=== PATIENT | female | born 1935 | race Caucasian/White ===

== ENCOUNTER 2017-08-13 08:49 | Emergency (ER) | payer OTHER, BC, SELFPAY ==
[2017-08-13 08:49] VITALS: BP 155/75; PULSE 74; RESP 18; TEMP 36.4; O2SAT 98; BMI 44.9
--- NOTE | 2017-08-13 08:58 | RAD_ITS ---
STUDY: X-RAY - RIGHT WRIST REASON FOR EXAM: Female, 82 years old. Fell on ice this morning. Pain. TECHNIQUE: 3 view(s) of the wrist were obtained. COMPARISON: None. FINDINGS: Normal visualized distal radius and ulna. There is degenerative arthrosis of the radiocarpal articulation. Normal distal radioulnar articulation. Normal carpal bones. There is degenerative arthrosis of the carpal articulations. There is degenerative arthrosis of the carpometacarpal articulation of the thumb. Normal second through fifth carpometacarpal articulations. Normal visualized metacarpal bones. The soft tissue structures are unremarkable. 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 Electronically Signed: Zaid Duran DO at 9:20 EST Tel [phone], Service support ,
--- NOTE | 2017-08-13 08:58 | CT_ITS ---
STUDY: CT CERVICAL SPINE WITHOUT CONTRAST REASON FOR EXAM: Female, 82 years old. Fell on ice this morning. Neck pain. RADIATION DOSAGE (If Supplied By Facility): CTDIvol = ( 26.48 ) mGy, DLP = ( 500.86 ) mGycm TECHNIQUE: High resolution transaxial imaging was performed without contrast material. Sagittal and coronal images were reconstructed. Individualized dose optimization techniques were used for this CT. COMPARISON: None FINDINGS: Normal craniovertebral junction. Normal anterior atlantoaxial articulation. Normal odontoid process. Normal cervical lordosis. Normal vertebral bodies and posterior osseous elements. There is no evidence of acute fracture or loss of vertebral axial height.. C2-3: Normal endplates. Normal disc height and morphology. Normal central canal and intervertebral neuroforamina. C3-4: Normal endplates. Normal disc height and morphology. There is mild facet and uncovertebral joint degenerative change. Normal central canal and intervertebral neuroforamina. C4-5: Normal endplates. Normal disc height and morphology. Minimal facet and uncovertebral joint degenerative change. Normal central canal and intervertebral neuroforamina. C5-6: There is loss of disc height with endplate spondylosis. There is facet and uncovertebral joint degenerative change. Normal central canal and intervertebral neuroforamina. C6-7: Normal endplates. There is mild loss of disc height. There is facet and uncovertebral joint degenerative change. Normal central canal and intervertebral neuroforamina. C7-T1: Normal endplates. Normal disc height and morphology. Normal central canal and intervertebral neuroforamina. Normal visualized soft tissue structures. CT/Spine Cervical without Contras IMPRESSION: Minimal degenerative changes of the cervical spine. There is no evidence of acute fracture or subluxation. Electronically Signed: Zaid Duran DO at 9:49 EST Tel [phone], Service support ,
--- NOTE | 2017-08-13 08:58 | CT_ITS ---
STUDY: CT BRAIN WITHOUT CONTRAST REASON FOR EXAM: Female, 82 years old. Fell on ice. No loss of consciousness. Neck pain. History of thyroid cancer with thyroidectomy and radiation. RADIATION DOSAGE (If Supplied By Facility): CTDIvol = ( 44.99 ) mGy, DLP = ( 779.24 ) mGycm TECHNIQUE: Transaxial CT imaging of the brain was performed without administration of intravenous contrast material. Individualized dose optimization techniques were used for this CT. COMPARISON: None. FINDINGS: Normal soft tissue structures. Normal calvarium. There is mild cerebral atrophy with widening of the extra-axial spaces and ventricular dilatation. There are areas of decreased attenuation within the white matter tracts of the supratentorial brain, consistent with microvascular disease changes. Normal basal ganglia and thalami. Normal brainstem. Normal cerebellum. There is no intracranial hemorrhage. There are no findings of an acute ischemic infarction. Normal visualized paranasal sinuses. CT/Brain/Head without Contrast IMPRESSION: Chronic involutional changes without evidence of acute intracranial or calvarial abnormality. Electronically Signed: Zaid Duran DO at 9:45 EST Tel [phone], Service support ,
--- NOTE | 2017-08-13 09:01 | ED.DCSUM_ITS ---
- ER Visit Summary Date of Service: 08/13/17 Chief Complaint: Mechanical fall History of Present Illness: The patient is a 82 F [place] to the emergency department after mechanical fall. The patient states that she is supposed to use a cane or walker, but out of pride she does not use it regularly. She was walking into her garage. She slipped on ice and fell. She struck her right neck on a door frame. She denies hitting her head. She denies loss of consciousness. She did catch herself with her right wrist. She states that because of her size and gait instability she was unable to get herself up. She sat outside for about an hour. She was able to call her granddaughter who was able to stand her. The patient was able to ambulate. She was brought in for further evaluation. She denies any anticoagulants. She denies any weakness or numbness. She denies being prodromal prior to the fall. Physical Examination: Vital signs reviewed General: Well-nourished, well-developed Head: Normocephalic, atraumatic Eyes: Pupils equal and reactive, extraocular muscles intact Neck, supple, no lymphadenopathy mild tenderness over right sternal clear mastoid musculature, no midline tenderness Heart: Regular rate and rhythm Respiratory: No distress, clear bilaterally Abdomen: Soft, nontender, nondistended, no peritoneal signs Back: Nontender Extremities: No tenderness of the wrist, normal pulses, skin intact, no edema, no cords Skin: Normal color no rash Neuro: Alert and oriented, no focal or lateralizing deficits Test Results: [] Emergency Department Course and Treatment: Patient did have a mechanical fall with no loss of consciousness. She does have some pain in the lateral neck. With her age, I did obtain head CT and CT C-spine. I also obtained x-rays of the wrist. She has no symptoms that concern me for arterial dissection. Her plain films and CTs were reviewed. The patient declined analgesics. Since images were unremarkable. This was a work-related injury patient be allowed to return to work at her next scheduled shift with minimal restrictions. She will be given follow-up with [employer]. The patient is discharged home. Treatment Plan: [] Disposition: Discharge Impression: 1. Cervical strain status post fall 2. Right wrist contusion status post fall This note was generated with [employer] software. It may contain incorrect words, spelling, and punctuation that were not noted in review of the chart prior to signing ED Disposition - Plan for ED Patient: Chief Complaint: Fall Instructions: ED Mechanical Fall Referrals: MUNIR AMARAL [GROUP OF PHYSICIANS] -
[2017-08-13 10:41] VITALS: BP 143/79; PULSE 82; RESP 16; O2SAT 97
== END 2017-08-13 10:42 | disposition home or self-care (01) ==
LOC: ED 09:46
PROVIDERS: Emergency Provider Emergency Medicine; Family Provider Internal Medicine; PCP Internal Medicine
DX: S10.93XA Contusion of unspecified part of neck, initial encounter (principal); S60.211A Contusion of right wrist, initial encounter; R26.89 Other abnormalities of gait and mobility; W00.0XXA Fall on same level due to ice and snow, initial encounter; Y93.01 Activity, walking, marching and hiking; Y92.9 Unspecified place or not applicable; E11.9 Type 2 diabetes mellitus without complications; I10 Essential (primary) hypertension; Z86.39 Personal history of other endocrine, nutritional and metabolic disease; Z79.01 Long term (current) use of anticoagulants; Z79.899 Other long term (current) drug therapy
CPT/HCPCS: 70450; 72125; 73110; 99282

== ENCOUNTER 2017-12-02 09:17 | Emergency (ER) | payer OTHER, BC, SELFPAY ==
[2017-12-02 09:18] VITALS: BP 160/135; PULSE 86; RESP 20; TEMP 36.4; O2SAT 96; BMI 45.4
--- NOTE | 2017-12-02 09:38 | ED.DCSUM_ITS ---
- ER Visit Summary Date of Service: 12/02/17 Chief Complaint: Fall History of Present Illness: The patient is a [address] Best. She reports that she was at work and caught her foot on TV stand and tripped. She hit the left side of her chin and supraclavicular area on a nightstand. She reports that she has pain is 4 out of 10 severity. She denies any blow to the head or loss of consciousness. She is not on blood thinners. Patient reports that initially the area was very swollen and that has actually improved greatly. Patient denies any C-spine pain, back, shoulder, wrist, or hip pain. She denies loose teeth or malocclusion. Physical Examination: Vitals: Stable. Afebrile. Neck: No vertebral tenderness. Full ROM without difficulty. Cleared by NEXUS criteria. Supraclavicular hematoma that is approximately 4 cm in diameter. This is not tense. Face: Soft tissue swelling and mild tenderness palpation to the angle of the left side of her mandible. She has no pain with opening and closing her mouth. No malocclusion. No pain over the TM joint. Back: No vertebral tenderness. General: A&O x 3. NAD. Cardiovascular exam: Regular rate and rhythm, no murmur, rub or gallop. Respiratory exam: Chest nontender. No crepitus. Clear to auscultation bilaterally. No wheezes or stridor. Abdominal exam: Soft, nontender, nondistended, normal bowel sounds. No pain in RUQ or LUQ specifically. No peritoneal signs. Extremity: Atraumatic. No pain with range of motion. No tenderness to palpation over her left clavicle. Emergency Department Course and Treatment: Patient refused pain medications and is asking to return to work at this time. Treatment Plan: Patient will be discharged with instructions to follow-up with corporate care in 1 week for another exam. Return to the emergency department for any worsening symptoms. Disposition: To home in improved and stable condition. Impression: 1. Fall. 2. Left supraclavicular hematoma. 3. Contusion left mandible. This note was generated with [employer] software. It may contain incorrect words, spelling, and punctuation that were not noted in review of the chart prior to signing ED Disposition - Plan for ED Patient: Chief Complaint: Fall Instructions: ED Hematoma Referrals: [facility] [GROUP OF PHYSICIANS] - 1 Week
[2017-12-02 11:35] VITALS: BP 140/70
[2017-12-02 11:38] VITALS: BP 140/70; PULSE 82; RESP 18
== END 2017-12-02 11:40 | disposition home or self-care (01) ==
PROVIDERS: Emergency Provider Emergency Medicine; Family Provider Internal Medicine; PCP Internal Medicine
DX: S10.83XA Contusion of other specified part of neck, initial encounter (principal); S00.83XA Contusion of other part of head, initial encounter; R40.2410 Glasgow coma scale score 13-15, unspecified time; W01.198A Fall on same level from slipping, tripping and stumbling with subsequent striking against other object, initial encounter; Y93.9 Activity, unspecified; Y92.9 Unspecified place or not applicable; I10 Essential (primary) hypertension; E03.9 Hypothyroidism, unspecified; Z79.01 Long term (current) use of anticoagulants; Z79.899 Other long term (current) drug therapy
CPT/HCPCS: 99283

== ENCOUNTER 2018-11-13 16:28 | Emergency (ER) | payer BC, SELFPAY ==
[2018-11-13 16:30] VITALS: BP 143/114; PULSE 99; RESP 16; TEMP 36.4; O2SAT 98; BMI 43.2
--- NOTE | 2018-11-13 16:51 | EKG12_ITS ---
Test Reason : PALPS Blood Pressure : / mmHG Vent. Rate : 092 BPM Atrial Rate : 096 BPM P-R Int : 000 ms QRS Dur : 064 ms QT Int : 354 ms P-R-T Axes : 000 -04 048 degrees QTc Int : 437 ms Atrial fibrillation Abnormal ECG Confirmed by RU CAMPBELL ([id number]), graphic editor WOODY JADE ([id number]) on 11/19/2018 3:31:41 PM Referred By: JENIFER Confirmed By:RU CAMPBELL
--- NOTE | 2018-11-13 16:51 | RAD_ITS ---
STUDY: X-RAY CHEST REASON FOR EXAM: Female, 83 years old. Dyspnea TECHNIQUE: Frontal view of the chest COMPARISON: X-Ray Chest June 20, 2015 FINDINGS: The lungs are clear. There are no pleural effusions. There is no pneumothorax. The heart is enlarged. The visualized osseous structures are within normal limits. 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 Cardiomegaly. Electronically Signed: Chip Dixon, at 17:29 EDT Tel , Service support ,
--- NOTE | 2018-11-13 16:54 | ED.DCSUM_ITS ---
- ER Visit Summary Date of Service: 11/13/18 Chief Complaint: A. fib History of Present Illness: The patient is a [address] Pereyra's office today to establish care. She was noted to be in atrial fibrillation with no known history. Patient thinks her last EKG was done approximately a year ago. She reports not taking her thyroid medication for the past 4 to 6 weeks. Patient has no complaints and states overall she is been feeling well. Physical Examination: Blood pressure is 143/114, temperature 97.6, heart rate 99, respiratory rate 16, pulse ox 98% on room air. Patient sitting upright in bed no acute distress. Head and neck examination unremarkable. Heart is irregular. Lung sounds clear. Abdomen is soft nontender. Test Results: EKG is atrial fibrillation at 92 bpm with no acute ST change. Portable chest x-ray shows cardiomegaly with no acute pathology. CBC and chemistry studies normal. Magnesium normal. TSH is normal at 0.36. Emergency Department Course and Treatment: Patient's heart rate has varied between 80 and 105 while in the emergency room. I spoke with Dr. Avila, on- call for cardiology. Patient will be given a 24-hour Holter monitor and will be started on Xarelto. She will follow-up in the office for an echocardiogram. I also spoke with Dr. Zapata, on-call for the patient's primary care physician Dr. Pereyra. With the patient's TSH currently being normal we will not restart her Synthroid. We will add a T3 and free T4 and patient will follow-up in the office to discuss need for her Synthroid. Treatment Plan: [] Disposition: Discharge Impression: 1. New onset A. fib This note was generated with [employer] dictation software. It may contain incorrect words, spelling, and punctuation that were not noted in review of the chart prior to signing ED Disposition - Plan for ED Patient: Disposition: Home or Assisted Living Instructions: ED Afib Prescriptions: Rivaroxaban [Xarelto] 15 mg PO BID #42 tablet Referrals: Chip Pereyra MD [Primary Care Provider] - 1 Week Linus Avila MD [STAFF PHYSICIAN] - As soon as possible Additional Instructions: Follow-up with Dr Pereyra about your thyroid tests and need for Synthroid. Follow-up with Dr Avila for the atrial fibrillation and for further testing.
[2018-11-13 17:01] LABS: Absolute Lymphocyte Count 1.75 X10^3/ul (0.83-4.51); Absolute Neutrophil Count 4.2 X10^3/uL (2.0-7.7); Basophil# 0.02 X10^3/uL; Basophil% 0.3 % (0-1); Eosinophil# 0.31 X10^3/uL; Eosinophils% 4.4 % (0-5); Hematocrit 40.7 % (37-47); Lymphocyte # 1.75 X10^3/ul (4.0); Mean Corp Hgb Conc 31.9 g/gl (32-36); Mean Corpuscular Hgb 29.5 pg (27.0-32.0); Mean Corpuscular Volume 92.5 fL (81-99); Mean Platelet Vol. 9.5 fl (6.2-12.0); Monocyte# 0.74 X10^3/uL; Monocyte% 10.6 % (0-10); Neutrophil # 4.15 X10^3/uL (2.7-7.7); Neutrophil % 59.4 % (47-70); Platelet Count 261 K/mm3 (150-450); RBC Distribution Width CV 13.3 % (11.6-14.6)
[2018-11-13 17:04] LABS: POSITIVE COUNT NO; POSITIVE DIFFERENTIAL NO; POSITIVE MORPHOLOGY NO
[2018-11-13 17:35] LABS: Anion Gap 5 (5-15); BUN 12 mg/dL (7-18); BUN/Creat Ratio 21.3 RATIO (10-20); Calcium,Total 8.6 mg/dL (8.5-10.1); Chloride 108 mmol/L (98-107); Creatinine, Serum 0.56 mg/dL (0.55-1.02); EST Glomerular Filtration Rate 109 mL/min (>60); Est Glom Filt Rate - Afr Amer 132 mL/min (>60); Estimated Creatinine Clearance 39.03 ml/min; Glucose 96 mg/dL (74-106); Magnesium 1.8 mg/dL (1.6-2.6); Sodium Level 141 mmol/L (136-145); Thyroid Stim Hormone (TSH) 0.36 uIU/mL (0.358-3.74)
[2018-11-13] MEDS: Rivaroxaban 15 MG Tablet PO (18:23)
[2018-11-13 18:29] VITALS: BP 129/92; PULSE 79; RESP 19; O2SAT 98
[2018-11-13 19:13] VITALS: BP 149/75; PULSE 79; RESP 17; O2SAT 95
[2018-11-13 19:36] LABS: T4 Free Direct 1.64 ng/dL (0.76-1.46)
[2018-11-13 19:46] LABS: T3 Total - Triiodothyronine 0.96 ng/mL (0.6-1.81)
== END 2018-11-13 19:14 | disposition home or self-care (01) ==
PROVIDERS: Emergency Provider Emergency Medicine; Family Provider Family Medicine; PCP Family Medicine
DX: I48.91 Unspecified atrial fibrillation (principal); I11.9 Hypertensive heart disease without heart failure; Z91.14 Patient's other noncompliance with medication regimen; J44.9 Chronic obstructive pulmonary disease, unspecified; E03.9 Hypothyroidism, unspecified; Z85.850 Personal history of malignant neoplasm of thyroid; Z86.718 Personal history of other venous thrombosis and embolism; Z86.711 Personal history of pulmonary embolism; Z87.891 Personal history of nicotine dependence; Z79.899 Other long term (current) drug therapy
CPT/HCPCS: 71045; 80048; 83735; 84439; 84443; 84480; 85025; 93005; 99285; J7030; A4216

== ENCOUNTER → 2018-11-13 | Outpatient (CLI) | payer BC, SELFPAY ==
[2018-11-13 16:30] VITALS: BMI 43.2
== END | disposition home or self-care (01) ==
LOC: CVS 18:14
PROVIDERS: Family Provider Family Medicine; PCP Family Medicine; Referring Provider Emergency Medicine; Visit Provider Emergency Medicine
DX: I48.91 Unspecified atrial fibrillation (principal)
CPT/HCPCS: 93225; 93226

== ENCOUNTER 2020-09-28 15:31 | Inpatient (IN) | payer MEDICARE, SELFPAY ==
[2020-09-28] VITALS (12 sets, daily range): BP systolic 91–142; BP diastolic 43–94; PULSE 74–157; RESP 20–29; TEMP 36.6–36.8; O2SAT 91–100; BMI 34.1
--- NOTE | 2020-09-28 15:58 | EKG12_ITS ---
Test Reason : AFIB Blood Pressure : / mmHG Vent. Rate : 151 BPM Atrial Rate : 131 BPM P-R Int : 000 ms QRS Dur : 072 ms QT Int : 272 ms P-R-T Axes : 000 006 058 degrees QTc Int : 431 ms Atrial fibrillation with rapid ventricular response Low voltage QRS Nonspecific ST and T wave abnormality Abnormal ECG Confirmed by NAA WYLIE, SHERLYN ([id number]), food expeditor MIGUEL FARMER ([id number]) on 10/01/2020 9:38:44 AM Referred By: SOPHIA Confirmed By:SHERLYN JACOME MD
[2020-09-28 16:08] LABS: Absolute Lymphocyte Count 0.48 X10^3/uL (0.83-4.51); Absolute Neutrophil Count 16.9 X10^3/uL (2.0-7.7); Basophil# 0.04 X10^3/uL; Basophil% 0.2 % (0-1); Eosinophil# 0.04 X10^3/uL; Eosinophils% 0.2 % (0-5); Hematocrit 39.2 % (37-47); Hemoglobin 12.9 g/dL (12.0-15.0); Lymphocyte # 0.48 X10^3/ul (4.0); Lymphocyte % 2.4 % (19-41); Mean Corp Hgb Conc 32.9 g/dL (32-36); Mean Corpuscular Hgb 31.7 pg (27.0-32.0); Mean Corpuscular Volume 96.3 fL (81-99); Mean Platelet Vol. 9.1 fl (6.2-12.0); Monocyte# 2.03 X10^3/uL; Monocyte% 10.3 % (0-10); NRBC Flagged by Analyzer 0 % (0-5); Neutrophil # 16.89 X10^3/uL (2.7-7.7); Neutrophil % 85.8 % (47-70); POSITIVE DIFFERENTIAL YES; Platelet Count 396 K/mm3 (150-450); RBC Distribution Width CV 13.7 % (11.6-14.6); RBC Distribution Width SD 48.3 fl (35.1-43.9); Red Blood Count 4.07 M/mm3 (4.2-5.4); White Blood Count 19.7 K/mm3 (4.4-11.0)
[2020-09-28 16:10] LABS: Differential Indicated SCAN CRITERIA MET
[2020-09-28] MEDS: Aspirin 81 MG TAB.CHEW 324 MG PO (16:15)
[2020-09-28] MEDS: dilTIAZem 25 MG/5 ML Vial 20 MG IV BOLUS (16:15)
--- NOTE | 2020-09-28 16:23 | RAD_ITS ---
STUDY: X-RAY CHEST REASON FOR EXAM: Female, 85 years old. chest pain GENERALIZED WEAKNESS FOR SEVERAL DAY. PT REPORTS PAIN UNDER RIGHT BREAST AREA. DENIES INJURY the remaining visualized lung diaz are clear. Stable bilateral shoulder prostheses. TECHNIQUE: Single AP portable view of the chest. COMPARISON: NOVEMBER 13, 2018 FINDINGS: Small wedge-shaped region of consolidation is present in the right lower lobe most likely due to pneumonia. The lungs are clear and expanded. There is no demonstrated pleural abnormality. Normal size heart. Normal mediastinum and tin. Normal visualized pulmonary arteries. Normal visualized aortic arch and descending thoracic aorta. There are diffuse degenerative changes of the visualized thoracic spine. Normal visualized ribs, clavicles, and shoulders. There is no demonstrated abnormality of the visualized soft tissue structures of the upper abdomen. RAD/Chest 1 View (Portable) IMPRESSION: Right lower lobe pneumonia Electronically Signed: Nick Love MD at 17:35 EDT , Service support ,
[2020-09-28 16:36] LABS: Differential Comment SCANNED
[2020-09-28 16:45] LABS: BNP,B-Type NATRIURETIC PEPTIDE 182.9 pg/mL (0-100)
[2020-09-28 17:26] LABS: Lactic Acid 1.3 mmol/L (0.4-1.9)
[2020-09-28 17:42] LABS: Lipase 50 U/L (73-393)
[2020-09-28 17:46] LABS: AST(SGOT) 18 U/L (15-37); Alanine Aminotransfer ALT/SGPT 12 U/L (13-56); Albumin, Serum 2.7 g/dL (3.2-5.0); Alkaline Phosphatase 111 U/L (45-117); Bilirubin, Direct 0.52 mg/dL (0.00-0.30); Globulin 4.7 g/dL (2.2-4.2); Protein, Total 7.4 g/dL (6.4-8.2)
--- NOTE | 2020-09-28 17:53 | ED.RN ---
called lab to draw pt bloodwork
[2020-09-28 17:59] LABS: Anion Gap 7 (5-15); BUN 6 mg/dL (7-18); Calcium,Total 9.1 mg/dL (8.5-10.1); Chloride 100 mmol/L (98-107); Creatinine, Serum 0.54 mg/dL (0.55-1.02); EST Glomerular Filtration Rate 114 mL/min (>60); Est Glom Filt Rate - Afr Amer 137 mL/min (>60); Estimated Creatinine Clearance 37.68 ml/min; Glucose 111 mg/dL (74-106); Magnesium 1.6 mg/dL (1.6-2.6); Potassium 3.9 mmol/L (3.5-5.1); Sodium Level 135 mmol/L (136-145)
[2020-09-28 18:09] LABS: International Normalized Ratio 1.3; Prothrombin Time (Protime)PT. 15.2 SECONDS (11.7-14.9)
[2020-09-28] MEDS: 0.9% Normal Saline 1,000 ML 999 ML IV (18:09)
[2020-09-28 18:10] LABS: Partial Thromboplast Time 29.9 Seconds (24.1-36.2)
--- NOTE | 2020-09-28 18:28 | CT_ITS ---
We are attempting to reach an attending provider to discuss findings. An addendum with communication details will be sent when the communication is complete. STUDY: CTA CHEST REASON FOR EXAM: Female, 85 years old. PE RADIATION DOSAGE (If Supplied By Facility): CTDIvol = ( 32.9 ) mGy, DLP = ( 548.22 ) mGycm TECHNIQUE: The examination was performed with the intravenous administration of IV 100mL Isovue-370. Post-processing of the angiographic images was performed, with multiplanar reformation and 3D reconstruction. Individualized dose optimization techniques were used for this CT. COMPARISON: Chest x-ray dated September 28, 2020. CT of the chest dated February 05, 2015 FINDINGS: Partially occlusive clots are present in the distal branching point of the right main pulmonary artery extending into the secondary and tertiary arterial branches throughout the right lung. Moderate size wedge-shaped area of consolidation in the right lower lobe is compatible with infarction related to the pulmonary artery emboli. Small emboli are present in several of the secondary and tertiary arterial branches of the left pulmonary artery. The left main pulmonary artery is normal as well as a trauma. A small right pleural effusion is also present. Mild basilar atelectasis is present in the right lung base. There may be some mild groundglass edema bilaterally, but this could be related to respiratory motion artifact. No nodules are present. There is atherosclerotic calcification of the aortic arch with tortuosity. There is no demonstrated aortic dissection. Normal heart size and pericardium. Normal mediastinum. Normal hilar regions. Normal visualized trachea and bronchi. The lungs are well expanded. Normal chest wall structures. There are degenerative changes of thoracic spine. Normal visualized upper abdomen. CT/CTA Chest W/WO Contrast IMPRESSION: 1. Bilateral pulmonary artery emboli, right greater than left = Partially occlusive clots are present in the distal branching point of the right main pulmonary artery extending into the secondary and tertiary arterial branches throughout the right lung. 2. Moderate size wedge-shaped area of consolidation in the right lower lobe is compatible with infarction related to the pulmonary artery emboli. 3. Small emboli are present in several of the secondary and tertiary arterial branches of the left pulmonary artery. The left main pulmonary artery is normal as well as a trauma. A small right pleural effusion is also present. Electronically Signed: Nick Love MD at 20:06 EDT , Service support ,
[2020-09-28 18:34] LABS: Mucous, Urine 0 SEEN /hpf (<or=2+)
[2020-09-28 18:40] LABS: Color, Urine Yellow (Yellow); Glucose, Dipstick Normal (Normal); Ketone-Dipstick Negative (Negative); Leukocyte Esterase-Dipstick 25 /ul (Negative); Nitrite-Dipstick Negative (Negative); Occult Blood-Urine 10 /ul (Negative); Protein-Dipstick Negative (Negative); Urine Clarity Cloudy (Clear); Urine Urobilinogen 12 mg/dl (Normal)
[2020-09-28 18:58] LABS: Urine Bilirubin Dipstick 1 mg/dL (Negative)
[2020-09-28 19:02] LABS: Bacteria 4+ /hpf (None Seen); Red Blood Cells-Urine 0-5 SEEN /hpf (0-5); Squamous Epithelial Cells - UA 0-5 SEEN /hpf (5-10); White Blood Cells 0-5 SEEN /hpf (0-5)
[2020-09-28 19:03] LABS: Free T3 1.5 pg/mL (2.18-3.98); T4 Free Direct 1.91 ng/dL (0.76-1.46)
[2020-09-28] MEDS: fentaNYL 100 MCG/2 ML Ampul 50 MCG IV (20:04)
--- NOTE | 2020-09-28 20:23 | ED.DCSUM_ITS ---
- ER Visit Summary Date of Service: 09/28/20 Chief Complaint: Chest pain History of Present Illness: The patient is a [address] Pereyra. She reports she has right-sided chest pain that began 2 to 3 hours ago. Is an aching pain is 7-10 worsened 510 currently. Is worsened by movement relieved by remaining still. She said chills and shortness of breath. She reports that she has been nausea and vomited once today. No blood in her emesis. She denies any other complaints. Physical Examination: Vitals: 98.2, 132/91, 164, 24, 93% room air which is not hypoxic. General: Well-nourished and well-developed. Head: Normocephalic atraumatic. Neck: Supple, no lymphadenopathy. No JVD. Nontender. Cardiovascular: Tachycardic regular rhythm with a 3 out of 6 stock murmur. Respiratory: No respiratory distress. Clear to auscultation bilaterally. Abdominal: Soft, nontender, nondistended, normal bowel sounds. No guarding, rebound, or peritoneal signs. Back: Nontender. Extremities: Nontender, 3+ pitting edema lower extremities bilaterally. Skin: Normal color, no rash. Neurologic: Alert and oriented ?3. Cranial nerves II through XII are intact. Normal strength and sensation. Psych: Normal affect. Test Results: EKG is A. fib at [address] changes. Is unchanged from October 2018 other than the rate. Troponin is negative. BNP is 182.9. Lactic acid is 1.3. D-dimer is 14.2. UA shows leukocytes. LFTs show total bili 1.2, direct bili 0.52, ALT of 12, albumin of 2.7. Lipase is 50. INR is 1.3. PTT is 29.9. Chem-7 shows a sodium 135, glucose 111, BUN 6, creatinine 0.54. CBC shows a white count 19.736 7 neutrophils, 10 monocytes, 2 lymphocytes, 1.1% immature granulocytes. TSH is 0.1. Clinical Impression(s) from Imaging Studies Chest X-Ray 09/28/20 16:23 IMPRESSION: Right lower lobe pneumonia Electronically Signed: Nick Love MD at 17:35 EDT , Service support , ADDENDUM: 09/28/202013 Chest CTA 09/28/20 18:28 IMPRESSION: 1. Bilateral pulmonary artery emboli, right greater than left = Partially occlusive clots are present in the distal branching point of the right main pulmonary artery extending into the secondary and tertiary arterial branches throughout the right lung. 2. Moderate size wedge-shaped area of consolidation in the right lower lobe is compatible with infarction related to the pulmonary artery emboli. 3. Small emboli are present in several of the secondary and tertiary arterial branches of the left pulmonary artery. The left main pulmonary artery is normal as well as a trauma. A small right pleural effusion is also present. Electronically Signed: Nick Love MD at 20:06 EDT , Service support , Emergency Department Course and Treatment: Initially the patient did not have a fever to make me think that she was septic she was given dose of Cardizem IV. When her white count returned I did not give her any further rate limiting agents. She was given 2 L normal saline. Chest x-ray was read as an infiltrate. She was given Unasyn and Zithromax IV. Unasyn was chosen because patient has a history of a Zenker's diverticulum and does aspirate. When the CT returned patient was given Lovenox subcu. Treatment Plan: The patient was discussed with Dr. Villareal. With her atrial fibrillation with RVR and hypotension she was given 300 mg of amiodarone IV. Heart rate decreased into the high 90s low 100s. However, she remained in atrial fibrillation. She had procedural sedation undertaken with 8 mg of etomidate. She had synchronized cardioversion performed with 200 J a single time and did go into sinus rhythm. Patient was discussed with Dr. Whitaker. She will be admitted to the hospital for further relation and treatment. Disposition: Admitted in serious condition. Impression: 1. Bilateral pulmonary emboli. 2. Right pulmonary infarct. 3. Atrial fibrillation with RVR. 4. Low TSH. 5. Critical care time 40 minutes. 6. Procedural sedation. 7. Cardioversion. This note was generated with [employer] software. It may contain incorrect words, spelling, and punctuation that were not noted in review of the chart prior to signing ED Disposition - Plan for ED Patient: Referrals: Chip Pereyra MD [Primary Care Provider] -
--- NOTE | 2020-09-28 21:22 | HP.PCM_ITS ---
Problem List (1) Acute respiratory failure with hypoxemia Status: Inactive (2) Atrial fibrillation Status: Acute (3) Pulmonary embolism Status: Acute (4) COPD (chronic obstructive pulmonary disease) Status: Chronic (5) Esophageal diverticulum Status: Chronic (6) GERD (gastroesophageal reflux disease) Status: Chronic (7) HTN (hypertension) Status: Chronic (8) History of thyroid cancer Status: Chronic (9) Hypothyroidism Status: Chronic (10) Morbid obesity with BMI of 45.0-49.9, adult Status: Chronic (11) Pure hypercholesterolemia Status: Chronic (12) DVT (deep venous thrombosis) Status: Suspected Comment: RLE, popliteal (13) Sleep apnea in adult Status: Suspected History of Present Illness Date of Admission: 09/28/20 Chief Complaint: Pain under right breast The patient is a 85 year old F with a significant history of Zenker diverticulum; thyroid cancer status post thyroidectomy; COPD; hypertension; and morbid obesity who presents to the emergency department with excruciating pain under her right breast. She described the pain as sharp. The pain improves with sitting up. The pain worsens with taking a deep breath. The pain is nonradiating. At baseline patient has difficulty walking. In the last week she has had more difficulty walking and has been immobile. Reportedly about 10 months ago her PCP told her she had atrial fibrillation. Reportedly she was sent to the emergency department and further work-up at that time did not show that she had A. fib. Past Medical History Past Medical History (Chronic Problems): Chronic Problems Esophageal diverticulum (Chronic) History of thyroid cancer (Chronic) GERD (gastroesophageal reflux disease) (Chronic) Morbid obesity with BMI of 45.0-49.9, adult (Chronic) Pure hypercholesterolemia (Chronic) Hypothyroidism (Chronic) COPD (chronic obstructive pulmonary disease) (Chronic) HTN (hypertension) (Chronic) Allergies codeine Adverse Reaction (Verified 09/28/20 19:05) I just didn't like how it made me feel Home Medications: Ambulatory Orders Medication Instructions Recorded Cholecalciferol (Vitamin D3) 2,000 unit PO DAILY 09/28/20 [Vitamin D3] Furosemide [Lasix] 20 mg PO DAILY PRN 09/28/20 Gabapentin [Neurontin] 100 mg PO TID 09/28/20 Levothyroxine [Synthroid] 150 mcg PO DAILY 09/28/20 Metoprolol Tartrate [Lopressor 25 mg PO BID 09/28/20 (beta juancarlos)] Zinc 50 mg PO DAILY 09/28/20 Surgical History: - - Thyroid resection, LUE tumor removal. 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 Denies: Chest Pain, Palpitations Respiratory: Reports: Cough - Chronic, Sputum production. Denies: Shortness of breath at rest Gastrointestinal: Denies: Abdominal Pain, Nausea, Vomiting Genitourinary: Denies: Dysuria Musculoskeletal: Denies: Joint Pain, Joint Tenderness Skin: Denies: Rash, Wounds Neurological: Denies: Numbness, Tingling, Focal weakness Psychiatric: Denies: Anxiety, Depression, Homicidal Ideations, Suicidal Ideations Hematologic/ Lymphatic: Denies: Easy Bruising, Easy Bleeding VTE Information - Inpt Only VTE Present on Admission: Yes - Given therapeutic dose of Lovenox at the ED. VTE Mechan Device Prophylaxis: None VTE Pharm Prophylaxis ordered?: No Patient Problems: Active and Suspected Problems Atrial fibrillation (Acute) Pulmonary embolism (Acute) DVT (deep venous thrombosis) (Suspected) RLE, popliteal Sleep apnea in adult (Suspected) - Physical Exam Vitals/I&O's: Vital Signs Temp Pulse Resp BP Pulse Ox 98.2 F 126 H 24 H 112/74 92 09/28/20 15:32 09/28/20 20:08 09/28/20 20:08 09/28/20 20:08 09/28/20 20:08 Oxygen Flow Rate (L/min) 2 Oxygen Delivery Method Room Air Weight: 92.986 kg Body Mass Index (BMI) 34.1 Intake and Output for Last 24 Hours 09/26/20 09/27/20 09/28/20 23:59 23:59 23:59 Intake Total 1112 / 1112 Balance 1112 / 1112 General: Alert, Oriented x3, Cooperative HEENT: Atraumatic, PERRLA, EOMI, Normocephalic Neck: Supple, No JVD, Negative Carotid Bruits Lungs: Clear to auscultation, Normal air movement Cardiovascular: Normal S1, Normal S2, No murmurs, Irregular Rate, Tachycardic Abdomen: Bowel Sounds Present, Soft, Non Tender Extremities: Capillary Refill Less than 3 Seconds, Edema - Bilateral leg edema Skin: No rashes, No breakdown Musculoskeletal: No Tenderness to Palpation of Joints or Extremities Neurological: Cranial nerves II-XII grossly intact Psych/Mental Status: Normal Affect, Appropriate Microbiology Past 72 Hours 09/28/20 16:05 Mucosa - Nose SARS-CoV-2 Antigen (Rapid) - Final Laboratory Results 09/28/20 16:00: WBC 19.7 H, RBC 4.07 L, Hgb 12.9, Hct 39.2, MCV 96.3, MCH 31.7, MCHC 32.9, RDW Std Deviation 48.3 H, RDW Coeff of Radha 13.7, Plt Count 396, MPV 9.1, Immature Gran % (Auto) 1.100 H, Neut % (Auto) 85.8 H, Lymph % (Auto) 2.4 L, [place] % (Auto) 10.3 H, Eos % (Auto) 0.2, Baso % (Auto) 0.2, Absolute Neuts (auto) 16.9 H, Absolute Lymphs (auto) 0.48 L, Nucleated RBC % 0, Differential Comment SCANNED, Diff Path Review October foll 09/28/20 16:00: Sodium Cancelled, Potassium Cancelled, Chloride Cancelled, Carbon Dioxide Cancelled, Anion Gap Cancelled, BUN Cancelled, Creatinine Cancelled, Estim Creat Clear Calc Cancelled, Est GFR (MDRD) Af Amer Cancelled, Est GFR (MDRD) Non-Af Cancelled, BUN/Creatinine Ratio Cancelled, Glucose Cancelled, Calcium Cancelled, Magnesium Cancelled, Troponin I Cancelled, TSH Cancelled 09/28/20 16:00: B-Natriuretic Peptide 182.9 H 09/28/20 16:40: PT Cancelled, INR Cancelled, APTT Cancelled, D-Dimer Quant (PE/DVT) Cancelled 09/28/20 16:40: Lactic Acid 1.3 09/28/20 17:06: Sodium 135 L, Potassium 3.9, Chloride 100, Carbon Dioxide 28.0, Anion Gap 7, BUN 6 L, Creatinine 0.54 L, Estim Creat Clear Calc 37.68, Est GFR (MDRD) Af Amer 137, Est GFR (MDRD) Non-Af 114, BUN/Creatinine Ratio 11.0, Glucose 111 H, Calcium 9.1, Magnesium 1.6, Troponin I < 0.015, TSH 0.10 L 09/28/20 17:06: Total Bilirubin 1.20 H, Direct Bilirubin 0.52 H, AST 18, ALT 12 L, Alkaline Phosphatase 111, Total Protein 7.4, Albumin 2.7 L, Globulin 4.7 H 09/28/20 17:06: Lipase 50 L 09/28/20 17:06: Free T4 1.91 H, Free T3 pg/dL 1.5 L 09/28/20 17:56: PT 15.2 H, INR 1.3, APTT 29.9, D-Dimer Quant (PE/DVT) 14.20 H* 09/28/20 18:30: Urine Color Yellow, Urine Clarity Cloudy, Urine pH 7.0, Ur Specific [place] 1.010, Urine Protein Negative, Urine Glucose (UA) Normal, Urine Ketones Negative, Urine Occult Blood 10 H, Urine Nitrite Negative, Urine Bilirubin 1 H, Urine Urobilinogen 12 H, Ur Leukocyte Esterase 25 H, Urine RBC 0- 5 SEEN, Urine WBC 0-5 SEEN, Ur Squamous Epith Cells 0-5 SEEN, Urine Bacteria 4+, Urine Mucus 0 SEEN Current Medications Amiodarone HCl 360 mg/ (Dextrose) 200 mls @ 33.333 mls/hr CONT INF .Q6H SEJAL Stop: 09/29/20 02:54 Assessment/Plan All Active Problems Atrial fibrillation (Acute) Pulmonary embolism (Acute) The patient is a 85 year old F with a significant history of Zenker diverticulum; thyroid cancer status post thyroidectomy; COPD; hypertension; and morbid obesity who presents emergency department with excruciating pain under her right breast; immobility and found to have A. fib with RVR and bilateral PE. A. fib with RVR Place on PCU on stepdown unit. Review of old records: ECG on 11/13/2018 showed atrial fibrillation with a controlled ventricular response. Of note patient was on a heart monitor that was reviewed on 11/13/2018. Holter monitor interpreted at that time as rare premature ventricular complexes, no runs noted. Patient kept 24-hour diary at that time. Serial cardiac enzymes Obtain echo Per cardiology recommendation therapeutic Lovenox was given at emergency department. Lovenox 1 mg per kilogram subcutaneous every 12 hours ordered Received amiodarone bolus after which patient was cardioverted into sinus rhythm with PACs. Whiles on the floor patient was started on amiodarone drip. With amiodarone drip patient became hypotensive and amiodarone drip was discontinued. Received Cardizem bolus at the emergency department. Potassium at emergency department was 3.9. Potassium 10 mEq x 1 ordered. Magnesium was 1.6. Magnesium 4 g ordered. Consult [facility] TSH was low. Synthroid adjusted as below. Hold home metoprolol for hypotension. Bilateral PE Chest CTA showed bilateral pulmonary anterior emboli with wedge-shaped area of consolidation in the right lower lobe compatible with infection. Mild pleural effusion was noted. Actual CTA image was independently interpreted. I agree with radiologist interpretation. Impression of chest x-ray by radiology: Right lower lobe pneumonia. Following this interpretation patient was given IV antibiotics. However with a chest CTA confirming a PE no need of antibiotics at this time. See therapy dose of Lovenox at the emergency department. Therapeutic Lovenox subcutaneous continue. We will get an echocardiogram. We will trend troponins. Hypothyroidism Patient with thyroid cancer status post thyroidectomy and on levothyroxine. TSH low. Free T4 elevated and free T3 low. De-escalate dose of Synthroid. DVT Prophylaxis Not indicated since patient has been started on therapeutic dose of Lovenox for A. fib and PE. Inpatient E&M: 75200 Init Hosp L3
[2020-09-28] MEDS: Enoxaparin 100 MG/ML Syringe 90 MG SC (21:29)
[2020-09-28] MEDS: Etomidate 20 MG/10 ML Vial 8 MG IV (22:27)
--- NOTE | 2020-09-28 23:57 | ECHOCS_ITS ---
Reason For Study: Afib/Flutter Procedure This was a 2D Doppler, Color Flow transthoracic echocardiogram. The study was technically difficult. Contrast injection was performed. Exam performed portable in patient room. Left Ventricle Normal LV size. Left ventricular systolic function is normal. The estimated ejection fraction is 60 %. Stage 3 diastolic dysfunction. No regional wall motion abnormalities noted. Right Ventricle Normal RV size. Normal systolic function. Atria The left atrium is mildly enlarged. The right atrium is mildly enlarged. Mitral Valve Normal mitral valve. Tricuspid Valve Normal tricuspid valve. Moderate (2+) tricuspid valve insufficiency. Pulmonary artery systolic pressure is 62 mmHg. Aortic Valve Trisinus/trileaflet aortic valve. Mild focal aortic valve calcification. Pulmonic Valve The pulmonic valve is not well visualized. Great Vessels Normal aortic root. The pulmonary artery is normal size. Normal inferior vena cava. Pericardium/Pleural No pericardial effusion. Medication Diluted definity 5ml given slow IV push to enhance endocardial definition. MMode/2D Measurements & Calculations LVIDd: 3.9 cm IVSd: 1.0 cm Ao root diam: 3.5 cm LVIDs: 2.5 cm LVPWd: 1.2 cm LA dimension: 4.1 cm FS: 34.8 % LAV(MOD-bp): 80.7 ml LA A4 area: 25.1 cm2 RA A4 area: 24.1 cm2 LAV(MOD-bp) Indexed: 37.1 ml/m2 LAV(MOD-sp2): 80.7 ml LAV(MOD-sp4): 76.5 ml Time Measurements MV dec time: 0.22 sec Doppler Measurements & Calculations MV E max [place]: 126.8 cm/sec Lat Peak E' [place]: 10.7 cm/sec Med Peak E' [place]: 7.4 cm/sec MV A max [place]: 51.9 cm/sec E/E' lat: 11.8 E/E' med: 17.2 MV E/A: 2.4 MV V2 max: 134.1 cm/sec MV P1/2t max [place]: 135.6 cm/sec Ao V2 max: 124.7 cm/sec MV max P.2 mmHg MV P1/2t: 72.0 msec Ao max P.2 mmHg MV V2 mean: 59.9 cm/sec MV dec slope: 551.6 cm/sec2 MV mean P.9 mmHg MV V2 VTI: 27.9 cm MVA(P1/2t): 3.1 cm2 LV V1 max: 93.3 cm/sec PA V2 max: 81.5 cm/sec TR max [place]: 382.7 cm/sec LV V1 max P.5 mmHg TR max P.6 mmHg ECHO/Echo Complete W/ Contrast Interpretation Summary Normal LV size. Left ventricular systolic function is normal. The estimated ejection fraction is 60 %. Moderate (2+) tricuspid valve insufficiency. Pulmonary artery systolic pressure is 62 mmHg. Stage 3 diastolic dysfunction. The right atrium is mildly enlarged. Compared to the previous the pulmonary pressures are noted to be more elevated. Contrast injection was performed. Ordering Physician: Stanford Whitaker Referring Physician: Chip Pereyra Performed By: Mk Jean RCS
[2020-09-29] VITALS (22 sets, daily range): BP systolic 80–121; BP diastolic 41–70; PULSE 62–88; RESP 13–25; TEMP 36.3–36.8; O2SAT 91–96; BMI 41.8
--- NOTE | 2020-09-29 00:25 | EKG12_ITS ---
Test Reason : RHYTHM CHANGE Blood Pressure : / mmHG Vent. Rate : 083 BPM Atrial Rate : 083 BPM P-R Int : 176 ms QRS Dur : 070 ms QT Int : 374 ms P-R-T Axes : 088 -06 041 degrees QTc Int : 439 ms Sinus rhythm with marked sinus arrhythmia Nonspecific T wave abnormality Abnormal ECG Confirmed by NAA WYLIE, SHERLYN ([id number]), sound editor MIGUEL FARMER ([id number]) on 09/30/2020 8:30:15 AM Referred By: MO Confirmed By:SHERLYN JACOME MD
[2020-09-29] MEDS: Amiodarone 360 MG in Dextrose 5% Viaflo Bag 192.8 ML 33.3 MG CONT INF (00:54)
[2020-09-29] MEDS: 0.9% Saline Lock 10 ML Syringe IV (01:01)
[2020-09-29] MEDS: Magnesium Sulfate 4gm/100mL 4 GM/100 ML IV.SOLN. IV (01:01)
[2020-09-29] MEDS: Potassium Chloride Oral Tablet 10 MEQ PO (01:02)
[2020-09-29] MEDS: Nystatin Powder 15gm Bottle 1 APPLIC TOPICAL ×3 (05:21→21:46)
[2020-09-29] MEDS: Gabapentin 100 MG Capsule PO ×3 (05:21→21:45)
[2020-09-29] MEDS: Levothyroxine 125 MCG Tablet PO (05:21)
[2020-09-29 06:22] LABS: Absolute Lymphocyte Count 1.58 X10^3/uL (0.83-4.51); Basophil# 0.04 X10^3/uL; Basophil% 0.2 % (0-1); Eosinophils% 0.9 % (0-5); Hematocrit 34.3 % (37-47); Hemoglobin 11.2 g/dL (12.0-15.0); Lymphocyte # 1.58 X10^3/ul (4.0); Lymphocyte % 7.5 % (19-41); Mean Corp Hgb Conc 32.7 g/dL (32-36); Mean Corpuscular Hgb 31.8 pg (27.0-32.0); Mean Corpuscular Volume 97.4 fL (81-99); Mean Platelet Vol. 8.8 fl (6.2-12.0); Monocyte# 2.01 X10^3/uL; Monocyte% 9.5 % (0-10); NRBC Flagged by Analyzer 0 % (0-5); Neutrophil # 17.04 X10^3/uL (2.7-7.7); Neutrophil % 80.6 % (47-70); POSITIVE DIFFERENTIAL YES; Platelet Count 333 K/mm3 (150-450); RBC Distribution Width CV 13.8 % (11.6-14.6); RBC Distribution Width SD 48.8 fl (35.1-43.9); Red Blood Count 3.52 M/mm3 (4.2-5.4); White Blood Count 21.1 K/mm3 (4.4-11.0)
[2020-09-29 06:23] LABS: Differential Indicated SCAN CRITERIA MET
[2020-09-29 06:52] LABS: Anion Gap 5 (5-15); BUN 7 mg/dL (7-18); BUN/Creat Ratio 17.2 RATIO (10-20); Calcium,Total 8.5 mg/dL (8.5-10.1); Chloride 103 mmol/L (98-107); Creatinine, Serum 0.41 mg/dL (0.55-1.02); EST Glomerular Filtration Rate 159 mL/min (>60); Est Glom Filt Rate - Afr Amer 192 mL/min (>60); Estimated Creatinine Clearance 37.68 ml/min; Glucose 105 mg/dL (74-106); Potassium 3.8 mmol/L (3.5-5.1); Sodium Level 134 mmol/L (136-145)
--- NOTE | 2020-09-29 07:37 | CON.PCM_ITS ---
Reason for Consult Date of Consultation: 09/29/20 Reason for Consultation: Shortness of breath. History of Present Illness: The patient is a 85 year old F with no previous cardiac history who presented to the emergency room last night with complaints of shortness of breath which she s aid has been going on for a few days. She had a cough with no evidence of hemoptysis. She is also noted some palpitations. She presented to the emergency room and was noted to be in atrial fibrillation with a rapid ventricular response rate and hypotensive. She was also noted to have a high white count as well as a markedly elevated D-dimer. A CT scan was done which demonstrated evidence of bilateral pulmonary emboli. I was called from the emergency room for further evaluation and management it was decided that due to her apparent symptomatology that she undergo treatment with Lovenox, IV amiodarone and immediate DC cardioversion. She will continue with anticoagulation afterwards. This was successful and this morning she is in sinus rhythm and feeling better. She denies any dizziness or previous evidence of pulmonary emboli. [] Past Medical History Allergies/Adverse Reactions: Allergies codeine Adverse Reaction (Verified 09/28/20 19:05) I just didn't like how it made me feel Home Medications: Ambulatory Orders Medication Instructions Recorded Cholecalciferol (Vitamin D3) 2,000 unit PO DAILY 09/28/20 [Vitamin D3] Furosemide [Lasix] 20 mg PO DAILY PRN 09/28/20 Gabapentin [Neurontin] 100 mg PO TID 09/28/20 Levothyroxine [Synthroid] 150 mcg PO DAILY 09/28/20 Metoprolol Tartrate [Lopressor 25 mg PO BID 09/28/20 (beta juancarlos)] Zinc 50 mg PO DAILY 09/28/20 Past Medical History (Chronic Problems): Chronic Problems Esophageal diverticulum (Chronic) History of thyroid cancer (Chronic) GERD (gastroesophageal reflux disease) (Chronic) Morbid obesity with BMI of 45.0-49.9, adult (Chronic) Pure hypercholesterolemia (Chronic) Hypothyroidism (Chronic) COPD (chronic obstructive pulmonary disease) (Chronic) HTN (hypertension) (Chronic) Surgical History: - - Thyroid resection, LUE tumor removal. 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 Denies: Fever, Night Sweats HEENT: Denies: Vision Change Cardiovascular: Reports: Chest Discomfort, Shortness of Breath. Denies: Orthopnea, PND, Peripheral Edema, Palpitations, Lightheadedness, Dizziness, Near Syncope, Syncope Respiratory: Denies: Cough, Sputum Production, Hemoptysis Gastrointestinal: Denies: Hematemesis, Hematochezia, Melena Genitourinary: Denies: Dysuria, Hematuria Skin: Denies: Rash Neurological: Denies: Dizziness Psychiatric: Denies: Anxiety Hematologic/ Lymphatic: Denies: Anemia Subjectve: Pleasant lady in no distress Objective: Vital Signs Temp Pulse Resp BP Pulse Ox 97.9 F 83 25 H 112/65 93 09/29/20 07:00 09/29/20 07:00 09/29/20 07:00 09/29/20 07:00 09/29/20 07:22 Oxygen Flow Rate (L/min) [1] 2 Oxygen Flow Rate (L/min) 2 Oxygen Delivery Method [1] Nasal Cannula Oxygen Delivery Method Nasal Cannula Weight: 251 lb 5.231 oz Body Mass Index (BMI) 41.8 Intake and Output for Last 24 Hours 09/27/20 09/28/20 09/29/20 23:59 23:59 23:59 Intake Total 1473 / 1473 124.42 / 124.42 Output Total 150 / 150 Balance 1473 / 1473 -25.58 / -25.58 General: Awake, Alert, Oriented x 3 HEENT: PERRL, EOMI, Sclera Non Icteric Neck: Supple, Good ROM, No Lymph Node Enlargement Lungs: Clear to auscultation Cardiovascular: Regular Rhythm, Normal S1, Normal S2, No Murmurs, No Rubs, No Gallops Vascular: No Carotid Bruits, Normal Femoral Pulses, Normal Radial Pulses, Normal Dorsalis Pedal Pulse, Normal Posterior Tibial Pulses Abdomen: Bowel Sounds Present, Soft, Non Tender, No HSM, No Organomegaly Extremities: No Cyanosis, No Clubbing, Bilateral Edema +2 Musculoskeletal: No Erythema Skin: No Rashes Lymphatic: No Lymph Node Enlargement Neurological: No Focal Motor or Sensory Deficit 09/28/20 16:00: WBC 19.7 H, RBC 4.07 L, Hgb 12.9, Hct 39.2, MCV 96.3, MCH 31.7, MCHC 32.9, Plt Count 396, MPV 9.1, Immature Gran % (Auto) 1.100 H, Neut % (Auto) 85.8 H, Lymph % (Auto) 2.4 L, [place] % (Auto) 10.3 H, Eos % (Auto) 0.2, Baso % (Auto) 0.2, Absolute Neuts (auto) 16.9 H, Nucleated RBC % 0 09/28/20 16:00: Sodium Cancelled, Potassium Cancelled, Chloride Cancelled, Carbon Dioxide Cancelled, Anion Gap Cancelled, BUN Cancelled, Creatinine Cancelled, Est GFR (MDRD) Af Amer Cancelled, Est GFR (MDRD) Non-Af Cancelled, BUN/Creatinine Ratio Cancelled, Glucose Cancelled, Calcium Cancelled, Magnesium Cancelled, Troponin I Cancelled 09/28/20 16:00: B-Natriuretic Peptide 182.9 H 09/28/20 16:40: PT Cancelled, INR Cancelled, APTT Cancelled, D-Dimer Quant (PE/DVT) Cancelled 09/28/20 16:40: Lactic Acid 1.3 09/28/20 17:06: Sodium 135 L, Potassium 3.9, Chloride 100, Carbon Dioxide 28.0, Anion Gap 7, BUN 6 L, Creatinine 0.54 L, Est GFR (MDRD) Af Amer 137, Est GFR (MDRD) Non-Af 114, BUN/Creatinine Ratio 11.0, Glucose 111 H, Calcium 9.1, Magnesium 1.6, Troponin I < 0.015 09/28/20 17:06: Total Bilirubin 1.20 H, Direct Bilirubin 0.52 H 09/28/20 17:56: PT 15.2 H, INR 1.3, APTT 29.9, D-Dimer Quant (PE/DVT) 14.20 H* 09/28/20 18:30: Urine Color Yellow, Urine Clarity Cloudy, Urine pH 7.0, Ur Specific [place] 1.010, Urine Protein Negative, Urine Glucose (UA) Normal, Urine Ketones Negative, Urine Occult Blood 10 H, Urine Nitrite Negative, Urine Bilirubin 1 H, Urine Urobilinogen 12 H, Ur Leukocyte Esterase 25 H, Urine RBC 0- 5 SEEN, Urine WBC 0-5 SEEN 09/29/20 00:25: Troponin I < 0.015 09/29/20 03:26: Troponin I < 0.015 09/29/20 06:08: WBC 21.1 H, RBC 3.52 L, Hgb 11.2 L, Hct 34.3 L, MCV 97.4, MCH 31.8, MCHC 32.7, Plt Count 333, MPV 8.8, Immature Gran % (Auto) 1.300 H, Neut % (Auto) 80.6 H, Lymph % (Auto) 7.5 L, [place] % (Auto) 9.5, Eos % (Auto) 0.9, Baso % (Auto) 0.2, Absolute Neuts (auto) 17.0 H, Nucleated RBC % 0 09/29/20 06:08: Sodium 134 L, Potassium 3.8, Chloride 103, Carbon Dioxide 26.0, Anion Gap 5, BUN 7, Creatinine 0.41 L, Est GFR (MDRD) Af Amer 192, Est GFR (MDRD ) Non-Af 159, BUN/Creatinine Ratio 17.2, Glucose 105, Calcium 8.5 09/29/20 06:08: Troponin I < 0.015 Rhythm: EKG: Initial EKG demonstrated atrial fibrillation with rapid ventricular response rate. Follow-up EKG post cardioversion demonstrates normal sinus rhythm with no acute changes. ECHO: Pending Stress Test: Cardiac Cath: PCI: CT Surgery: Holter monitor: EPS: PPM: CXR: Chest CT Scan: Assessment/Plan 1. Recent submassive bilateral pulmonary emboli * Patient presents with significant bilateral emboli with evidence of pulmonary infarction. At this time the patient will be treated with therapeutic anticoagulation with Lovenox and then switching over to either Xarelto or Eliquis. * An echocardiogram should be performed to assess ventricular function, measure right ventricular pressures and look for evidence of right ventricular strain. Thus far her troponins are negative with a minimally elevated natruretic peptide only. * Etiologies would be sought for the cause of her pulmonary emboli. * With a history of thyroid carcinoma etiology would need to be sought for malignant causes. 2. Hypertension * Blood pressure appears to be under good control at this time. She actually was noted to be hypotensive on presentation which was likely from the pulmonary emboli and the atrial fibrillation. * 3. New onset atrial fibrillation with hypotension * She was noted to have new onset atrial fibrillation with hypotension. * At this time we will continue the anticoagulation. * The intravenous amiodarone can be discontinued after the current bag is infused. * Will switch to p.o. amiodarone. * * Thank you for allowing me to participate in the care of your patient. Please don't hesitate to call if any issues arise.
--- NOTE | 2020-09-29 10:03 | PN_ITS ---
<Romero Figueroassica TAB CUTTING MACHINE OPERATOR - Last Filed: 09/29/20 10:15> Patient Problems: Active and Suspected Problems Atrial fibrillation (Acute) Pulmonary embolism (Acute) DVT (deep venous thrombosis) (Suspected) RLE, popliteal Sleep apnea in adult (Suspected) Subjective: Patient seen and examined. States right rib/chest area pain has improved. Denies shortness of breath. Requesting SN[facility] at [facility]. - Physical Exam Vitals/I&O's: Vital Signs Temp Pulse Resp BP Pulse Ox 97.4 F L 83 19 H 108/63 96 09/29/20 08:52 09/29/20 08:52 09/29/20 08:52 09/29/20 08:52 09/29/20 08:52 Oxygen Flow Rate (L/min) [1] 2 Oxygen Flow Rate (L/min) 2 Oxygen Delivery Method [1] Nasal Cannula Oxygen Delivery Method Nasal Cannula Weight: 251 lb 5.231 oz Body Mass Index (BMI) 41.8 Intake and Output for Last 24 Hours 09/27/20 09/28/20 09/29/20 23:59 23:59 23:59 Intake Total 1473 / 1473 124.42 / 124.42 Output Total 150 / 150 Balance 1473 / 1473 -25.58 / -25.58 General: Alert, Oriented x3, Cooperative HEENT: Atraumatic, PERRLA, EOMI, Normocephalic Neck: Supple, No JVD, Negative Carotid Bruits Lungs: Clear to auscultation, Normal air movement Cardiovascular: Regular rate, No murmurs Abdomen: Bowel Sounds Present, Soft, Non Tender, Non-Distended, Obese Extremities: No clubbing, No cyanosis, Edema - Bilateral lower extremity Skin: No rashes, No breakdown Musculoskeletal: No Tenderness to Palpation of Joints or Extremities Neurological: Cranial nerves II-XII grossly intact, Neuro grossly intact Psych/Mental Status: Normal Affect, Appropriate Microbiology Past 72 Hours 09/28/20 16:05 Mucosa - Nose SARS-CoV-2 Antigen (Rapid) - Final Laboratory Results 09/28/20 16:00: WBC 19.7 H, RBC 4.07 L, Hgb 12.9, Hct 39.2, MCV 96.3, MCH 31.7, MCHC 32.9, RDW Std Deviation 48.3 H, RDW Coeff of Radha 13.7, Plt Count 396, MPV 9.1, Immature Gran % (Auto) 1.100 H, Neut % (Auto) 85.8 H, Lymph % (Auto) 2.4 L, [place] % (Auto) 10.3 H, Eos % (Auto) 0.2, Baso % (Auto) 0.2, Absolute Neuts (auto) 16.9 H, Absolute Lymphs (auto) 0.48 L, Nucleated RBC % 0, Differential Comment SCANNED, Diff Path Review October foll 09/28/20 16:00: Sodium Cancelled, Potassium Cancelled, Chloride Cancelled, Carbon Dioxide Cancelled, Anion Gap Cancelled, BUN Cancelled, Creatinine Cancelled, Estim Creat Clear Calc Cancelled, Est GFR (MDRD) Af Amer Cancelled, Est GFR (MDRD) Non-Af Cancelled, BUN/Creatinine Ratio Cancelled, Glucose Cancelled, Calcium Cancelled, Magnesium Cancelled, Troponin I Cancelled, TSH Cancelled 09/28/20 16:00: B-Natriuretic Peptide 182.9 H 09/28/20 16:40: PT Cancelled, INR Cancelled, APTT Cancelled, D-Dimer Quant (PE/DVT) Cancelled 09/28/20 16:40: Lactic Acid 1.3 09/28/20 17:06: Sodium 135 L, Potassium 3.9, Chloride 100, Carbon Dioxide 28.0, Anion Gap 7, BUN 6 L, Creatinine 0.54 L, Estim Creat Clear Calc 37.68, Est GFR (MDRD) Af Amer 137, Est GFR (MDRD) Non-Af 114, BUN/Creatinine Ratio 11.0, Glucose 111 H, Calcium 9.1, Magnesium 1.6, Troponin I < 0.015, TSH 0.10 L 09/28/20 17:06: Total Bilirubin 1.20 H, Direct Bilirubin 0.52 H, AST 18, ALT 12 L, Alkaline Phosphatase 111, Total Protein 7.4, Albumin 2.7 L, Globulin 4.7 H 09/28/20 17:06: Lipase 50 L 09/28/20 17:06: Free T4 1.91 H, Free T3 pg/dL 1.5 L 09/28/20 17:56: PT 15.2 H, INR 1.3, APTT 29.9, D-Dimer Quant (PE/DVT) 14.20 H* 09/28/20 18:30: Urine Color Yellow, Urine Clarity Cloudy, Urine pH 7.0, Ur Specific [place] 1.010, Urine Protein Negative, Urine Glucose (UA) Normal, Urine Ketones Negative, Urine Occult Blood 10 H, Urine Nitrite Negative, Urine Bilirubin 1 H, Urine Urobilinogen 12 H, Ur Leukocyte Esterase 25 H, Urine RBC 0- 5 SEEN, Urine WBC 0-5 SEEN, Ur Squamous Epith Cells 0-5 SEEN, Urine Bacteria 4+, Urine Mucus 0 SEEN 09/29/20 00:25: Troponin I < 0.015 09/29/20 03:26: Troponin I < 0.015 09/29/20 06:08: WBC 21.1 H, RBC 3.52 L, Hgb 11.2 L, Hct 34.3 L, MCV 97.4, MCH 31.8, MCHC 32.7, RDW Std Deviation 48.8 H, RDW Coeff of Radha 13.8, Plt Count 333, MPV 8.8, Immature Gran % (Auto) 1.300 H, Neut % (Auto) 80.6 H, Lymph % (Auto) 7.5 L, [place] % (Auto) 9.5, Eos % (Auto) 0.9, Baso % (Auto) 0.2, Absolute Neuts (auto) 17.0 H, Absolute Lymphs (auto) 1.58, Nucleated RBC % 0, Diff Path Review October09/29/20 06:08: Sodium 134 L, Potassium 3.8, Chloride 103, Carbon Dioxide 26.0, Anion Gap 5, BUN 7, Creatinine 0.41 L, Estim Creat Clear Calc 37.68, Est GFR (MDRD) Af Amer 192, Est GFR (MDRD) Non-Af 159, BUN/Creatinine Ratio 17.2, Glucose 105, Calcium 8.5 09/29/20 06:08: Troponin I < 0.015 Current Medications Acetaminophen (Acetaminophen 325 Mg Tablet) 650 mg PO Q6H PRN PRN PRN Reason: Pain Score 1-10/Temp > 100.7 F Apixaban (Apixaban 5 Mg Tablet) 10 mg PO BID [facility] Cholecalciferol (Cholecalciferol (Vit D3) 25 Mcg Tablet (1,000 Units)) 50 mcg PO DAILY [facility] Gabapentin (Gabapentin 100 Mg Capsule) 100 mg PO TID [facility] Last Admin: 09/29/20 05:21 Dose: 100 mg Documented by: Sodium Chloride () 250 mls @ 15 mls/hr IV .[id number] PRN PRN Reason: Saline Flush Sodium Chloride () 250 mls @ 15 mls/hr IV .[id number] PRN PRN Reason: Additional IVPB Infusion Levothyroxine Sodium (Levothyroxine 125 Mcg Tablet) 125 mcg PO DAILY@0600 [facility] Last Admin: 09/29/20 05:21 Dose: 125 mcg Documented by: Melatonin (Melatonin 3 Mg Tablet) 3 mg PO QHS PRN PRN PRN Reason: INSOMNIA Metoprolol Tartrate (Metoprolol Tartrate 25 Mg Tablet) 25 mg PO BID [facility] Nystatin (Nystatin Powder 15gm Bottle) 1 applic TOPICAL TID [facility]; Protocol Last Admin: 09/29/20 05:21 Dose: 1 applic Documented by: Ondansetron HCl (Ondansetron 4 Mg/2 Ml Vial) 4 mg IV Q8H PRN PRN PRN Reason: NAUSEA/VOMITING Senna/Docusate Sodium (Senna/Docusate Sodium 1 Tablet) 2 tablet PO BID PRN PRN PRN Reason: Constipation Sodium Chloride (0.9% Saline Lock 10 Ml Syringe) 10 - 40 ml IV UD PRN PRN Reason: SALINE FLUSH Last Admin: 09/29/20 01:01 Dose: 10 ml Documented by: Zinc Sulfate (Zinc Sulfate (50mg Elemental) 220 Mg Capsule) 220 mg PO DAILY [facility] Medical Necessity - Tobacco Use Smoking Status: Never smoker Assessment/Plan All Active Problems Atrial fibrillation (Acute) Pulmonary embolism (Acute) 1. Acute bilateral PE-CTA with bilateral pulmonary emboli, right greater than left. Initially on therapeutic Lovenox with transition to Eliquis. On 2 L supplemental oxygen however not noted to be hypoxic. Wean oxygen as tolerated, walking pulse ox prior to discharge. 2. Atrial fibrillation with RVR-synchronized cardioversion performed in ER. Transitioned from IV amiodarone to oral. Echocardiogram pending. 3. Hypothyroidism, history of thyroid cancer status post resection-TSH 0.10, free T4 1.91, free T3 1.5. Home Synthroid regimen reduced to 125 mcg. Will need repeat thyroid studies in 4 to 6 weeks. 4. Chronic COPD- no exacerbation. 5. Hypertension- stable, on metoprolol. 6. Hyperlipidemia- not on statin. 7. Morbid obesity- encouraged diet and lifestyle modifications. 8. Suspected EBONI- refused sleep study in the past. DVT prophylaxis- Eliquis Discharge planning: [facility] when medically stable, pending pre-cert. This patient was seen by VALENTINA White under the supervision of Dr. Jackson. <Kuldeep Jackson - Last Filed: 09/29/20 12:58> - Physical Exam Vitals/I&O's: Vital Signs Temp Pulse Resp BP Pulse Ox 36.3 C L 83 19 H 103/66 96 09/29/20 08:52 09/29/20 10:19 09/29/20 08:52 09/29/20 10:19 09/29/20 08:52 Oxygen Flow Rate (L/min) [1] 2 Oxygen Flow Rate (L/min) 2 Oxygen Delivery Method [1] Nasal Cannula Oxygen Delivery Method Nasal Cannula Weight: 114 kg Body Mass Index (BMI) 41.8 Intake and Output for Last 24 Hours 09/27/20 09/28/20 09/29/20 23:59 23:59 23:59 Intake Total 1473 / 1473 124.42 / 124.42 Output Total 150 / 150 Balance 1473 / 1473 -25.58 / -25.58 General: Alert, Cooperative HEENT: Atraumatic, Normocephalic Lungs: Clear to auscultation, Normal air movement Cardiovascular: Regular rate, No murmurs Abdomen: Bowel Sounds Present, Soft, Non Tender, Non-Distended, Obese Extremities: No clubbing, No cyanosis, Edema Skin: No rashes, No breakdown Psych/Mental Status: Normal Affect, Appropriate Microbiology Past 72 Hours 09/28/20 16:05 Mucosa - Nose SARS-CoV-2 Antigen (Rapid) - Final Laboratory Results 09/28/20 16:00: WBC 19.7 H, RBC 4.07 L, Hgb 12.9, Hct 39.2, MCV 96.3, MCH 31.7, MCHC 32.9, RDW Std Deviation 48.3 H, RDW Coeff of Radha 13.7, Plt Count 396, MPV 9.1, Immature Gran % (Auto) 1.100 H, Neut % (Auto) 85.8 H, Lymph % (Auto) 2.4 L, [place] % (Auto) 10.3 H, Eos % (Auto) 0.2, Baso % (Auto) 0.2, Absolute Neuts (auto) 16.9 H, Absolute Lymphs (auto) 0.48 L, Nucleated RBC % 0, Differential Comment SCANNED, Diff Path Review Reviewed 09/28/20 16:00: Sodium Cancelled, Potassium Cancelled, Chloride Cancelled, Carbon Dioxide Cancelled, Anion Gap Cancelled, BUN Cancelled, Creatinine Cancelled, Estim Creat Clear Calc Cancelled, Est GFR (MDRD) Af Amer Cancelled, Est GFR (MDRD) Non-Af Cancelled, BUN/Creatinine Ratio Cancelled, Glucose Cancelled, Calcium Cancelled, Magnesium Cancelled, Troponin I Cancelled, TSH Cancelled 09/28/20 16:00: B-Natriuretic Peptide 182.9 H 09/28/20 16:40: PT Cancelled, INR Cancelled, APTT Cancelled, D-Dimer Quant (PE/DVT) Cancelled 09/28/20 16:40: Lactic Acid 1.3 09/28/20 17:06: Sodium 135 L, Potassium 3.9, Chloride 100, Carbon Dioxide 28.0, Anion Gap 7, BUN 6 L, Creatinine 0.54 L, Estim Creat Clear Calc 37.68, Est GFR (MDRD) Af Amer 137, Est GFR (MDRD) Non-Af 114, BUN/Creatinine Ratio 11.0, Glucose 111 H, Calcium 9.1, Magnesium 1.6, Troponin I < 0.015, TSH 0.10 L 09/28/20 17:06: Total Bilirubin 1.20 H, Direct Bilirubin 0.52 H, AST 18, ALT 12 L, Alkaline Phosphatase 111, Total Protein 7.4, Albumin 2.7 L, Globulin 4.7 H 09/28/20 17:06: Lipase 50 L 09/28/20 17:06: Free T4 1.91 H, Free T3 pg/dL 1.5 L 09/28/20 17:56: PT 15.2 H, INR 1.3, APTT 29.9, D-Dimer Quant (PE/DVT) 14.20 H* 09/28/20 18:30: Urine Color Yellow, Urine Clarity Cloudy, Urine pH 7.0, Ur Specific [place] 1.010, Urine Protein Negative, Urine Glucose (UA) Normal, Urine Ketones Negative, Urine Occult Blood 10 H, Urine Nitrite Negative, Urine Bilirubin 1 H, Urine Urobilinogen 12 H, Ur Leukocyte Esterase 25 H, Urine RBC 0- 5 SEEN, Urine WBC 0-5 SEEN, Ur Squamous Epith Cells 0-5 SEEN, Urine Bacteria 4+, Urine Mucus 0 SEEN 09/29/20 00:25: Troponin I < 0.015 09/29/20 03:26: Troponin I < 0.015 09/29/20 06:08: WBC 21.1 H, RBC 3.52 L, Hgb 11.2 L, Hct 34.3 L, MCV 97.4, MCH 31.8, MCHC 32.7, RDW Std Deviation 48.8 H, RDW Coeff of Radha 13.8, Plt Count 333, MPV 8.8, Immature Gran % (Auto) 1.300 H, Neut % (Auto) 80.6 H, Lymph % (Auto) 7.5 L, [place] % (Auto) 9.5, Eos % (Auto) 0.9, Baso % (Auto) 0.2, Absolute Neuts (auto) 17.0 H, Absolute Lymphs (auto) 1.58, Nucleated RBC % 0, Diff Path Review Reviewed 09/29/20 06:08: Sodium 134 L, Potassium 3.8, Chloride 103, Carbon Dioxide 26.0, Anion Gap 5, BUN 7, Creatinine 0.41 L, Estim Creat Clear Calc 37.68, Est GFR (MDRD) Af Amer 192, Est GFR (MDRD) Non-Af 159, BUN/Creatinine Ratio 17.2, Glucose 105, Calcium 8.5 09/29/20 06:08: Troponin I < 0.015 Current Medications Acetaminophen (Acetaminophen 325 Mg Tablet) 650 mg PO Q6H PRN PRN PRN Reason: Pain Score 1-10/Temp > 100.7 F Amiodarone HCl (Amiodarone 200 Mg Tablet) 200 mg PO DAILY [facility] Last Admin: 09/29/20 11:02 Dose: 200 mg Documented by: Apixaban (Apixaban 5 Mg Tablet) 10 mg PO BID [facility] Last Admin: 09/29/20 11:02 Dose: 10 mg Documented by: Cholecalciferol (Cholecalciferol (Vit D3) 25 Mcg Tablet (1,000 Units)) 50 mcg PO DAILY [facility] Last Admin: 09/29/20 10:17 Dose: 50 mcg Documented by: Gabapentin (Gabapentin 100 Mg Capsule) 100 mg PO TID [facility] Last Admin: 09/29/20 05:21 Dose: 100 mg Documented by: Sodium Chloride () 250 mls @ 15 mls/hr IV .[id number] PRN PRN Reason: Saline Flush Sodium Chloride () 250 mls @ 15 mls/hr IV .[id number] PRN PRN Reason: Additional IVPB Infusion Levothyroxine Sodium (Levothyroxine 125 Mcg Tablet) 125 mcg PO DAILY@0600 [facility] Last Admin: 09/29/20 05:21 Dose: 125 mcg Documented by: Melatonin (Melatonin 3 Mg Tablet) 3 mg PO QHS PRN PRN PRN Reason: INSOMNIA Metoprolol Tartrate (Metoprolol Tartrate 25 Mg Tablet) 25 mg PO BID [facility] Last Admin: 09/29/20 10:19 Dose: 25 mg Documented by: Nystatin (Nystatin Powder 15gm Bottle) 1 applic TOPICAL TID [facility]; Protocol Last Admin: 09/29/20 05:21 Dose: 1 applic Documented by: Ondansetron HCl (Ondansetron 4 Mg/2 Ml Vial) 4 mg IV Q8H PRN PRN PRN Reason: NAUSEA/VOMITING Senna/Docusate Sodium (Senna/Docusate Sodium 1 Tablet) 2 tablet PO BID PRN PRN PRN Reason: Constipation Sodium Chloride (0.9% Saline Lock 10 Ml Syringe) 10 - 40 ml IV UD PRN PRN Reason: SALINE FLUSH Last Admin: 09/29/20 01:01 Dose: 10 ml Documented by: Zinc Sulfate (Zinc Sulfate (50mg Elemental) 220 Mg Capsule) 220 mg PO DAILY [facility] Last Admin: 09/29/20 10:18 Dose: 220 mg Documented by: Assessment/Plan Patient seen and examined independently. Data reviewed. I agree with the above note by the nurse practitioner. 1. Acute bilateral pulmonary emboli Currently hemodynamically stable. Continue with apixaban. Wean oxygen as tolerated. 2. A. fib with RVR Status post synchronized cardioversion in the emergency room. On amiodarone Echocardiogram results pending Cardiology following Inpatient E&M: [id number] [facility] L2
[2020-09-29] MEDS: Cholecalciferol (VIT D3) 25 MCG TABLET (1,000 UNITS) 50 MCG PO (10:17)
[2020-09-29] MEDS: Metoprolol Tartrate 25 MG Tablet PO (10:19)
[2020-09-29] MEDS: Amiodarone 200 MG Tablet PO (11:02)
[2020-09-29] MEDS: APIXABAN 5 MG TABLET 10 MG PO ×2 (11:02→21:45)
--- NOTE | 2020-09-29 11:21 | CASEMGMT ---
Nurse Practitioner Lauren let SW know that patient said she plans on going to [facility] at discharge and her daughter works there. Patient's daughter arrived at [facility]. SW went to the room, introduced self and role at [facility]. SW confirmed that the plan is [facility] at [facility]. SENDY let them know that SENDY spoke with Joya at [facility] and sent her initial information. SENDY also explained that once therapy sees her SENDY will send those notes and Joya will work on getting insurance approval. SENDY told them this will not happen today. They thanked SENDY for checking in with them. Plan: [facility] pending insurance approval. Nu Motley TRUCK BODY REPAIRER SAI
[2020-09-29 11:33] LABS: Pathologist Review Reviewed
[2020-09-29 11:34] LABS: Pathologist Review Reviewed
--- NOTE | 2020-09-29 14:07 | CASEMGMT ---
SENDY faxed PT/OT evaluations to [facility]. SENDY also called Joya at [facility] and let her know SW faxed therapy evaluations and asked her to please start the pre-cert. Plan: d/c to [facility] pending pre-cert. Nu GIBBS
[2020-09-30] VITALS (17 sets, daily range): BP systolic 100–119; BP diastolic 48–68; PULSE 67–81; RESP 16–20; TEMP 36.5–36.8; O2SAT 94–97
[2020-09-30] MEDS: Gabapentin 100 MG Capsule PO (05:23)
[2020-09-30] MEDS: Nystatin Powder 15gm Bottle 1 APPLIC TOPICAL ×3 (05:23→21:28)
[2020-09-30] MEDS: Levothyroxine 125 MCG Tablet PO (05:23)
[2020-09-30 06:25] LABS: Hematocrit 33.1 % (37-47); Hemoglobin 10.7 g/dL (12.0-15.0); Mean Corp Hgb Conc 32.3 g/dL (32-36); Mean Corpuscular Hgb 31.6 pg (27.0-32.0); Mean Corpuscular Volume 97.6 fL (81-99); Mean Platelet Vol. 8.9 fl (6.2-12.0); Platelet Count 314 K/mm3 (150-450); RBC Distribution Width CV 13.6 % (11.6-14.6); RBC Distribution Width SD 48.4 fl (35.1-43.9); Red Blood Count 3.39 M/mm3 (4.2-5.4); White Blood Count 10.8 K/mm3 (4.4-11.0)
[2020-09-30 06:47] LABS: Anion Gap 3 (5-15); BUN 7 mg/dL (7-18); BUN/Creat Ratio 19.4 RATIO (10-20); Calcium,Total 8.7 mg/dL (8.5-10.1); Chloride 104 mmol/L (98-107); Creatinine, Serum 0.36 mg/dL (0.55-1.02); EST Glomerular Filtration Rate 182 mL/min (>60); Est Glom Filt Rate - Afr Amer 221 mL/min (>60); Estimated Creatinine Clearance 37.68 ml/min; Glucose 89 mg/dL (74-106); Potassium 3.8 mmol/L (3.5-5.1); Sodium Level 135 mmol/L (136-145)
--- NOTE | 2020-09-30 10:57 | TREXTCA.CO_ITS ---
- Diet 09/28/20 23:58 Diet: Cardiac - Heart Healthy Food consistency:: Regular Liquid Consistency:: Regular/Thin Type of Dietary Supplement:: Magic Cup Dessert Is pt able to select menu?: Yes Diet Comments: w/ dinner - Routine Orders/Code Status Enema Type: Fleetz Enema Frequency: Daily PRN Suppository Type: Dulcolax 10mg Suppository Frequency: Daily PRN O2 Liters per Minute: 1-2 O2 Frequency: Continuous Keep PO Greater than or Equal to (%): 90 Routine Lab Work: - - Weekly CBC, BMP [facility]: [facility] No [facility] - Suggestions for Active Care Change Position every (hours): 2 Times a day to sit in chair: 3 - Therapies Physical Therapy: Eval and Treat Occupational Therapy: Eval and Treat - Problem/Diagnosis (1) Atrial fibrillation Status: Acute (2) Acute respiratory failure with hypoxemia Status: Acute (3) History of thyroid cancer Status: Chronic (4) GERD (gastroesophageal reflux disease) Status: Chronic (5) Pure hypercholesterolemia Status: Chronic (6) Hypothyroidism Status: Chronic (7) Pulmonary embolism Status: Acute (8) COPD (chronic obstructive pulmonary disease) Status: Chronic (9) Sleep apnea in adult Status: Chronic (10) HTN (hypertension) Status: Chronic - Allergies/Procedures Done in Hospital Allergies/Adverse Reactions: Allergies codeine Adverse Reaction (Verified 09/28/20 19:05) I just didn't like how it made me feel Procedures: 2-D Echocardiogram - Type of Care/Length of Stay Estimated LOS: Convalescent Care Less Than 30 days Type of Care Needed: Skilled Rehab Potential: Fair Prognosis: Fair - Additional Orders/Day of Discharge Additional Orders: Recommend repeat thyroid panel in 4 to 6 weeks. H&P will serve as current which was dated: 09/28/20 Day of Discharge: 09/30/20 - Dietary and Speech Recommendations Dietitian Recommendations/Changes: continue cardiac diet; if PO intake at meals remains poor, will consider liberalizing diet to regular, no added salt. rec ENDLESS STEAMER TENDER consult if issues chewing/swallowing become evident. José Kincaid MS, RDN, LD - Follow Up Care Primary Care Physician: Chip Pereyra MD [Primary Care Provider] - Please follow up with your Primary Care Physician in: 1 Week Please Follow Up With: Saturnino Villareal MD - May see ETHYLBENZENE CRACKING SUPERVISOR/PA When: 4 weeks
--- NOTE | 2020-09-30 11:00 | PN_ITS ---
<Lauren Figueroa [employer] - Last Filed: 09/30/20 11:05> Patient Problems: Active and Suspected Problems Atrial fibrillation (Acute) Acute respiratory failure with hypoxemia (Acute) Pulmonary embolism (Acute) DVT (deep venous thrombosis) (Suspected) RLE, popliteal Subjective: Patient seen and examined. Complains of right hand and arm pain which has been ongoing since prior shingles infection. She denies shortness of breath. Denies other current complaints. - Physical Exam Vitals/I&O's: Vital Signs Temp Pulse Resp BP Pulse Ox 97.9 F 74 20 H 109/60 94 09/30/20 08:12 09/30/20 08:12 09/30/20 08:12 09/30/20 08:12 09/30/20 08:12 Oxygen Flow Rate (L/min) [1] 2 Oxygen Flow Rate (L/min) 1 Oxygen Delivery Method [1] Nasal Cannula Oxygen Delivery Method Nasal Cannula Weight: 251 lb 5.231 oz Body Mass Index (BMI) 41.8 Intake and Output for Last 24 Hours 09/28/20 09/29/20 09/30/20 23:59 23:59 23:59 Intake Total 1473 / 1473 724.42 / 784.42 120 / 120 Output Total 1500 / 2075 1175 / 1175 Balance 1473 / 1473 -775.58 / -1290.58 -1055 / -1055 General: Alert, Oriented x3, Cooperative HEENT: Atraumatic, PERRLA, EOMI, Normocephalic Neck: Supple, No JVD, Negative Carotid Bruits Lungs: Clear to auscultation, Normal air movement Cardiovascular: Regular rate, No murmurs Abdomen: Bowel Sounds Present, Soft, Non Tender, Obese Extremities: No clubbing, No cyanosis, Capillary Refill Less than 3 Seconds, Edema - Chronic bilateral lower extremity edema Skin: No rashes, No breakdown Musculoskeletal: No Tenderness to Palpation of Joints or Extremities Neurological: Cranial nerves II-XII grossly intact, Neuro grossly intact Psych/Mental Status: Normal Affect, Appropriate Microbiology Past 72 Hours 09/28/20 16:05 Mucosa - Nose SARS-CoV-2 Antigen (Rapid) - Final Laboratory Results 09/28/20 16:00: Diff Path Review Reviewed 09/29/20 06:08: Diff Path Review Reviewed 09/30/20 06:00: WBC 10.8, RBC 3.39 L, Hgb 10.7 L, Hct 33.1 L, MCV 97.6, MCH 31.6, MCHC 32.3, RDW Std Deviation 48.4 H, RDW Coeff of Radha 13.6, Plt Count 314, MPV 8.9 09/30/20 06:00: Sodium 135 L, Potassium 3.8, Chloride 104, Carbon Dioxide 28.0, Anion Gap 3 L, BUN 7, Creatinine 0.36 L, Estim Creat Clear Calc 37.68, Est GFR (MDRD) Af Amer 221, Est GFR (MDRD) Non-Af 182, BUN/Creatinine Ratio 19.4, Glucose 89, Calcium 8.7 Current Medications Acetaminophen (Acetaminophen 325 Mg Tablet) 650 mg PO Q6H PRN PRN PRN Reason: Pain Score 1-10/Temp > 100.7 F Amiodarone HCl (Amiodarone 200 Mg Tablet) 200 mg PO DAILY [facility] Last Admin: 09/29/20 11:02 Dose: 200 mg Documented by: Apixaban (Apixaban 5 Mg Tablet) 10 mg PO BID [facility] Last Admin: 09/29/20 21:45 Dose: 10 mg Documented by: Cholecalciferol (Cholecalciferol (Vit D3) 25 Mcg Tablet (1,000 Units)) 50 mcg PO DAILY [facility] Last Admin: 09/29/20 10:17 Dose: 50 mcg Documented by: Gabapentin (Gabapentin 300 Mg Capsule) 300 mg PO TID [facility] Sodium Chloride () 250 mls @ 15 mls/hr IV .[id number] PRN PRN Reason: Saline Flush Sodium Chloride () 250 mls @ 15 mls/hr IV .[id number] PRN PRN Reason: Additional IVPB Infusion Levothyroxine Sodium (Levothyroxine 125 Mcg Tablet) 125 mcg PO DAILY@0600 [facility] Last Admin: 09/30/20 05:23 Dose: 125 mcg Documented by: Melatonin (Melatonin 3 Mg Tablet) 3 mg PO QHS PRN PRN PRN Reason: INSOMNIA Metoprolol Tartrate (Metoprolol Tartrate 25 Mg Tablet) 25 mg PO BID [facility] Last Admin: 09/29/20 21:46 Dose: Not Given Documented by: Nystatin (Nystatin Powder 15gm Bottle) 1 applic TOPICAL TID [facility]; Protocol Last Admin: 09/30/20 05:23 Dose: 1 applic Documented by: Ondansetron HCl (Ondansetron 4 Mg/2 Ml Vial) 4 mg IV Q8H PRN PRN PRN Reason: NAUSEA/VOMITING Senna/Docusate Sodium (Senna/Docusate Sodium 1 Tablet) 2 tablet PO BID PRN PRN PRN Reason: Constipation Sodium Chloride (0.9% Saline Lock 10 Ml Syringe) 10 - 40 ml IV UD PRN PRN Reason: SALINE FLUSH Last Admin: 09/29/20 01:01 Dose: 10 ml Documented by: Zinc Sulfate (Zinc Sulfate (50mg Elemental) 220 Mg Capsule) 220 mg PO DAILY [facility] Last Admin: 09/29/20 10:18 Dose: 220 mg Documented by: Medical Necessity - Tobacco Use Smoking Status: Never smoker Assessment/Plan All Active Problems Atrial fibrillation (Acute) Acute respiratory failure with hypoxemia (Acute) Pulmonary embolism (Acute) 1. Acute bilateral PE-CTA with bilateral pulmonary emboli, right greater than left. Initially on therapeutic Lovenox with transition to Eliquis. Continue Eliquis 10 mg twice daily for 7 days followed by 5 mg twice daily. On 1 L supplemental oxygen however not noted to be hypoxic. Continue supplement oxygen to maintain O2 at above 90%. Follow-up with PCP in 1 week. 2. Atrial fibrillation with RVR-synchronized cardioversion performed in ER. Transitioned from IV amiodarone to oral. Continue home metoprolol regimen. Echocardiogram demonstrates an EF of 60%, moderate tricuspid valve insufficiency, pulmonary artery systolic pressure 62 mmHg, stage III diastolic dysfunction. Initiated on Lasix 40 mg daily at discharge. Follow-up with cardiology in 4 weeks. 3. Hypothyroidism, history of thyroid cancer status post resection-TSH 0.10, free T4 1.91, free T3 1.5. Home Synthroid regimen reduced to 125 mcg. Will need repeat thyroid studies in 4 to 6 weeks. 4. Chronic COPD- no exacerbation. 5. Hypertension- stable, on metoprolol. 6. Hyperlipidemia- not on statin. 7. Morbid obesity- encouraged diet and lifestyle modifications. 8. Suspected EBONI- refused sleep study in the past. 9. Recent history of shingles, postherpetic neuralgia-gabapentin increased due to ongoing right hand pain. DVT prophylaxis- Eliquis Discharge planning: SNF pending pre-cert. This patient was seen by VALENTINA White under the supervision of Dr. Jackson. <Kuldeep Jackson - Last Filed: 09/30/20 12:01> - Physical Exam Vitals/I&O's: Vital Signs Temp Pulse Resp BP Pulse Ox 36.6 C 70 20 H 119/68 95 09/30/20 08:12 09/30/20 11:31 09/30/20 08:12 09/30/20 11:31 09/30/20 11:02 Oxygen Flow Rate (L/min) [1] 2 Oxygen Flow Rate (L/min) 1 Oxygen Delivery Method [1] Nasal Cannula Oxygen Delivery Method Nasal Cannula Weight: 114 kg Body Mass Index (BMI) 41.8 Intake and Output for Last 24 Hours 09/28/20 09/29/20 09/30/20 23:59 23:59 23:59 Intake Total 1473 / 1473 724.42 / 784.42 120 / 120 Output Total 1500 / 2075 1175 / 1175 Balance 1473 / 1473 -775.58 / -1290.58 -1055 / -1055 General: Alert, Cooperative HEENT: Atraumatic, Normocephalic Lungs: Clear to auscultation, Normal air movement Cardiovascular: Regular rate, No murmurs Abdomen: Bowel Sounds Present, Soft, Non Tender, Obese Extremities: Edema Psych/Mental Status: Normal Affect, Appropriate Microbiology Past 72 Hours 09/28/20 16:05 Mucosa - Nose SARS-CoV-2 Antigen (Rapid) - Final Laboratory Results 09/30/20 06:00: WBC 10.8, RBC 3.39 L, Hgb 10.7 L, Hct 33.1 L, MCV 97.6, MCH 31.6, MCHC 32.3, RDW Std Deviation 48.4 H, RDW Coeff of Radha 13.6, Plt Count 314, MPV 8.9 09/30/20 06:00: Sodium 135 L, Potassium 3.8, Chloride 104, Carbon Dioxide 28.0, Anion Gap 3 L, BUN 7, Creatinine 0.36 L, Estim Creat Clear Calc 37.68, Est GFR (MDRD) Af Amer 221, Est GFR (MDRD) Non-Af 182, BUN/Creatinine Ratio 19.4, Glucose 89, Calcium 8.7 Current Medications Acetaminophen (Acetaminophen 325 Mg Tablet) 650 mg PO Q6H PRN PRN PRN Reason: Pain Score 1-10/Temp > 100.7 F Amiodarone HCl (Amiodarone 200 Mg Tablet) 200 mg PO DAILY [facility] Last Admin: 09/30/20 11:31 Dose: 200 mg Documented by: Apixaban (Apixaban 5 Mg Tablet) 10 mg PO BID [facility] Last Admin: 09/30/20 11:29 Dose: 10 mg Documented by: Cholecalciferol (Cholecalciferol (Vit D3) 25 Mcg Tablet (1,000 Units)) 50 mcg PO DAILY [facility] Last Admin: 09/30/20 11:30 Dose: 50 mcg Documented by: Gabapentin (Gabapentin 300 Mg Capsule) 300 mg PO TID [facility] Sodium Chloride () 250 mls @ 15 mls/hr IV .[id number] PRN PRN Reason: Saline Flush Sodium Chloride () 250 mls @ 15 mls/hr IV .[id number] PRN PRN Reason: Additional IVPB Infusion Levothyroxine Sodium (Levothyroxine 125 Mcg Tablet) 125 mcg PO DAILY@0600 [facility] Last Admin: 09/30/20 05:23 Dose: 125 mcg Documented by: Melatonin (Melatonin 3 Mg Tablet) 3 mg PO QHS PRN PRN PRN Reason: INSOMNIA Metoprolol Tartrate (Metoprolol Tartrate 25 Mg Tablet) 25 mg PO BID [facility] Last Admin: 09/30/20 11:31 Dose: 25 mg Documented by: Nystatin (Nystatin Powder 15gm Bottle) 1 applic TOPICAL TID [facility]; Protocol Last Admin: 09/30/20 05:23 Dose: 1 applic Documented by: Ondansetron HCl (Ondansetron 4 Mg/2 Ml Vial) 4 mg IV Q8H PRN PRN PRN Reason: NAUSEA/VOMITING Senna/Docusate Sodium (Senna/Docusate Sodium 1 Tablet) 2 tablet PO BID PRN PRN PRN Reason: Constipation Sodium Chloride (0.9% Saline Lock 10 Ml Syringe) 10 - 40 ml IV UD PRN PRN Reason: SALINE FLUSH Last Admin: 09/29/20 01:01 Dose: 10 ml Documented by: Zinc Sulfate (Zinc Sulfate (50mg Elemental) 220 Mg Capsule) 220 mg PO DAILY [facility] Last Admin: 09/30/20 11:31 Dose: 220 mg Documented by: Inpatient E&M: [id number] Subs Hosp L2
--- NOTE | 2020-09-30 11:06 | DS.PCM_ITS ---
<Lauren Figueroa THREAT ANALYST - Last Filed: 09/30/20 11:09> Discharge Date and Diagnosis - Problem List Patient Problems: Active and Suspected Problems Atrial fibrillation (Acute) Acute respiratory failure with hypoxemia (Acute) Pulmonary embolism (Acute) DVT (deep venous thrombosis) (Suspected) RLE, popliteal Date of Admission: 09/28/20 Date of Discharge: 09/30/20 - Primary Discharge Diagnosis Acute Problems: Active Problems 1. Acute bilateral PE 2. Atrial fibrillation with RVR 3. Hypothyroidism, history of thyroid cancer status post resection 4. Chronic COPD 5. Hypertension 6. Hyperlipidemia 7. Morbid obesity 8. Suspected EBONI 9. Recent history of shingles, postherpetic neuralgia Suspected Problems: Suspected Problems DVT (deep venous thrombosis) (Suspected) RLE, popliteal - Secondary Discharge Diagnosis Chronic Problems: Chronic Problems Esophageal diverticulum (Chronic) History of thyroid cancer (Chronic) GERD (gastroesophageal reflux disease) (Chronic) Morbid obesity with BMI of 45.0-49.9, adult (Chronic) Pure hypercholesterolemia (Chronic) Hypothyroidism (Chronic) COPD (chronic obstructive pulmonary disease) (Chronic) Sleep apnea in adult (Chronic) HTN (hypertension) (Chronic) Hospital Course and Treatment Imaging Results: Diagnostic Data Chest X-Ray 09/28/20 16:23 IMPRESSION: Right lower lobe pneumonia Electronically Signed: Nick Love MD at 17:35 EDT , Service support , ADDENDUM: 09/28/202013 Chest CTA 09/28/20 18:28 IMPRESSION: 1. Bilateral pulmonary artery emboli, right greater than left = Partially occlusive clots are present in the distal branching point of the right main pulmonary artery extending into the secondary and tertiary arterial branches throughout the right lung. 2. Moderate size wedge-shaped area of consolidation in the right lower lobe is compatible with infarction related to the pulmonary artery emboli. 3. Small emboli are present in several of the secondary and tertiary arterial branches of the left pulmonary artery. The left main pulmonary artery is normal as well as a trauma. A small right pleural effusion is also present. Electronically Signed: Nick Love MD at 20:06 EDT , Service support , ADDENDUM: 09/29/20 0101 IMPRESSION: 1. Bilateral pulmonary artery emboli, right greater than left = Partially occlusive clots are present in the distal branching point of the right main pulmonary artery extending into the secondary and tertiary arterial branches throughout the right lung. 2. Moderate size wedge-shaped area of consolidation in the right lower lobe is compatible with infarction related to the pulmonary artery emboli. 3. Small emboli are present in several of the secondary and tertiary arterial branches of the left pulmonary artery. The left main pulmonary artery is normal as well as a trauma. A small right pleural effusion is also present. N.B. : The above information has been verbally conveyed by Nick Love MD to Dian Baum MD, on 09/29/2020 00:54:40 (ET). Electronically Signed: Nick Love MD at 20:06 EDT , Service support , Echocardiogram 09/28/20 23:57 Interpretation Summary Normal LV size. Left ventricular systolic function is normal. The estimated ejection fraction is 60 %. Moderate (2+) tricuspid valve insufficiency. Pulmonary artery systolic pressure is 62 mmHg. Stage 3 diastolic dysfunction. The right atrium is mildly enlarged. Compared to the previous the pulmonary pressures are noted to be more elevated. Contrast injection was performed. Ordering Physician: Stanford Whitaker Referring Physician: Chip Pereyra Performed By: Mk Jean RCS Dr. Villareal- Cardiology Operations: None Procedures: 2-D Echocardiogram, Cardioversion Summary of Care Provided: The patient is a 85 year old F admitted 09/28/2020 due to pain under her right breast. 1. Acute bilateral PE-CTA with bilateral pulmonary emboli, right greater than left. Initially on therapeutic Lovenox with transition to Eliquis. Continue Eliquis 10 mg twice daily for 7 days followed by 5 mg twice daily. On 1 L supplemental oxygen however not noted to be hypoxic. Continue supplement oxygen to maintain O2 at above 90%. Follow-up with PCP in 1 week. 2. Atrial fibrillation with RVR-synchronized cardioversion performed in ER. Transitioned from IV amiodarone to oral. Continue home metoprolol regimen. Echocardiogram demonstrates an EF of 60%, moderate tricuspid valve insufficiency, pulmonary artery systolic pressure 62 mmHg, stage III diastolic dysfunction. Initiated on Lasix 40 mg daily at discharge. Follow-up with cardiology in 4 weeks. 3. Hypothyroidism, history of thyroid cancer status post resection-TSH 0.10, free T4 1.91, free T3 1.5. Home Synthroid regimen reduced to 125 mcg. Will need repeat thyroid studies in 4 to 6 weeks. 4. Chronic COPD- no exacerbation. 5. Hypertension- stable, on metoprolol. 6. Hyperlipidemia- not on statin. 7. Morbid obesity- encouraged diet and lifestyle modifications. 8. Suspected EBONI- refused sleep study in the past. 9. Recent history of shingles, postherpetic neuralgia-gabapentin increased due to ongoing right hand pain. General: Alert, Oriented x3, Cooperative HEENT: Atraumatic, PERRLA, EOMI, Normocephalic Neck: Supple, No JVD, Negative Carotid Bruits Lungs: Clear to auscultation, Normal air movement Cardiovascular: Regular rate, No murmurs Abdomen: Bowel Sounds Present, Soft, Non Tender, Non-Distended, Obese Extremities: No clubbing, No cyanosis, Edema - Bilateral lower extremity Skin: No rashes, No breakdown Musculoskeletal: No Tenderness to Palpation of Joints or Extremities Neurological: Cranial nerves II-XII grossly intact, Neuro grossly intact Psych/Mental Status: Normal Affect, Appropriate Patient seen and examined prior to discharge. Physical assessment as noted above. Patient is stable for discharge with follow up recommendations as noted above. This patient was seen by VALENTINA White under the supervision of Dr. Jackson. Patient Problems: Active and Suspected Problems Atrial fibrillation (Acute) Acute respiratory failure with hypoxemia (Acute) Pulmonary embolism (Acute) DVT (deep venous thrombosis) (Suspected) RLE, popliteal - Physical Exam Vitals/I&O's: Vital Signs Temp Pulse Resp BP Pulse Ox 97.9 F 74 20 H 109/60 94 09/30/20 08:12 09/30/20 08:12 09/30/20 08:12 09/30/20 08:12 09/30/20 08:12 Oxygen Flow Rate (L/min) [1] 2 Oxygen Flow Rate (L/min) 1 Oxygen Delivery Method [1] Nasal Cannula Oxygen Delivery Method Nasal Cannula Weight: 251 lb 5.231 oz Body Mass Index (BMI) 41.8 Intake and Output for Last 24 Hours 09/28/20 09/29/20 09/30/20 23:59 23:59 23:59 Intake Total 1473 / 1473 724.42 / 784.42 120 / 120 Output Total 1500 / 2075 1175 / 1175 Balance 1473 / 1473 -775.58 / -1290.58 -1055 / -1055 Microbiology Past 72 Hours 09/28/20 16:05 Mucosa - Nose SARS-CoV-2 Antigen (Rapid) - Final Laboratory Results 09/28/20 16:00: Diff Path Review Reviewed 09/29/20 06:08: Diff Path Review Reviewed 09/30/20 06:00: WBC 10.8, RBC 3.39 L, Hgb 10.7 L, Hct 33.1 L, MCV 97.6, MCH 31.6, MCHC 32.3, RDW Std Deviation 48.4 H, RDW Coeff of Radha 13.6, Plt Count 314, MPV 8.9 09/30/20 06:00: Sodium 135 L, Potassium 3.8, Chloride 104, Carbon Dioxide 28.0, Anion Gap 3 L, BUN 7, Creatinine 0.36 L, Estim Creat Clear Calc 37.68, Est GFR (MDRD) Af Amer 221, Est GFR (MDRD) Non-Af 182, BUN/Creatinine Ratio 19.4, Glucose 89, Calcium 8.7 Current Medications Acetaminophen (Acetaminophen 325 Mg Tablet) 650 mg PO Q6H PRN PRN PRN Reason: Pain Score 1-10/Temp > 100.7 F Amiodarone HCl (Amiodarone 200 Mg Tablet) 200 mg PO DAILY [facility] Last Admin: 09/29/20 11:02 Dose: 200 mg Documented by: Apixaban (Apixaban 5 Mg Tablet) 10 mg PO BID [facility] Last Admin: 09/29/20 21:45 Dose: 10 mg Documented by: Cholecalciferol (Cholecalciferol (Vit D3) 25 Mcg Tablet (1,000 Units)) 50 mcg PO DAILY [facility] Last Admin: 09/29/20 10:17 Dose: 50 mcg Documented by: Gabapentin (Gabapentin 300 Mg Capsule) 300 mg PO TID [facility] Sodium Chloride () 250 mls @ 15 mls/hr IV .[id number] PRN PRN Reason: Saline Flush Sodium Chloride () 250 mls @ 15 mls/hr IV .[id number] PRN PRN Reason: Additional IVPB Infusion Levothyroxine Sodium (Levothyroxine 125 Mcg Tablet) 125 mcg PO DAILY@0600 [facility] Last Admin: 09/30/20 05:23 Dose: 125 mcg Documented by: Melatonin (Melatonin 3 Mg Tablet) 3 mg PO QHS PRN PRN PRN Reason: INSOMNIA Metoprolol Tartrate (Metoprolol Tartrate 25 Mg Tablet) 25 mg PO BID [facility] Last Admin: 09/29/20 21:46 Dose: Not Given Documented by: Nystatin (Nystatin Powder 15gm Bottle) 1 applic TOPICAL TID [facility]; Protocol Last Admin: 09/30/20 05:23 Dose: 1 applic Documented by: Ondansetron HCl (Ondansetron 4 Mg/2 Ml Vial) 4 mg IV Q8H PRN PRN PRN Reason: NAUSEA/VOMITING Senna/Docusate Sodium (Senna/Docusate Sodium 1 Tablet) 2 tablet PO BID PRN PRN PRN Reason: Constipation Sodium Chloride (0.9% Saline Lock 10 Ml Syringe) 10 - 40 ml IV UD PRN PRN Reason: SALINE FLUSH Last Admin: 09/29/20 01:01 Dose: 10 ml Documented by: Zinc Sulfate (Zinc Sulfate (50mg Elemental) 220 Mg Capsule) 220 mg PO DAILY [facility] Last Admin: 09/29/20 10:18 Dose: 220 mg Documented by: Home Medications: Medications to take at Discharge Cholecalciferol (Vitamin D3) [Vitamin D3] 2,000 unit PO DAILY 09/28/20 Metoprolol Tartrate [Lopressor (beta juancarlos)] 25 mg PO BID 09/28/20 Zinc 50 mg PO DAILY 09/28/20 Acetaminophen [Tylenol Tablet] 650 mg PO Q6H PRN PRN tablet 09/30/20 Amiodarone HCl [Cordarone] 200 mg PO DAILY tablet 09/30/20 Apixaban [Eliquis] 10 mg PO BID tablet 09/30/20 Furosemide [Lasix] 40 mg PO DAILY PRN #0 09/30/20 Gabapentin [Neurontin] 300 mg PO TID capsule 09/30/20 Levothyroxine [Synthroid] 125 mcg PO DAILY@0600 tablet 09/30/20 Primary Care Physician: Chip Pereyra MD [Primary Care Provider] - Please follow up with your Primary Care Physician in: 1 Week Please Follow Up With: Saturnino Villareal MD - May see THREAT ANALYST/PA When: 4 weeks [facility] Minutes spent on discharge:: 35 Patient Condition:: Stable Medical Necessity - Tobacco Use Smoking Status: Never smoker Meaningful Use Info Meaningful Use Diagnoses (Choose all that apply): VTE - VTE Anticoag overlap given w/in hospital stay or rx'd at [place]?: Yes Pt receive overlap for 5 days?: Yes <Kuldeep Jackson - Last Filed: 09/30/20 12:00> Discharge Date and Diagnosis - Primary Discharge Diagnosis Acute Problems: Active Problems Atrial fibrillation (Acute) Acute respiratory failure with hypoxemia (Acute) Pulmonary embolism (Acute) Suspected Problems: Suspected Problems DVT (deep venous thrombosis) (Suspected) RLE, popliteal - Secondary Discharge Diagnosis Chronic Problems: Chronic Problems Esophageal diverticulum (Chronic) History of thyroid cancer (Chronic) GERD (gastroesophageal reflux disease) (Chronic) Morbid obesity with BMI of 45.0-49.9, adult (Chronic) Pure hypercholesterolemia (Chronic) Hypothyroidism (Chronic) COPD (chronic obstructive pulmonary disease) (Chronic) Sleep apnea in adult (Chronic) HTN (hypertension) (Chronic) Hospital Course and Treatment Operations: None Procedures: 2-D Echocardiogram, Cardioversion Summary of Care Provided: Patient seen and examined independently. Data reviewed. I agree with the above note by the nurse practitioner. The patient is a 85 year old F presents with chest pain. Found to have a acute bilateral pulmonary emboli. Patient also had A. fib with RVR. For the PE, patient was started on enoxaparin eventually changed over to apixaban. Echocardiogram was unremarkable did show elevated pulmonary pressures of 62 mmHg. Patient had previously high elevations of her pulmonary pressures but this was higher. The could partially least be due to the acute PE. This will need further evaluation as outpatient with repeat echocardiogram and consideration for for polysomnogram. For the ACyrus fib, patient was initially difficult control but then was put on amnio drip and then became bradycardic. Patient eventually was started back up on amiodarone oral as well as low-dose metoprolol. Patient is otherwise done well. Patient does continue to have lower extremity edema and will be discharged with furosemide. [facility] be [facility] in stable condition. [] - Physical Exam Vitals/I&O's: Vital Signs Temp Pulse Resp BP Pulse Ox 36.6 C 70 20 H 119/68 95 09/30/20 08:12 09/30/20 11:31 09/30/20 08:12 09/30/20 11:31 09/30/20 11:02 Oxygen Flow Rate (L/min) [1] 2 Oxygen Flow Rate (L/min) 1 Oxygen Delivery Method [1] Nasal Cannula Oxygen Delivery Method Nasal Cannula Weight: 114 kg Body Mass Index (BMI) 41.8 Intake and Output for Last 24 Hours 09/28/20 09/29/20 09/30/20 23:59 23:59 23:59 Intake Total 1473 / 1473 724.42 / 784.42 120 / 120 Output Total 1500 / 2075 1175 / 1175 Balance 1473 / 1473 -775.58 / -1290.58 -1055 / -1055 General: Alert, No apparent distress HEENT: Atraumatic, Normocephalic Oral: Moist Mucosa, No Gingival or Mucosal Lesions/ Ulcerations Neck: No Nodes, Thyroid Normal Size and Texture Lungs: Clear to auscultation, Normal air movement, No rhonchi, No wheeze Cardiovascular: Regular rate, Regular Rhythm, Normal S1, Normal S2 Abdomen: Bowel Sounds Present, Soft, Non Tender, Non-Distended Extremities: No Calf Tenderness, Edema Skin: No rashes, No breakdown Microbiology Past 72 Hours 09/28/20 16:05 Mucosa - Nose SARS-CoV-2 Antigen (Rapid) - Final Laboratory Results 09/30/20 06:00: WBC 10.8, RBC 3.39 L, Hgb 10.7 L, Hct 33.1 L, MCV 97.6, MCH 31.6, MCHC 32.3, RDW Std Deviation 48.4 H, RDW Coeff of Radha 13.6, Plt Count 314, MPV 8.9 09/30/20 06:00: Sodium 135 L, Potassium 3.8, Chloride 104, Carbon Dioxide 28.0, Anion Gap 3 L, BUN 7, Creatinine 0.36 L, Estim Creat Clear Calc 37.68, Est GFR (MDRD) Af Amer 221, Est GFR (MDRD) Non-Af 182, BUN/Creatinine Ratio 19.4, Glucose 89, Calcium 8.7 Current Medications Acetaminophen (Acetaminophen 325 Mg Tablet) 650 mg PO Q6H PRN PRN PRN Reason: Pain Score 1-10/Temp > 100.7 F Amiodarone HCl (Amiodarone 200 Mg Tablet) 200 mg PO DAILY [facility] Last Admin: 09/30/20 11:31 Dose: 200 mg Documented by: Apixaban (Apixaban 5 Mg Tablet) 10 mg PO BID [facility] Last Admin: 09/30/20 11:29 Dose: 10 mg Documented by: Cholecalciferol (Cholecalciferol (Vit D3) 25 Mcg Tablet (1,000 Units)) 50 mcg PO DAILY [facility] Last Admin: 09/30/20 11:30 Dose: 50 mcg Documented by: Gabapentin (Gabapentin 300 Mg Capsule) 300 mg PO TID [facility] Sodium Chloride () 250 mls @ 15 mls/hr IV .[id number] PRN PRN Reason: Saline Flush Sodium Chloride () 250 mls @ 15 mls/hr IV .[id number] PRN PRN Reason: Additional IVPB Infusion Levothyroxine Sodium (Levothyroxine 125 Mcg Tablet) 125 mcg PO DAILY@0600 [facility] Last Admin: 09/30/20 05:23 Dose: 125 mcg Documented by: Melatonin (Melatonin 3 Mg Tablet) 3 mg PO QHS PRN PRN PRN Reason: INSOMNIA Metoprolol Tartrate (Metoprolol Tartrate 25 Mg Tablet) 25 mg PO BID [facility] Last Admin: 09/30/20 11:31 Dose: 25 mg Documented by: Nystatin (Nystatin Powder 15gm Bottle) 1 applic TOPICAL TID [facility]; Protocol Last Admin: 09/30/20 05:23 Dose: 1 applic Documented by: Ondansetron HCl (Ondansetron 4 Mg/2 Ml Vial) 4 mg IV Q8H PRN PRN PRN Reason: NAUSEA/VOMITING Senna/Docusate Sodium (Senna/Docusate Sodium 1 Tablet) 2 tablet PO BID PRN PRN PRN Reason: Constipation Sodium Chloride (0.9% Saline Lock 10 Ml Syringe) 10 - 40 ml IV UD PRN PRN Reason: SALINE FLUSH Last Admin: 09/29/20 01:01 Dose: 10 ml Documented by: Zinc Sulfate (Zinc Sulfate (50mg Elemental) 220 Mg Capsule) 220 mg PO DAILY [facility] Last Admin: 09/30/20 11:31 Dose: 220 mg Documented by: Discharge Diet: Low fat/ Low Cholesterol Disposition: [facility] facility Minutes spent on discharge:: 35 Patient Condition:: Stable Medical Necessity - Tobacco Use Smoking Status: Never smoker Meaningful Use Info Meaningful Use Diagnoses (Choose all that apply): VTE - VTE Anticoag overlap given w/in hospital stay or rx'd at dc?: Yes Pt receive overlap for 5 days?: No Reason overlap not ordered, prescribed, or given for 5 days: Treatment Not Indicated Inpatient E&M: 79402 Disch Hosp
[2020-09-30] MEDS: APIXABAN 5 MG TABLET 10 MG PO ×2 (11:29→21:28)
[2020-09-30] MEDS: Cholecalciferol (VIT D3) 25 MCG TABLET (1,000 UNITS) 50 MCG PO (11:30)
[2020-09-30] MEDS: Gabapentin 100 MG Capsule 200 MG PO (11:30)
[2020-09-30] MEDS: Amiodarone 200 MG Tablet PO (11:31)
[2020-09-30] MEDS: Metoprolol Tartrate 25 MG Tablet PO ×2 (11:31→21:28)
[2020-09-30] MEDS: Gabapentin 300 MG Capsule PO ×2 (15:20→21:28)
--- NOTE | 2020-09-30 15:27 | CASEMGMT ---
Palliative screening tool completed at this time. Patient does not meet criteria.
[2020-10-01] VITALS (13 sets, daily range): BP systolic 101–120; BP diastolic 56–76; PULSE 64–78; RESP 14–18; TEMP 36.3–36.8; O2SAT 93–100
[2020-10-01] MEDS: Levothyroxine 125 MCG Tablet PO (06:23)
[2020-10-01] MEDS: Gabapentin 300 MG Capsule PO ×2 (06:23→13:01)
[2020-10-01] MEDS: Nystatin Powder 15gm Bottle 1 APPLIC TOPICAL (06:23)
--- NOTE | 2020-10-01 09:34 | CASEMGMT ---
SENDY spoke with Karrie at [employer] and let her know SW is faxing updates on patient. She will let SW know when they hear from insurance. Plan: [facility] pending pre-cert. Nu GIBBS
[2020-10-01] MEDS: Metoprolol Tartrate 25 MG Tablet PO (10:26)
[2020-10-01] MEDS: Amiodarone 200 MG Tablet PO (10:26)
[2020-10-01] MEDS: APIXABAN 5 MG TABLET 10 MG PO (10:26)
[2020-10-01] MEDS: Cholecalciferol (VIT D3) 25 MCG TABLET (1,000 UNITS) 50 MCG PO (10:27)
--- NOTE | 2020-10-01 11:57 | PN_ITS ---
Patient Problems: Active and Suspected Problems Atrial fibrillation (Acute) Acute respiratory failure with hypoxemia (Acute) Pulmonary embolism (Acute) DVT (deep venous thrombosis) (Suspected) RLE, popliteal Subjective: No new events. Vitals/I&O's: Vital Signs Temp Pulse Resp BP Pulse Ox 36.5 C L 67 14 116/56 L 97 10/01/20 10:04 10/01/20 11:00 10/01/20 10:04 10/01/20 10:26 10/01/20 10:04 Oxygen Flow Rate (L/min) [1] 2 Oxygen Flow Rate (L/min) 2 Oxygen Delivery Method [1] Nasal Cannula Oxygen Delivery Method Nasal Cannula Weight: 114 kg Body Mass Index (BMI) 41.8 Intake and Output for Last 24 Hours 09/29/20 09/30/20 10/01/20 23:59 23:59 23:59 Intake Total 724.42 / 784.42 600 / 720 180 / 180 Output Total 1500 / 2075 1475 / 1475 0 / 0 Balance -775.58 / -1290.58 -875 / -755 180 / 180 General: Alert, No apparent distress HEENT: Atraumatic, Normocephalic Oral: Moist Mucosa, No Gingival or Mucosal Lesions/ Ulcerations Neck: No Nodes, Thyroid Normal Size and Texture Lungs: Clear to auscultation, Normal air movement, No rhonchi, No wheeze Cardiovascular: Regular rate, Regular Rhythm, Normal S1, Normal S2, No murmurs Abdomen: Bowel Sounds Present, Soft, Non Tender, Non-Distended Extremities: No edema, No Calf Tenderness Skin: No rashes, No breakdown Psych/Mental Status: Normal Affect, Appropriate Microbiology Past 72 Hours 09/28/20 16:40 Blood Culture (Wb) - Anticubital Left Blood Culture - Preliminary No growth in 48 hours. 09/28/20 16:46 Blood Culture (Wb) - Left Hand Blood Culture - Preliminary No growth in 48 hours. 09/28/20 16:05 Mucosa - Nose SARS-CoV-2 Antigen (Rapid) - Final Current Medications Acetaminophen (Acetaminophen 325 Mg Tablet) 650 mg PO Q6H PRN PRN PRN Reason: Pain Score 1-10/Temp > 100.7 F Amiodarone HCl (Amiodarone 200 Mg Tablet) 200 mg PO DAILY [facility] Last Admin: 10/01/20 10:26 Dose: 200 mg Documented by: Apixaban (Apixaban 5 Mg Tablet) 10 mg PO BID [facility] Last Admin: 10/01/20 10:26 Dose: 10 mg Documented by: Cholecalciferol (Cholecalciferol (Vit D3) 25 Mcg Tablet (1,000 Units)) 50 mcg PO DAILY [facility] Last Admin: 10/01/20 10:27 Dose: 50 mcg Documented by: Gabapentin (Gabapentin 300 Mg Capsule) 300 mg PO TID [facility] Last Admin: 10/01/20 06:23 Dose: 300 mg Documented by: Sodium Chloride () 250 mls @ 15 mls/hr IV .[id number] PRN PRN Reason: Saline Flush Sodium Chloride () 250 mls @ 15 mls/hr IV .[id number] PRN PRN Reason: Additional IVPB Infusion Levothyroxine Sodium (Levothyroxine 125 Mcg Tablet) 125 mcg PO DAILY@0600 [facility] Last Admin: 10/01/20 06:23 Dose: 125 mcg Documented by: Melatonin (Melatonin 3 Mg Tablet) 3 mg PO QHS PRN PRN PRN Reason: INSOMNIA Metoprolol Tartrate (Metoprolol Tartrate 25 Mg Tablet) 25 mg PO BID [facility] Last Admin: 10/01/20 10:26 Dose: 25 mg Documented by: Nystatin (Nystatin Powder 15gm Bottle) 1 applic TOPICAL TID [facility]; Protocol Last Admin: 10/01/20 06:23 Dose: 1 applic Documented by: Ondansetron HCl (Ondansetron 4 Mg/2 Ml Vial) 4 mg IV Q8H PRN PRN PRN Reason: NAUSEA/VOMITING Senna/Docusate Sodium (Senna/Docusate Sodium 1 Tablet) 2 tablet PO BID PRN PRN PRN Reason: Constipation Sodium Chloride (0.9% Saline Lock 10 Ml Syringe) 10 - 40 ml IV UD PRN PRN Reason: SALINE FLUSH Last Admin: 09/29/20 01:01 Dose: 10 ml Documented by: Zinc Sulfate (Zinc Sulfate (50mg Elemental) 220 Mg Capsule) 220 mg PO DAILY [facility] Last Admin: 10/01/20 10:27 Dose: 220 mg Documented by: STROKE Vital Signs/Narrative: Vital Signs Temp Pulse Resp BP Pulse Ox 10/01/20 11:00 67 10/01/20 10:26 74 116/56 L 10/01/20 10:04 36.5 C L 74 14 116/56 L 97 10/01/20 09:10 14 Medical Necessity - Tobacco Use Smoking Status: Never smoker Assessment/Plan All Active Problems Atrial fibrillation (Acute) Acute respiratory failure with hypoxemia (Acute) Pulmonary embolism (Acute) 1. Acute bilateral pulmonary emboli with pulmonary infarct Currently hemodynamically stable. Continue with apixaban. Wean oxygen as tolerated. 2. A. fib with RVR Status post synchronized cardioversion in the emergency room. On amiodarone and metoprolol tartrate Echocardiogram shows EF of 60% Cardiology following anticoagulated with apixaban 3. 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 Pulmonary hypertension likely multifactorial: group 2, 3 and 4 treat underlying CHF, VTE outpt PSG PA pressures higher than in 2015, which were 39mmHG at that time. 5. Hypothyroidism Low TSH and elevated FT4 levothyroxine change from 150 to 125 mcg/day monitor as outpt. Recheck in 4-6 weeks 6. Leukocytosis resolved likely reactive 7. Disposition: plan for SNF at the [facility] pending insurance authorization. Inpatient E&M: 87859 Subs Hosp L2
[2020-10-01] MEDS: Furosemide 40 MG/4 ML Vial IV (13:00)
--- NOTE | 2020-10-01 15:45 | CASEMGMT ---
RN told SW that patient had some questions. SW met with patient and attempted to answer her questions. She thanked SW for checking in with her. SW let her know we are still waiting on her insurance to approve her. SW let her know it is still possible that it could happen today. She thanked SENDY for the update. Nu Motley SENIOR ENVIRONMENTAL PRACTICE LEADER SAI
== END 2020-10-01 18:55 | disposition skilled nursing facility (03) | DRG 175 ==
LOC: ED 16:26 → PCU 23:26
PROVIDERS: Nurse Practitioner Family; Admitting Provider Hospitalist; Emergency Provider Emergency Medicine; PCP Family Medicine
DX: I26.09 Other pulmonary embolism with acute cor pulmonale (principal); J96.01 Acute respiratory failure with hypoxia; I50.31 Acute diastolic (congestive) heart failure; J18.9 Pneumonia, unspecified organism; I82.431 Acute embolism and thrombosis of right popliteal vein; Z68.42 Body mass index [BMI] 45.0-49.9, adult; B02.29 Other postherpetic nervous system involvement; J44.0 Chronic obstructive pulmonary disease with (acute) lower respiratory infection; Q39.6 Congenital diverticulum of esophagus; I48.91 Unspecified atrial fibrillation; I95.9 Hypotension, unspecified; I11.0 Hypertensive heart disease with heart failure; I49.3 Ventricular premature depolarization; E78.00 Pure hypercholesterolemia, unspecified; E66.01 Morbid (severe) obesity due to excess calories; E89.0 Postprocedural hypothyroidism; E78.5 Hyperlipidemia, unspecified; I07.1 Rheumatic tricuspid insufficiency; I27.20 Pulmonary hypertension, unspecified; K21.9 Gastro-esophageal reflux disease without esophagitis; G47.33 Obstructive sleep apnea (adult) (pediatric); Z66 Do not resuscitate; Z85.850 Personal history of malignant neoplasm of thyroid; Z79.01 Long term (current) use of anticoagulants; Z79.899 Other long term (current) drug therapy
CPT/HCPCS: 36415; 51702; 71045; 71275; 80048; 80076; 81001; 83605; 83690; 83735; 83880; 84439; 84443; 84481; 84484; 85025; 85027; 85379; 85610; 85730; 87040; 87426; 92960; 93005; 93306; 97110; 97162; 97166; 97530; 97535; 97802; 99285; J7030; J7050; Q9957; Q9967; A4216; C8929; J0295; J0696; J1940

== ENCOUNTER 2020-10-11 18:09 | Observation (INO) | payer MEDICARE, SELFPAY ==
[2020-09-29 00:04] VITALS: BMI 41.8
[2020-10-11 18:12] VITALS: BP 96/40; PULSE 70; RESP 19; TEMP 36.9; O2SAT 97; BMI 43.5
--- NOTE | 2020-10-11 18:39 | EKG12_ITS ---
Test Reason : DYSRYTHMIA Blood Pressure : / mmHG Vent. Rate : 067 BPM Atrial Rate : 067 BPM P-R Int : 182 ms QRS Dur : 072 ms QT Int : 414 ms P-R-T Axes : 045 005 046 degrees QTc Int : 437 ms Normal sinus rhythm Low voltage QRS Borderline ECG Confirmed by NAA WYLIE, SHERLYN ([id number]), editor magazine MIGUEL FARMER ([id number]) on 10/16/2020 1:03:51 PM Referred By: ARY Confirmed By:SHERLYN JACOME MD
--- NOTE | 2020-10-11 18:39 | CT_ITS ---
STUDY: CT CHEST WITH CONTRAST REASON FOR EXAM: Female, 85 years old. 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 Since this is not reported on the current history, please ensure close correlation history and previous studies. RADIATION DOSAGE (If Supplied By Facility): CTDIvol = ( 13.19 ) mGy, DLP = ( 566.72 ) mGycm TECHNIQUE: Transaxial imaging was performed following intravenous administration of IV 100mL [id number]-300. Individualized dose optimization techniques were used for this CT. COMPARISON: Previous CTA of the chest, 09/28/2020 which showed bilateral PE and probable right lower lobe infarct. Note: 9 of this history is provided on this requisition. Therefore please ensure close clinical correlation and review of prior exams. FINDINGS: Normal lung volumes. Previously described focal area of consolidation in the periphery of the right middle lobe is significantly smaller system with at least partial resolution of previous infarct. Significantly improved aeration of the posterior costophrenic angles especially the right where only a small area of atelectasis or scarring remains. No effusions. Abnormal soft tissue mass density appears localized in the area of the upper esophagus in the upper mediastinum. This was not present previously and suggests impacted food bolus, correlate clinically and suggest endoscopy. There is mild cardiac enlargement. Normal mediastinum. Normal hilar regions. Normal enhanced pulmonary arteries. There is atherosclerotic calcification of the aortic arch with tortuosity and elongation of the aortic arch and descending thoracic aorta. There are multi-level degenerative changes of the thoracic spine. There is no demonstrated abnormality of the visualized upper abdomen. CT/Chest WITH Contrast IMPRESSION: Improving aeration of the previous right middle lobe consolidation/infarct. Improving aeration both lung bases. Soft tissue mass density in the upper esophagus not present previously and most suggestive of impacted food bolus. Correlate clinically and consider endoscopy. Electronically Signed: Lito Reinoso MD at 19:40 EDT , Service support ,
--- NOTE | 2020-10-11 18:40 | ED.VIS.GEN ---
History of Present Illness Chief Complaint: Cough Narrative: This is an 85-year-old female who presents with hemoptysis. Patient was recently hospitalized for bilateral pulmonary embolism and atrial fibrillation with RVR. She was started on Eliquis. She states she was not anticoagulated prior to her hospitalization. Roughly 30 minutes before presentation she developed severe hemoptysis. She denies any fever congestion rhinorrhea chest pain difficulty breathing. No history of prior similar symptoms. Past Medical History - Allergies and Home Meds Allergies/Adverse Reactions: Allergies codeine Adverse Reaction (Verified 10/11/20 18:12) I just didn't like how it made me feel Primary Care Physician: Chip Pereyra MD [Primary Care Provider] - Past Medical History: - - Hypertension, atrial fibrillation, bilateral pulmonary embolism Surgical History: - - Thyroid resection, LUE tumor removal. Reverse shoulder replacement in December of 2014 at the [facility] Smoking Status: Never smoker - Family History Paternal Family History: Reports: - - she is adopted and does not know hx of parents Maternal Family History: Reports: - - she is adopted and does not know hx of parents Review of Systems All systems negative except as indicated General: Denies: Fever Eyes: Denies: Visual changes - bilaterally ENT: Denies: Bilateral ear pain Cardiovascular: Denies: Chest pain Respiratory: Reports: Cough, - - Hemoptysis. Denies: Dyspnea Gastrointestinal: Denies: Abdominal pain, Nausea, Vomiting, Diarrhea Musculoskeletal: Denies: Myalgias, Arthralgias Skin: Denies: Rash Neurological: Denies: Headache Hematologic: Reports: Easy bruising, Easy bleeding Allergy: Denies: Uticaria Physical Exam Vital Signs/Narrative: Vital Signs Temp Pulse Resp BP Pulse Ox 10/11/20 18:12 98.4 F 70 19 H 96/40 L 97 Inital Vital Signs reviewed: Yes General: Well nourished, - - Patient noted to have blood across the front of her gown and a towel with multiple clots Head: Normocephalic Eyes: EOMI ENT: Moist mucous membranes Neck: Supple Cardiovascular: Regular rate, Regular rhythm Respiratory: No distress, CTA bilaterally Abdomen: Soft, Nontender Skin: Normal color Neurological: Alert Psychological: Normal affect Diagnostic/Tx/Re-eval Impressions Chest CT 10/11/20 18:39 IMPRESSION: Improving aeration of the previous right middle lobe consolidation/infarct. Improving aeration both lung bases. Soft tissue mass density in the upper esophagus not present previously and most suggestive of impacted food bolus. Correlate clinically and consider endoscopy. Electronically Signed: Lito Reinoso MD at 19:40 EDT , Service support , 10/11/20 18:39 CT Chest [Chest WITH Contrast] [CT] Stat Laboratory Results 10/11/20 10/11/20 10/11/20 18:30 18:30 18:30 WBC 10.6 RBC 3.80 L Hgb 12.1 Hct 37.8 MCV 99.5 H MCH 31.8 MCHC 32.0 RDW Std Deviation 51.2 H RDW Coeff of Radha 14.3 Plt Count 339 MPV 9.0 Immature Gran % (Auto) 0.400 Neut % (Auto) 71.5 H Lymph % (Auto) 15.8 L [place] % (Auto) 8.4 Eos % (Auto) 3.4 Baso % (Auto) 0.5 Absolute Neuts (auto) 7.6 Absolute Lymphs (auto) 1.67 Nucleated RBC % 0 PT 16.9 H INR 1.4 APTT 34.1 Sodium 138 Potassium 4.3 Chloride 103 Carbon Dioxide 31.0 Anion Gap 4 L BUN 10 Creatinine 0.52 L Estim Creat Clear Calc 37.68 Est GFR (MDRD) Af Amer 145 Est GFR (MDRD) Non-Af 120 BUN/Creatinine Ratio 19.3 Glucose 104 Calcium 8.7 - Medical Decision Making EKG shows normal sinus rhythm at a rate of 67 with no acute ischemic changes. Patient continues to have hemoptysis with clots but has remained hemodynamically stable. Laboratory studies are unremarkable. INR 1.4. A CT of the chest was obtained which is improving aeration from previous. There was question of esophageal impaction. This is not consistent with the patient's history. She does not have difficulty swallowing. No regurgitation or vomiting. I spoke to the offset printer railroad conductor early in the patient's course. As long as patient is hemodynamically stable recommend hospitalization venous duplexes possible IVC filter. I spoke to the hospitalist agrees to admit. ED Disposition - Plan for ED Patient: Disposition: Acute Care Hospital [facility] Diagnosis: Hemoptysis Referrals: Chip Pereyra MD [Primary Care Provider] -
[2020-10-11 18:48] LABS: Absolute Lymphocyte Count 1.67 X10^3/uL (0.83-4.51); Absolute Neutrophil Count 7.6 X10^3/uL (2.0-7.7); Basophil# 0.05 X10^3/uL; Basophil% 0.5 % (0-1); Eosinophil# 0.36 X10^3/uL; Eosinophils% 3.4 % (0-5); Hematocrit 37.8 % (37-47); Hemoglobin 12.1 g/dL (12.0-15.0); Lymphocyte # 1.67 X10^3/ul (4.0); Lymphocyte % 15.8 % (19-41); Mean Corpuscular Hgb 31.8 pg (27.0-32.0); Mean Corpuscular Volume 99.5 fL (81-99); Monocyte# 0.89 X10^3/uL; Monocyte% 8.4 % (0-10); NRBC Flagged by Analyzer 0 % (0-5); Neutrophil # 7.57 X10^3/uL (2.7-7.7); Neutrophil % 71.5 % (47-70); Platelet Count 339 K/mm3 (150-450); RBC Distribution Width CV 14.3 % (11.6-14.6); RBC Distribution Width SD 51.2 fl (35.1-43.9); White Blood Count 10.6 K/mm3 (4.4-11.0)
[2020-10-11 19:02] LABS: International Normalized Ratio 1.4; Prothrombin Time (Protime)PT. 16.9 SECONDS (11.7-14.9)
[2020-10-11 19:03] LABS: Partial Thromboplast Time 34.1 Seconds (24.1-36.2)
[2020-10-11 19:06] VITALS: BP 107/60; PULSE 74; RESP 18; O2SAT 95
[2020-10-11 19:48] LABS: Anion Gap 4 (5-15); BUN 10 mg/dL (7-18); BUN/Creat Ratio 19.3 RATIO (10-20); Calcium,Total 8.7 mg/dL (8.5-10.1); Chloride 103 mmol/L (98-107); Creatinine, Serum 0.52 mg/dL (0.55-1.02); EST Glomerular Filtration Rate 120 mL/min (>60); Est Glom Filt Rate - Afr Amer 145 mL/min (>60); Estimated Creatinine Clearance 37.68 ml/min; Glucose 104 mg/dL (74-106); Potassium 4.3 mmol/L (3.5-5.1); Sodium Level 138 mmol/L (136-145)
[2020-10-11 20:47] VITALS: BP 133/59; PULSE 82; RESP 17; TEMP 36.6; O2SAT 97
--- NOTE | 2020-10-11 20:50 | NURSING ---
[facility] notified of pt being admitted . Spoke to Minerva who also was her daughter
--- NOTE | 2020-10-11 20:53 | PCM.HP.STD ---
<Vianey Busby - Last Filed: 10/11/20 20:53> Problem List (1) Hemoptysis Status: Acute (2) Atrial fibrillation Status: Chronic (3) GERD (gastroesophageal reflux disease) Status: Chronic (4) Morbid obesity with BMI of 45.0-49.9, adult Status: Chronic (5) Hypothyroidism Status: Chronic (6) COPD (chronic obstructive pulmonary disease) Status: Chronic (7) Sleep apnea in adult Status: Chronic (8) HTN (hypertension) Status: Chronic (9) History of pulmonary embolism Status: Chronic History of Present Illness Date of Admission: 10/11/20 Chief Complaint: Hemoptysis The patient is a 85 year old F who presents today following multiple episodes of hemoptysis. Patient reports that she has been coughing up multiple clots of blood. Patient denies any other symptoms. Patient was recently diagnosed with pulmonary embolism and subsequently started on Eliquis. Patient reports last dose of Eliquis was taken this morning. Patient currently sitting in ER bed continuing to cough up joesph red blood. Hemoglobin stable 12.1, PT 16.9/INR 1.4. Labs unremarkable otherwise. Patient denies being short of breath, 97% on room air. Vital signs stable. Past Medical History Past Medical History (Chronic Problems): Chronic Problems History of pulmonary embolism (Chronic) Atrial fibrillation (Chronic) Esophageal diverticulum (Chronic) History of thyroid cancer (Chronic) GERD (gastroesophageal reflux disease) (Chronic) Morbid obesity with BMI of 45.0-49.9, adult (Chronic) Pure hypercholesterolemia (Chronic) Hypothyroidism (Chronic) COPD (chronic obstructive pulmonary disease) (Chronic) Sleep apnea in adult (Chronic) HTN (hypertension) (Chronic) Allergies codeine Adverse Reaction (Verified 10/11/20 18:12) I just didn't like how it made me feel Home Medications: Ambulatory Orders Medication Instructions Recorded Cholecalciferol (Vitamin D3) 2,000 unit PO DAILY 09/28/20 [Vitamin D3] Metoprolol Tartrate [Lopressor 25 mg PO BID 09/28/20 (beta juancarlos)] Zinc 50 mg PO DAILY 09/28/20 Acetaminophen [Tylenol Tablet] 650 mg PO Q6H PRN PRN tablet 09/30/20 Furosemide [Lasix] 40 mg PO DAILY PRN #0 09/30/20 Albuterol Aerosols [Ventolin 2.5 mg INHALATION Q4HWA.RT 10/11/20 Aerosols] Amiodarone HCl [Cordarone] 200 mg PO DAILY 10/11/20 Apixaban [Eliquis] 5 mg PO BID 10/11/20 Gabapentin [Neurontin] 100 mg PO TID 10/11/20 Levothyroxine [Synthroid] 125 mcg PO DAILY@0600 10/11/20 Nystatin Powder [Mycostatin Powder] 1 applic TOPICAL BID 10/11/20 Surgical History: - - Thyroid resection, LUE tumor removal. Reverse shoulder replacement in December of 2014 at the [facility] Psychiatric History: No pertinent psych hx SCIENCE INTERN History: No pertinent SCIENCE INTERN history Lives: [facility] Smoking Status: Never smoker Tobacco Use: Non-smoker Alcohol: None Drugs: None - *Family History Maternal History Items: No pertinent history Paternal History Items: - - she is adopted and does not know hx of parents Review of Systems Constitutional: Denies: Chills, Fever, Weight Change HEENT: Denies: Head Aches, Sinus Congestion, Sinus Drainage Cardiovascular: Denies: Chest Pain, Palpitations Respiratory: Reports: Cough, Hemoptysis. Denies: Shortness of breath at rest, Sputum production Gastrointestinal: Denies: Abdominal Pain, Nausea, Vomiting Genitourinary: Denies: Dysuria Musculoskeletal: Denies: Joint Pain, Joint Tenderness Skin: Denies: Rash, Wounds Neurological: Denies: Numbness, Tingling, Focal weakness Psychiatric: Denies: Anxiety, Depression, Homicidal Ideations, Suicidal Ideations Hematologic/ Lymphatic: Denies: Easy Bruising, Easy Bleeding VTE Information - Inpt Only VTE Present on Admission: No VTE Mechan Device Prophylaxis: SCD's, None VTE Pharm Prophylaxis ordered?: No Reason prophylaxis not ordered:: Medical Contraindication - Hemoptysis Patient Problems: Active and Suspected Problems Hemoptysis (Acute) - Physical Exam Vitals/I&O's: Vital Signs Temp Pulse Resp BP Pulse Ox 97.9 F 82 17 133/59 H 97 10/11/20 20:47 10/11/20 20:47 10/11/20 20:47 10/11/20 20:47 10/11/20 20:47 Oxygen Delivery Method Room Air Weight: 261 lb 11.019 oz Body Mass Index (BMI) 43.5 General: Alert, Oriented x3, Cooperative HEENT: Atraumatic, PERRLA, EOMI, Normocephalic Neck: Supple, No JVD, Negative Carotid Bruits Lungs: Normal air movement, Diminished, - - Moderate amounts of hemoptysis Cardiovascular: Regular rate, Regular Rhythm, Normal S1, Normal S2, No murmurs Abdomen: Bowel Sounds Present, Soft, Non Tender Extremities: No edema, Capillary Refill Less than 3 Seconds, Peripheral Pulses Normal Skin: No rashes, No breakdown Musculoskeletal: No Tenderness to Palpation of Joints or Extremities Neurological: Cranial nerves II-XII grossly intact Psych/Mental Status: Normal Affect, Appropriate Laboratory Results 10/11/20 18:30: WBC 10.6, RBC 3.80 L, Hgb 12.1, Hct 37.8, MCV 99.5 H, MCH 31.8, MCHC 32.0, RDW Std Deviation 51.2 H, RDW Coeff of Radha 14.3, Plt Count 339, MPV 9.0, Immature Gran % (Auto) 0.400, Neut % (Auto) 71.5 H, Lymph % (Auto) 15.8 L, [place] % (Auto) 8.4, Eos % (Auto) 3.4, Baso % (Auto) 0.5, Absolute Neuts (auto) 7.6, Absolute Lymphs (auto) 1.67, Nucleated RBC % 0 10/11/20 18:30: PT 16.9 H, INR 1.4, APTT 34.1 10/11/20 18:30: Sodium 138, Potassium 4.3, Chloride 103, Carbon Dioxide 31.0, Anion Gap 4 L, BUN 10, Creatinine 0.52 L, Estim Creat Clear Calc 37.68, Est GFR (MDRD) Af Amer 145, Est GFR (MDRD) Non-Af 120, BUN/Creatinine Ratio 19.3, Glucose 104, Calcium 8.7 Assessment/Plan All Active Problems Hemoptysis (Acute) Acute respiratory failure with hypoxemia (Acute) Pulmonary embolism (Acute) 1. Hemoptysis -Admit to PCU for cardiac monitoring -Hold Eliquis -Recheck CBC in a.m. -Consult pulmonology due to patient's recent diagnosis of pulmonary embolism and possible need for bronchoscopy. 2. History of pulmonary embolism -Recent history patient was discharged approximately 12 days ago when she was started on Eliquis. -We will consult pulmonology due to patient's recent diagnosis and subsequent hemoptysis. 3. Atrial fibrillation -Continue amiodarone and Lopressor -Hold Eliquis due to hemoptysis 4. Hypertension -Continue metoprolol and furosemide. 5. COPD -Patient currently has no problems breathing, room air 97% SPO2. -O2 protocol as needed. 6. Hypothyroidism -Continue levothyroxine. 7. GERD -Patient currently not on medication management 8. Sleep apnea in adult -Patient currently does not use BiPAP or CPAP at home. 9. Morbid obesity with BMI of 40.0-44.9, adult -Encourage lifestyle modifications, patient weight is down from last admission DVT prophylaxis-SCDs only, no pharmacological agents due to hemoptysis. This patient was seen by [facility] under the supervision of Dr. Hebert. <Leroy Hebert F - Last Filed: 10/12/20 02:00> History of Present Illness The patient is a 85 year old F [] Past Medical History Allergies codeine Adverse Reaction (Verified 10/11/20 21:27) I just didn't like how it made me feel - Physical Exam Vitals/I&O's: Vital Signs Temp Pulse Resp BP Pulse Ox 97.6 F L 76 18 118/43 L 98 10/11/20 21:22 10/11/20 21:42 10/11/20 21:22 10/11/20 21:22 10/11/20 21:22 Oxygen Delivery Method Room Air Weight: 248 lb 7.375 oz Body Mass Index (BMI) 41.3 Laboratory Results 10/11/20 18:30: WBC 10.6, RBC 3.80 L, Hgb 12.1, Hct 37.8, MCV 99.5 H, MCH 31.8, MCHC 32.0, RDW Std Deviation 51.2 H, RDW Coeff of Radha 14.3, Plt Count 339, MPV 9.0, Immature Gran % (Auto) 0.400, Neut % (Auto) 71.5 H, Lymph % (Auto) 15.8 L, [place] % (Auto) 8.4, Eos % (Auto) 3.4, Baso % (Auto) 0.5, Absolute Neuts (auto) 7.6, Absolute Lymphs (auto) 1.67, Nucleated RBC % 0 10/11/20 18:30: PT 16.9 H, INR 1.4, APTT 34.1 10/11/20 18:30: Sodium 138, Potassium 4.3, Chloride 103, Carbon Dioxide 31.0, Anion Gap 4 L, BUN 10, Creatinine 0.52 L, Estim Creat Clear Calc 37.68, Est GFR (MDRD) Af Amer 145, Est GFR (MDRD) Non-Af 120, BUN/Creatinine Ratio 19.3, Glucose 104, Calcium 8.7 Current Medications Acetaminophen (Acetaminophen 325 Mg Tablet) 650 mg PO Q6H PRN PRN PRN Reason: Pain Score 1-10/Temp > 100.7 F Guaifenesin (Guaifenesin 10 Ml Udc (200mg/10ml)) 20 ml PO Q4H PRN PRN PRN Reason: COUGH Melatonin (Melatonin 3 Mg Tablet) 3 mg PO QHS PRN PRN PRN Reason: INSOMNIA Ondansetron HCl (Ondansetron 4 Mg/2 Ml Vial) 4 mg IV Q8H PRN PRN PRN Reason: NAUSEA/VOMITING Addendum: Dr. Hebert I personally examined the patient and reviewed the chart. I agree with the above. 85-year-old female who was recently admitted for pulmonary embolism started on Eliquis presents back to the hospital with coughing up blood. She says that it started immediately prior to admission and is why she came into the hospital. She denies any lightheadedness or dizziness. She denies any chest pain. She does note that she feels like she does have a lot that she is trying to cough out and she has coughed up a fair volume of coagulated blood. Hemoglobin is stable at 12.6 we will consult pulmonology for evaluation and possible bronchoscopy. We will hold her Eliquis for now and place her on SCDs. Part of this issue is because her PEs led to a pulmonary infarct. She may need to have discussions for possible IVC filter placement. OBSV E&M: [id number] Initial observation care L3
[2020-10-11 21:05] VITALS: BP 118/65; PULSE 73; RESP 18; O2SAT 96
[2020-10-11 21:21] VITALS: BMI 41.3
[2020-10-11 21:22] VITALS: BP 118/43; PULSE 81; RESP 18; TEMP 36.4; O2SAT 98
[2020-10-11 21:42] VITALS: PULSE 76
[2020-10-12] VITALS (11 sets, daily range): BP systolic 106–124; BP diastolic 52–63; PULSE 75–100; RESP 12–18; TEMP 36.6–36.9; O2SAT 93–97
[2020-10-12] MEDS: Ondansetron 4 MG/2 ML Vial IV (02:11)
[2020-10-12 05:18] LABS: Absolute Lymphocyte Count 1.55 X10^3/uL (0.83-4.51); Absolute Neutrophil Count 9.4 X10^3/uL (2.0-7.7); Basophil# 0.05 X10^3/uL; Basophil% 0.4 % (0-1); Eosinophil# 0.24 X10^3/uL; Hematocrit 31.6 % (37-47); Hemoglobin 9.8 g/dL (12.0-15.0); Lymphocyte # 1.55 X10^3/ul (4.0); Lymphocyte % 12.7 % (19-41); Mean Corpuscular Hgb 31.3 pg (27.0-32.0); Monocyte# 0.87 X10^3/uL; Monocyte% 7.1 % (0-10); NRBC Flagged by Analyzer 0 % (0-5); Neutrophil # 9.41 X10^3/uL (2.7-7.7); Neutrophil % 77.1 % (47-70); Platelet Count 315 K/mm3 (150-450); RBC Distribution Width CV 14.3 % (11.6-14.6); RBC Distribution Width SD 51.6 fl (35.1-43.9); Red Blood Count 3.13 M/mm3 (4.2-5.4); White Blood Count 12.2 K/mm3 (4.4-11.0)
[2020-10-12 05:35] LABS: Anion Gap 4 (5-15); BUN 31 mg/dL (7-18); BUN/Creat Ratio 74.3 RATIO (10-20); Chloride 107 mmol/L (98-107); Creatinine, Serum 0.42 mg/dL (0.55-1.02); EST Glomerular Filtration Rate 154 mL/min (>60); Est Glom Filt Rate - Afr Amer 186 mL/min (>60); Estimated Creatinine Clearance 37.68 ml/min; Glucose 116 mg/dL (74-106); Potassium 4.9 mmol/L (3.5-5.1); Sodium Level 138 mmol/L (136-145)
[2020-10-12] MEDS: Albuterol 2.5 MG/3 ML VIAL.NEB. INHALATION ×3 (07:05→15:24)
[2020-10-12] MEDS: Amiodarone 200 MG Tablet PO (09:02)
[2020-10-12] MEDS: Metoprolol Tartrate 25 MG Tablet PO (09:03)
[2020-10-12] MEDS: Acetaminophen 325 MG Tablet 650 MG PO (09:03)
--- NOTE | 2020-10-12 10:01 | CASEMGMT ---
According to the [facility] website, the following are in-network tertiary facilities: [facility], [facility], [facility], [facility], [facility], [facility], [facility] and . Elpidio BOSS CM
--- NOTE | 2020-10-12 10:14 | CON.PCM_ITS ---
Problem List (1) Hemoptysis Status: Acute (2) History of pulmonary embolism Status: Chronic (3) Atrial fibrillation Status: Chronic (4) Esophageal diverticulum Status: Chronic (5) History of thyroid cancer Status: Chronic (6) GERD (gastroesophageal reflux disease) Status: Chronic (7) Morbid obesity with BMI of 45.0-49.9, adult Status: Chronic (8) Pure hypercholesterolemia Status: Chronic (9) Hypothyroidism Status: Chronic (10) COPD (chronic obstructive pulmonary disease) Status: Chronic (11) Sleep apnea in adult Status: Chronic (12) HTN (hypertension) Status: Chronic Reason for Consult Date of Consultation: 10/12/20 Reason for Consultation: Hemoptysis History of Present Illness: The patient is an 85 year old F, with past medical history listed below, who pr [facility] on 10/11/2020 secondary to acute onset of hemoptysis. Patient was recently hospitalized for bilateral PEs and A. fib with RVR requiring Eliquis therapy. Patient was not anticoagulated prior to that hospitalization. Patient reports she was of her usual health yesterday, but during dinner developed acute onset of severe hemoptysis. Patient reported shot glass sized clots that persisted since dinner. Patient was very clear that she was of her usual health prior to her meal and denied any fever, chills, nausea, vomiting, diarrhea, lower extremity edema or productive cough. Patient has not had a previous similar presentation. Patient is a relatively poor historian, but does report that she had a surgery at the [facility] in her esophagus. Patient is unclear if she is ever had an upper GI. Patient states her large scar on the neck is secondary to thyroid surgery. In the ER, patient was afebrile, but hypotensive at 96/40 and saturating well on room air. Lungs were clear to auscultation bilaterally, but patient was noted to have multiple blood clots on her gown. Patient did not have a significant leukocytosis (WBC 10.6) and a hemoglobin of 12.1. Coagulation studies showed an INR of 1.4 and chemistries were relatively unremarkable. A CT of the chest showed improved aeration in the right middle/lower lobe consolidation, but the development of a soft tissue density of the upper esophagus her previous scan 1 month prior. Patient was admitted to the floor for further evaluation and had anticoagulation held. On my evaluation this morning, patient did have a hoarse voice, but was tolerating secretions. Patient states her hemoptysis has improved throughout the evening, but she did have some episodes this morning. Patient states that this is bright red blood. Patient has not reported any change in bowel habits. Patient does not report a history of dysphagia. Patient does state that she had a surgery on her esophagus, but my daughter or granddaughter may know more. Patient was informed about the possibility of a diverticulum. Patient does not have any history of previous lung issues outside of her recent pulmonary emboli. After my evaluation with the patient, I discussed with Dr. Mendoza, our general surgeon about my concerns. Dr. Mendoza was able to find that Dr. Velazquez completed a diverticulotomy in 2013 at [facility] and is concerned that this may be the etiology of the mass. Recommendations are for transfer to a tertiary center, preferably [facility], for a foregut specialist evaluation. Patient is currently protecting her airway and is not reporting any respiratory complaints, so transfer is a viable option. Patient is a poor historian, but review of systems otherwise negative from a constitutional, HEENT, respiratory, cardiovascular, GI, genitourinary, musculoskeletal, skin, neurologic, psychiatric and hematologic system unless stated above. Past Medical History Past Medical History (Chronic Problems): Chronic Problems History of pulmonary embolism (Chronic) Atrial fibrillation (Chronic) Esophageal diverticulum (Chronic) History of thyroid cancer (Chronic) GERD (gastroesophageal reflux disease) (Chronic) Morbid obesity with BMI of 45.0-49.9, adult (Chronic) Pure hypercholesterolemia (Chronic) Hypothyroidism (Chronic) COPD (chronic obstructive pulmonary disease) (Chronic) Sleep apnea in adult (Chronic) HTN (hypertension) (Chronic) Allergies codeine Adverse Reaction (Verified 10/11/20 21:27) I just didn't like how it made me feel Home Medications: Ambulatory Orders Medication Instructions Recorded Cholecalciferol (Vitamin D3) 2,000 unit PO DAILY 09/28/20 [Vitamin D3] Metoprolol Tartrate [Lopressor 25 mg PO BID 09/28/20 (beta juancarlos)] Zinc 50 mg PO DAILY 09/28/20 Acetaminophen [Tylenol Tablet] 650 mg PO Q6H PRN PRN tablet 09/30/20 Furosemide [Lasix] 40 mg PO DAILY PRN #0 09/30/20 Albuterol Aerosols [Ventolin 2.5 mg INHALATION Q4HWA.RT 10/11/20 Aerosols] Amiodarone HCl [Cordarone] 200 mg PO DAILY 10/11/20 Apixaban [Eliquis] 5 mg PO BID 10/11/20 Gabapentin [Neurontin] 100 mg PO TID 10/11/20 Levothyroxine [Synthroid] 125 mcg PO DAILY@0600 10/11/20 Nystatin Powder [Mycostatin Powder] 1 applic TOPICAL BID 10/11/20 Surgical History: - - Thyroid resection, LUE tumor removal. Reverse shoulder replacement in December of 2014 at the [facility] Psychiatric History: No pertinent psych hx [employer] History: No pertinent [employer] history Lives: [facility] Smoking Status: Never smoker Tobacco Use: Non-smoker Alcohol: None Drugs: None - *Family History Maternal History Items: No pertinent history Paternal History Items: - - she is adopted and does not know hx of parents Review of Systems Unable to obtain accurate/complete ROS d/t: Poor historian Patient Problems: Active and Suspected Problems Hemoptysis (Acute) Objective: CT of the chest was personally reviewed. This shows improvement in previous infiltrates, but the development of a large soft tissue density at the posterior aspect of the esophagus, at the level of the larynx. - Physical Exam Vitals/I&O's: Vital Signs Temp Pulse Resp BP Pulse Ox 36.7 C 100 15 106/56 L 95 10/12/20 08:49 10/12/20 09:03 10/12/20 08:49 10/12/20 08:49 10/12/20 08:49 Oxygen Delivery Method Room Air Weight: 112.7 kg Body Mass Index (BMI) 41.3 Intake and Output for Last 24 Hours 10/10/20 10/11/20 10/12/20 23:59 23:59 23:59 Intake Total 100 / 100 Balance 100 / 100 General: Alert, Oriented x3, Cooperative, No apparent distress, - - Morbidly obese. Hoarse voice, but no conversational dyspnea HEENT: Atraumatic, PERRLA, EOMI, Normocephalic, - - No scleral icterus or injection noted Oral: Moist Mucosa, No Gingival or Mucosal Lesions/ Ulcerations, - - Unable to visualize food on direct pharyngeal evaluation at the bedside Neck: Supple, No JVD, No Nodes, - - Large healed scar at the thoracic inlet Lungs: Clear to auscultation, No rhonchi, No wheeze, No rales Cardiovascular: Normal S1, Normal S2, No murmurs, Irregular Rate, No rub noted, No Gallop Abdomen: Bowel Sounds Present, Soft, Non Tender, Non-Distended Extremities: No clubbing, No cyanosis, Edema - Trace lower extremity Skin: No rashes, No breakdown Musculoskeletal: No Tenderness to Palpation of Joints or Extremities Lymphatic: No Cervical, Supraclavicular, or Inguinal Adenopathy Neurological: Cranial nerves II-XII grossly intact, Neuro grossly intact, Motor Exam 5/5 strength throughout Psych/Mental Status: Alert and oriented to time, place, person, mood and affect Laboratory Results 10/11/20 18:30: WBC 10.6, RBC 3.80 L, Hgb 12.1, Hct 37.8, MCV 99.5 H, MCH 31.8, MCHC 32.0, RDW Std Deviation 51.2 H, RDW Coeff of Radha 14.3, Plt Count 339, MPV 9.0, Immature Gran % (Auto) 0.400, Neut % (Auto) 71.5 H, Lymph % (Auto) 15.8 L, [place] % (Auto) 8.4, Eos % (Auto) 3.4, Baso % (Auto) 0.5, Absolute Neuts (auto) 7.6, Absolute Lymphs (auto) 1.67, Nucleated RBC % 0 10/11/20 18:30: PT 16.9 H, INR 1.4, APTT 34.1 10/11/20 18:30: Sodium 138, Potassium 4.3, Chloride 103, Carbon Dioxide 31.0, Anion Gap 4 L, BUN 10, Creatinine 0.52 L, Estim Creat Clear Calc 37.68, Est GFR (MDRD) Af Amer 145, Est GFR (MDRD) Non-Af 120, BUN/Creatinine Ratio 19.3, Glucose 104, Calcium 8.7 10/12/20 04:54: WBC 12.2 H, RBC 3.13 L, Hgb 9.8 L, Hct 31.6 L, MCV 101.0 H, MCH 31.3, MCHC 31.0 L, RDW Std Deviation 51.6 H, RDW Coeff of Radha 14.3, Plt Count 315, MPV 9.0, Immature Gran % (Auto) 0.700, Neut % (Auto) 77.1 H, Lymph % (Auto) 12.7 L, [place] % (Auto) 7.1, Eos % (Auto) 2.0, Baso % (Auto) 0.4, Absolute Neuts (auto) 9.4 H, Absolute Lymphs (auto) 1.55, Nucleated RBC % 0 10/12/20 04:54: Sodium 138, Potassium 4.9, Chloride 107, Carbon Dioxide 27.0, Anion Gap 4 L, BUN 31 H, Creatinine 0.42 L, Estim Creat Clear Calc 37.68, Est GFR (MDRD) Af Amer 186, Est GFR (MDRD) Non-Af 154, BUN/Creatinine Ratio 74.3 H, Glucose 116 H, Calcium 8.0 L Current Medications Acetaminophen (Acetaminophen 325 Mg Tablet) 650 mg PO Q6H PRN PRN PRN Reason: Pain Score 1-10/Temp > 100.7 F Last Admin: 10/12/20 09:03 Dose: 650 mg Documented by: Albuterol Sulfate (Albuterol 2.5 Mg/3 Ml Vial.Neb.) 2.5 mg INHALATION Q4HWA.RT [facility] Last Admin: 10/12/20 07:05 Dose: 2.5 mg Documented by: Amiodarone HCl (Amiodarone 200 Mg Tablet) 200 mg PO DAILY [facility] Last Admin: 10/12/20 09:02 Dose: 200 mg Documented by: Furosemide (Furosemide 20 Mg Tablet) 40 mg PO DAILY PRN PRN PRN Reason: edema Gabapentin (Gabapentin 100 Mg Capsule) 100 mg PO TID [facility] Last Admin: 10/12/20 05:34 Dose: Not Given Documented by: Guaifenesin (Guaifenesin 10 Ml Udc (200mg/10ml)) 20 ml PO Q4H PRN PRN PRN Reason: COUGH Levothyroxine Sodium (Levothyroxine 125 Mcg Tablet) 125 mcg PO DAILY@0600 [facility] Last Admin: 10/12/20 05:34 Dose: Not Given Documented by: Melatonin (Melatonin 3 Mg Tablet) 3 mg PO QHS PRN PRN PRN Reason: INSOMNIA Metoprolol Tartrate (Metoprolol Tartrate 25 Mg Tablet) 25 mg PO BID [facility] Last Admin: 10/12/20 09:03 Dose: 25 mg Documented by: Ondansetron HCl (Ondansetron 4 Mg/2 Ml Vial) 4 mg IV Q8H PRN PRN PRN Reason: NAUSEA/VOMITING Last Admin: 10/12/20 02:11 Dose: 4 mg Documented by: Clinical Impression(s) from Imaging Studies Chest CT 10/11/20 18:39 IMPRESSION: Improving aeration of the previous right middle lobe consolidation/infarct. Improving aeration both lung bases. Soft tissue mass density in the upper esophagus not present previously and most suggestive of impacted food bolus. Correlate clinically and consider endoscopy. Electronically Signed: Lito Reinoso MD at 19:40 EDT , Service support , Assessment/Plan All Active Problems Hemoptysis (Acute) Acute respiratory failure with hypoxemia (Acute) Pulmonary embolism (Acute) RECOMMENDATIONS: 1. Hold anticoagulation for now 2. Transfer to [facility] for foregut specialist evaluation 3. No need for antibiotics from my perspective 4. Recommend hospital to hospital transfer as tracheal obstruction is possible IMPRESSIONS: 1. Hemoptysis Clinical suspicion for hemoptysis secondary to bleeding of the diverticulum into the larynx with expectoration. Large soft tissue mass is suggestive of retained food particles. This is at the level of the larynx. Reasonable to hold with anticoagulation at this time, but patient requires evaluation by foregut specialist per our surgeon. It is unclear if removal of food will be sufficient. Patient is not having any respiratory complaints at this time, but aspiration would be a concern given the location of the food bolus. Discussed with case management, charge nurse and hospitalist about recommendations. Reasonable to hold anticoagulation despite recent PE given possible need for surgical intervention and potential for airway obstruction secondary to clotting. 2. Recent pulmonary embolism/infarction Patient was appropriately on anticoagulation previously. This can be held in the acute situation. Would hold off on heparin at this time as for the bleeding could compromise the airway. Patient is protecting her airway at this time. It is possible the patient will expectorate any loose food particles hospital to hospital transfer would be most appropriate as patient is a too much risk to continue with outpatient evaluation. 3. A. fib/poor historian/advanced age/reported COPD Complicates care, management, recovery and prognosis. Do not believe patient is in acute exacerbation of COPD. No central mass in the airway is suggestive that a bronchoscopy would be helpful. Inpatient E&M: 63770 Init Hosp L3
--- NOTE | 2020-10-12 11:00 | DCINST_ITS ---
- Discharge Diagnoses Current Active Problems: Current Active and Chronic Problems Hemoptysis (Acute) History of pulmonary embolism (Chronic) Atrial fibrillation (Chronic) Esophageal diverticulum (Chronic) History of thyroid cancer (Chronic) GERD (gastroesophageal reflux disease) (Chronic) Morbid obesity with BMI of 45.0-49.9, adult (Chronic) Pure hypercholesterolemia (Chronic) Hypothyroidism (Chronic) COPD (chronic obstructive pulmonary disease) (Chronic) Sleep apnea in adult (Chronic) HTN (hypertension) (Chronic) Reason(s) for Visit for Discharge Instructions: Hemoptysis Discharge Activity: Return to Normal Activity Allergies/Adverse Reactions: Allergies codeine Adverse Reaction (Verified 10/11/20 21:27) I just didn't like how it made me feel Medications to take at Discharge Cholecalciferol (Vitamin D3) [Vitamin D3] 2,000 unit PO DAILY 09/28/20 Metoprolol Tartrate [Lopressor (beta juancarlos)] 25 mg PO BID 09/28/20 Zinc 50 mg PO DAILY 09/28/20 Acetaminophen [Tylenol Tablet] 650 mg PO Q6H PRN PRN tablet 09/30/20 Furosemide [Lasix] 40 mg PO DAILY PRN #0 09/30/20 Albuterol Aerosols [Ventolin Aerosols] 2.5 mg INHALATION Q4HWA.RT 10/11/20 Amiodarone HCl [Cordarone] 200 mg PO DAILY 10/11/20 Apixaban [Eliquis] 5 mg PO BID 10/11/20 Gabapentin [Neurontin] 100 mg PO TID 10/11/20 Levothyroxine [Synthroid] 125 mcg PO DAILY@0600 10/11/20 Nystatin Powder [Mycostatin Powder] 1 applic TOPICAL BID 10/11/20 Primary Care Physician: Chip Pereyra MD [Primary Care Provider] - Test Results: Test results from this visit will be discussed in further detail at your follow- up appointment, if applicable. Proposed Discharge Date: 10/12/20
--- NOTE | 2020-10-12 11:02 | DS.PCM_ITS ---
Discharge Date and Diagnosis - Problem List Patient Problems: Active and Suspected Problems Hemoptysis (Acute) Date of Admission: 10/11/20 Date of Discharge: 10/12/20 - Primary Discharge Diagnosis Acute Problems: Active Problems Hemoptysis (Acute) Laryngeal mass - Secondary Discharge Diagnosis Chronic Problems: Chronic Problems History of pulmonary embolism (Chronic) Atrial fibrillation (Chronic) Esophageal diverticulum (Chronic) History of thyroid cancer (Chronic) GERD (gastroesophageal reflux disease) (Chronic) Morbid obesity with BMI of 45.0-49.9, adult (Chronic) Pure hypercholesterolemia (Chronic) Hypothyroidism (Chronic) COPD (chronic obstructive pulmonary disease) (Chronic) Sleep apnea in adult (Chronic) HTN (hypertension) (Chronic) Hospital Course and Treatment Imaging Results: Clinical Impression(s) from Imaging Studies Chest CT 10/11/20 18:39 IMPRESSION: Improving aeration of the previous right middle lobe consolidation/infarct. Improving aeration both lung bases. Soft tissue mass density in the upper esophagus not present previously and most suggestive of impacted food bolus. Correlate clinically and consider endoscopy. Electronically Signed: Lito Reinoso MD at 19:40 EDT , Service support , Operations: None Summary of Care Provided: The patient is a 85 year old F multiple comorbidities who was recently discharged with bilateral PEs and A. fib with RVR, on Eliquis. Patient comes in with acute onset of severe hemoptysis. She has had big size clots that persisted since the evening before her presentation. She has history of surgery in the [facility] in 2013 and her esophagus. Patient had a CT scan of the chest on admission that showed improved aeration in the right middle/lower lobe consolidation. She however has a soft tissue density in the upper esophagus. General surgery was consulted; patient was taking off her Eliquis. Upon discussion with general surgery, it was recommended that patient be transferred to [facility] for further evaluation. Patient was accepted by the [facility] hospital medicine team. Patient Problems: Active and Suspected Problems Hemoptysis (Acute) Subjective: On the day of discharge, patient was seen and examined. She has had minimal hemoptysis. Denies any SOB. Not on oxygen. Objective: Physical exam: General: Alert, Oriented x3, Cooperative HEENT: Atraumatic, PERRLA, EOMI, Normocephalic Neck: Supple, No JVD, Negative Carotid Bruits Lungs: Normal air movement, Diminished,minimal amount of hemoptysis Cardiovascular: Regular rate, Regular Rhythm, Normal S1, Normal S2, No murmurs Abdomen: Bowel Sounds Present, Soft, Non Tender Extremities: No edema Skin: No rashes, No breakdown Musculoskeletal: No Tenderness to Palpation of Joints or Extremities Neurological: Cranial nerves II-XII grossly intact Psych/Mental Status: Normal Affect, Appropriate - Physical Exam Vitals/I&O's: Vital Signs Temp Pulse Resp BP Pulse Ox 98.0 F 100 15 106/56 L 95 10/12/20 08:49 10/12/20 09:03 10/12/20 08:49 10/12/20 08:49 10/12/20 08:49 Oxygen Delivery Method Room Air Weight: 112.7 kg Body Mass Index (BMI) 41.3 Intake and Output for Last 24 Hours 10/10/20 10/11/20 10/12/20 23:59 23:59 23:59 Intake Total 100 / 100 Balance 100 / 100 Laboratory Results 10/11/20 18:30: WBC 10.6, RBC 3.80 L, Hgb 12.1, Hct 37.8, MCV 99.5 H, MCH 31.8, MCHC 32.0, RDW Std Deviation 51.2 H, RDW Coeff of Radha 14.3, Plt Count 339, MPV 9.0, Immature Gran % (Auto) 0.400, Neut % (Auto) 71.5 H, Lymph % (Auto) 15.8 L, Webb % (Auto) 8.4, Eos % (Auto) 3.4, Baso % (Auto) 0.5, Absolute Neuts (auto) 7.6, Absolute Lymphs (auto) 1.67, Nucleated RBC % 0 10/11/20 18:30: PT 16.9 H, INR 1.4, APTT 34.1 10/11/20 18:30: Sodium 138, Potassium 4.3, Chloride 103, Carbon Dioxide 31.0, Anion Gap 4 L, BUN 10, Creatinine 0.52 L, Estim Creat Clear Calc 37.68, Est GFR (MDRD) Af Amer 145, Est GFR (MDRD) Non-Af 120, BUN/Creatinine Ratio 19.3, Glucose 104, Calcium 8.7 10/12/20 04:54: WBC 12.2 H, RBC 3.13 L, Hgb 9.8 L, Hct 31.6 L, MCV 101.0 H, MCH 31.3, MCHC 31.0 L, RDW Std Deviation 51.6 H, RDW Coeff of Radha 14.3, Plt Count 315, MPV 9.0, Immature Gran % (Auto) 0.700, Neut % (Auto) 77.1 H, Lymph % (Auto) 12.7 L, Webb % (Auto) 7.1, Eos % (Auto) 2.0, Baso % (Auto) 0.4, Absolute Neuts (auto) 9.4 H, Absolute Lymphs (auto) 1.55, Nucleated RBC % 0 10/12/20 04:54: Sodium 138, Potassium 4.9, Chloride 107, Carbon Dioxide 27.0, Anion Gap 4 L, BUN 31 H, Creatinine 0.42 L, Estim Creat Clear Calc 37.68, Est GFR (MDRD) Af Amer 186, Est GFR (MDRD) Non-Af 154, BUN/Creatinine Ratio 74.3 H, Glucose 116 H, Calcium 8.0 L Current Medications Acetaminophen (Acetaminophen 325 Mg Tablet) 650 mg PO Q6H PRN PRN PRN Reason: Pain Score 1-10/Temp > 100.7 F Last Admin: 10/12/20 09:03 Dose: 650 mg Documented by: Albuterol Sulfate (Albuterol 2.5 Mg/3 Ml Vial.Neb.) 2.5 mg INHALATION Q4HWA.RT [facility] Last Admin: 10/12/20 07:05 Dose: 2.5 mg Documented by: Amiodarone HCl (Amiodarone 200 Mg Tablet) 200 mg PO DAILY [facility] Last Admin: 10/12/20 09:02 Dose: 200 mg Documented by: Furosemide (Furosemide 20 Mg Tablet) 40 mg PO DAILY PRN PRN PRN Reason: edema Gabapentin (Gabapentin 100 Mg Capsule) 100 mg PO TID [facility] Last Admin: 10/12/20 05:34 Dose: Not Given Documented by: Guaifenesin (Guaifenesin 10 Ml Udc (200mg/10ml)) 20 ml PO Q4H PRN PRN PRN Reason: COUGH Sodium Chloride () 1,000 mls @ 75 mls/hr IV .[id number] [facility] Levothyroxine Sodium (Levothyroxine 125 Mcg Tablet) 125 mcg PO DAILY@0600 [facility] Last Admin: 10/12/20 05:34 Dose: Not Given Documented by: Melatonin (Melatonin 3 Mg Tablet) 3 mg PO QHS PRN PRN PRN Reason: INSOMNIA Metoprolol Tartrate (Metoprolol Tartrate 25 Mg Tablet) 25 mg PO BID [facility] Last Admin: 10/12/20 09:03 Dose: 25 mg Documented by: Ondansetron HCl (Ondansetron 4 Mg/2 Ml Vial) 4 mg IV Q8H PRN PRN PRN Reason: NAUSEA/VOMITING Last Admin: 10/12/20 02:11 Dose: 4 mg Documented by: Discharge Diet: Low fat/ Low Cholesterol, 2000 mg Sodium Diet Discharge Activity: Return to Normal Activity Home Medications: Medications to take at Discharge Cholecalciferol (Vitamin D3) [Vitamin D3] 2,000 unit PO DAILY 09/28/20 Metoprolol Tartrate [Lopressor (beta juancarlos)] 25 mg PO BID 09/28/20 Zinc 50 mg PO DAILY 09/28/20 Acetaminophen [Tylenol Tablet] 650 mg PO Q6H PRN PRN tablet 09/30/20 Furosemide [Lasix] 40 mg PO DAILY PRN #0 09/30/20 Albuterol Aerosols [Ventolin Aerosols] 2.5 mg INHALATION Q4HWA.RT 10/11/20 Amiodarone HCl [Cordarone] 200 mg PO DAILY 10/11/20 Apixaban [Eliquis] 5 mg PO BID 10/11/20 Gabapentin [Neurontin] 100 mg PO TID 10/11/20 Levothyroxine [Synthroid] 125 mcg PO DAILY@0600 10/11/20 Nystatin Powder [Mycostatin Powder] 1 applic TOPICAL BID 10/11/20 Primary Care Physician: Chip Pereyra MD [Primary Care Provider] - Disposition: Acute care Hospital Minutes spent on discharge:: 50 Patient Condition:: Stable Medical Necessity - Tobacco Use Smoking Status: Never smoker Tobacco Use: Non-smoker Meaningful Use Info Meaningful Use Diagnoses (Choose all that apply): None applicable Inpatient E&M: [id number] [facility] Hosp
[2020-10-12 12:49] LABS: Hematocrit 28.8 % (37-47); Hemoglobin 8.9 g/dL (12.0-15.0)
[2020-10-12] MEDS: 0.9% Normal Saline 1,000 ML 75 ML IV (13:40)
[2020-10-12] MEDS: Gabapentin 100 MG Capsule PO (13:41)
--- NOTE | 2020-10-12 14:52 | PHA.DC.MR ---
Pharmacy Service has performed discharge medication reconciliation for this patient. The patient's discharge medication list was reviewed for discrepancies and discrepancies were resolved. Home Medications Cholecalciferol (Vitamin D3) [Vitamin D3] 2,000 unit PO DAILY 09/28/20 Metoprolol Tartrate [Lopressor (beta juancarlos)] 25 mg PO BID 09/28/20 Zinc 50 mg PO DAILY 09/28/20 Acetaminophen [Tylenol Tablet] 650 mg PO Q6H PRN PRN tablet 09/30/20 Furosemide [Lasix] 40 mg PO DAILY PRN #0 09/30/20 Albuterol Aerosols [Ventolin Aerosols] 2.5 mg INHALATION Q4HWA.RT 10/11/20 Amiodarone HCl [Cordarone] 200 mg PO DAILY 10/11/20 Apixaban [Eliquis] 5 mg PO BID 10/11/20 Gabapentin [Neurontin] 100 mg PO TID 10/11/20 Levothyroxine [Synthroid] 125 mcg PO DAILY@0600 10/11/20 Nystatin Powder [Mycostatin Powder] 1 applic TOPICAL BID 10/11/20
--- NOTE | 2020-10-12 15:50 | NURSING ---
This RN called [facility] to give report. RN unavailable for call. Message left with phone number [phone] to return this RN call for report.
--- NOTE | 2020-10-12 16:34 | PN_ITS ---
Patient Problems: Active and Suspected Problems Hemoptysis (Acute) Vitals/I&O's: Vital Signs Temp Pulse Resp BP Pulse Ox 98.5 F 85 16 109/52 L 93 10/12/20 15:33 10/12/20 15:33 10/12/20 15:33 10/12/20 15:33 10/12/20 15:33 Oxygen Delivery Method Room Air Weight: 112.7 kg Body Mass Index (BMI) 41.3 Intake and Output for Last 24 Hours 10/10/20 10/11/20 10/12/20 23:59 23:59 23:59 Intake Total 350 / 350 Output Total 150 / 150 Balance 200 / 200 Microbiology Past 72 Hours 10/12/20 11:15 Mucosa - Nose SARS-CoV-2 Antigen (Rapid) - Final Laboratory Results 10/11/20 18:30: WBC 10.6, RBC 3.80 L, Hgb 12.1, Hct 37.8, MCV 99.5 H, MCH 31.8, MCHC 32.0, RDW Std Deviation 51.2 H, RDW Coeff of Radha 14.3, Plt Count 339, MPV 9.0, Immature Gran % (Auto) 0.400, Neut % (Auto) 71.5 H, Lymph % (Auto) 15.8 L, Morgan % (Auto) 8.4, Eos % (Auto) 3.4, Baso % (Auto) 0.5, Absolute Neuts (auto) 7.6, Absolute Lymphs (auto) 1.67, Nucleated RBC % 0 10/11/20 18:30: PT 16.9 H, INR 1.4, APTT 34.1 10/11/20 18:30: Sodium 138, Potassium 4.3, Chloride 103, Carbon Dioxide 31.0, Anion Gap 4 L, BUN 10, Creatinine 0.52 L, Estim Creat Clear Calc 37.68, Est GFR (MDRD) Af Amer 145, Est GFR (MDRD) Non-Af 120, BUN/Creatinine Ratio 19.3, Glucose 104, Calcium 8.7 10/12/20 04:54: WBC 12.2 H, RBC 3.13 L, Hgb 9.8 L, Hct 31.6 L, MCV 101.0 H, MCH 31.3, MCHC 31.0 L, RDW Std Deviation 51.6 H, RDW Coeff of Radha 14.3, Plt Count 315, MPV 9.0, Immature Gran % (Auto) 0.700, Neut % (Auto) 77.1 H, Lymph % (Auto) 12.7 L, Morgan % (Auto) 7.1, Eos % (Auto) 2.0, Baso % (Auto) 0.4, Absolute Neuts (auto) 9.4 H, Absolute Lymphs (auto) 1.55, Nucleated RBC % 0 10/12/20 04:54: Sodium 138, Potassium 4.9, Chloride 107, Carbon Dioxide 27.0, Anion Gap 4 L, BUN 31 H, Creatinine 0.42 L, Estim Creat Clear Calc 37.68, Est GFR (MDRD) Af Amer 186, Est GFR (MDRD) Non-Af 154, BUN/Creatinine Ratio 74.3 H, Glucose 116 H, Calcium 8.0 L 10/12/20 12:40: Hgb 8.9 L, Hct 28.8 L Current Medications Acetaminophen (Acetaminophen 325 Mg Tablet) 650 mg PO Q6H PRN PRN PRN Reason: Pain Score 1-10/Temp > 100.7 F Last Admin: 10/12/20 09:03 Dose: 650 mg Documented by: Albuterol Sulfate (Albuterol 2.5 Mg/3 Ml Vial.Neb.) 2.5 mg INHALATION Q4HWA.RT [facility] Last Admin: 10/12/20 15:24 Dose: 2.5 mg Documented by: Amiodarone HCl (Amiodarone 200 Mg Tablet) 200 mg PO DAILY [facility] Last Admin: 10/12/20 09:02 Dose: 200 mg Documented by: Gabapentin (Gabapentin 100 Mg Capsule) 100 mg PO TID [facility] Last Admin: 10/12/20 13:41 Dose: 100 mg Documented by: Guaifenesin (Guaifenesin 10 Ml Udc (200mg/10ml)) 20 ml PO Q4H PRN PRN PRN Reason: COUGH Sodium Chloride () 1,000 mls @ 75 mls/hr IV .[id number] [facility] Last Admin: 10/12/20 13:40 Dose: 75 mls/hr Documented by: Levothyroxine Sodium (Levothyroxine 125 Mcg Tablet) 125 mcg PO DAILY@0600 [facility] Last Admin: 10/12/20 05:34 Dose: Not Given Documented by: Melatonin (Melatonin 3 Mg Tablet) 3 mg PO QHS PRN PRN PRN Reason: INSOMNIA Metoprolol Tartrate (Metoprolol Tartrate 25 Mg Tablet) 25 mg PO BID SEJAL Last Admin: 10/12/20 09:03 Dose: 25 mg Documented by: Ondansetron HCl (Ondansetron 4 Mg/2 Ml Vial) 4 mg IV Q8H PRN PRN PRN Reason: NAUSEA/VOMITING Last Admin: 10/12/20 02:11 Dose: 4 mg Documented by: STROKE Vital Signs/Narrative: Vital Signs Temp Pulse Resp BP Pulse Ox 10/12/20 15:33 98.5 F 85 16 109/52 L 93 10/12/20 15:30 98.5 F 85 16 109/52 L 93 10/12/20 15:24 91 16 Medical Necessity - Tobacco Use Smoking Status: Never smoker Tobacco Use: Non-smoker Assessment/Plan All Active Problems Hemoptysis (Acute) Acute respiratory failure with hypoxemia (Acute) Pulmonary embolism (Acute)
--- NOTE | 2020-10-12 17:46 | NURSING ---
RN from [facility] for report. Same given.
== END 2020-10-12 10:51 | disposition short-term general hospital (02) ==
LOC: ED 20:38 → PCU 22:08
PROVIDERS: Admitting Provider Family Medicine; Emergency Provider Emergency Medicine; PCP Family Medicine; Visit Provider Internal Medicine
DX: R04.2 Hemoptysis (principal); R22.1 Localized swelling, mass and lump, neck; I48.91 Unspecified atrial fibrillation; I10 Essential (primary) hypertension; K21.9 Gastro-esophageal reflux disease without esophagitis; J44.9 Chronic obstructive pulmonary disease, unspecified; E03.9 Hypothyroidism, unspecified; E66.01 Morbid (severe) obesity due to excess calories; G47.30 Sleep apnea, unspecified; Z86.711 Personal history of pulmonary embolism; Z79.899 Other long term (current) drug therapy; Z79.01 Long term (current) use of anticoagulants; Z85.850 Personal history of malignant neoplasm of thyroid; Z68.41 Body mass index [BMI] 40.0-44.9, adult; E78.00 Pure hypercholesterolemia, unspecified
CPT/HCPCS: 36415; 71260; 80048; 85014; 85018; 85025; 85610; 85730; 87426; 93005; 94640; 96361; 96374; 99218; 99285; J7030; Q9967; G0378; J2405

== ENCOUNTER 2021-02-15 16:45 | Emergency (ER) | payer MEDICARE, SELFPAY ==
[2020-10-30 11:28] VITALS: BMI 41.3
[2021-02-15 16:45] VITALS: BP 116/70; PULSE 73; RESP 20; TEMP 36.6; O2SAT 94; BMI 43.2
[2021-02-15 16:57] VITALS: BP 116/70; PULSE 73; RESP 18; TEMP 36.6; O2SAT 94
--- NOTE | 2021-02-15 17:21 | CT_ITS ---
STUDY: CTA CHEST REASON FOR EXAM: Female, 85 years old. Hemoptysis, hx of PEs RADIATION DOSAGE (If Supplied By Facility): CTDIvol = ( 14.14 ) mGy, DLP = ( 479.12 ) mGycm TECHNIQUE: The examination was performed with the intravenous administration of IV 100mL Isovue-370. Post-processing of the angiographic images was performed, with multiplanar reformation and 3D reconstruction. Individualized dose optimization techniques were used for this CT. COMPARISON: 10/11/2020 FINDINGS: Normal enhancement of the main pulmonary artery and right and left pulmonary arteries. Normal enhancement of the bilateral peripheral pulmonary arteries. There is no demonstrated pulmonary embolism. Normal thoracic aorta and visualized great vessels. There is no demonstrated aortic dissection. Normal heart and pericardium. There is no change in the enlargement of the proximal cervical esophagus which may be postsurgical or from a large diverticulum. Normal mediastinum. Normal hilar regions. Normal visualized trachea and bronchi. The lungs are well expanded. Some bibasilar atelectasis. Normal pleura. Normal chest wall structures. Normal osseous structures. Normal visualized upper abdomen. CT/CTA Chest W/WO Contrast IMPRESSION: 1. No CT evidence of pulmonary embolism. 2. Some bibasilar atelectasis. 3. No change in enlargement of the cervical esophagus which may be from a large diverticulum or postoperative change. Electronically Signed: Lio Grier MD at 18:44 EDT Tel , Service support ,
--- NOTE | 2021-02-15 17:26 | EX.ED.DYSGE1 ---
HPI History of Present Illness Chief Complaint: Cough Informant: patient Narrative Narrative: Patient is an 85-year-old female with a past medical history of pulmonary emboli on Eliquis, Zenker diverticuli who presents to the emergency department for hemoptysis. She had 3 separate episodes over the past day. She is coughing up brown clots. She denies any heavy bleeding. No bright red blood. She has had this before in the past. She was diagnosed with a pulmonary emboli in August and started on Eliquis at that time. 1 week later she started to have a large amount of hemoptysis. She was transferred to the [facility] to have an EGD. She has had surgery on the Zenker before and I thought that this need to be repeated. Patient ended up requiring a transfusion at that time. Since being discharged from the hospital she has been doing well. She did not have any repeat episodes until last 24 hours. She denies any significant chest pain or shortness of breath. No recent illness including fever/chills. No vomiting. No black tarry stools or change in bowel movements. 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 Home Medications cholecalciferol (vitamin D3) 2,000 unit PO DAILY 09/28/20 [History Last Taken 10/11/20] metoprolol tartrate 25 mg PO BID 09/28/20 [History Last Taken 10/11/20] acetaminophen 650 mg PO Q6H PRN PRN tablet 09/30/20 [Rx Last Taken 10/11/20] apixaban 5 mg PO BID 10/11/20 [History Last Taken 10/11/20] gabapentin 100 mg PO TID 10/11/20 [History Last Taken 10/11/20] levothyroxine 125 mcg PO DAILY@0600 10/11/20 [History Last Taken 04/11/21] Allergy/AdvReac Type Severity Reaction Status Date / Time codeine AdvReac I just Verified 02/15/21 16:48 didn't like how it made me feel Surgical History History of shoulder surgery History of thyroidectomy Social History Smoking Status: Never smoker ROS ROS ED Constitutional Constitutional ED: Denies chills or fever(s) Eyes Eyes: Denies change in vision ENT ENT ED: Denies epistaxis or rhinorrhea Cardiovascular Cardiovascular: Denies chest pain or palpitations Respiratory/Chest Respiratory/Chest: Reports cough; Denies dyspnea Gastrointestinal Gastrointestinal: Denies abdominal pain, diarrhea, nausea or vomiting Musculoskeletal Musculoskeletal: Denies back pain or neck pain Integumentary Denies rash Neurologic Neurologic: Denies dizziness, headache(s) or weakness EXAM Physical Exam Const Vital Signs: 02/15/21 16:45 02/15/21 16:57 02/15/21 17:49 Temperature 97.9 F 97.9 F 97.9 F Temperature Source Temporal Temporal Temporal Pulse Rate 73 73 70 Respiratory Rate 20 H 18 16 Respiratory Effort Normal Non-Labored Respiratory Depth Normal Respiratory Pattern Normal Blood Pressure 116/70 116/70 112/51 L Blood Pressure Mean 85 85 71 Pulse Ox 94 94 96 Oxygen Delivery Method Room Air Room Air Room Air 02/15/21 18:00 02/15/21 19:33 Temperature 98 F Temperature Source Temporal Pulse Rate 67 74 Respiratory Rate 18 23 H Respiratory Effort Respiratory Depth Respiratory Pattern Blood Pressure 100/73 106/48 L Blood Pressure Mean 82 Pulse Ox 96 95 Oxygen Delivery Method Room Air Positive well nourished and well developed General Appearance ED: well developed and NAD HEENT Reports normocephalic, head/scalp atraumatic and moist mucous membranes Eyes PERRL and EOMs intact bilaterally Neck supple Chest Wall inspection of chest normal Resp normal respiratory effort and clear to auscultation bilaterally Resp Narrative: Able to talk in full sentences. In no respiratory distress. Auscultation: Negative for rales, rhonchi or wheezes Cardio regular rate, regular rhythm and no murmurs GI normal to inspection, nondistended, normoactive bowel sounds and non-tender Back/Spine no CVA tenderness Extremity normal to inspection Extremity Narrative: Symmetrical edema of bilateral lower extremities. General Extremety ED: Negative for tenderness Neuro no sensory deficits noted Motor Exam: strength 5/5 throughout Psych mental status grossly normal Skin no rashes or lesions noted MDM MDM MDM Narrative Medical decision making narrative: Patient presents to the emergency department for coughing up blood clots. She did bring 1 with her which was around 2 cm in size. On arrival to the emergency department she is satting 94% on room air. She is in no acute distress. Otherwise she has a benign exam. Will check basic lab work to evaluate blood counts and CT scan of the chest to evaluate pulmonary embolism/diverticulum. Patient CT scan did not show any blood clot or pulmonary abnormality. There are esophageal diverticuli present. The rest of her lab work did not reveal a significant acute abnormality. She is not anemic. She has not had any repeat episodes throughout ED stay. No repeat episodes of coughing up any blood. At this time I believe that the small amount of either blood or other substance was coming from the diverticuli as opposed to the lung. She otherwise has remained stable throughout ED stay. She does feel comfortable going home at this time. If she develops any worsening symptoms she can return back to the emerge department for reevaluation at any time. She will be discharged home in stable condition. All questions answered. Lab Data Labs: Laboratory Results - last 24 hr 02/15/21 02/15/21 17:40 17:40 WBC 9.8 RBC 3.79 L Hgb 11.3 L Hct 35.5 L MCV 93.7 MCH 29.8 MCHC 31.8 L RDW Std Deviation 46.7 H RDW Coeff of Radha 13.8 Plt Count 273 MPV 9.3 Immature Gran % (Auto) 0.500 Neut % (Auto) 73.6 H Lymph % (Auto) 13.5 L [place] % (Auto) 10.0 Eos % (Auto) 2.1 Baso % (Auto) 0.3 Absolute Neuts (auto) 7.2 Absolute Lymphs (auto) 1.33 Nucleated RBC % 0 Sodium 139 Potassium 3.7 Chloride 105 Carbon Dioxide 33.0 H Anion Gap 1 L BUN 8 Creatinine 0.51 L Estim Creat Clear Calc 37.68 Est GFR (MDRD) Af Amer 148 Est GFR (MDRD) Non-Af 122 BUN/Creatinine Ratio 15.7 Glucose 101 Calcium 8.8 Total Bilirubin 0.80 AST 11 L ALT 12 L Alkaline Phosphatase 94 Total Protein 7.2 Albumin 2.9 L Globulin 4.3 H Albumin/Globulin Ratio 0.7 L Radiography Diagnostic Testing: Radiology Impression Chest CTA 02/15/21 17:21 IMPRESSION: 1. No CT evidence of pulmonary embolism. 2. Some bibasilar atelectasis. 3. No change in enlargement of the cervical esophagus which may be from a large diverticulum or postoperative change. Electronically Signed: Lio Grier MD at 18:44 EDT Tel , Service support , Discharge Plan Triage Chief Complaint: Cough ED Provider: Stanford Isbell Dx/Rx/DC Orders Clinical Impression: Hemoptysis Instructions: ED Hemoptysis Prescriptions: No Action cholecalciferol (vitamin D3) 2,000 UNIT capsule 2,000 unit PO DAILY RF: 0 metoprolol tartrate 25 MG tablet 25 mg PO BID RF: 0 acetaminophen 325 MG tablet 650 mg PO Q6H PRN PRN (Reason: Pain Score 1-10/Temp > 100.7 F) RF: 0 gabapentin 300 MG capsule 100 mg PO TID RF: 0 apixaban 5 MG tablet 5 mg PO BID RF: 0 levothyroxine 125 MCG tablet 125 mcg PO DAILY@0600 RF: 0 Primary Care Provider: Chip Pereyra Referrals: Chip Pereyra MD [Primary Care Provider] - 2 Days Disposition Disposition: Home, Self Care Discharge Date/Time: 02/15/21 19:41
[2021-02-15 17:49] VITALS: BP 112/51; PULSE 70; RESP 16; TEMP 36.6; O2SAT 96
[2021-02-15 18:00] VITALS: BP 100/73; PULSE 67; RESP 18; TEMP 36.6; O2SAT 96
[2021-02-15 18:03] LABS: Absolute Lymphocyte Count 1.33 X10^3/uL (0.83-4.51); Absolute Neutrophil Count 7.2 X10^3/uL (2.0-7.7); Basophil# 0.03 X10^3/uL; Basophil% 0.3 % (0-1); Eosinophil# 0.21 X10^3/uL; Eosinophils% 2.1 % (0-5); Hematocrit 35.5 % (37-47); Hemoglobin 11.3 g/dL (12.0-15.0); Lymphocyte # 1.33 X10^3/ul (0.83-4.51); Lymphocyte % 13.5 % (19-41); Mean Corp Hgb Conc 31.8 g/dL (32-36); Mean Corpuscular Hgb 29.8 pg (27.0-32.0); Mean Corpuscular Volume 93.7 fL (81-99); Mean Platelet Vol. 9.3 fl (6.2-12.0); Monocyte# 0.98 X10^3/uL; NRBC Flagged by Analyzer 0 % (0-5); Neutrophil # 7.24 X10^3/uL (2.7-7.7); Neutrophil % 73.6 % (47-70); Platelet Count 273 K/mm3 (150-450); RBC Distribution Width CV 13.8 % (11.6-14.6); RBC Distribution Width SD 46.7 fl (35.1-43.9); Red Blood Count 3.79 M/mm3 (4.2-5.4); White Blood Count 9.8 K/mm3 (4.4-11.0)
[2021-02-15 18:05] LABS: ALB/GLOB Ratio 0.7 RATIO (0.9-2.4); AST(SGOT) 11 U/L (15-37); Alanine Aminotransfer ALT/SGPT 12 U/L (13-56); Albumin, Serum 2.9 g/dL (3.2-5.0); Alkaline Phosphatase 94 U/L (45-117); Anion Gap 1 (5-15); BUN 8 mg/dL (7-18); BUN/Creat Ratio 15.7 RATIO (10-20); Calcium,Total 8.8 mg/dL (8.5-10.1); Chloride 105 mmol/L (98-107); Creatinine, Serum 0.51 mg/dL (0.55-1.02); EST Glomerular Filtration Rate 122 mL/min (>60); Est Glom Filt Rate - Afr Amer 148 mL/min (>60); Estimated Creatinine Clearance 37.68 ml/min; Globulin 4.3 g/dL (2.2-4.2); Glucose 101 mg/dL (74-106); Potassium 3.7 mmol/L (3.5-5.1); Protein, Total 7.2 g/dL (6.4-8.2); Sodium Level 139 mmol/L (136-145)
[2021-02-15 19:33] VITALS: BP 106/48; PULSE 74; RESP 23; O2SAT 95
== END 2021-02-15 19:41 | disposition home or self-care (01) ==
PROVIDERS: Emergency Provider Emergency Medicine; PCP Family Medicine
DX: R04.2 Hemoptysis (principal); E03.9 Hypothyroidism, unspecified; E66.01 Morbid (severe) obesity due to excess calories; Z68.41 Body mass index [BMI] 40.0-44.9, adult; E78.00 Pure hypercholesterolemia, unspecified; I27.21 Secondary pulmonary arterial hypertension; I48.0 Paroxysmal atrial fibrillation; I11.0 Hypertensive heart disease with heart failure; I50.32 Chronic diastolic (congestive) heart failure; K21.9 Gastro-esophageal reflux disease without esophagitis; J44.9 Chronic obstructive pulmonary disease, unspecified; Z85.850 Personal history of malignant neoplasm of thyroid; Z86.711 Personal history of pulmonary embolism; Z79.01 Long term (current) use of anticoagulants; Z79.899 Other long term (current) drug therapy
CPT/HCPCS: 71275; 80053; 85025; 99284; Q9967; A4216

== ENCOUNTER 2021-07-17 08:01 | Emergency (ER) | payer MEDICARE, SELFPAY ==
[2021-07-17 08:05] VITALS: BP 103/85; PULSE 106; RESP 21; TEMP 37.2; O2SAT 97; BMI 41.8
--- NOTE | 2021-07-17 08:12 | ED.RN ---
bilat lower extremity edema
--- NOTE | 2021-07-17 08:56 | CT_ITS ---
STUDY: CT ABDOMEN AND PELVIS WITH CONTRAST REASON FOR EXAM: Female, 86 years old. LLQ abdominal pain RADIATION DOSAGE (If Supplied By Facility): CTDIvol = ( 16.99 ) mGy, DLP = ( 1099.20 ) mGycm TECHNIQUE: Transaxial images were obtained from the dome of the diaphragm to the symphysis pubis without oral contrast. IV 100mL Isovue-370 was administered. Sagittal and coronal images were reconstructed. Individualized dose optimization techniques were used for this CT. COMPARISON: None. FINDINGS: There are chronic interstitial fibrotic changes of the lung bases. The visualized portions of the heart are within normal limits. Normal liver. Normal gallbladder and extrahepatic biliary system. Normal spleen. Normal pancreas. Normal bilateral adrenal glands. Normal right kidney. Normal left kidney. There is a small hiatal hernia. Normal small intestine. There are multiple colonic diverticula consistent with diverticulosis. There is non-visualization of the appendix. There is diffuse atherosclerotic calcification of the abdominal aorta, without a demonstrated aneurysm. Normal inferior vena cava. Normal retroperitoneum. Normal urinary bladder. There is atrophy of the uterus. 3.7 cm thin-walled right adnexal cyst. No pelvic free fluid. There is a small umbilical hernia containing fat. There are diffuse degenerative changes of the visualized lumbar spine. Degenerative changes of the bilateral hips. CT/Abdomen/Pelvis W IV Cont ONLY IMPRESSION: 1. No acute inflammatory process or bowel obstruction. 2. Diverticulosis without evidence of diverticulitis. 3. 3.7 cm right adnexal cyst. ACR White Paper guidelines (De La Cruz, et. al. JACR 2020;17(2):248-254) recommend pelvic ultrasound to better characterize this cyst. Electronically Signed: Shree Martin MD ([place]) at 11:08 EST , Service support ,
--- NOTE | 2021-07-17 08:56 | ED.VIS.GI ---
HPI HPI - GI History of Present Illness Chief Complaint: Abd Pain Narrative Narrative: 86-year-old female presenting with abdominal pain. She describes it as in the left lower quadrant. She states she also saw a small amount of blood in her stool this morning. She has a history of GI bleed and she is on Eliquis with history of atrial fibrillation and PE. Patient has not had any black stools. Patient states that prior to yesterday she was fine. The last time she had a GI bleed she had to be transferred to [facility] and required multiple blood transfusions. 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 Home Medications cholecalciferol (vitamin D3) 2,000 unit PO DAILY 09/28/20 [History Last Taken 10/11/20] metoprolol tartrate 25 mg PO BID 09/28/20 [History Last Taken 10/11/20] acetaminophen 650 mg PO Q6H PRN PRN tablet 09/30/20 [Rx Last Taken 10/11/20] apixaban 5 mg PO BID 10/11/20 [History Last Taken 10/11/20] gabapentin 100 mg PO TID 10/11/20 [History Last Taken 10/11/20] levothyroxine 125 mcg PO DAILY@0600 10/11/20 [History Last Taken 10/11/20] cephalexin 500 mg PO Q12 #14 capsule 07/17/21 [Rx Last Taken Unknown] furosemide 40 mg PO DAILY 07/17/21 [History Last Taken Unknown] ondansetron 4 mg PO Q8H PRN PRN #14 tab 07/17/21 [Rx Last Taken Unknown] Allergy/AdvReac Type Severity Reaction Status Date / Time codeine AdvReac I just Verified 07/17/21 08:05 didn't like how it made me feel Surgical History History of shoulder surgery History of thyroidectomy Social History Smoking Status: Never smoker ROS ROS ED Constitutional Constitutional ED: Denies chills or fever(s) ENT ENT ED: Denies rhinorrhea or sore throat Cardiovascular Cardiovascular: Denies chest pain or palpitations Respiratory/Chest Respiratory/Chest: Denies cough or dyspnea Gastrointestinal Gastrointestinal: Reports abdominal pain, nausea, vomiting and other Details: Blood in stool ; Denies constipation or diarrhea Genitourinary Genitourinary ED: Denies dysuria or hematuria Musculoskeletal Musculoskeletal: Denies arthralgias or myalgias Integumentary Denies Abrasions or rash Neurologic Neurologic: Denies headache(s) or paresthesias EXAM Physical Exam Const Vital Signs: 07/17/21 08:05 07/17/21 09:03 07/17/21 12:06 Temperature 99 F Temperature Source Temporal Pulse Rate 106 H 86 82 Respiratory Rate 21 H 18 18 Blood Pressure 103/85 H 123/81 H 134/86 H Blood Pressure Mean 91 95 102 Pulse Ox 97 98 92 Oxygen Delivery Method Room Air Room Air Room Air Positive well nourished and obese General Appearance ED: NAD; Negative for pallor Nutritional Appearance: obese HEENT Reports moist mucous membranes normocephalic and atraumatic Eyes PERRL and EOMs intact bilaterally General Eye ED: Negative for pale conjunctiva or scleral icterus Resp normal respiratory effort and clear to auscultation bilaterally Cardio regular rate and regular rhythm GI Palpation: soft and tender LLQ Back/Spine no CVA tenderness Neuro CN's II-XII intact bilaterally Sensorium / Orientation: alert, oriented to person, oriented to place and oriented to time Psych mental status grossly normal and thought process normal Skin General Skin Exam: Negative for jaundice or pallor MDM MDM MDM Narrative Medical decision making narrative: Patient with history of A. fib and PE on anticoagulation with Eliquis presenting with lightheadedness and blood in stool. Hemoccult is positive. EKG on my interpretation shows atrial fibrillation with controlled ventricular response at 82 bpm without sign of ischemic change. CBC shows no leukocytosis and her hemoglobin is actually elevated over what was previously at 12.1. Renal function and electrolytes are normal. Liver functions normal. Lipase is normal. Patient given morphine and Zofran for pain and nausea. I will obtain a CT of the abdomen pelvis due to left lower quadrant abdominal pain. CT of the abdomen pelvis does not identify any abnormality in the left lower quadrant. It does identify a right adnexal 6 which was 3.7 cm. This is not causing her any discomfort on the side. I recommended to her and her daughter that they follow-up for an outpatient ultrasound as needed. Obviously if this becomes painful on the side they should return to the ER. Urinalysis is positive for infection and she is given a dose of Keflex in the ED. Patient does not have any leukocytosis and her hemoglobin is actually 12.1 which is higher than previous. She is on Eliquis and did not positive for occult blood in her stool. I did not see any bright red blood. BUN/creatinine are normal. Patient was discussed with Dr. Collier who recommended that she hold Eliquis for 3 days until he can get her in office and determine when she should restart this. I did discuss with she and her daughter that if there is any bright red bleeding and it gets worse that they should return to the ER. From a urinary tract infection standpoint if she has worsening confusion or pain she should return to the ER. Patient will be discharged home with instruction for Zofran and for me Keflex. Urine culture was sent. Impression: 1. Left lower quadrant abdominal pain 2. Lower GI bleed stable 3. Urinary tract infection likely we did not get Lab Data Attestation: I reviewed the patient's lab results. Labs: Laboratory Results - last 24 hr 07/17/21 07/17/21 07/17/21 09:55 09:55 11:40 WBC 9.2 RBC 3.97 L Hgb 12.1 Hct 38.3 MCV 96.5 MCH 30.5 MCHC 31.6 L RDW Std Deviation 49.1 H RDW Coeff of Radha 13.7 Plt Count 207 MPV 10.0 Immature Gran % (Auto) 0.300 Neut % (Auto) 82.9 H Lymph % (Auto) 8.6 L [place] % (Auto) 7.0 Eos % (Auto) 0.9 Baso % (Auto) 0.3 Absolute Neuts (auto) 7.6 Absolute Lymphs (auto) 0.79 L Nucleated RBC % 0 Sodium 139 Potassium 3.9 Chloride 106 Carbon Dioxide 26.0 Anion Gap 7 BUN 14 Creatinine 0.70 Estim Creat Clear Calc 37.01 Est GFR (MDRD) Af Amer 103 Est GFR (MDRD) Non-Af 85 BUN/Creatinine Ratio 20.1 H Glucose 129 H Calcium 9.6 Total Bilirubin 0.60 AST 14 L ALT 13 Alkaline Phosphatase 99 Total Protein 7.7 Albumin 3.4 Globulin 4.3 H Albumin/Globulin Ratio 0.8 L Lipase 61 L Urine Color Yellow Urine Clarity Clear Urine pH 6.0 Ur Specific [place] 1.015 Urine Protein Negative Urine Glucose (UA) Normal Urine Ketones Negative Urine Occult Blood 10 H Urine Nitrite Positive H Urine Bilirubin Negative Urine Urobilinogen 1 H Ur Leukocyte Esterase 25 H Urine RBC 0 SEEN Urine WBC 0-5 SEEN Ur Squamous Epith Cells 0-5 SEEN Urine Bacteria 2+ Urine Mucus 0 SEEN Radiography Diagnostic Testing: Clinical Impression(s) from Imaging Studies Abdomen/Pelvis CT 07/17/21 08:56 IMPRESSION: 1. No acute inflammatory process or bowel obstruction. 2. Diverticulosis without evidence of diverticulitis. 3. 3.7 cm right adnexal cyst. ACR White Paper guidelines (Jono, et. al. JACR 2020;17(2):248-254) recommend pelvic ultrasound to better characterize this cyst. Electronically Signed: Shree Martin MD ([place]) at 11:08 EST , Service support , Discharge Plan Triage Chief Complaint: Abd Pain ED Provider: Fly Bentley Dx/Rx/DC Orders Instructions: ED Lower GI Bleeding (Stable), ED CYSTITIS Female Adult Prescriptions: New cephalexin 500 mg capsule 500 mg PO Q12 Qty: 14 RF: 0 ondansetron 4 mg tablet,disintegrating 4 mg PO Q8H PRN PRN (Reason: Nausea) Qty: 14 RF: 0 No Action cholecalciferol (vitamin D3) 2,000 UNIT capsule 2,000 unit PO DAILY RF: 0 metoprolol tartrate 25 MG tablet 25 mg PO BID RF: 0 acetaminophen 325 MG tablet 650 mg PO Q6H PRN PRN (Reason: Pain Score 1-10/Temp > 100.7 F) RF: 0 gabapentin 300 MG capsule 100 mg PO TID RF: 0 apixaban 5 MG tablet 5 mg PO BID RF: 0 levothyroxine 125 MCG tablet 125 mcg PO DAILY@0600 RF: 0 furosemide 40 mg tablet 40 mg PO DAILY RF: 0 Primary Care Provider: Chip Pereyra Referrals: Chip Pereyra MD [Primary Care Provider] - Jann Collier DO [STAFF PHYSICIAN] - As soon as possible (You are to hold your Eliquis for at least 3 days until he can see Dr. Collier in office. He will tell you when to restart this.) Activity Restrictions/Additional Instructions: You are to hold your Eliquis for at least 3 days until he can see Dr. Collier in office. He will tell you when to restart this. Disposition Disposition: Home, Self Care
[2021-07-17 09:03] VITALS: BP 123/81; PULSE 86; RESP 18; O2SAT 98
[2021-07-17] MEDS: Ondansetron 4 MG/2 ML Vial IV (09:43)
[2021-07-17] MEDS: Morphine 4 MG/ML Syringe IV (09:43)
[2021-07-17 10:05] LABS: Absolute Lymphocyte Count 0.79 X10^3/uL (0.83-4.51); Absolute Neutrophil Count 7.6 X10^3/uL (2.0-7.7); Basophil# 0.03 X10^3/uL; Basophil% 0.3 % (0-1); Eosinophil# 0.08 X10^3/uL; Eosinophils% 0.9 % (0-5); Hematocrit 38.3 % (37-47); Hemoglobin 12.1 g/dL (12.0-15.0); Lymphocyte # 0.79 X10^3/ul (0.83-4.51); Lymphocyte % 8.6 % (19-41); Mean Corp Hgb Conc 31.6 g/dL (32-36); Mean Corpuscular Hgb 30.5 pg (27.0-32.0); Mean Corpuscular Volume 96.5 fL (81-99); Monocyte# 0.64 X10^3/uL; NRBC Flagged by Analyzer 0 % (0-5); Neutrophil # 7.61 X10^3/uL (2.7-7.7); Neutrophil % 82.9 % (47-70); Platelet Count 207 K/mm3 (150-450); RBC Distribution Width CV 13.7 % (11.6-14.6); RBC Distribution Width SD 49.1 fl (35.1-43.9); Red Blood Count 3.97 M/mm3 (4.2-5.4); White Blood Count 9.2 K/mm3 (4.4-11.0)
--- NOTE | 2021-07-17 10:12 | EKG12_ITS ---
Test Reason : ABD PAIN Blood Pressure : / mmHG Vent. Rate : 082 BPM Atrial Rate : 084 BPM P-R Int : 000 ms QRS Dur : 076 ms QT Int : 388 ms P-R-T Axes : 000 -10 020 degrees QTc Int : 453 ms Atrial fibrillation Low voltage QRS Inferior infarct , age undetermined , cannot be excluded Abnormal ECG Confirmed by NAA WYLIE, SHERLYN ([id number]), editor greeting card MIGUEL FARMER ([id number]) on 07/19/2021 11:01:50 AM Referred By: KEILA Confirmed By:SHERLYN JACOME MD
[2021-07-17 10:24] LABS: ALB/GLOB Ratio 0.8 RATIO (0.9-2.4); AST(SGOT) 14 U/L (15-37); Alanine Aminotransfer ALT/SGPT 13 U/L (13-56); Albumin, Serum 3.4 g/dL (3.2-5.0); Alkaline Phosphatase 99 U/L (45-117); Anion Gap 7 (5-15); BUN 14 mg/dL (7-18); BUN/Creat Ratio 20.1 RATIO (10-20); Calcium,Total 9.6 mg/dL (8.5-10.1); Chloride 106 mmol/L (98-107); EST Glomerular Filtration Rate 85 mL/min (>60); Est Glom Filt Rate - Afr Amer 103 mL/min (>60); Estimated Creatinine Clearance 37.01 ml/min; Globulin 4.3 g/dL (2.2-4.2); Glucose 129 mg/dL (74-106); Lipase 61 U/L (73-393); Potassium 3.9 mmol/L (3.5-5.1); Protein, Total 7.7 g/dL (6.4-8.2); Sodium Level 139 mmol/L (136-145)
[2021-07-17 11:48] LABS: Mucous, Urine 0 SEEN /hpf (<or=2+); Red Blood Cells-Urine 0 SEEN /hpf (0-5)
[2021-07-17 11:50] LABS: Color, Urine Yellow (Yellow); Glucose, Dipstick Normal (Normal); Ketone-Dipstick Negative (Negative); Leukocyte Esterase-Dipstick 25 /ul (Negative); Nitrite-Dipstick Positive (Negative); Occult Blood-Urine 10 /ul (Negative); Protein-Dipstick Negative (Negative); Specific Gravity, Urine 1.015 (1.002-1.030); Urine Bilirubin Dipstick Negative (Negative); Urine Clarity Clear (Clear); Urine Urobilinogen 1 mg/dl (Normal)
[2021-07-17 12:06] VITALS: BP 134/86; PULSE 82; RESP 18; O2SAT 92
[2021-07-17 12:35] LABS: Bacteria 2+ /hpf (None Seen); Squamous Epithelial Cells - UA 0-5 SEEN /hpf (5-10); White Blood Cells 0-5 SEEN /hpf (0-5)
[2021-07-17] MEDS: Cephalexin 250 MG Capsule 500 MG PO (12:58)
[2021-07-17 13:07] VITALS: BP 134/93; PULSE 75; RESP 16; O2SAT 98
== END 2021-07-17 13:08 | disposition home or self-care (01) ==
PROVIDERS: Emergency Provider Student in an Organized Health Care Education/Training Program; PCP Family Medicine; Visit Provider Student in an Organized Health Care Education/Training Program
DX: R10.32 Left lower quadrant pain (principal); I48.0 Paroxysmal atrial fibrillation; N30.90 Cystitis, unspecified without hematuria; K92.2 Gastrointestinal hemorrhage, unspecified; E66.9 Obesity, unspecified; I10 Essential (primary) hypertension; Z86.718 Personal history of other venous thrombosis and embolism; Z79.899 Other long term (current) drug therapy
CPT/HCPCS: 36415; 74177; 80053; 81001; 82274; 83690; 85025; 87077; 87086; 87088; 87186; 93005; 96374; 96375; 99285; Q9967; A4216; J2405

== ENCOUNTER 2023-04-17 13:12 | Inpatient (IN) | payer MEDICARE, MEDICAID, SELFPAY ==
[2023-04-17 13:13] VITALS: BP 124/81; PULSE 69; RESP 16; TEMP 36.4; O2SAT 98; BMI 39.2
--- NOTE | 2023-04-17 13:34 | CT_ITS ---
INDICATION: Status post fall. EXAMINATION: CT BRAIN - CT Head or Brain W/O Contrast Injection TECHNIQUE: Multiple axial images were obtained of the head without intravenous contrast. A radiation dose optimization technique was used for this scan. IV Contrast dosage and agent: None. RADIATION DOSAGE (If Supplied By Facility): CTDIvol = ( 44.99 ) mGy, DLP = ( 745.49 ) mGycm COMPARISON: Prior study dated: 08/13/2017. FINDINGS: BRAIN PARENCHYMA: No intra- or extra-axial hemorrhage. No evidence of acute infarct. Periventricular deep white matter changes likely due to chronic microvascular disease. No intracranial mass or mass effect. There is preservation of the stewart/white matter interface. Posterior fossa structures are unremarkable. CSF SPACES: Appropriate for age. No hydrocephalus. Basal cisterns are patent. CALVARIUM, SKULL BASE, PARANASAL SINUSES AND MASTOID AIR CELLS: Clear. No discrete lytic or blastic abnormalities. ORBITS: Both globes, extraocular muscles, optic nerves and retrobulbar fat appear grossly unremarkable. CT/Brain/Head without Contrast IMPRESSION: No acute intracranial process. Electronically Signed: Rad Holguin MD at 15:46 EDT ,
--- NOTE | 2023-04-17 13:34 | EKG12_ITS ---
Test Reason : RECENT FALL Blood Pressure : / mmHG Vent. Rate : 074 BPM Atrial Rate : 000 BPM P-R Int : 000 ms QRS Dur : 074 ms QT Int : 404 ms P-R-T Axes : 000 -31 035 degrees QTc Int : 448 ms Atrial fibrillation Left axis deviation Low voltage QRS Inferior infarct (cited on or before 17-JUL-2021) Abnormal ECG When compared with ECG of 17-JUL-2021 10:12, No significant change was found Confirmed by MERCY WYLIE, NILES ([id number]), film editor EVY QUILES ([id number]) on 04/20/2023 1:50:05 PM Referred By: Confirmed By:NILES MADRID MD
--- NOTE | 2023-04-17 13:37 | EX.ED.DYSGE1 ---
HPI <ZOHAIB Varela - Last Filed: 04/17/23 17:06> History of Present Illness Chief Complaint: Weakness Narrative Narrative: 87-year-old female with past medical history of remote thyroid cancer s/p thyroidectomy, CHF, A-fib presents with few days of generalized weakness. She states she fell a couple days ago and does not remember what happened but was on the floor in the bathroom. Denies head injury. She lives in her grandson's home and family states she does not get out of her chair much but does ambulate independently. She seemed to have worsening short-term memory over the last few days and generally weak. She denies fever or specific symptoms. No chest pain or shortness of breath. She has not been taking her Lasix and has chronic bilateral leg edema. 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 Sleep apnea in adult Home Medications metoprolol tartrate 25 mg tablet 12.5 mg PO BID blood pressure 09/28/20 [History Last Taken 04/16/23] acetaminophen 325 mg tablet 650 mg (2 x 325 mg) PO Q6H PRN PRN Pain Score 1-10/Temp > 100.7 F 09/30/20 [Rx Last Taken 04/15/23] apixaban 5 mg tablet 5 mg PO BID PE 10/11/20 [History Last Taken 04/16/23] gabapentin 300 mg capsule 100 mg PO TID postherpetic neuralgia 10/11/20 [History Last Taken 04/16/23] levothyroxine 125 mcg tablet 125 mcg PO DAILY@0600 hypothyroid 10/11/20 [History Last Taken 04/16/23] Allergy/AdvReac Type Severity Reaction Status Date / Time codeine AdvReac I just Verified 04/17/23 13:13 didn't like how it made me feel Surgical History History of cardioversion (09/28/20) History of shoulder surgery History of thyroidectomy Social History Smoking Status: Never smoker ROS <ZOHAIB Varela - Last Filed: 04/17/23 17:06> ROS ED ROS Narrative Constitutional: Negative for fever, chills, malaise. CVS: Negative for palpitations, chest pain, syncope. Respiratory: Negative for shortness of breath, cough. GI: Negative for abdominal pain, nausea, vomiting, melena, hematochezia. : Negative for dysuria, frequency. Neuro: Negative for headache. EXAM <ZOHAIB Varela - Last Filed: 04/17/23 17:06> Physical Exam Narrative Exam Narrative: CONST: Patient sitting in no acute distress. EYES: Normal inspection. ENT: Normal inspection, dry mucous membranes. NECK: Normal inspection. RESP: No respiratory distress, CTAB. CVS: Regular rate and rhythm, no murmur, no gallop. ABD: Soft and nontender, no guarding or rebound, nondistended. SKIN: Left groin fold has candidal infection with well demarcated erythema and satellite lesions. EXTREMITIES: Normal appearance, 3+ bilateral ankle edema. NEURO: Alert to self, place, situation. Incorrectly stated year. Face symmetric, moving all extremities, no focal deficits. PSYCH: Normal affect. Const Vital Signs: 04/17/23 13:13 04/17/23 13:23 04/17/23 16:37 Temperature 97.6 F L Temperature Source Temporal Pulse Rate 69 88 Respiratory Rate 16 14 Respiratory Effort Normal Respiratory Pattern Normal Blood Pressure 124/81 H 99/85 H Blood Pressure Mean 95 89 Pulse Ox 98 96 Oxygen Delivery Method Room Air Room Air <Dr. Westley Russo, - Last Filed: 04/17/23 14:31> Physical Exam Const Vital Signs: 04/17/23 13:13 04/17/23 13:23 04/17/23 16:37 Temperature 97.6 F L Temperature Source Temporal Pulse Rate 69 88 Respiratory Rate 16 14 Respiratory Effort Normal Respiratory Pattern Normal Blood Pressure 124/81 H 99/85 H Blood Pressure Mean 95 89 Pulse Ox 98 96 Oxygen Delivery Method Room Air Room Air [facility] <ZOHAIB Varela - Last Filed: 04/17/23 17:06> [facility] Narrative Medical decision making narrative: History gathered from: Patient and family members Patient has had a few days of generalized weakness and fall several days ago with no injury. Family feels her short-term memory is worse than usual. She appears well and nontoxic. Vital signs within normal limits. She is alert and oriented x3 which is a reported change from baseline. She has no focal neurological symptoms. Although she denies hitting her head with her fall she is on blood thinners so I obtained a CT brain scan which is unremarkable. Labs show white count of 10.4, potassium 2.6, normal magnesium at 1.9. She was given p.o. potassium and IV fluids as she appears clinically dehydrated. Renal function is normal with BUN of 13, creatinine 0.63. TSH is elevated at 23.9 and she will need levothyroxine adjustment. UA is consistent with UTI?it was cultured and she was treated with Rocephin. When I reevaluated her she complained of left hip pain. She does have evidence of candidal intertrigo but had some pain with movement of the hip. No shortening or rotation. Distal pulses are intact. With her history of fall a left hip x-ray was obtained and negative. Case will be discussed with the hospitalist for admission. Differential: Electrolyte abnormality, infectious etiology, intracranial hemorrhage, pneumonia among others Lab Data Attestation: I reviewed the patient's lab results. Labs: Laboratory Results - last 24 hr 04/17/23 04/17/23 14:53 15:30 WBC 10.4 RBC 3.19 L Hgb 10.9 L Hct 33.6 L MCV 105.3 H MCH 34.2 H MCHC 32.4 RDW Std Deviation 57.1 H RDW Coeff of Radha 14.7 H Plt Count 191 MPV 10.6 Immature Gran % (Auto) 0.500 Neut % (Auto) 75.2 H Lymph % (Auto) 16.6 L [place] % (Auto) 6.1 Eos % (Auto) 1.2 Baso % (Auto) 0.4 Absolute Neuts (auto) 7.8 H Absolute Lymphs (auto) 1.73 Nucleated RBC % 0 Sodium 139 Potassium 2.6 L* Chloride 105 Carbon Dioxide 29.0 Anion Gap 5 BUN 13 Creatinine 0.63 Estim Creat Clear Calc 36.34 Est GFR (MDRD) Af Amer 115 Est GFR (MDRD) Non-Af 95 BUN/Creatinine Ratio 20.6 H Glucose 92 Calcium 8.7 Magnesium 1.9 TSH 23.90 H Urine Color Yellow Urine Clarity Sl. Cloudy Urine pH 8.0 Ur Specific [place] 1.010 Urine Protein Negative Urine Glucose (UA) Normal Urine Ketones Negative Urine Occult Blood 25 H Urine Nitrite Positive H Urine Bilirubin Negative Urine Urobilinogen 1 H Ur Leukocyte Esterase 500 H Urine RBC 0 SEEN Urine WBC 0-5 SEEN Ur Squamous Epith Cells 0-5 SEEN Urine Bacteria 0 SEEN Urine Mucus 0 SEEN Radiography Diagnostic Testing: Clinical Impression(s) from Imaging Studies Brain CT 04/17/23 13:34 IMPRESSION: No acute intracranial process. Electronically Signed: Rad Holguin MD at 15:46 EDT , Chest X-Ray 04/17/23 15:00 IMPRESSION: Mild right basilar atelectasis. Electronically Signed: Rad Holguin MD at 15:42 EDT , Hip/Pelvis X-Ray 04/17/23 16:10 IMPRESSION: No acute disease Electronically Signed: Nadeem Quan MD at 16:41 EDT , ED attending interpretation of left hip shows no acute fracture or dislocation. ED attending interpretation of 1 view chest x-ray shows normal heart size, no acute infiltrate. <Dr. Westley Russo, DO - Last Filed: 04/17/23 14:31> [facility] Lab Data Labs: Laboratory Results - last 24 hr 04/17/23 04/17/23 14:53 15:30 WBC 10.4 RBC 3.19 L Hgb 10.9 L Hct 33.6 L MCV 105.3 H MCH 34.2 H MCHC 32.4 RDW Std Deviation 57.1 H RDW Coeff of Radha 14.7 H Plt Count 191 MPV 10.6 Immature Gran % (Auto) 0.500 Neut % (Auto) 75.2 H Lymph % (Auto) 16.6 L [place] % (Auto) 6.1 Eos % (Auto) 1.2 Baso % (Auto) 0.4 Absolute Neuts (auto) 7.8 H Absolute Lymphs (auto) 1.73 Nucleated RBC % 0 Sodium 139 Potassium 2.6 L* Chloride 105 Carbon Dioxide 29.0 Anion Gap 5 BUN 13 Creatinine 0.63 Estim Creat Clear Calc 36.34 Est GFR (MDRD) Af Amer 115 Est GFR (MDRD) Non-Af 95 BUN/Creatinine Ratio 20.6 H Glucose 92 Calcium 8.7 Magnesium 1.9 TSH 23.90 H Urine Color Yellow Urine Clarity Sl. Cloudy Urine pH 8.0 Ur Specific [place] 1.010 Urine Protein Negative Urine Glucose (UA) Normal Urine Ketones Negative Urine Occult Blood 25 H Urine Nitrite Positive H Urine Bilirubin Negative Urine Urobilinogen 1 H Ur Leukocyte Esterase 500 H Urine RBC 0 SEEN Urine WBC 0-5 SEEN Ur Squamous Epith Cells 0-5 SEEN Urine Bacteria 0 SEEN Urine Mucus 0 SEEN Radiography Diagnostic Testing: Clinical Impression(s) from Imaging Studies Brain CT 04/17/23 13:34 IMPRESSION: No acute intracranial process. Electronically Signed: Rad Holguin MD at 15:46 EDT Reading Location ID and State: [facility] / [place] Tel , Service support , Chest X-Ray 04/17/23 15:00 IMPRESSION: Mild right basilar atelectasis. Electronically Signed: Rad Holguin MD at 15:42 EDT , Hip/Pelvis X-Ray 10/16/23 16:10 IMPRESSION: No acute disease Electronically Signed: Nadeem Quan MD at 16:41 EDT Reading Location ID and State: [facility] / [place] Tel , Service support , Treatment and Re-Evaluation :: ED attending note: I evaluated the patient in conjunction with the ELLY. I agree with his/her statements and above findings. I have personally performed a face to face assessment of the patient and have reviewed the ELLY Note. I performed a substantive portion of the visit including all aspects of the following. I personally saw the patient performed chart review, physical exam, reviewed labs, imaging (if obtained), and formulated a treatment and management plan. Brief history: 87-year-old female here with diffuse weakness and difficulty ambulating. Exam: Nursing triage notes reviewed, Vital signs reviewed Constitutional: please see mdm HENT: MMM Eyes: Pupils equal round and reactive to light, Extraocular muscles intact Neck: No stridor, no JVD, full neck ROM Lungs: Clear to auscultation, No wheezing or rales. No increased work of breathing, no conversational dyspnea, no accessory muscle use, no nasal flaring. No respiratory distress noted Heart: Regular rate and rhythm, No murmurs, No rubs and No gallops, 2+ distal pulses (radial, femoral, posterior tibial) in all extremities Abdomen: Soft, there is no tenderness, rigidity, rebound or guarding, no obvious peritoneal signs, no palpable pulsatile abdominal masses, no auscultated abdominal bruit : No CVAT Extremities: No edema Neuro: Alert, oriented to person not to place or time my exam (typically alert and orient x3) no focal neurological deficits, cranial nerves II through XII intact, 5/5 strength in all extremities. Intact sensation to light touch in all extremities, 2+ reflexes bilateral patella dens. Normal gait. No ataxia. Skin: No rash or lesions noted MDM/plan: Chief Complaint: Weakness External records reviewed: CT scan of the head was negative for acute ICH Factors affecting care: COPD, DVT on Eliquis, A-fib, hypothyroidism Social determinants of health: Never smoker History obtained from others: The patient's family, EMS Consults: Internal medicine MDM narrative: Patient was hemodynamically stable, afebrile, nontoxic-appearing. I considered the following differential diagnosis: ICH, metabolic encephalopathy, infection cephalopathy, anemia We will obtain a broad lab and imaging work-up to further elucidate etiology patient complaints. Given the patient's advanced age, difficulty ambulation and confusion would likely need admission. Shared decision making: I will have a discussion with the patient and or visitors regarding risk/benefits of further testing or admission. They will be made aware of of the risk/benefits inherent in this decision they will be given the opportunity to voice understanding. Discharge Plan Triage Chief Complaint: Weakness ED Midlevel Provider: Adele Gonzales ED Provider: Westley Russo Dx/Rx/DC Orders Clinical Impression: Fenr infection, Generalized weakness, Acute UTI, Acute hypokalemia Prescriptions: No Action metoprolol tartrate 25 MG tablet 12.5 mg PO BID acetaminophen 325 MG tablet 650 mg PO Q6H PRN PRN (Reason: Pain Score 1-10/Temp > 100.7 F) 0RF gabapentin 300 MG capsule 100 mg PO TID Rx Instructions: Recommend continuing 300 TID for two weeks for worsening pain related to postherpetic neuralgia until 10/14. Then reduce to previous 100 mg 3 times daily dosing. apixaban 5 MG tablet 5 mg PO BID Rx Instructions: Continue 10 mg twice a day through 10/05/2020 then reduce to 5 mg twice daily. levothyroxine 125 MCG tablet 125 mcg PO DAILY@0600 Primary Care Provider: Chip Pereyra Referrals: Chip Pereyra MD [Primary Care Provider] -
[2023-04-17] MEDS: 0.9% Normal Saline (500mL Bag) 500 ML 999 ML IV (14:15)
--- NOTE | 2023-04-17 15:00 | RAD_ITS ---
INDICATION: weakness EXAMINATION/TECHNIQUE: X-RAY - XR Chest 1 View COMPARISON: No relevant prior comparison study available FINDINGS: LINES/DEVICES: None. LUNGS: Mild linear subsegmental atelectasis in the right lung base. No focal infiltrate otherwise is seen. No evidence of pleural effusions. MEDIASTINUM AND CARDIOVASCULAR STRUCTURES: Normal cardiac silhouette. Atherosclerotic calcifications of the aortic arch. BONES AND SOFT TISSUES: Bilateral shoulder arthroplasty. RAD/Chest 1 View (Portable) IMPRESSION: Mild right basilar atelectasis. Electronically Signed: Rad Holguin MD at 15:42 EDT ,
[2023-04-17 15:23] LABS: Absolute Lymphocyte Count 1.73 X10^3/uL (0.83-4.51); Absolute Neutrophil Count 7.8 X10^3/uL (2.0-7.7); Basophil# 0.04 X10^3/uL; Basophil% 0.4 % (0-1); Eosinophil# 0.13 X10^3/uL; Eosinophils% 1.2 % (0-5); Hematocrit 33.6 % (37-47); Hemoglobin 10.9 g/dL (12.0-15.0); Lymphocyte # 1.73 X10^3/ul (0.83-4.51); Lymphocyte % 16.6 % (19-41); Mean Corp Hgb Conc 32.4 g/dL (32-36); Mean Corpuscular Hgb 34.2 pg (27.0-32.0); Mean Corpuscular Volume 105.3 fL (81-99); Mean Platelet Vol. 10.6 fl (6.2-12.0); Monocyte# 0.64 X10^3/uL; Monocyte% 6.1 % (0-10); NRBC Flagged by Analyzer 0 % (0-5); Neutrophil # 7.83 X10^3/uL (2.7-7.7); Neutrophil % 75.2 % (47-70); Platelet Count 191 K/mm3 (150-450); RBC Distribution Width CV 14.7 % (11.6-14.6); RBC Distribution Width SD 57.1 fl (35.1-43.9); Red Blood Count 3.19 M/mm3 (4.2-5.4); White Blood Count 10.4 K/mm3 (4.4-11.0)
[2023-04-17 15:34] LABS: Bacteria 0 SEEN /hpf (None Seen); Mucous, Urine 0 SEEN /hpf (<or=2+); Red Blood Cells-Urine 0 SEEN /hpf (0-5)
[2023-04-17 15:40] LABS: Color, Urine Yellow (Yellow); Glucose, Dipstick Normal (Normal); Ketone-Dipstick Negative (Negative); Leukocyte Esterase-Dipstick 500 /ul (Negative); Nitrite-Dipstick Positive (Negative); Occult Blood-Urine 25 /ul (Negative); Protein-Dipstick Negative (Negative); Urine Bilirubin Dipstick Negative (Negative); Urine Clarity Sl. Cloudy (Clear); Urine Urobilinogen 1 mg/dl (Normal)
[2023-04-17 15:45] LABS: Squamous Epithelial Cells - UA 0-5 SEEN /hpf (5-10); White Blood Cells 0-5 SEEN /hpf (0-5)
--- NOTE | 2023-04-17 16:10 | RAD_ITS ---
STUDY: X-RAY - PELVIS AND LEFT HIP REASON FOR EXAM: Female, 87 years old. pain TECHNIQUE: 2 views of the pelvis and hip. COMPARISON: None. FINDINGS: There is a non-specific bowel gas pattern. Normal visualized soft tissue structures. 5 x 9 mm hyperdense metallic lesion noted in the right pelvis. Degenerative changes lumbar spine. Normal bilateral iliac wings, sacroiliac joints and visualized sacrum. Normal bilateral superior and inferior pubic rami. Normal pubic symphysis. Normal bilateral ischial tuberosities. Normal visualized femoral head. Normal acetabulum. Normal hip joint. RAD/HIP, UNI W/ Pelvis 2-3 Views IMPRESSION: No acute disease Electronically Signed: Nadeem Quan MD at 16:41 EDT ,
[2023-04-17 16:11] LABS: Anion Gap 5 (5-15); BUN 13 mg/dL (7-18); BUN/Creat Ratio 20.6 RATIO (10-20); Calcium,Total 8.7 mg/dL (8.5-10.1); Chloride 105 mmol/L (98-107); Creatinine, Serum 0.63 mg/dL (0.55-1.02); EST Glomerular Filtration Rate 95 mL/min (>60); Est Glom Filt Rate - Afr Amer 115 mL/min (>60); Estimated Creatinine Clearance 36.34 ml/min; Glucose 92 mg/dL (74-106); Potassium 2.6 mmol/L (3.5-5.1); Sodium Level 139 mmol/L (136-145)
[2023-04-17] MEDS: Ceftriaxone 1 GM/50 ML BAG IV (16:22)
[2023-04-17] MEDS: Potassium Chloride Oral Tablet 20 MEQ 40 MEQ PO (16:22)
[2023-04-17] MEDS: Acetaminophen 325 MG Tablet 650 MG PO (16:22)
[2023-04-17 16:31] LABS: Magnesium 1.9 mg/dL (1.6-2.6)
[2023-04-17 16:37] VITALS: BP 99/85; PULSE 88; RESP 14; O2SAT 96
--- NOTE | 2023-04-17 17:08 | HP.PCM.HOS_ITS ---
HPI - General General Date of Admission: 04/17/23 Date of Service: 04/17/23 Chief Complaint: Increased confusion, fatigue, malaise, fall. HPI Narrative The patient is an 87 y/o F w/ PMHx: Chronic anemia, PAF, Hx VTE (DVT, PE), Chronic Diastolic CHF, HTN, HLD, Pulmonary HTN, Hx Thyroid CA, EBONI, Morbid obesity who presents to the [facility] ED on 04/17/23 with history of generalized weakness, fatigue and malaise with fall likely several days prior in the bathroom but she does not recall the event and denies any head injury with difficulty ambulating more so recently as previously noted and belated independently with worsening memory over the last several days with no recent fevers or chills prompting eventual ED evaluation. Patient does have chronic bilateral lower extremity swelling but has not been taking her Lasix recently. She notes that she currently lives with her grandson but she does not see him and if she does need help she has to being on the deshpande. Her granddaughter Sarah is present and notes that she is currently being set up to [facility]. Patient does report mild recent increased urinary f requency and may be some dysuria but is not the best historian regarding her urinary patterns. Work-up in the ED included T97.6, heart rate 69, BP 124/81 with most recent repeat 99/85, respiratory rate 16, 98% on room air, CBC with WBC 10.4, hemoglobin 10.9, MCV 105.3, platelet 191 with left shift, BMP with potassium 2.6 otherwise not marked appearing, magnesium 1.9, TSH 23.9, urinalysis with cloudy appearing urine, specific remedy 1.01, occult blood 25, positive nitrite, leukocyte Estrace 500 with only 0-5 urine WBCs, urine culture pending per ED, CT of the brain with no acute intracranial process, chest x-ray with mild right basilar atelectasis, plain film of the left hip and pelvis with no acute findings. In the ED patient ministered potassium chloride 40 mill equivalent p.o. x1, nystatin topical application x1, miconazole topical application x1, IV Rocephin 1 g x 1, Tylenol 650 mg p.o. x1. [facility] Medical History Chronic diastolic (congestive) heart failure COPD (chronic obstructive pulmonary disease) DVT (deep venous thrombosis) Esophageal diverticulum Essential (primary) hypertension GERD (gastroesophageal reflux disease) Hemoptysis (10/11/20) History of thyroid cancer Hypothyroidism Left ventricular diastolic dysfunction Morbid obesity with BMI of 45.0-49.9, adult Paroxysmal atrial fibrillation (10/2018) Pure hypercholesterolemia Recurrent pulmonary embolism (09/28/20) Secondary pulmonary arterial hypertension Sleep apnea in adult Home Medications metoprolol tartrate 25 mg tablet 12.5 mg PO BID blood pressure 09/28/20 [History Last Taken 04/16/23] acetaminophen 325 mg tablet 650 mg (2 x 325 mg) PO Q6H PRN PRN Pain Score 1- 10/Temp > 100.7 F 09/30/20 [Rx Last Taken 04/15/23] apixaban 5 mg tablet 5 mg PO BID PE 10/11/20 [History Last Taken 04/16/23] gabapentin 300 mg capsule 100 mg PO TID postherpetic neuralgia 10/11/20 [History Last Taken 04/16/23] levothyroxine 125 mcg tablet 125 mcg PO DAILY@0600 hypothyroid 10/11/20 [History Last Taken 04/16/23] Allergy/AdvReac Type Severity Reaction Status Date / Time codeine AdvReac I just Verified 04/17/23 13:13 didn't like how it made me feel adopted (She does not know her maternal or paternal family history.) Surgical History History of cardioversion (09/28/20) History of shoulder surgery History of thyroidectomy Social History (Updated 04/17/23 @ 18:[address] Indiana Francisco MD) household members: other details: Lives with her nephew but minimal assistance per her report. Smoking Status: Never smoker alcohol intake: never substance use type: does not use ROS ROS Narrative Admission Review of Systems: CONSTITUTIONAL: No weight loss, fever, chills, + weakness or fatigue. HEENT: Eyes: No visual loss, blurred vision, double vision or yellow sclerae. Ears, Nose, Throat: No hearing loss, sneezing, congestion, runny nose or sore throat. SKIN: + Groin fold irritation. CARDIOVASCULAR: No chest pain, chest pressure or chest discomfort, palpitations, edema, orthopnea, syncopal events. RESPIRATORY: No shortness of breath, cough or sputum, wheezing, hemoptysis. GASTROINTESTINAL: No anorexia, nausea, vomiting or diarrhea, abdominal pain, melena, BRBPR. GENITOURINARY: + dysuria, frequency. No urgency or retention. NEUROLOGICAL: + Increased confusion, falls, fatigue and malaise. No headache, dizziness, syncope, paralysis, ataxia, numbness or tingling in the extremities, focal weakness, change in bowel or bladder control, seizure. MUSCULOSKELETAL: + muscle, back pain, joint pain or stiffness. HEMATOLOGIC: + anemia, easy bleeding or bruising. LYMPHATICS: No enlarged nodes. No history of splenectomy. PSYCHIATRIC: No history of depression or anxiety. ENDOCRINOLOGIC: No reports of sweating, cold or heat intolerance. No polyuria or polydipsia. ALLERGIES: No history of asthma, hives, eczema or rhinitis. Vital Signs Vital Signs Vital Signs: 04/17/23 13:13 04/17/23 13:23 04/17/23 16:37 Temperature 97.6 F L Temperature Source Temporal Pulse Rate 69 88 Respiratory Rate 16 14 Respiratory Effort Normal Respiratory Pattern Normal Blood Pressure 124/81 H 99/85 H Blood Pressure Mean 95 89 Pulse Ox 98 96 Oxygen Delivery Method Room Air Room Air Weight Weight: 235 lb 14.4 oz Body Mass Index (BMI) 39.2 Physical Exam Narrative Physical Examination: General: Awake, alert, oriented to self, place and granddaughter, granddaughter notes she is significantly improved since initial ED arrival, cooperative, seated upright in the ED bed, fatigued appearing. Skin: Normal color, normal turgor, no icterus, no cyanosis except for bilateral lower extremity venous stasis skin changes, occasional very staged abrasion as well as significant groin fold intertrigo. HEENT: AT/NC, EOMI, PERRLA, dry MM, no carotid bruits or JVD noted; however, thickened neck makes evaluation difficult. Lungs: Mildly diminished, greater bases, proper effort, no rales, ronchi or wheezing. Heart: Irregular, rate controlled; no gallop, rub audible. Abdomen: Soft, morbidly obese, mild discomfort to suprapubic palpation otherwise abdomen NTTP, ND, mildly hyperactive BS, no obvious evidence of HSM however habitus makes evaluation difficult. Extremities: No cyanosis, no clubbing, bilateral pedal to at least mid vaz chronic 2-3+ pitting edema. Neurological: Patient awake, alert, oriented as noted, cognitive function improving, suspect nearing baseline intact; pupils equally reactive to light and accommodation, cranial nerves grossly normal, moving all 4 extremities, no focal deficits, strength moderately to severely globally decreased secondary to acute presentation. Psychiatric: Affect appears flat, fatigued, no acute evidence of depressive or anxiety feelings. Results Lab / Micro Data 04/17/23 14:53 04/17/23 14:53 Labs: Laboratory Results - last 24 hr 04/17/23 14:53: WBC 10.4, RBC 3.19 L, Hgb 10.9 L, Hct 33.6 L, MCV 105.3 H, MCH 34.2 H, MCHC 32.4, RDW Std Deviation 57.1 H, RDW Coeff of Radha 14.7 H, Plt Count 191, MPV 10.6, Immature Gran % (Auto) 0.500, Neut % (Auto) 75.2 H, Lymph % (Auto) 16.6 L, [place] % (Auto) 6.1, Eos % (Auto) 1.2, Baso % (Auto) 0.4, Absolute Neuts (auto) 7.8 H, Absolute Lymphs (auto) 1.73, Nucleated RBC % 0, Sodium 139, Potassium 2.6 L*, Chloride 105, Carbon Dioxide 29.0, Anion Gap 5, BUN 13, Creatinine 0.63, Estim Creat Clear Calc 36.34, Est GFR (MDRD) Af Amer 115, Est GFR (MDRD) Non-Af 95, BUN/Creatinine Ratio 20.6 H, Glucose 92, Calcium 8.7, Magnesium 1.9, TSH 23.90 H 04/17/23 15:30: Urine Color Yellow, Urine Clarity Sl. Cloudy, Urine pH 8.0, Ur Specific [place] 1.010, Urine Protein Negative, Urine Glucose (UA) Normal, Urine Ketones Negative, Urine Occult Blood 25 H, Urine Nitrite Positive H, Urine Bilirubin Negative, Urine Urobilinogen 1 H, Ur Leukocyte Esterase 500 H, Urine RBC 0 SEEN, Urine WBC 0-5 SEEN, Ur Squamous Epith Cells 0-5 SEEN, Urine Bacteria 0 SEEN, Urine Mucus 0 SEEN Radiology Impression Brain CT 04/17/23 13:34 IMPRESSION: No acute intracranial process. Electronically Signed: Rad Holguin MD at 15:46 EDT , Chest X-Ray 04/17/23 15:00 IMPRESSION: Mild right basilar atelectasis. Electronically Signed: Rad Holguin MD at 15:42 EDT , Hip/Pelvis X-Ray 04/17/23 16:10 IMPRESSION: No acute disease Electronically Signed: Nadeem Quan MD at 16:41 EDT , Assessment & Plan Assessment/Plan (1) Acute UTI: PLAN: Plan The patient is an 87 y/o F w/ PMHx: Chronic anemia, PAF, Hx VTE (DVT, PE), Chronic Diastolic CHF, HTN, HLD, Pulmonary HTN, Hx Thyroid CA, EBONI, Morbid obesity who presents to the [facility] ED on 04/17/23 with history of generalized weakness, fatigue and malaise with fall likely several days prior in the bathroom but she does not recall the event and denies any head injury with difficulty ambulating more so recently as previously noted and belated independently with worsening memory over the last several days with no recent fevers or chills prompting eventual ED evaluation. #1. Weakness, Debility, Adult FTT with concurrent Acute Encephalopathy secondary to Acute Urinary Tract Infection with concurrent significant intertrigo: Will admit to [facility] upon ED evaluation remarkable, pending UCx, judicious IVFs, monitor I/Os, continue IV Rocephin w/ transition as able pending sensitivities and speciation, maintain on aggressive hygiene care to folds as well as topical application nystatin. PT/OT/CM consultations for discharge planning. #2. Abnormal TSH with history of thyroid cancer status post resection with resulting hypothyroidism: TSH elevated upon ED evaluation with TSH 23.9, will obtain free T4 and further adjust/evaluate as needed. #3. Hypokalemia: Admission K+ 2.6, magnesium level obtained per ED and noted to be 1.9, supplementation given, repeat level in AM. #4. Chronic diastolic CHF/HFpEF: We will judiciously hydrate given history, will continue patient home apixaban, not on statin, not on PELON/ARB, temporally holding metoprolol given low BP as noted. 10/14/2020 echocardiogram from [facility] with LV normal size, mild concentric LVH, LV systolic function hyperdynamic with EF 78? percent, grade 1 LV diastolic dysfunction, RV normal size, RV systolic function normal, moderately dilated LA, mildly dilated RA, RVSP 56 mmHg consistent with moderate pulmonary hypertension. #5. Chronic macrocytic anemia: Admission hemoglobin 10.9, levels have vacillated but most recently prior to this 07/17/2021 hemoglobin 12.1 but previously had been ranging 8-11, will obtain vitamin B12, folic acid, iron panel in case mixed, repeat CBC in AM. #6. Hypertension: Given patient presentation with mildly low BP will temporally hold patient metoprolol and Lasix regimen, add back once appropriate especially given underlying PAF history. #7. Hyperlipidemia: Not on statin therapy, defer to outpatient. #8. Hx VTE: We will continue patient home apixaban regimen with history of both DVT, PE. #9. Postherpetic neuralgia: We will continue patient home chronic gabapentin regimen. #10. Chronic bilateral lower extremity lymphedema: We will place neck Pelon wraps with elevation, holding Lasix given low BP. #11. Morbid Obesity: Weight loss and lifestyle changes encouraged. #12. EBONI: Denies using PAP therapy, chart reported history. #13. PAF: EKG with rate controlled atrial fibrillation, will continue patient home apixaban, temporally holding metoprolol given low BP, may add back if improving. #14. DVT prophylaxis: We will continue patient home apixaban regimen. #15. CODE status: Patient HCPOA and living will are not in place but she notes Sarah her granddaughter who is present she would want specifically as her healthcare power of doctorate of chiropractic as she fears her children may not make the best dec ision or the decision she wants. Discussed CODE status at length including difference between FULL code, DNR-CCA and DNR-CC status. Following discussions about the differences in these status, requested very specifically DNR-CCA, no intubation status. Advanced Care Planning Face to Face Time: 16 minutes. Charges/Coding Visit Charges Inpatient E&M: 33103 Init Hosp L3 Procedures Hospitalists Procedures: 57632 Advncd Care Plan 30 Min
[2023-04-17] MEDS: Miconazole Nitrate 43 GM Bottle 1 APPLIC TOPICAL ×2 (17:30→20:49)
[2023-04-17 17:31] VITALS: BP 131/83; PULSE 78; RESP 16; O2SAT 95
[2023-04-17] MEDS: Nystatin Powder 15gm Bottle 1 APPLIC TOPICAL (19:17)
[2023-04-17 19:20] VITALS: BMI 39.6
[2023-04-17 19:30] VITALS: BP 124/81; PULSE 79; RESP 16; TEMP 36.4; O2SAT 97
[2023-04-17] MEDS: 0.9% Normal Saline (1000mL) 1,000 ML 100 ML IV (20:00)
[2023-04-17] MEDS: APIXABAN 5 MG TABLET PO (20:49)
[2023-04-17] MEDS: Menthol/Lanolin/Calamine/Znox 113 GM Tube 1 APPLIC TOPICAL (20:49)
[2023-04-17] MEDS: Gabapentin 100 MG Capsule PO (20:49)
[2023-04-18 02:20] VITALS: BP 101/66; PULSE 90; RESP 18; TEMP 36.6; O2SAT 97
[2023-04-18] MEDS: Levothyroxine 125 MCG Tablet PO (05:27)
[2023-04-18] MEDS: Gabapentin 100 MG Capsule PO ×3 (05:27→22:55)
[2023-04-18 05:28] VITALS: BMI 39.6
[2023-04-18 07:05] VITALS: O2SAT 96
[2023-04-18 07:20] LABS: Absolute Lymphocyte Count 1.43 X10^3/uL (0.83-4.51); Absolute Neutrophil Count 5.5 X10^3/uL (2.0-7.7); Basophil# 0.05 X10^3/uL; Basophil% 0.6 % (0-1); Eosinophil# 0.16 X10^3/uL; Eosinophils% 2.1 % (0-5); Hematocrit 31.2 % (37-47); Hemoglobin 10.4 g/dL (12.0-15.0); Lymphocyte # 1.43 X10^3/ul (0.83-4.51); Lymphocyte % 18.4 % (19-41); Mean Corp Hgb Conc 33.3 g/dL (32-36); Mean Corpuscular Hgb 34.7 pg (27.0-32.0); Monocyte# 0.59 X10^3/uL; Monocyte% 7.6 % (0-10); NRBC Flagged by Analyzer 0 % (0-5); Neutrophil # 5.48 X10^3/uL (2.7-7.7); Neutrophil % 70.7 % (47-70); Platelet Count 190 K/mm3 (150-450); RBC Distribution Width CV 14.7 % (11.6-14.6); RBC Distribution Width SD 56.4 fl (35.1-43.9); White Blood Count 7.8 K/mm3 (4.4-11.0)
--- NOTE | 2023-04-18 08:02 | PCM.PN.HOSP ---
Reason for Visit Reason for Visit: Diagnoses Urinary tract infection, site not specified (04/17/23) Subjective Subjective GENERAL: cooperative HEENT: Atraumatic; normocephalic EYES; Anicteric, Normal Conjunctiva NECK; supple, normal thyroid, RESPIRATORY: Diminished to auscultation CARDIOVASCULAR: Regular S1 S2, GI: soft, normoactive bowel sounds, : No Renal angle tenderness; EXTREMITIES: No edema, no clubbing, MUSCULOSKELETAL: no muscle wasting NEURO: Awake; no lateralizing signs. SKIN: No Rash PSYCH; Flat affect Objective Data Objective Data Vital Signs: Vital Signs Temp Pulse Resp BP Pulse Ox O2 Del Method 97.8 F 90 18 101/66 97 Room Air 04/18/23 02:20 04/18/23 02:20 04/18/23 02:20 04/18/23 02:20 04/18/23 02:20 04/18/23 02:20 Oxygen Delivery Method Room Air Weight: 108.1 kg Body Mass Index (BMI) 39.6 Intake & Output: Intake and Output for Last 24 Hours 04/16/23 04/17/23 04/18/23 23:59 23:59 23:59 Intake Total 550 / 875 1475 / 1475 Output Total 600 / 600 Balance 550 / 500 875 / 875 Lab / Micro Data 04/18/23 06:55 04/18/23 06:55 Labs: Laboratory Results - last 24 hr 04/17/23 14:53: WBC 10.4, RBC 3.19 L, Hgb 10.9 L, Hct 33.6 L, MCV 105.3 H, MCH 34.2 H, MCHC 32.4, RDW Std Deviation 57.1 H, RDW Coeff of Radha 14.7 H, Plt Count 191, MPV 10.6, Immature Gran % (Auto) 0.500, Neut % (Auto) 75.2 H, Lymph % (Auto) 16.6 L, [place] % (Auto) 6.1, Eos % (Auto) 1.2, Baso % (Auto) 0.4, Absolute Neuts (auto) 7.8 H, Absolute Lymphs (auto) 1.73, Nucleated RBC % 0, Sodium 139, Potassium 2.6 L*, Chloride 105, Carbon Dioxide 29.0, Anion Gap 5, BUN 13, Creatinine 0.63, Estim Creat Clear Calc 36.34, Est GFR (MDRD) Af Amer 115, Est GFR (MDRD) Non-Af 95, BUN/Creatinine Ratio 20.6 H, Glucose 92, Calcium 8.7, Magnesium 1.9, TSH 23.90 H 04/17/23 15:30: Urine Color Yellow, Urine Clarity Sl. Cloudy, Urine pH 8.0, Ur Specific [place] 1.010, Urine Protein Negative, Urine Glucose (UA) Normal, Urine Ketones Negative, Urine Occult Blood 25 H, Urine Nitrite Positive H, Urine Bilirubin Negative, Urine Urobilinogen 1 H, Ur Leukocyte Esterase 500 H, Urine RBC 0 SEEN, Urine WBC 0-5 SEEN, Ur Squamous Epith Cells 0-5 SEEN, Urine Bacteria 0 SEEN, Urine Mucus 0 SEEN 04/18/23 06:55: WBC 7.8, RBC 3.00 L, Hgb 10.4 L, Hct 31.2 L, MCV 104.0 H, MCH 34.7 H, MCHC 33.3, RDW Std Deviation 56.4 H, RDW Coeff of Radha 14.7 H, Plt Count 190, MPV 10.0, Immature Gran % (Auto) 0.600, Neut % (Auto) 70.7 H, Lymph % (Auto) 18.4 L, [place] % (Auto) 7.6, Eos % (Auto) 2.1, Baso % (Auto) 0.6, Absolute Neuts (auto) 5.5, Absolute Lymphs (auto) 1.43, Nucleated RBC % 0 Radiography Diagnostic Testing: Radiology Impression Brain CT 04/17/23 13:34 IMPRESSION: No acute intracranial process. Electronically Signed: Rad Holguin MD at 15:46 EDT Reading Location ID and State: [facility] / [place] Tel , Service support , Chest X-Ray 04/17/23 15:00 IMPRESSION: Mild right basilar atelectasis. Electronically Signed: Rad Holguin MD at 15:42 EDT , Hip/Pelvis X-Ray 04/17/23 16:10 IMPRESSION: No acute disease Electronically Signed: Nadeem Quan MD at 16:41 EDT , Physical Exam Narrative Physical Examination: General: Awake, alert, oriented to self, place and granddaughter, granddaughter notes she is significantly improved since initial ED arrival, cooperative, seated upright in the ED bed, fatigued appearing. Skin: Normal color, normal turgor, no icterus, no cyanosis except for bilateral lower extremity venous stasis skin changes, occasional very staged abrasion as well as significant groin fold intertrigo. HEENT: AT/NC, EOMI, PERRLA, dry MM, no carotid bruits or JVD noted; however, thickened neck makes evaluation difficult. Lungs: Mildly diminished, greater bases, proper effort, no rales, ronchi or wheezing. Heart: Irregular, rate controlled; no gallop, rub audible. Abdomen: Soft, morbidly obese, mild discomfort to suprapubic palpation otherwise abdomen NTTP, ND, mildly hyperactive BS, no obvious evidence of HSM however habitus makes evaluation difficult. Extremities: No cyanosis, no clubbing, bilateral pedal to at least mid vaz chronic 2-3+ pitting edema. Neurological: Patient awake, alert, oriented as noted, cognitive function improving, suspect nearing baseline intact; pupils equally reactive to light and accommodation, cranial nerves grossly normal, moving all 4 extremities, no focal deficits, strength moderately to severely globally decreased secondary to acute presentation. Psychiatric: Affect appears flat, fatigued, no acute evidence of depressive or anxiety feelings. Assessment & Plan Assessment/Plan (1) Acute UTI: PLAN: Plan Is an 87-year-old lady admitted with progressive generalized weakness and altered mental status diagnosis acute cystitis admitted to regular nursing floor for further management 1. Acute metabolic encephalopathy ? Secondary to acute cystitis admitted to regular nursing floor for treatment of underlying condition 2. Acute cystitis ? Patient was found to have positive nitrite as well as positive leukocyte esterase. Started on ceftriaxone cultures sent 3. Hypokalemia ? Corrected per protocol repeat labs ordered for a.m. 4. Abnormal TSH ? Consistent with hypothyroidism. Free T4 and T3 ordered. Patient started on levothyroxine 5. Anemia - Secondary to chronic disorder monitoring H&H and transfuse if patient becomes symptomatic or hemoglobin falls below 7 6. History of VTE ? With previous DVT and PE patient is on apixaban did continue 7. Chronic congestive heart failure with preserved ejection fraction ? Echo from 10/14/2020 demonstrated EF of 74% 8. History of thyroid CA ? Status post resection 9. Class III obesity with BMI of 40 ? Complicating care weight loss advised 10. Obstructive sleep apnea -consistent use of CPAP encouraged 11. Physical deconditioning - Requested for PT OT eval and social service assistant to assist with discharge planning 13. Paroxysmal A-fib ? Rate controlled on systemic anticoagulation with apixaban 14. DVT prophylaxis ? On apixaban Time spent in the patient's overall evaluation,decision-making process, review of diagnostic data, adjustment of management, discussion with other providers, nursing nursing and ancillary staff involved in patient's care documentation, 50 Minutes Charges/Coding Visit Charges Inpatient E&M: 77267 [facility] Hosp L3
[2023-04-18 08:13] LABS: ALB/GLOB Ratio 0.6 RATIO (0.9-2.4); AST(SGOT) 15 U/L (15-37); Alanine Aminotransfer ALT/SGPT 12 U/L (13-56); Albumin, Serum 2.1 g/dL (3.2-5.0); Alkaline Phosphatase 85 U/L (45-117); Anion Gap 5 (5-15); BUN 11 mg/dL (7-18); BUN/Creat Ratio 20.1 RATIO (10-20); Calcium,Total 8.2 mg/dL (8.5-10.1); Chloride 109 mmol/L (98-107); Creatinine, Serum 0.55 mg/dL (0.55-1.02); EST Glomerular Filtration Rate 112 mL/min (>60); Est Glom Filt Rate - Afr Amer 136 mL/min (>60); Estimated Creatinine Clearance 36.34 ml/min; Ferritin 131 ng/mL (8-252); Free T3 0.5 pg/mL (2.18-3.98); Globulin 3.6 g/dL (2.2-4.2); Glucose 90 mg/dL (74-106); Iron 66 ug/dL (50-170); Iron Binding Capacity,Total 206 ug/dL (250-450); Protein, Total 5.7 g/dL (6.4-8.2); Sodium Level 142 mmol/L (136-145); T4 Free Direct 1.07 ng/dL (0.76-1.46)
[2023-04-18 08:18] LABS: Vitamin B12 122 pg/mL (211-911)
[2023-04-18] MEDS: Ensure Plus High Protein 120 ML LIQUID PO ×2 (09:27→11:39)
[2023-04-18] MEDS: Menthol/Lanolin/Calamine/Znox 113 GM Tube 1 APPLIC TOPICAL ×4 (09:27→22:49)
[2023-04-18] MEDS: Miconazole Nitrate 43 GM Bottle 1 APPLIC TOPICAL ×2 (09:28→22:53)
[2023-04-18] MEDS: APIXABAN 5 MG TABLET PO ×2 (09:29→22:54)
[2023-04-18] MEDS: Acetaminophen 325 MG Tablet 650 MG PO (09:35)
[2023-04-18] MEDS: Ceftriaxone 1 GM/50 ML BAG IV (10:30)
[2023-04-18] MEDS: 0.9% Normal Saline (250mL Bag) 250 ML 15 ML IV (10:30)
[2023-04-18 12:14] VITALS: BP 110/72; PULSE 94; RESP 12; TEMP 36.8; O2SAT 94
--- NOTE | 2023-04-18 13:20 | CASEMGMT ---
Addendum entered by Daniel Padilla 04/19/23 09:54: Olena, SENDY, made aware family requesting AD be completed w/pt once pt is oriented. Family was made yesterday by this RN ZEKE, if SW unable to meet w/pt while she is @ [facility], to f/u with SW @ SNF. Original Note: RN?CM?DIRECTOR SOFTWARE QUALITY ASSURANCE?CM?to room to meet with patient for initial transition planning/care coordination?assessment.?RN?CM?introduced self and role at [facility].? Pt sitting up in chair in room in no distress at this time.? Pt is alert and oriented x 2 at this time and forgetful, and kept referring to her grand-dtr, Sarah, who is present in room and provided the following information. Care providers, pharmacy, and demographics verified/updated at this time PCP: Dr Pereyra Specialists: none Preferred Pharmacy: [facility] Insurance: [facility] dual Prescription Benefit:? Yes Living Will/HPOA:? Pt does not currently have LW/HCPOA and grand-dtr would like for her to complete. She was made aware pt would need to be oriented and able to make decisions in order to complete. She voices understanding. LNOK: Dtr, Minerva, Grand-dtr, Sarah Living Arrangements: Lives w/her grand-son and his . Sarah states pt lives in her own living quarters and had been independent w/ADL's and IADL's until recently. She states she was having difficulty remembering to take her medications. They were in the process of having pt transfer to [facility] for long-term placement and have been speaking w/Jessica @ [facility]. Sarah states Jessica is aware pt has been admitted to the hospital and that she informed her pt may likely need SNF @ discharge before going long-term. Transportation: Grand-dtr DME: Pt has the following DME:?shower chair, cane, walker, W/C, lift chair. HHC/SNF:Pt has been to [facility] in the past and has had HHC in the past. Sarah states they would like pt to go to [facility] @ discharge and she declines wanting list of other SNF options. Pt is agreeable to this plan. PLAN:??SNF/[facility] APONTE?RN?CM
--- NOTE | 2023-04-18 13:58 | CASEMGMT ---
Social Work Patient declined list of SNF providers, stating that her first choice is [facility]. Sw submitted new referral to [facility] via [facility]. Zachariah Navarro, BLOCK LAYER, MUD MILL TENDER
[2023-04-18 14:00] VITALS: BP 96/66; PULSE 100; RESP 17; TEMP 36.3; O2SAT 96
[2023-04-18 22:40] VITALS: BP 96/56; PULSE 88; RESP 18; TEMP 36.7; O2SAT 93
[2023-04-18] MEDS: 0.9% Saline Lock 10 ML Syringe IV (22:49)
[2023-04-19] VITALS (8 sets, daily range): BP systolic 96–115; BP diastolic 54–63; PULSE 79–94; RESP 16–18; TEMP 36.3–36.8; O2SAT 94–96; BMI 40.6
[2023-04-19] MEDS: Levothyroxine 125 MCG Tablet PO (05:11)
[2023-04-19] MEDS: Gabapentin 100 MG Capsule PO ×3 (05:11→22:17)
[2023-04-19] MEDS: Ceftriaxone 1 GM/50 ML BAG IV (08:48)
[2023-04-19] MEDS: Menthol/Lanolin/Calamine/Znox 113 GM Tube 1 APPLIC TOPICAL ×3 (08:49→22:16)
[2023-04-19] MEDS: Ensure Plus High Protein 120 ML LIQUID PO (08:49)
[2023-04-19] MEDS: 0.9% Saline Lock 10 ML Syringe IV (08:49)
[2023-04-19] MEDS: Miconazole Nitrate 43 GM Bottle 1 APPLIC TOPICAL ×2 (08:50→22:17)
[2023-04-19] MEDS: APIXABAN 5 MG TABLET PO ×2 (08:52→22:17)
--- NOTE | 2023-04-19 09:59 | CASEMGMT ---
Social Work SW met with pt and introduced self and role of SW. Pt notified that [facility] is able to accept accept and precert is pending at this time. Pt agreeable to discharge plan to [facility]. Plan: [facility], pending precert MAE Weber
[2023-04-19 10:20] LABS: Anion Gap 5 (5-15); BUN 10 mg/dL (7-18); BUN/Creat Ratio 18.1 RATIO (10-20); Calcium,Total 8.4 mg/dL (8.5-10.1); Chloride 107 mmol/L (98-107); Creatinine, Serum 0.55 mg/dL (0.55-1.02); EST Glomerular Filtration Rate 111 mL/min (>60); Est Glom Filt Rate - Afr Amer 134 mL/min (>60); Estimated Creatinine Clearance 36.34 ml/min; Glucose 104 mg/dL (74-106); Potassium 3.1 mmol/L (3.5-5.1); Sodium Level 140 mmol/L (136-145)
[2023-04-19] MEDS: Potassium Chloride Oral Tablet 20 MEQ 40 MEQ PO (16:36)
--- NOTE | 2023-04-19 17:47 | PN.HOSP_ITS ---
Reason for Visit Reason for Visit: Diagnoses Urinary tract infection, site not specified (04/17/23) Subjective Subjective Patient was seen and examined today, we are currently awaiting approval for the patient to go to an extended care facility for inpatient rehab services. Objective Data Objective Data Vital Signs: Vital Signs Temp Pulse Resp BP Pulse Ox O2 Del Method 98.0 F 94 16 97/57 L 95 Room Air 04/19/23 16:00 04/19/23 16:00 04/19/23 16:00 04/19/23 16:00 04/19/23 12:30 04/19/23 16:00 Oxygen Delivery Method Room Air Weight: 110.7 kg Body Mass Index (BMI) 40.6 Intake & Output: Intake and Output for Last 24 Hours 04/17/23 04/18/23 04/19/23 23:59 23:59 23:59 Intake Total 550 / 875 1852.5 / 1852.5 1050 / 1050 Output Total 1550 / 1550 700 / 700 Balance 550 / 500 302.5 / 302.5 350 / 350 Lab / Micro Data 04/18/23 06:55 04/19/23 09:30 Labs: Laboratory Results - last 24 hr 04/19/23 09:30: Sodium 140, Potassium 3.1 L, Chloride 107, Carbon Dioxide 28.0, Anion Gap 5, BUN 10, Creatinine 0.55, Estim Creat Clear Calc 36.34, Est GFR (MDRD) Af Amer 134, Est GFR (MDRD) Non-Af 111, BUN/Creatinine Ratio 18.1, Glucose 104, Calcium 8.4 L Micro: Microbiology 04/17/23 15:30 Urine, Random Urine Culture - Final Proteus mirabilis Physical Exam Const alert, no apparent distress and healthy appearing Constitutional Narrative: Patient answers simple questions appropriately General Appearance: cooperative, well kempt and well developed Orientation / Consciousness: awake, oriented to person and oriented to place HEENT normocephalic, head/scalp atraumatic and moist oral mucous membranes Eyes PERRL, EOMs intact bilaterally and conjunctivae normal Neck supple, no JVD, thyroid normal and no carotid bruits General: trachea midline Resp normal respiratory effort, no retractions, no use of accessory muscles and clear to auscultation bilaterally Auscultation: Negative for rales, rhonchi or wheezes Cardio regular rate, regular rhythm, S1 normal heart sound, S2 normal heart sound, no murmurs, no rub and no gallops GI normal to inspection, nondistended, normoactive bowel sounds, soft to palpation, non-tender and non-distended Extremity no clubbing, cyanosis or edema Skin no rashes or lesions noted General Skin Exam: no breakdown Neuro CN's II-XII intact bilaterally, moves all extremities, no focal motor deficits and no sensory deficits noted Sensorium / Orientation: awake, alert, oriented to person and oriented to place Speech: speech normal Psych affect normal Assessment & Plan Assessment/Plan (1) Acute UTI: PLAN: Plan 1. Acute metabolic encephalopathy secondary to acute cystitis-continue present supportive care, patient is being seen by PT and OT #2 acute cystitis secondary to Proteus mirabilis-patient will remain on her current medication (ceftriaxone) #3 acute debility-PT and OT are seeing patient, she will need temporary placement in nursing home facility, we are awaiting approval at this time #4 paroxysmal atrial fibrillation-patient is on Eliquis #5 hypothyroidism-patient is currently on Synthroid Total clinical time spent by myself addressing patient's medical issues, reviewing all of her data, and collaborating with patient's care team: 35 minutes Charges/Coding Visit Charges Inpatient E&M: 85421 Subs Hosp L2
[2023-04-20] VITALS (9 sets, daily range): BP systolic 98–121; BP diastolic 55–72; PULSE 70–105; RESP 16; TEMP 36.5–36.8; O2SAT 86–96; BMI 40.2
[2023-04-20] MEDS: Levothyroxine 125 MCG Tablet PO (06:21)
[2023-04-20] MEDS: Gabapentin 100 MG Capsule PO ×2 (06:21→13:02)
[2023-04-20] MEDS: Ensure Plus High Protein 120 ML LIQUID PO (08:19)
[2023-04-20] MEDS: Miconazole Nitrate 43 GM Bottle 1 APPLIC TOPICAL (08:19)
[2023-04-20] MEDS: APIXABAN 5 MG TABLET PO (08:19)
[2023-04-20] MEDS: Menthol/Lanolin/Calamine/Znox 113 GM Tube 1 APPLIC TOPICAL ×3 (08:20→16:54)
[2023-04-20] MEDS: Ceftriaxone 1 GM/50 ML BAG IV (09:58)
[2023-04-20] MEDS: 0.9% Saline Lock 10 ML Syringe IV (09:58)
--- NOTE | 2023-04-20 13:32 | TREXTCAR_ITS ---
Diet Diet Order/Speech Therapy: 04/17/23 19:44 Diet: Regular Food consistency:: Regular Liquid Consistency:: Regular/Thin Routine Orders/Code Status Code Status: DNRCC-A (no intubation) Wound(s) Right thigh: Wound Type: Skin Tear right buttock: Wound Type: Skin Tear Therapies Weight Bearing: Full weight bearing Physical Therapy: Eval and Treat Occupational Therapy: Eval and Treat Problem/Diagnosis (1) Acute UTI: Status: Acute Code(s): N39.0 - Urinary tract infection, site not specified Plan 1. Acute metabolic encephalopathy secondary to acute cystitis-continue present supportive care, patient is being seen by PT and OT #2 acute cystitis secondary to Proteus mirabilis-patient will continue on oral antibiotics #3 acute debility-PT and OT are seeing patient, she will need temporary placement in [place] [facility], we are awaiting approval at this time #4 paroxysmal atrial fibrillation-patient is on Eliquis #5 hypothyroidism-patient is currently on Synthroid #6 Essential hypertension Total clinical time spent by myself addressing patient's medical issues, reviewing all of her data, and collaborating with patient's care team: 35 minutes Allergies/Procedures Done in Hospital Allergies codeine Adverse Reaction (Verified 04/17/23 13:13) I just didn't like how it made me feel Procedures: None Type of Care/Length of Stay Estimated LOS: Convalescent Care Less Than 30 days Type of Care Needed: Skilled Rehab Potential: Good Prognosis: Good Additional Orders/Day of Discharge H&P will serve as current which was dated: 04/17/23 Day of Discharge: 04/20/23 Dietary and Speech Recommendations Dietitian Recommendations/Changes: continue cardiac diet w/ ensure plus high protein 120mL TID; will monitor PO intake and adjust diet/ONS as indicated Discharge Plan Admission Admit Date/Time: 04/17/23 17:37 Primary Reason for Your Visit: urinary tract infection, encephalopathy Attending Provider: Hardy Somers Primary Care Provider: Chip Pereyra Consulting Providers: [place] Francisco; Den Pabon Discharge Orders/Prescriptions Prescriptions: New Ensure Plus High Protein 0.08 gram-1.5 kcal/mL Liquid 120 ml PO TIDCM Qty: 0 0RF menthol-zinc oxide [Calmoseptine] 0.44-20.6 % Ointment 1 applic topical 4X/DAY Qty: 0 0RF Protocol: *Topical Application Instructions APPLICATION INSTRUCTIONS: apply to affected region miconazole nitrate [Desenex] 2 % Powder 1 applic topical BID Qty: 0 0RF Protocol: *Topical Application Instructions APPLICATION INSTRUCTIONS: to affected regions cephalexin 500 mg capsule 500 mg PO BID Qty: 10 0RF Rx Instructions: take for a total of ten doses starting on 04/21/23 Continued metoprolol tartrate 25 MG tablet 12.5 mg PO BID acetaminophen 325 MG tablet 650 mg PO Q6H PRN PRN (Reason: Pain Score 1-10/Temp > 100.7 F) 0RF gabapentin 300 MG capsule 100 mg PO TID Rx Instructions: Recommend continuing 300 TID for two weeks for worsening pain related to postherpetic neuralgia until 10/14. Then reduce to previous 100 mg 3 times daily dosing. apixaban 5 MG tablet 5 mg PO BID Rx Instructions: Continue 10 mg twice a day through 10/05/2020 then reduce to 5 mg twice daily. levothyroxine 125 MCG tablet 125 mcg PO DAILY@0600 Referrals / Follow Up: Chip Pereyra MD [Primary Care Provider] - Disposition Disposition (needs filled in before D/C Order can be placed): Detention Facility
--- NOTE | 2023-04-20 14:35 | DS.PCM_ITS ---
Providers Date of Admission: 04/17/23 Date of Discharge: 04/20/23 Primary Care Physician: Dr. Chip Pereyra MD Reason For Visit: ENCEPHALOPATHY, FALLS, UTI Diagnosis Discharge Diagnosis (1) Acute UTI: Status: Acute Code(s): N39.0 - Urinary tract infection, site not specified Plan 1. Acute metabolic encephalopathy secondary to acute cystitis-continue present supportive care, patient is being seen by PT and OT #2 acute cystitis secondary to Proteus mirabilis-patient will continue on oral antibiotics #3 acute debility-PT and OT are seeing patient, she will need temporary placement in care home facility, we are awaiting approval at this time #4 paroxysmal atrial fibrillation-patient is on Eliquis #5 hypothyroidism-patient is currently on Synthroid #6 Essential hypertension #7 hypokalemia Total clinical time spent by myself addressing patient's medical issues, reviewing all of her data, and collaborating with patient's care team: 35 minutes Medications at Discharge Home Medications metoprolol tartrate 25 mg tablet 12.5 mg PO BID blood pressure 09/28/20 acetaminophen 325 mg tablet 650 mg (2 x 325 mg) PO Q6H PRN PRN Pain Score 1- 10/Temp > 100.7 F 09/30/20 apixaban 5 mg tablet 5 mg PO BID PE 10/11/20 gabapentin 300 mg capsule 100 mg PO TID postherpetic neuralgia 10/11/20 levothyroxine 125 mcg tablet 125 mcg PO DAILY@0600 hypothyroid 10/11/20 cephalexin 500 mg capsule 500 mg PO BID #10 caps 04/20/23 food supplemt, lactose-reduced 0.08 gram-1.5 kcal/mL oral liquid (Ensure Plus High Protein) 120 ml PO TIDCM #0 mL 04/20/23 menthol 0.44 %-zinc oxide 20.6 % topical ointment (Calmoseptine) 1 applic topic al 4X/DAY #0 grams 04/20/23 miconazole nitrate 2 % topical powder (Desenex) 1 applic topical BID #0 grams 04/20/23 Hospital Course Operations None Procedures None Summary of Care Provided Minutes Spent on Discharge: 32 Hospital Course: This 87-year-old white female was seen in the emergency room at [facility] with a complaint of generalized weakness, patient stated she fell a couple of days ago at her home but does not remember what happened. Work-up in the emergency room included a CBC which showed a normal white blood cell count, patient's potassium was low at 2.6, TSH was elevated at 23.9, urinalysis was positive for nitrite, leukocyte Estrace was 500. Chest x-ray showed mild right basilar atelectasis, CT of the brain showed no acute process. Patient was admitted to [place] [address] and placed on IV antibiotics for cystitis, urine culture was positive for Proteus, patient was given potassium replacement and labs were monitored. She was seen by PT and OT. It was felt that she would benefit from placement in a care home facility for short-term rehab services, patient agreed with this and the [facility] excepted the patient. On 04/20/2023, patient was seen and examined: On examination she appeared in good health and spirits, she does not appear to be in any distress. Vital signs as documented. Skin warm and dry and without overt rashes. Neck without JVD, thyroid appears normal, trachea is midline, neck is supple. Lungs clear, normal air movement was noted. Heart exam notable for regular rhythm, normal sounds and absence of murmurs, rubs or gallops. Abdomen unremarkable and without evidence of organomegaly, masses, or abdominal aortic enlargement, bowel sounds are pres ent in all 4 quadrants, no abdominal tenderness was noted. Extremities nonedematous, no cyanosis was noted, no clubbing was noted. Neuro: Cranial nerves II through XII are grossly intact, no focal motor deficits were noted, sensation to light touch and pinprick is intact, motor exam 5/5 throughout. Psych: Patient is alert and oriented x3, she does not appear anxious or depressed, she does not appear agitated. On 04/20/2023, patient was seen and examined and felt to be in stable condition for transfer to the care home facility for further care. Weight / BMI Weight Weight: 109.6 kg Body Mass Index (BMI) 40.2 ABG / Lab / Microbiology Data 04/18/23 06:55 04/19/23 09:30 Microbiology: Microbiology 04/17/23 15:30 Urine, Random Urine Culture - Final Proteus mirabilis Meaningful Use Info Meaningful Use Diagnoses (Choose all that apply): None applicable Discharge Plan Admission Admit Date/Time: 04/17/23 17:37 Primary Reason for Your Visit: urinary tract infection, encephalopathy Attending Provider: Hardy Somers Primary Care Provider: Chip Pereyra Consulting Providers: [place] Francisco; Den Pabon Discharge Orders/Prescriptions Prescriptions: New Ensure Plus High Protein 0.08 gram-1.5 kcal/mL Liquid 120 ml PO TIDCM Qty: 0 0RF menthol-zinc oxide [Calmoseptine] 0.44-20.6 % Ointment 1 applic topical 4X/DAY Qty: 0 0RF Protocol: *Topical Application Instructions APPLICATION INSTRUCTIONS: apply to affected region miconazole nitrate [Desenex] 2 % Powder 1 applic topical BID Qty: 0 0RF Protocol: *Topical Application Instructions APPLICATION INSTRUCTIONS: to affected regions cephalexin 500 mg capsule 500 mg PO BID Qty: 10 0RF Rx Instructions: take for a total of ten doses starting on 04/21/23 Continued metoprolol tartrate 25 MG tablet 12.5 mg PO BID acetaminophen 325 MG tablet 650 mg PO Q6H PRN PRN (Reason: Pain Score 1-10/Temp > 100.7 F) 0RF gabapentin 300 MG capsule 100 mg PO TID Rx Instructions: Recommend continuing 300 TID for two weeks for worsening pain related to postherpetic neuralgia until 10/14. Then reduce to previous 100 mg 3 times daily dosing. apixaban 5 MG tablet 5 mg PO BID Rx Instructions: Continue 10 mg twice a day through 10/05/2020 then reduce to 5 mg twice daily. levothyroxine 125 MCG tablet 125 mcg PO DAILY@0600 Referrals / Follow Up: Chip Pereyra MD [Primary Care Provider] - Disposition Disposition (needs filled in before D/C Order can be placed): Assisted Facility Charges/Coding Visit Charges Inpatient E&M: 24698 Disch Hosp >30min
--- NOTE | 2023-04-20 15:42 | CASEMGMT ---
Social Work Physician updated that precert has been obtained and pt can discharge to [facility] today. Per physician, pt is ready for discharge. 7000 exemption form completed in [facility]. Disposition: [facility], skilled level of care under convalescent stay MAE Weber
[2023-04-20 15:45] LABS: Anion Gap 4 (5-15); BUN 6 mg/dL (7-18); BUN/Creat Ratio 9.6 RATIO (10-20); Calcium,Total 8.8 mg/dL (8.5-10.1); Chloride 106 mmol/L (98-107); Creatinine, Serum 0.62 mg/dL (0.55-1.02); EST Glomerular Filtration Rate 96 mL/min (>60); Est Glom Filt Rate - Afr Amer 116 mL/min (>60); Estimated Creatinine Clearance 36.34 ml/min; Glucose 114 mg/dL (74-106); Potassium 2.8 mmol/L (3.5-5.1); Sodium Level 139 mmol/L (136-145)
[2023-04-20] MEDS: Potassium Chloride Oral Tablet 20 MEQ 60 MEQ PO (16:53)
[2023-04-20] MEDS: Potassium Chloride 10mEq/100mL 10 MEQ/100 ML IV.SOLN. 100 MEQ IV BOLUS ×2 (16:59→18:21)
== END 2023-04-20 22:12 | disposition skilled nursing facility (03) | DRG 689 ==
LOC: ED 17:04 → MS3 17:44
PROVIDERS: Physician Assistant; Admitting Provider Family Medicine; Emergency Provider Emergency Medicine; PCP Family Medicine; Visit Provider Internal Medicine
DX: N30.00 Acute cystitis without hematuria (principal); G93.41 Metabolic encephalopathy; Z68.41 Body mass index [BMI] 40.0-44.9, adult; E66.01 Morbid (severe) obesity due to excess calories; I48.0 Paroxysmal atrial fibrillation; E03.9 Hypothyroidism, unspecified; I10 Essential (primary) hypertension; E87.6 Hypokalemia; B96.4 Proteus (mirabilis) (morganii) as the cause of diseases classified elsewhere; Z66 Do not resuscitate; Z79.2 Long term (current) use of antibiotics
CPT/HCPCS: 36415; 70450; 71045; 73502; 80048; 80053; 81001; 82607; 82728; 82746; 83540; 83550; 83735; 84439; 84443; 84481; 85025; 87077; 87086; 87088; 87186; 93005; 94668; 97116; 97162; 97166; 97530; 97535; 97802; 99285; J7030; J7050; P9612; A4216

== ENCOUNTER → 2023-08-17 | Outpatient (CLI) | payer MEDICARE, MEDICAID, SELFPAY ==
[2023-08-17 16:18] LABS: Anion Gap 4 (5-15); BUN 12 mg/dL (7-18); BUN/Creat Ratio 19.9 RATIO (10-20); Calcium,Total 9.7 mg/dL (8.5-10.1); Chloride 103 mmol/L (98-107); EST Glomerular Filtration Rate 100 mL/min (>60); Est Glom Filt Rate - Afr Amer 121 mL/min (>60); Glucose 101 mg/dL (74-106); Potassium 3.5 mmol/L (3.5-5.1); Sodium Level 141 mmol/L (136-145)
== END | disposition home or self-care (01) ==
LOC: LAB 14:34
PROVIDERS: PCP Family Medicine; Visit Provider Internal Medicine Cardiovascular Disease
DX: R60.0 Localized edema (principal); I50.32 Chronic diastolic (congestive) heart failure
CPT/HCPCS: 80048

== ENCOUNTER → 2023-11-30 | Outpatient (CLI) | payer MEDICARE, MEDICAID, SELFPAY ==
--- NOTE | 2023-11-30 15:35 | SP.MBSS_ITS ---
Modified Barium Swallow Patient Information Study Date: 11/30/23 Study Time: 13:00 Direct Billable Minutes: 124 Total Minutes procedure & reportin Diagnosis: Dysphagia R13.10 Referring Physician: Linus Sierra Reason for Referral: Objectively assess swallow function, assess risk for aspiration, and determine recommendations for least restrictive diet textures and compensatory strategies to improve safety of swallow. Medical History: PMH: COPD, CHF, polyneuropathy, stenosis of larynx, hx of PE, malignant neoplasm of thyroid gland, GERD, cognitive communication deficit, and HTN. Patient and patient's TEXTILE MACHINE MAINTENANCE MECHANIC, Leeanna, report history of Zenker's diverticulum s/p repair (pt unsure what year). Per patient report, she has been regurgitation foods for the past few years. Staff at the home feel the regurgitation became significantly worse over the weekend. Per TEXTILE MACHINE MAINTENANCE MECHANIC, Leeanna, the patient tolerate trials of liquids and purees without regurgitation; however, well-chewed solid trials regurgitated after 10-30 seconds. She was referred for MBSS to further assess concern for worsening dysphagia with known history of Zenker's diverticulum. Current Diet Ordered: Puree / Thin Dentition: Missing Teeth Mental Status: Impaired (Cognitive-communication deficit per H&P. Patient was able to follow commands for the evaluation.) Respiratory Status: Oxygenating on Room Air Penetration-Aspiration Scale Penetration-Aspiration Scale: OBJECTIVE ASSESSMENT OF SWALLOW FUNCTION (QUANTITATIVE ? PER TRIAL): PENETRATION / ASPIRATION SCALE (PATTON): 1 = does not enter airway 2 = enters airway/above vocal folds/ejected 3 = enters airway/above vocal folds/not ejected 4 = enters airway/contacts vocal folds/ejected 5 = enters airway/contacts vocal folds/not ejected 6 = enters airway/below vocal folds/ejected 7 = enters airway/below vocal folds/not ejected despite effort 8 = enters airway/below vocal folds/no effort VIDEOFLOROSCOPIC SCALE SCORE (PATTON): Grade I = aspiration of material that has penetrated into the laryngeal vestibule, intact cough reflex Grade II = aspiration < 10 % of the bolus, intact cough reflex Grade III = aspiration of < 10 % of the bolus, reduced cough reflex or aspiration of > 10 % of the bolus, intact cough reflex Grade IV = aspiration of > 10 % of the bolus, reduced cough reflex Penetration-Aspiration Scale Score Thin Liquid via teaspoon: Result: 1= does not enter airway Thin Liquid via large single sip: cup: Result: 2= enter airway/above vocal folds/ejected Comment: Esophageal screen - top of pouch-like collection of barium visible behind shoulder replacements with retention of barium in the lower esophagus with retrograde flow remaining below the UES. Pudding via teaspoon: Result: 1= does not enter airway Comment: Esophageal screen - pouch-like collection of barium in the upper esophagus visible briefly from behind should replacements. TEXTILE MACHINE MAINTENANCE MECHANIC cued patient to reposition shoulders but unable to obtain full view. Thin Liquid via single sip: straw: Result: 1= does not enter airway 1/2 Cookie: Result: 1= does not enter airway Comment: Esophageal screen - Patient was cued to stagger position of shoulders (R shoulder forward and L shoulder back) revealing full pouch-like collection of barium. Retrograde flow of barium through the UES to the pyriform sinuses with patient re-swallowing quickly. Oral Phase Labial Seal: No Labial Escape Tongue Control During Bolus Hold: Posterior escape of less than half of bolus Bolus Preparation/Mastication: Slow prolonged chewing/mashing with complete recollection Bolus Transport/Lingual Motion: Delayed initiation of tongue motion Oral Residue: Trace residue lining oral structures Pharyngeal Phase Initiation of Pharyngeal Swallow: Bolus head in pyriforms Soft Palate Elevation: Trace column of contrast/air between soft palate and pharyngeal wall Laryngeal Elevation: Comp. Superior move thyroid cart w/comp. apprx arytenoid cart-epig pet Anterior Hyoid Excursion: Partial anterior movement Epiglottic Movement: Complete inversion Laryngeal Vestibule Closure at Height of Swallow: Incomplete; narrow column of air/contrast in laryngeal vestibule (trace laryngeal penetration with thin liquids 1X) Pharyngeal Stripping Wave: Present - complete Pharyngoesophageal Segment Opening: Complete distension and complete duration; no obstruction of flow Tongue Base Retraction: Narrow column of contrast between tongue base & post. pharyngeal wall Pharyngeal Residue: Trace residue within or on pharyngeal structures Esophageal Phase Esophageal Clearance: Esophageal retention w/ retrograde flow through pharyngoesophageal seg Diagnosis/Impression Diagnosis: Esophageal dysphagia R13.12 Impression: Oropharyngeal swallow function is grossly WNL. Prolonged, but complete mastication of cookie. Swallow onset with bolus head in the pyriforms for thin liquids. Complete laryngeal elevation with trace laryngeal penetration of thin liquid trial. No aspiration observed. The esophageal phase is primarily marked by... -Large, pouch-like collection of barium in the upper esophagus. TEXTILE MACHINE MAINTENANCE MECHANIC reviewed images with radiologist, Dr. Valerio, who confirmed the patient to have a Zenker's diverticulum. -No clearance of cookie or pudding through the pouch-like collection of barium. -Minimal clearance of thin liquid wash of cookie through the esophagus. Retrograde flow of barium through the UES to the pyriforms after thin liquid wash of cookie, which she re-swallowed to clear barium from the pharynx. Figure 1. Pouch-like collection of barium during pudding esophageal screen (Shoulders are staggered for optimal viewing due to metal from shoulder replacements obscuring TEXTILE MACHINE MAINTENANCE MECHANIC's view). Recommendations Diet: Puree Textures and Thin Liquids Comment: Recommend 4-5 smaller meals per day as opposed to 3 large meals. If sensation of reflux, retention, or regurgitation, STOP food/drink and resume at a later time. Compensatory Strategies: Small Bites, Small Sips, Slow Rate, Alternate bites/solids and sips/liquids and Sitting upright (Remain sitting upright minimum 60 minutes after PO intake) Supervision: Distant Supervision Recommend Repeat Modified Barium Swallow: TBD Need for Skilled Speech Therapy Services: Yes Comment: -Train the patient in use of strategies to decrease risk for aspiration and reflux aspiration. -Ongoing assessment of diet tolerance of recommended textures. Trials of minced and moist textures with TEXTILE MACHINE MAINTENANCE MECHANIC to consider diet advancement if tolerating without regurgitation. Recommended Referrals: ENT Consult (Recommend consulting with ENT surgeon) Education Completed: 1. Described result of evaluation., 2. Pt understands evaluation & agrees with goals and treatment plan. and 7. Pt requires further education on strategies & risks. Status Active ST Patient: Active Contact Information [facility] Speech Therapy:: Nakia Haider M.A. [facility]-TEXTILE MACHINE MAINTENANCE MECHANIC? Speech-Language Pathologist?? [facility] [address] [place] [address]?? [email or web address]?? [phone]
== END | disposition home or self-care (01) ==
PROVIDERS: PCP Family Medicine; Referring Provider Family Medicine; Visit Provider Family Medicine
DX: R13.10 Dysphagia, unspecified (principal)
CPT/HCPCS: 74230; 92611

== ENCOUNTER 2024-06-11 16:39 | Inpatient (IN) | payer MEDICARE, MEDICAID, SELFPAY ==
[2024-06-11] VITALS (11 sets, daily range): BP systolic 91–134; BP diastolic 50–71; PULSE 109–148; RESP 19–33; TEMP 36.6–36.9; O2SAT 84–95; BMI 45.0; BMI 44.3
--- NOTE | 2024-06-11 17:30 | EKG12_ITS ---
Test Reason : WEAKNESS Blood Pressure : */* mmHG Vent. Rate : 139 BPM Atrial Rate : * BPM P-R Int : * ms QRS Dur : 64 ms QT Int : 276 ms P-R-T Axes : * -18 11 degrees QTcB Int : 419 ms Atrial fibrillation with rapid ventricular response with premature ventricular or aberrantly conducte d complexes Inferior infarct (cited on or before 17-Jul-2021) Anterolateral infarct , age undetermined Abnormal ECG Confirmed by MERCY WYLIE, NILES ([id number]), supervising editor trailer EVY QUILES ([id number]) on 06/12/2024 11:36:10 AM Referred By: Confirmed By: NILES MADRID MD
--- NOTE | 2024-06-11 17:32 | EDS_ITS ---
HPI History of Present Illness Chief Complaint: Shortness of Breath Detail of Chief Complaint: Shortness of breath, weakness Informant: patient Narrative Narrative: Patient presents to the emergency department complaint of feeling somewhat short of breath and generally weak. Patient has not been feeling well today and when nursing staff at the group home checked her vitals she was noted to be hypoxic and was given a breathing treatment and started on oxygen. She has a history of COPD as well as A-fib. Patient on Eliquis for history of A-fib. Patient has had a wound on her left lower extremity for about 3 months. She had been on antibiotics recently finished about a week ago. She is scheduled to see a vascular surgeon tomorrow. Patient denies significant cough. She denies feeling short of breath currently. [facility] Medical History Acute UTI Atrial fibrillation Fern infection Chronic diastolic (congestive) heart failure Congestive heart failure (CHF) COPD (chronic obstructive pulmonary disease) COPD (chronic obstructive pulmonary disease) Depression DVT (deep venous thrombosis) Esophageal diverticulum Essential (primary) hypertension Generalized weakness GERD (gastroesophageal reflux disease) GERD (gastroesophageal reflux disease) Hemoptysis (10/11/20) History of thyroid cancer Hypertension Hypothyroidism Left ventricular diastolic dysfunction Morbid obesity with BMI of 45.0-49.9, adult Non-smoker Osteoporosis Paroxysmal atrial fibrillation (10/2018) Pulmonary embolism Pure hypercholesterolemia Recurrent pulmonary embolism (09/28/20) Schizophrenia Secondary pulmonary arterial hypertension Sleep apnea in adult Home Medications ?Medication ?Instructions ?Recorded ?Last Taken ?Type metoprolol tartrate 25 mg tablet 12.5 mg PO BID blood pressure 09/28/20 04/16/23 History acetaminophen 325 mg tablet 650 mg (2 x 325 mg) PO Q6H PRN PRN 09/30/20 04/15/23 Rx Pain Score 1-10/Temp > 100.7 F gabapentin 300 mg capsule 300 mg PO TID postherpetic 10/11/20 04/16/23 History neuralgia levothyroxine 125 mcg tablet 125 mcg PO DAILY@0600 hypothyroid 10/11/20 04/16/23 History menthol 0.44 %-zinc oxide 20.6 % 1 applic topical 4X/DAY #0 grams 04/20/23 Unknown Rx topical ointment (Calmoseptine) miconazole nitrate 2 % topical 1 applic topical BID #0 grams 04/20/23 Unknown Rx powder (Desenex) albuterol sulfate 2.5 mg/3 mL 2.5 mg inhalation Q4H PRN 08/01/23 Unknown History (0.083 %) solution for nebulization shortness of breath or wheezing bisacodyl 10 mg rectal suppository 10 mg MN DAILY PRN constipation 08/01/23 Unknown History dyclonine 2 mg lozenges 2 mg PO Q6H PRN mouth pain 08/01/23 Unknown History furosemide 40 mg tablet (Lasix) 40 mg PO BID 08/01/23 Unknown History guaifenesin 600 mg tablet, 600 mg PO Q12H PRN congestion 08/01/23 Unknown History extended release 12 hr (Mucinex) magnesium hydroxide 400 mg/5 mL 30 ml PO DAILY PRN stomach upset 08/01/23 Unknown History oral suspension (Milk of Magnesia) mineral oil 118 ml MN DAILY PRN constipation 08/01/23 Unknown History multivitamin 1 tab PO DAILY 08/01/23 Unknown History ondansetron HCl 4 mg tablet 4 mg PO Q8H 08/17/23 Unknown History apixaban 2.5 mg tablet 2.5 mg PO BID 03/06/24 Unknown History potassium chloride 10 mEq 10 meq PO QDAY 03/06/24 Unknown History tablet,extended release (Klor-Con) spironolactone 25 mg tablet 12.5 mg PO DAILY 06/11/24 Unknown History Allergy/AdvReac Type Severity Reaction Status Date / Time codeine AdvReac I just Verified 06/11/24 16:41 didn't like how it made me feel Surgical History History of cardioversion (09/28/20) History of shoulder surgery History of thyroid surgery History of thyroidectomy Social History Smoking Status: Never smoker alcohol intake: never substance use type: does not use ROS ROS ED Review of Systems ROS Unobtainable: other Constitutional Constitutional ED: Reports lethargy; Denies chills, fever(s), sweats or weight loss Eyes Eyes: Denies blurry vision, change in vision or diplopia ENT ENT ED: Denies rhinorrhea or sore throat Cardiovascular Cardiovascular: Denies chest pain, orthopnea or racing heartbeat Respiratory/Chest Respiratory/Chest: Reports dyspnea and dyspnea on exertion; Denies cough, orthopnea or sputum Gastrointestinal Gastrointestinal: Denies abdominal pain, diarrhea, nausea or vomiting Genitourinary Genitourinary ED: Denies dysuria, hematuria or urinary frequency Musculoskeletal Musculoskeletal: Reports other Details: Left lower extremity wound ; Denies arthralgias, back pain, myalgias or neck pain Integumentary Denies abscess, Abrasions or rash Neurologic Neurologic: Reports weakness; Denies headache(s) Psychiatric Psychiatric: Denies anxiety, depression or suicidal thoughts Endocrine Endocrinology: Denies polydipsia, polyphagia or polyuria Hematologic/Lymphatic Hematologic/Lymphatic: Denies easy bleeding, easy bruising or lymphadenopathy Allergic/Immunologic Allergic/Immunologic ED: Denies mouth swelling, tongue swelling or urticaria EXAM Physical Exam Const Vital Signs: 06/11/24 16:41 06/11/24 16:45 06/11/24 17:45 Temperature 98.5 F 98.5 F Temperature Source Oral Oral Pulse Rate 130 H 135 H Respiratory Rate 25 H 23 H Respiratory Effort Short of Breath Respiratory Depth Shallow Respiratory Pattern Tachypnea Blood Pressure 134/60 H 120/60 Blood Pressure Mean 84 80 Pulse Ox 92 94 Oxygen Delivery Method Nasal Cannula Nasal Cannula Room Air Oxygen Flow Rate (L/min) 6 6 06/11/24 17:45 06/11/24 18:00 06/11/24 19:00 Temperature 98.5 F 98.5 F 98.5 F Temperature Source Oral Oral Oral Pulse Rate 137 H 140 H 140 H Respiratory Rate 20 H 23 H 25 H Respiratory Effort Respiratory Depth Respiratory Pattern Blood Pressure 103/53 L 99/53 L 95/68 Blood Pressure Mean 69 68 77 Pulse Ox 94 95 95 Oxygen Delivery Method Nasal Cannula Nasal Cannula Venturi Mask Oxygen Flow Rate (L/min) 4 2 2 06/11/24 19:16 06/11/24 20:00 06/11/24 20:00 Temperature 98.3 F 98.2 F Temperature Source Oral Pulse Rate 136 H 148 H 148 H Respiratory Rate 33 H 32 H 32 H Respiratory Effort Respiratory Depth Respiratory Pattern Blood Pressure 107/50 L 126/64 H 126/64 H Blood Pressure Mean 69 84 84 Pulse Ox 94 93 93 Oxygen Delivery Method Nasal Cannula Nasal Cannula Oxygen Flow Rate (L/min) 3 3 06/11/24 21:00 06/11/24 21:23 Temperature 98 F 98 F Temperature Source Oral Oral Pulse Rate 127 H 131 H Respiratory Rate 28 H 19 H Respiratory Effort Respiratory Depth Respiratory Pattern Blood Pressure 91/52 L 91/52 L Blood Pressure Mean 65 65 Pulse Ox 93 92 Oxygen Delivery Method Nasal Cannula Nasal Cannula Oxygen Flow Rate (L/min) Positive well nourished and well developed General Appearance ED: well developed and NAD HEENT Reports TM's clear and moist mucous membranes normocephalic and atraumatic; Negative for trauma or tenderness Tympanic Membrane ED: Yes TM's clear Eyes PERRL and EOMs intact bilaterally General Eye ED: Negative for pale conjunctiva or scleral icterus Neck no lymphadenopathy, supple and no JVD General: Negative for tenderness Chest Wall inspection of chest normal and palpation of chest normal Chest: Negative for tenderness Resp normal respiratory effort and clear to auscultation bilaterally Resp Narrative: Few coarse rhonchi bilaterally with few Rales in the bases. No significant tachypnea. No senior power scheduler muscle use or retractions. Effort and Inspection: Negative for respiratory distress or pain with movement Auscultation: Negative for rhonchi, wheezes or diminished lung sounds Cardio S1 normal heart sound, S2 normal heart sound and no murmurs; Negative for regular rate or regular rhythm Rate: tachycardic Peripheral Pulses: pulses 2+ throughout GI normal to inspection, nondistended, normoactive bowel sounds, soft to palpation, non-tender, non-distended and no masses Back/Spine no CVA tenderness and no thoracic nor lumbar tenderness Extremity Extremity Narrative: Left lower extremity-patient has a wound to the lateral aspect of the lower leg that has some cellulitic changes around it. There is some clear fluid draining from it and some foul odor noted. General Extremety ED: Negative for edema General Extremity: Negative for edema Neuro oriented x3, CN's II-XII intact bilaterally, no sensory deficits noted and gait normal Sensorium / Orientation: awake, alert, oriented to person, oriented to place and oriented to time Motor Exam: strength 5/5 throughout and strength abnormal Psych mental status grossly normal Skin no rashes or lesions noted and no wounds MDM MDM MDM Narrative Medical decision making narrative: Patient presents with a wound on her left lower extremity that is been there for about 3 months. She had received antibiotics for it recently. Today she was sent in because she was not feeling well and was hypoxic. Patient has history of A-fib and is on apixaban. In the differential would be pneumonia versus PE which I feel is less likely given that she is on apixaban. Patient also has pneumothorax in the differential. Sepsis would be in the differential related to the wound on her left leg. IV line established. CBC with differential obtained showed a white count of 15.9 with hemoglobin 14.4 and platelet count of 321. Chemistries unremarkable. BUN 18 and creatinine 0.82. Lactate was normal at 1.9. Troponin was normal at 4. BNP was normal at 72. Urinalysis was normal. Chest x-ray showed right mid and lower lung infiltrates. Initially I started patient on vancomycin and Unasyn for her leg. I added Levaquin IV. 750 mg. CTA of the left lower extremity was obtained and results currently pending. Will discuss with hospitalist to evaluate patient for admission. Initially gave patient a liter of fluid for blood pressure in the 90s and tachycardia which was A-fib RVR. I did eventually order metoprolol 5 mg IV every 5 minutes x 3 to help with her rate after fluids. Lab Data Attestation: I reviewed the patient's lab results. Labs: Laboratory Results - last 24 hr 06/11/24 06/11/24 17:15 19:30 WBC 15.9 H RBC 4.63 Hgb 14.4 Hct 43.9 MCV 94.8 MCH 31.1 MCHC 32.8 RDW Std Deviation 46.8 H RDW Coeff of Radha 13.3 Plt Count 321 MPV 9.5 Immature Gran % (Auto) 0.500 Neut % (Auto) 87.3 H Lymph % (Auto) 5.9 L Mcmullen % (Auto) 4.6 Eos % (Auto) 1.3 Baso % (Auto) 0.4 Absolute Neuts (auto) 13.9 H Absolute Lymphs (auto) 0.94 Nucleated RBC % 0 Sodium 131 L Potassium 4.5 Chloride 93 L Carbon Dioxide 30.0 Anion Gap 8 BUN 18 Creatinine 0.82 Estim Creat Clear Calc 62.35 Est GFR (MDRD) Af Amer 85 Est GFR (MDRD) Non-Af 70 BUN/Creatinine Ratio 22.0 H Glucose 117 H Lactic Acid 1.9 Calcium 10.0 Troponin I High Sens 4 B-Natriuretic Peptide 72.7 Urine Color Yellow Urine Clarity Clear Urine pH 6.5 Ur Specific [place] 1.010 Urine Protein Negative Urine Glucose (UA) Normal Urine Ketones Negative Urine Occult Blood 10 H Urine Nitrite Negative Urine Bilirubin Negative Urine Urobilinogen 1 H Ur Leukocyte Esterase Negative Urine RBC 0-5 SEEN Urine WBC 0 SEEN Ur Squamous Epith Cells 5-10 SEEN Urine Bacteria 0 SEEN Urine Mucus 0 SEEN Radiography Diagnostic Testing: Clinical Impression(s) from Imaging Studies Lower Extremity CTA 06/11/24 17:36 IMPRESSION: Subcutaneous edema along the medial portion of the left thigh and diffusely of the left lower leg extending to the left foot. No subcutaneous emphysema. No hemodynamically significant stenosis. No aneurysm. Electronically Signed: Kaz Tineo DO at 20:43 EST , Chest X-Ray 06/11/24 18:55 IMPRESSION: Right mid and lower lung infiltrate or edema. Electronically Signed: Gavin Dos Santos MD at 20:28 EST , 1 view chest x-ray obtained interpreted by myself as infiltrate and right lower lung. Radiology in agreement. There is no evidence of pneumothorax. EKG Initial EKG: Attestation: I personally reviewed and interpreted this EKG as follows: Comments: A-fib RVR with ventricular rate of [address] changes Discharge Plan Dx/Rx/DC Orders Clinical Impression: Cellulitis of left leg, Pneumonia, Atrial fibrillation with RVR, Hypoxemia Disposition Disposition: Acute Care Hospital [facility]
--- NOTE | 2024-06-11 17:36 | CT_ITS ---
STUDY: CTA OF THE LEFT LOWER EXTREMITY PATIENT DEMOGRAPHICS: Female, 89 years old. REASON FOR EXAM: wound left lower leg TECHNIQUE: Axial CT angiography multi-detector data acquisition was obtained from the SMA to the left foot following intravenous administration of IV 100mL [id number]-370. Axial images and MIP images were reconstructed from the axial data set. Post-processing of the angiographic images was performed, with multiplanar reformation and 3D reconstruction. The protocol utilizes one or more of the following dose reduction techniques: automated exposure control, adjustment of mA and/or kV according to patient size,and/or use of iterative reconstruction technique. RADIATION DOSAGE (If Supplied By Facility): CTDIvol = ( 12.41 ) mGy, DLP = ( 1368.74 ) mGycm TECHNICAL LIMITATIONS: None. COMPARISON: Descriptors of Narrowing: None (0%) Mild (< 50%) Moderate (50-70%) Severe (70-90%) Subtotal/Total Occlusion (90-100%) Non-Evaluable (technically non-diagnostic) FINDINGS: Aorta: Normal caliber with no hemodynamically significant stenosis. Mild atherosclerotic calcifications. No aneurysm Right common iliac artery: No significant narrowing. Right external iliac artery: No significant narrowing. Right internal iliac artery: No significant narrowing. Left common iliac artery: No significant narrowing. Left external iliac artery: No significant narrowing. Left internal iliac artery: No significant narrowing. Left common femoral artery: No significant narrowing. Left profundus femoris: No significant narrowing. Left superficial femoral: No significant narrowing. Left popliteal artery: No significant narrowing. Left tibioperoneal trunk: No significant narrowing. Left anterior tibial artery: No significant narrowing. Left posterior tibial artery: No significant narrowing. Left peroneal artery: No significant narrowing. Urinary bladder: Normal in appearance. Gastrointestinal: No gastric abnormality is identified. The small bowel is normal in caliber. The colon is normal in caliber. There is no free fluid or free air in the abdomen or pelvis. Lymph nodes: No significantly enlarged lymph nodes are seen. Bones: Degenerative changes at the left knee. Subcutaneous edema along the medial portion of the left thigh and diffusely of the left lower leg extending to the left foot. No subcutaneous emphysema. Calcific foci in the Achilles tendon. CT/CTA LWR EXTR W/O & W/DYE IMPRESSION: Subcutaneous edema along the medial portion of the left thigh and diffusely of the left lower leg extending to the left foot. No subcutaneous emphysema. No hemodynamically significant stenosis. No aneurysm. Electronically Signed: Kaz Tineo DO at 20:43 EST ,
[2024-06-11] MEDS: Ampicillin/Sulbactam 3 GM in 0.9% Normal Saline (100mL MB+) 100 ML IV (17:56)
[2024-06-11] MEDS: 0.9% Normal Saline (500mL Bag) 500 ML 999 ML IV (17:56)
[2024-06-11 18:01] LABS: Absolute Lymphocyte Count 0.94 X10^3/uL (0.83-4.51); Absolute Neutrophil Count 13.9 X10^3/uL (2.0-7.7); Basophil# 0.06 X10^3/uL; Basophil% 0.4 % (0-1); Eosinophils% 1.3 % (0-5); Hematocrit 43.9 % (37-47); Hemoglobin 14.4 g/dL (12.0-15.0); Lymphocyte # 0.94 X10^3/ul (0.83-4.51); Lymphocyte % 5.9 % (19-41); Mean Corp Hgb Conc 32.8 g/dL (32-36); Mean Corpuscular Hgb 31.1 pg (27.0-32.0); Mean Corpuscular Volume 94.8 fL (81-99); Mean Platelet Vol. 9.5 fl (6.2-12.0); Monocyte# 0.73 X10^3/uL; Monocyte% 4.6 % (0-10); NRBC Flagged by Analyzer 0 % (0-5); Neutrophil # 13.89 X10^3/uL (2.7-7.7); Neutrophil % 87.3 % (47-70); Platelet Count 321 K/mm3 (150-450); RBC Distribution Width CV 13.3 % (11.6-14.6); RBC Distribution Width SD 46.8 fl (35.1-43.9); Red Blood Count 4.63 M/mm3 (4.2-5.4); White Blood Count 15.9 K/mm3 (4.4-11.0)
[2024-06-11 18:11] LABS: Anion Gap 8 (5-15); BUN 18 mg/dL (7-18); Chloride 93 mmol/L (98-107); Creatinine, Serum 0.82 mg/dL (0.55-1.02); EST Glomerular Filtration Rate 70 mL/min (>60); Est Glom Filt Rate - Afr Amer 85 mL/min (>60); Estimated Creatinine Clearance 62.35 ml/min; Glucose 117 mg/dL (74-106); Potassium 4.5 mmol/L (3.5-5.1); Sodium Level 131 mmol/L (136-145); Troponin-I HS 4 pg/mL (3.0-54.0)
[2024-06-11 18:22] LABS: Lactic Acid 1.9 mmol/L (0.4-1.9)
[2024-06-11 18:23] LABS: BNP,B-Type NATRIURETIC PEPTIDE 72.7 pg/mL (0-100)
--- NOTE | 2024-06-11 18:55 | RAD_ITS ---
STUDY: X-RAY CHEST REASON FOR EXAM: Female, 89 years old. Dyspnea TECHNIQUE: Single AP portable view of the chest. COMPARISON: April 17, 2023 FINDINGS: There are monitoring devices. There are right mid and lower lung opacities with consolidation. There is no demonstrated pleural abnormality. There is mild cardiac enlargement. Normal mediastinum and tin. Normal visualized pulmonary arteries. There is atherosclerotic calcification of the aortic arch with tortuosity. Normal visualized thoracic spine. There are bilateral reverse total shoulder replacements. There is no demonstrated abnormality of the visualized soft tissue structures of the upper abdomen. RAD/Chest 1 View (Portable) IMPRESSION: Right mid and lower lung infiltrate or edema. Electronically Signed: Gavin Dos Santos MD at 20:28 EST ,
[2024-06-11] MEDS: Vancomycin HCl 1,750 MG in 0.9% Normal Saline (500mL Bag) 500 ML 250 MG IV (18:58)
[2024-06-11 19:36] LABS: Bacteria 0 SEEN /hpf (None Seen); Mucous, Urine 0 SEEN /hpf (<or=2+); White Blood Cells 0 SEEN /hpf (0-5)
[2024-06-11 19:38] LABS: Color, Urine Yellow (Yellow); Glucose, Dipstick Normal (Normal); Ketone-Dipstick Negative (Negative); Leukocyte Esterase-Dipstick Negative /ul (Negative); Nitrite-Dipstick Negative (Negative); Occult Blood-Urine 10 /ul (Negative); Protein-Dipstick Negative (Negative); Urine Bilirubin Dipstick Negative (Negative); Urine Clarity Clear (Clear); Urine Urobilinogen 1 mg/dl (Normal); Urine pH 6.5 (5.0 - 8.0)
[2024-06-11 19:49] LABS: Red Blood Cells-Urine 0-5 SEEN /hpf (0-5); Squamous Epithelial Cells - UA 5-10 SEEN /hpf (5-10)
--- NOTE | 2024-06-11 20:58 | HP.PCM.HOS_ITS ---
HPI - General General Date of Admission: 06/11/24 Date of Service: 06/11/24 Chief Complaint: Dyspnea, hypoxia, weakness. HPI Narrative The patient is an 89 y/o F w/ PMHx: PAF, COPD, Anxiety and Depression/Schizophrenia, GERD, EBONI noncompliant with BIPAP therapy, HFpEF, Pulmonary HTN, Hx VTE, Hx Thyroid CA s/p thyroidectomy, EBONI, Morbid obesity, BL LE chronic lymphedema with known LLE chronic wound x ~3 months recently completed abx therapy ~ 1 week prior with planned follow-up with per facility report possibly vascular surgery who presents to the [facility] ED on 06/11/2024 with worsening dyspnea, fatigue, malaise with nursing staff evaluation on day of presentation noted hypoxia with breathing treatments and initiation of oxygen prompting ED evaluation to be cautious with facility reported no marked coughing nor fever or chills. Workup in the ED included T98.5, heart rate 130, BP 134/60, respiratory rate 25, 92% on 6 L nasal cannula initially with most recent repeat vital signs T98.2 [place]ally, heart rate 148, BP 126/64, respiratory rate 32, 93% on 3 L nasal cannula, CBC with WBC 15.9, hemoglobin 14.4, platelet 321 with left shift, BMP with sodium 131, chloride 93, glucose 117, troponin 4, BNP 72.7, lactic acid 1.9, urinalysis not marked appearing, chest x-ray with right mid and lower lung infiltrate versus edema, CTA of the left lower extremity secondary to wound with subcutaneous edema along the medial portion of the left thigh and diffusely of the left lower leg extending to the left foot with no subcutaneous emphysema and no hemodynamically significant stenosis or aneurysm. In the ED patient ministered Unasyn, Levaquin, vancomycin as well as a 500 normal saline IV fluid bolus. FOR[facility]LY [facility] Medical History Schizophrenia Depression Osteoporosis GERD (gastroesophageal reflux disease) Non-smoker COPD (chronic obstructive pulmonary disease) Pulmonary embolism Atrial fibrillation Congestive heart failure (CHF) Hypertension Acute UTI Generalized weakness Fern infection Secondary pulmonary arterial hypertension Recurrent pulmonary embolism (09/28/20) Left ventricular diastolic dysfunction Chronic diastolic (congestive) heart failure Paroxysmal atrial fibrillation (10/2018) Essential (primary) hypertension Hemoptysis (10/11/20) DVT (deep venous thrombosis) COPD (chronic obstructive pulmonary disease) Sleep apnea in adult Esophageal diverticulum History of thyroid cancer GERD (gastroesophageal reflux disease) Morbid obesity with BMI of 45.0-49.9, adult Pure hypercholesterolemia Hypothyroidism Home Medications ?Medication ?Instructions ?Recorded ?Last Taken ?Type metoprolol tartrate 25 mg tablet 12.5 mg PO BID blood pressure 09/28/20 04/16/23 History acetaminophen 325 mg tablet 650 mg (2 x 325 mg) PO Q6H PRN PRN 09/30/20 04/15/23 Rx Pain Score 1-10/Temp > 100.7 F gabapentin 300 mg capsule 300 mg PO TID postherpetic 10/11/20 04/16/23 History neuralgia levothyroxine 125 mcg tablet 125 mcg PO DAILY@0600 hypothyroid 10/11/20 04/16/23 History menthol 0.44 %-zinc oxide 20.6 % 1 applic topical 4X/DAY #0 grams 04/20/23 Unknown Rx topical ointment (Calmoseptine) miconazole nitrate 2 % topical 1 applic topical BID #0 grams 04/20/23 Unknown Rx powder (Desenex) albuterol sulfate 2.5 mg/3 mL 2.5 mg inhalation Q4H PRN 08/01/23 Unknown History (0.083 %) solution for nebulization shortness of breath or wheezing bisacodyl 10 mg rectal suppository 10 mg RI DAILY PRN constipation 08/01/23 Unknown History dyclonine 2 mg lozenges 2 mg PO Q6H PRN mouth pain 08/01/23 Unknown History furosemide 40 mg tablet (Lasix) 40 mg PO BID 08/01/23 Unknown History guaifenesin 600 mg tablet, 600 mg PO Q12H PRN congestion 08/01/23 Unknown History extended release 12 hr (Mucinex) magnesium hydroxide 400 mg/5 mL 30 ml PO DAILY PRN stomach upset 08/01/23 Unknown History oral suspension (Milk of Magnesia) mineral oil 118 ml RI DAILY PRN constipation 08/01/23 Unknown History multivitamin 1 tab PO DAILY 08/01/23 Unknown History ondansetron HCl 4 mg tablet 4 mg PO Q8H 08/17/23 Unknown History apixaban 2.5 mg tablet 2.5 mg PO BID 03/06/24 Unknown History potassium chloride 10 mEq 10 meq PO QDAY 03/06/24 Unknown History tablet,extended release (Klor-Con) spironolactone 25 mg tablet 12.5 mg PO DAILY 06/11/24 Unknown History Allergy/AdvReac Type Severity Reaction Status Date / Time codeine AdvReac I just Verified 06/11/24 16:41 didn't like how it made me feel Family History (Updated 06/12/24 @ 02:[address] Indiana Francisco MD) Mother Heart disease Father Heart disease Surgical History History of thyroid surgery History of cardioversion (09/28/20) History of shoulder surgery History of thyroidectomy Social History (Updated 06/12/24 @ 02:[address] Indiana Francisco MD) housing: [facility] Smoking Status: Never smoker alcohol intake: never substance use type: does not use ROS ROS Narrative Admission Review of Systems: CONSTITUTIONAL: No weight loss, fever, chills, + weakness or fatigue. HEENT: Eyes: No visual loss, blurred vision, double vision or yellow sclerae. Ears, Nose, Throat: No hearing loss, sneezing, congestion, runny nose or sore throat. SKIN: No rash or itching, lesions except + notable bilateral lower extremity significant lymphedema with left lower extremity chronic wound with increased drainage, foul odor. CARDIOVASCULAR: No chest pain, chest pressure or chest discomfort, palpitations, edema, orthopnea, syncopal events. RESPIRATORY: + Increasing dyspnea, no marked cough or productive sputum reported. No marked wheezing or hemoptysis. GASTROINTESTINAL: No anorexia, nausea, vomiting or diarrhea, abdominal pain, melena, BRBPR. GENITOURINARY: No dysuria, frequency, urgency or retention. NEUROLOGICAL: No headache, dizziness, syncope, paralysis, ataxia, numbness or tingling in the extremities, focal weakness, change in bowel or bladder control, seizure. MUSCULOSKELETAL: + muscle, back pain, joint pain or stiffness. HEMATOLOGIC: No anemia. + Easy bleeding/bruising. LYMPHATICS: No enlarged nodes. No history of splenectomy. PSYCHIATRIC: + History of anxiety and depression. ENDOCRINOLOGIC: No reports of sweating, cold or heat intolerance. No polyuria or polydipsia. ALLERGIES: No history of asthma, hives, eczema or rhinitis. Vital Signs Vital Signs Vital Signs: 06/11/24 16:41 06/11/24 16:45 06/11/24 17:45 Temperature 98.5 F 98.5 F Temperature Source Oral Oral Pulse Rate 130 H 135 H Respiratory Rate 25 H 23 H Respiratory Effort Short of Breath Respiratory Depth Shallow Respiratory Pattern Tachypnea Blood Pressure 134/60 H 120/60 Blood Pressure Mean 84 80 Pulse Ox 92 94 Oxygen Delivery Method Nasal Cannula Nasal Cannula Room Air Oxygen Flow Rate (L/min) 6 6 06/11/24 17:45 06/11/24 18:00 06/11/24 19:00 Temperature 98.5 F 98.5 F 98.5 F Temperature Source Oral Oral Oral Pulse Rate 137 H 140 H 140 H Respiratory Rate 20 H 23 H 25 H Respiratory Effort Respiratory Depth Respiratory Pattern Blood Pressure 103/53 L 99/53 L 95/68 Blood Pressure Mean 69 68 77 Pulse Ox 94 95 95 Oxygen Delivery Method Nasal Cannula Nasal Cannula Venturi Mask Oxygen Flow Rate (L/min) 4 2 2 06/11/24 19:16 06/11/24 20:00 06/11/24 20:00 Temperature 98.3 F 98.2 F Temperature Source Oral Pulse Rate 136 H 148 H 148 H Respiratory Rate 33 H 32 H 32 H Respiratory Effort Respiratory Depth Respiratory Pattern Blood Pressure 107/50 L 126/64 H 126/64 H Blood Pressure Mean 69 84 84 Pulse Ox 94 93 93 Oxygen Delivery Method Nasal Cannula Nasal Cannula Oxygen Flow Rate (L/min) 3 3 Weight Weight: 270 lb 8.115 oz Body Mass Index (BMI) 45.0 Physical Exam Narrative Physical Examination: General: Awake, alert, oriented to self, place and some recent events but during conversation she did appear confused and cooperative, seated upright in ED bed in no apparent distress, ill appearing. Skin: Normal color, normal turgor, no icterus, no cyanosis except for very state ecchymoses, abrasions, significant bilateral lower extremity lymphedema with stasis skin changes, lichenification as well as notable left lower extremity lateral mid calf chronic wound with purulent drainage with periwound erythema with foul odor. HEENT: AT/NC, EOMI, PERRLA, dry MM, no carotid bruits or JVD noted. Lungs: Significantly diminished, greater bases, right greater than left, mildly rhonchorous, mildly increased respiratory rate but no distress, no rales or wheezing. Heart: Irregular irregular; no gallop, rub audible. Abdomen: Soft, morbidly obese, NTTP, ND, distant BS, no appreciated HSM. Extremities: No cyanosis, no clubbing, significant bilateral lower extremity lymphedema, see skin Neurological: Patient awake, alert, oriented as noted, cognitive function suspect decreased from baseline as noted above, questionable underlying cognitive impairment but unsure; pupils equally reactive to light and accommodation, cranial nerves grossly normal, moving all 4 extremities, no focal deficits, strength severely globally decreased secondary to acute presentation. Psychiatric: Affect appears fatigued, ill-appearing, no acute evidence of depressive or anxiety feelings. Results Lab / Micro Data 06/11/24 17:15 06/11/24 17:15 Labs: Laboratory Results - last 24 hr 06/11/24 17:15: WBC 15.9 H, RBC 4.63, Hgb 14.4, Hct 43.9, MCV 94.8, MCH 31.1, MCHC 32.8, RDW Std Deviation 46.8 H, RDW Coeff of Radha 13.3, Plt Count 321, MPV 9.5, Immature Gran % (Auto) 0.500, Neut % (Auto) 87.3 H, Lymph % (Auto) 5.9 L, [place] % (Auto) 4.6, Eos % (Auto) 1.3, Baso % (Auto) 0.4, Absolute Neuts (auto) 13.9 H, Absolute Lymphs (auto) 0.94, Nucleated RBC % 0, Sodium 131 L, Potassium 4.5, Chloride 93 L, Carbon Dioxide 30.0, Anion Gap 8, BUN 18, Creatinine 0.82, Estim Creat Clear Calc 62.35, Est GFR (MDRD) Af Amer 85, Est GFR (MDRD) Non-Af 70, BUN/Creatinine Ratio 22.0 H, Glucose 117 H, Lactic Acid 1.9, Calcium 10.0, Troponin I High Sens 4, B-Natriuretic Peptide 72.7 06/11/24 19:30: Urine Color Yellow, Urine Clarity Clear, Urine pH 6.5, Ur Specific [place] 1.010, Urine Protein Negative, Urine Glucose (UA) Normal, Urine Ketones Negative, Urine Occult Blood 10 H, Urine Nitrite Negative, Urine Bilirubin Negative, Urine Urobilinogen 1 H, Ur Leukocyte Esterase Negative, Urine RBC 0-5 SEEN, Urine WBC 0 SEEN, Ur Squamous Epith Cells 5-10 SEEN, Urine Bacteria 0 SEEN, Urine Mucus 0 SEEN Micro: Microbiology 06/11/24 17:42 Mucosa - Nose SARS-CoV-2, Influenza & RSV (PCR) - Final Imaging Radiology Impression Lower Extremity CTA 06/11/24 17:36 IMPRESSION: Subcutaneous edema along the medial portion of the left thigh and diffusely of the left lower leg extending to the left foot. No subcutaneous emphysema. No hemodynamically significant stenosis. No aneurysm. Electronically Signed: Kaz Tineo DO at 20:43 EST , Chest X-Ray 06/11/24 18:55 IMPRESSION: Right mid and lower lung infiltrate or edema. Electronically Signed: Gavin Dos Santos MD at 20:28 EST , Assessment & Plan Assessment/Plan (1) Hypoxemia: (2) Atrial fibrillation with RVR: (3) Pneumonia: (4) Cellulitis of left leg: PLAN: Plan The patient is an 89 y/o F w/ PMHx: PAF, COPD, Anxiety and Depression/Schizophrenia, GERD, EBONI noncompliant with BIPAP therapy, HFpEF, Pulmonary HTN, Hx VTE, Hx Thyroid CA s/p thyroidectomy, EBONI, Morbid obesity, BL LE chronic lymphedema with known LLE chronic wound x ~3 months recently completed abx therapy ~ 1 week prior with planned follow-up with per facility report possibly vascular surgery who presents to the [facility] ED on 06/11/2024 with worsening dyspnea, fatigue, malaise with nursing staff evaluation on day of presentation noted hypoxia with breathing treatments and initiation of oxygen prompting ED evaluation to be cautious with facility reported no marked coughing nor fever or chills. #1. Acute Hypoxia secondary to Acute R mid and lower lung PNA with concern for aspiration (coughing with food, reports being on pureed diet already): Will admit to PCU, maintain on oxygen with wean as tolerated to room air, continue ATC budesonide therapy, PRN albuterol, maintained on IV Zosyn and Vancomycin with de-escalation as able also given #2, HOB, IS parameters w/ pending sputum cultures, full respiratory viral panel and urine antigens. Bld cx x 2 obtained in the ED. PT/OT/ST/CM consultations for discharge planning. #2. Left Lower Extremity Acutely Infected wound w/ periwound Erythema/Cellulitis: Will obtain Wound Cx and Wound MRSA PCR, plan repeat CBC in AM, continue affected extremity elevation above heart when seated and in bed, monitor erythema outline with VS checks, wound RN consulted, continue dressings as noted pending their evaluation, low threshold to involve plastic surgery pending re-evaluation. #3. Paroxsymal atrial fibrillation w/ RVR: EKG in ED w/ atrial fibrillation w/ RVR. Patient administered IVFs only in ED. Will maintain on telemetry, obtain cardiac enzyme serial set, obtain magnesium level, obtain ECHO, obtain TSH level. Will continue home eliquis and low dose metoprolol as BP allows in addition to amiodarone bolus and drip until BP improved. #4. Hypertension: BP currently low normal, will continue low-dose metoprolol as able however may need to hold, as noted above given PAF with RVR may require amiodarone. Given additional 1 L normal saline bolus is only received 500 cc normal saline in the ED. #5. Hyperlipidemia: Noted history, not on regimen, defer to outpatient. #6. HFpEF: Most recent echocardiogram noted from [facility] 10/14/2020 with LV normal size, mild concentric LV hypertrophy, LV systolic function hyperdynamic with EF 78?5%, RV normal size, RV systolic function normal, moderately dilated LA, mildly dilated RA, visualized aorta dilated with maximal dimension 4.6 cm, RVSP 56 mmHg consistent with moderate pulmonary hypertension. Will continue patient home apixaban, metoprolol regimen as BP allows, holding spironolactone and Lasix given low BP as noted, hydrating cautiously given presentation and low BP, add back diuretics as able. #7. Anxiety and depression/schizophrenia: Per current list does not appear to be on any medications but noted significant history in the chart and skilled facility, complicates presentation. #8. Chronic COPD: Will maintain on ATC budesonide therapy, PRN albuterol, HOB, IS parameters. #9. History thyroid cancer status post thyroidectomy with resulting hypothyroidism: We will continue patient home levothyroxine regimen. As noted status post thyroidectomy with cancer considered in remission. #10. Chronic postherpetic neuralgia: We will continue patient on gabapentin regimen as BP and mental status allow, hold for sedation or hypotension. #11. EBONI: Per discussion with nursing facility patient is non-PAP compliant. #12. Chronic bilateral lower extremity lymphedema: Continue treatment as noted #2, place neck torrie wraps with elevation. #13. Morbid Obesity: Weight loss and lifestyle changes encouraged. #14. GERD: Not on any current regimen per current list but clarifying, if necessary will have as needed Mylanta for dyspepsia. #15. History of VTE: We will continue patient home Eliquis regimen. #16. DVT prophylaxis: Will continue patient on Eliquis regimen. #17. CODE STATUS: DNR-CCA, no intubation, no aggressive measures per facility paperwork. Charges/Coding Visit Charges Inpatient E&M: 24621 Init Hosp L3
[2024-06-11] MEDS: levoFLOXacin IV 750 MG/150 ML BAG 100 MG IV (21:21)
[2024-06-11] MEDS: Metoprolol Tartrate 5 MG/5 ML Vial IV ×2 (22:32→23:03)
[2024-06-11 23:13] LABS: Magnesium 2.1 mg/dL (1.6-2.6)
--- NOTE | 2024-06-11 23:26 | ED.RN ---
Metoprolol admin delayed due to pt having soft pressures. Dr. Rachel gave this RN verbal orders to give first 5mg slowly. RN updated DR after medical record librarians teacher, okay per DR to give second dose. After second dose of metoprolol pt became hypotensive. Dr. Rachel gave verbal orders to hold third dose of metoprolol.
[2024-06-12] VITALS (27 sets, daily range): BP systolic 83–107; BP diastolic 50–69; PULSE 78–119; RESP 13–24; TEMP 36.1–37.2; O2SAT 90–100; BMI 44.4; BMI 44.3
--- NOTE | 2024-06-12 00:41 | PCM.HOSP.N ---
Hospitalist Note RN reporting BP decreased, will add [address] bolus and reassess.
[2024-06-12] MEDS: 0.9% Normal Saline (1000mL) 1,000 ML 999 ML IV (00:50)
[2024-06-12] MEDS: 0.9% Normal Saline (1000mL) 1,000 ML 100 ML IV (02:02)
--- NOTE | 2024-06-12 03:27 | PCM.RX.CS ---
Consult Antibiotic Management Pharmacy has been consulted to manage selected antibiotic: Vancomycin Type of Intervention Type of Consult: New start Labs Labs: Sodium 131 mmol/L (136-145) L 06/11/24 17:15 Potassium 4.5 mmol/L (3.5-5.1) 06/11/24 17:15 Chloride 93 mmol/L (98-107) L 06/11/24 17:15 Carbon Dioxide 30.0 mmol/L (21.0-32.0) 06/11/24 17:15 Anion Gap 8 (5-15) 06/11/24 17:15 BUN 18 mg/dL (7-18) 06/11/24 17:15 Creatinine 0.82 mg/dL (0.55-1.02) 06/11/24 17:15 Est GFR (MDRD) Af Amer 85 mL/min (>60) 06/11/24 17:15 Est GFR (MDRD) Non-Af 70 mL/min (>60) 06/11/24 17:15 BUN/Creatinine Ratio 22.0 RATIO (10-20) H 06/11/24 17:15 Glucose 117 mg/dL (74-106) H 06/11/24 17:15 Microbiology Microbiology: Microbiology 06/11/24 17:42 Mucosa - Nose SARS-CoV-2, Influenza & RSV (PCR) - Final Dosing Weight Weight used for dosin kg Estimated Creatinine Clearance Estimated Creatinine Clearance: 62 Goal Trough Goal Trough: 15-20 mcg/mL Pharmacy Plan for Drug Dosing Pharmacy Plan for Drug Dosing: Pharmacy Service will continue to monitor and adjust dosing as required. Follow-Up Labs Follow-Up Labs: Trough: Vancomycin Date/Time Labs Ordered Labs to be done on [date and time ordered]: 06/13/24 @4872
[2024-06-12] MEDS: Piperacil/Tazobactam 3.375 GM in 0.9% Normal Saline (50mL MB+) 50 ML IV ×3 (04:33→23:34)
[2024-06-12 04:49] LABS: Absolute Lymphocyte Count 0.97 X10^3/uL (0.83-4.51); Absolute Neutrophil Count 16.9 X10^3/uL (2.0-7.7); Basophil# 0.05 X10^3/uL; Basophil% 0.3 % (0-1); Eosinophils% 0.5 % (0-5); Hematocrit 31.8 % (37-47); Hemoglobin 10.6 g/dL (12.0-15.0); Lymphocyte # 0.97 X10^3/ul (0.83-4.51); Mean Corp Hgb Conc 33.3 g/dL (32-36); Mean Corpuscular Hgb 31.5 pg (27.0-32.0); Mean Corpuscular Volume 94.4 fL (81-99); Mean Platelet Vol. 8.7 fl (6.2-12.0); Monocyte# 1.34 X10^3/uL; Monocyte% 6.9 % (0-10); NRBC Flagged by Analyzer 0 % (0-5); Neutrophil # 16.85 X10^3/uL (2.7-7.7); Neutrophil % 86.4 % (47-70); Platelet Count 259 K/mm3 (150-450); RBC Distribution Width CV 13.4 % (11.6-14.6); Red Blood Count 3.37 M/mm3 (4.2-5.4); White Blood Count 19.5 K/mm3 (4.4-11.0)
[2024-06-12] MEDS: Levothyroxine 125 MCG Tablet PO (04:50)
[2024-06-12] MEDS: Gabapentin 300 MG Capsule PO ×3 (04:50→22:21)
[2024-06-12] MEDS: 0.9% Normal Saline (500mL Bag) 500 ML 999 ML IV (05:13)
[2024-06-12 05:14] LABS: Troponin-I HS 32 pg/mL (3.0-54.0)
[2024-06-12 05:20] LABS: ALB/GLOB Ratio 0.6 RATIO (0.9-2.4); AST(SGOT) 9 U/L (15-37); Alanine Aminotransfer ALT/SGPT 10 U/L (13-56); Albumin, Serum 2.1 g/dL (3.2-5.0); Alkaline Phosphatase 89 U/L (45-117); Anion Gap 6 (5-15); BUN 16 mg/dL (7-18); BUN/Creat Ratio 26.9 RATIO (10-20); Calcium,Total 8.2 mg/dL (8.5-10.1); Chloride 101 mmol/L (98-107); EST Glomerular Filtration Rate 101 mL/min (>60); Est Glom Filt Rate - Afr Amer 123 mL/min (>60); Estimated Creatinine Clearance 63.32 ml/min; Globulin 3.8 g/dL (2.2-4.2); Glucose 107 mg/dL (74-106); Potassium 3.7 mmol/L (3.5-5.1); Protein, Total 5.9 g/dL (6.4-8.2); Sodium Level 134 mmol/L (136-145)
[2024-06-12 06:32] LABS: Troponin-I HS 30 pg/mL (3.0-54.0)
--- NOTE | 2024-06-12 06:57 | PN.HOSP_ITS ---
Reason for Visit Reason for Visit: Diagnoses Unspecified atrial fibrillation (06/11/24) Pneumonia, unspecified organism (06/11/24) Cellulitis of left lower limb (06/11/24) Hypoxemia (06/11/24) Subjective Subjective Still with leg pain. Objective Data Objective Data Vital Signs: Vital Signs Temp Pulse Resp BP Pulse Ox O2 Del Method O2 Flow Rate 36.6 C 100 15 95/69 93 Nasal Cannula 2 06/12/24 06:00 06/12/24 06:00 06/12/24 06:00 06/12/24 06:00 06/12/24 06:00 06/12/24 06:00 06/12/24 06:00 Oxygen Flow Rate (L/min) 2 Oxygen Delivery Method Nasal Cannula Weight: 120.8 kg Body Mass Index (BMI) 44.3 Intake & Output: Intake and Output for Last 24 Hours 06/10/24 06/11/24 06/12/24 23:59 23:59 23:59 Intake Total 1297 / 1297 1600 / 1600 Output Total 300 / 300 Balance 1297 / 1297 1300 / 1300 Lab / Micro Data 06/12/24 04:30 06/12/24 04:30 Labs: Laboratory Results - last 24 hr 06/11/24 17:15: WBC 15.9 H, RBC 4.63, Hgb 14.4, Hct 43.9, MCV 94.8, MCH 31.1, MCHC 32.8, RDW Std Deviation 46.8 H, RDW Coeff of Radha 13.3, Plt Count 321, MPV 9.5, Immature Gran % (Auto) 0.500, Neut % (Auto) 87.3 H, Lymph % (Auto) 5.9 L, [place] % (Auto) 4.6, Eos % (Auto) 1.3, Baso % (Auto) 0.4, Absolute Neuts (auto) 13.9 H, Absolute Lymphs (auto) 0.94, Nucleated RBC % 0, Sodium 131 L, Potassium 4.5, Chloride 93 L, Carbon Dioxide 30.0, Anion Gap 8, BUN 18, Creatinine 0.82, Estim Creat Clear Calc 62.35, Est GFR (MDRD) Af Amer 85, Est GFR (MDRD) Non-Af 70, BUN/Creatinine Ratio 22.0 H, Glucose 117 H, Lactic Acid 1.9, Calcium 10.0, Magnesium 2.1, Troponin I High Sens 4, B-Natriuretic Peptide 72.7 06/11/24 19:30: Urine Color Yellow, Urine Clarity Clear, Urine pH 6.5, Ur Specific [place] 1.010, Urine Protein Negative, Urine Glucose (UA) Normal, Urine Ketones Negative, Urine Occult Blood 10 H, Urine Nitrite Negative, Urine Bilirubin Negative, Urine Urobilinogen 1 H, Ur Leukocyte Esterase Negative, Urine RBC 0-5 SEEN, Urine WBC 0 SEEN, Ur Squamous Epith Cells 5-10 SEEN, Urine Bacteria 0 SEEN, Urine Mucus 0 SEEN 06/12/24 04:30: WBC 19.5 H, RBC 3.37 L, Hgb 10.6 L, Hct 31.8 L, MCV 94.4, MCH 31.5, MCHC 33.3, RDW Std Deviation 46.0 H, RDW Coeff of Radha 13.4, Plt Count 259, MPV 8.7, Immature Gran % (Auto) 0.900, Neut % (Auto) 86.4 H, Lymph % (Auto) 5.0 L, [place] % (Auto) 6.9, Eos % (Auto) 0.5, Baso % (Auto) 0.3, Absolute Neuts (auto) 16.9 H, Absolute Lymphs (auto) 0.97, Nucleated RBC % 0, Sodium 134 L, Potassium 3.7, Chloride 101, Carbon Dioxide 27.0, Anion Gap 6, BUN 16, Creatinine 0.60, Estim Creat Clear Calc 63.32, Est GFR (MDRD) Af Amer 123, Est GFR (MDRD) Non-Af 101, BUN/Creatinine Ratio 26.9 H, Glucose 107 H, Calcium 8.2 L, Total Bilirubin 1.10 H, AST 9 L, ALT 10 L, Alkaline Phosphatase 89, Troponin I High Sens 32, T otal Protein 5.9 L, Albumin 2.1 L, Globulin 3.8, Albumin/Globulin Ratio 0.6 L, TSH 1.670 06/12/24 05:40: Troponin I High Sens 30 Micro: Microbiology 06/12/24 01:02 Mucosa - Nose Respiratory Panel (PCR) - Final 06/12/24 01:36 Nasal Secretion MRSA (PCR) - Final Meth. resistant Staph. aureus 06/11/24 17:42 Mucosa - Nose SARS-CoV-2, Influenza & RSV (PCR) - Final Radiography Diagnostic Testing: Radiology Impression Lower Extremity CTA 06/11/24 17:36 IMPRESSION: Subcutaneous edema along the medial portion of the left thigh and diffusely of the left lower leg extending to the left foot. No subcutaneous emphysema. No hemodynamically significant stenosis. No aneurysm. Electronically Signed: Kaz Tineo, DO at 20:43 EST , Chest X-Ray 06/11/24 18:55 IMPRESSION: Right mid and lower lung infiltrate or edema. Electronically Signed: Gavin Dos Santos MD at 20:28 EST , Physical Exam Const alert and no apparent distress HEENT head/scalp atraumatic and moist oral mucous membranes Resp normal respiratory effort, no retractions, no use of accessory muscles and clear to auscultation bilaterally Cardio regular rate, regular rhythm, S1 normal heart sound and S2 normal heart sound Extremity Extremity Narrative: edema in BLE. Left leg wound with large scab. Bilateral LE erythema Assessment & Plan Assessment/Plan (1) Hypoxemia: (2) Atrial fibrillation with RVR: (3) Pneumonia: (4) Cellulitis of left leg: PLAN: Plan Suspected MRSA pneumonia * abx w pip/tazo and vanc * nasal swab + for MRSA, SCx pending, strep and legionella antigens pending * PEP LLE infected wound * CTA did not show any critical stenosis, but showed SQ edema along the medial portion of left thigh * wound culture * elevate LLE pAfib w RVR: * resolved. * did receive amiodarone * continue apixaban and metoprolol tartrate Chronic conditions: * HFpEF: compensated * hypothyroidism: levothyroxine * obesity class III: complicates care and recovery. VTE prophylaxis: not indicated as already on apixaban. Charges/Coding Visit Charges Inpatient E&M: 45197 Subs Hosp L2
[2024-06-12] MEDS: Budesonide Respules 0.5 MG/2 ML AMPUL.NEB. INHALATION ×2 (07:09→19:45)
[2024-06-12 08:21] LABS: Bedside Glucose 87 mg/dL (74-106)
[2024-06-12] MEDS: Vancomycin HCl 1,500 MG in 0.9% Normal Saline (500mL Bag) 500 ML 250 MG IV ×2 (09:18→20:55)
[2024-06-12] MEDS: APIXABAN 2.5 MG TABLET (WCH) PO ×2 (09:37→22:21)
[2024-06-12] MEDS: Nystatin Powder 15gm Bottle 1 APPLIC TOPICAL ×2 (09:37→22:22)
[2024-06-12] MEDS: Menthol/Lanolin/Calamine/Znox 113 GM Tube 1 APPLIC TOPICAL ×4 (10:03→22:20)
[2024-06-12] MEDS: Metoprolol Tartrate 25 MG Tablet 12.5 MG PO ×2 (10:10→22:20)
--- NOTE | 2024-06-12 10:14 | CASEMGMT ---
Addendum entered by Nazanin Chapman 06/17/24 13:35: Requested updates sent to [facility]. Nazanin Chapman DC Planning Asst. Addendum entered by Nazanin Chapman 06/17/24 11:12: Updates sent to [facility]. Nazanin Chapman DC Planning Asst. Addendum entered by Nazanin Chapman 06/12/24 14:23: Patient is a [facility] bedhold and will not need a precert to return. Nazanin Chapman DC Planning Asst. Original Note: Discharge Planning Note sent via [facility] to [facility] to see if pt will need precert to return. Awaiting response. Nazanin Chapman DC Planning Asst.
[2024-06-12 10:16] LABS: Troponin-I HS 43 pg/mL (3.0-54.0)
[2024-06-12 12:37] LABS: Bedside Glucose 109 mg/dL (74-106)
--- NOTE | 2024-06-12 12:56 | WOUNDNOTE ---
wound photo: left lower leg
[2024-06-12] MEDS: 0.9% Saline Lock 10 ML Syringe IV ×2 (13:46→18:33)
--- NOTE | 2024-06-12 15:54 | NURSING ---
Spoke to Dr. Jackson regarding pt sepsis alert trigger and noted that the patients BP is systolic 90's. Stated that the patient received fluids over night. He stated that he did not want to give more fluids due to the LE edema and she probably has a venous ulcer. Will continue to monitor BP. Pt is up in the chair. Denies pain. Resting comfortably in bed at this time.
--- NOTE | 2024-06-12 16:52 | NURSING ---
Spoke with Dr. Jackson Pt is triggering fluids per the sepsis protocol. No sepsis fluids at this time and stated to over ride the VSA
[2024-06-13] VITALS (11 sets, daily range): BP systolic 97–120; BP diastolic 55–79; PULSE 88–100; RESP 16–20; TEMP 36.2–36.8; O2SAT 97–99; BMI 44.6
[2024-06-13 04:34] LABS: Absolute Lymphocyte Count 0.88 X10^3/uL (0.83-4.51); Absolute Neutrophil Count 6.4 X10^3/uL (2.0-7.7); Basophil# 0.05 X10^3/uL; Basophil% 0.6 % (0-1); Eosinophil# 0.34 X10^3/uL; Eosinophils% 3.9 % (0-5); Hematocrit 31.6 % (37-47); Hemoglobin 10.4 g/dL (12.0-15.0); Lymphocyte # 0.88 X10^3/ul (0.83-4.51); Lymphocyte % 10.2 % (19-41); Mean Corp Hgb Conc 32.9 g/dL (32-36); Mean Corpuscular Hgb 31.7 pg (27.0-32.0); Mean Corpuscular Volume 96.3 fL (81-99); Mean Platelet Vol. 8.9 fl (6.2-12.0); Monocyte# 0.97 X10^3/uL; Monocyte% 11.2 % (0-10); NRBC Flagged by Analyzer 0 % (0-5); Neutrophil # 6.38 X10^3/uL (2.7-7.7); Neutrophil % 73.6 % (47-70); Platelet Count 249 K/mm3 (150-450); RBC Distribution Width CV 13.7 % (11.6-14.6); RBC Distribution Width SD 48.3 fl (35.1-43.9); Red Blood Count 3.28 M/mm3 (4.2-5.4); White Blood Count 8.7 K/mm3 (4.4-11.0)
[2024-06-13 04:49] LABS: Anion Gap 5 (5-15); BUN 11 mg/dL (7-18); BUN/Creat Ratio 19.8 RATIO (10-20); Calcium,Total 8.8 mg/dL (8.5-10.1); Chloride 105 mmol/L (98-107); Creatinine, Serum 0.56 mg/dL (0.55-1.02); EST Glomerular Filtration Rate 110 mL/min (>60); Est Glom Filt Rate - Afr Amer 133 mL/min (>60); Estimated Creatinine Clearance 63.63 ml/min; Glucose 92 mg/dL (74-106); Potassium 3.6 mmol/L (3.5-5.1); Sodium Level 136 mmol/L (136-145)
[2024-06-13] MEDS: Piperacil/Tazobactam 3.375 GM in 0.9% Normal Saline (50mL MB+) 50 ML IV ×3 (05:45→23:45)
[2024-06-13] MEDS: Levothyroxine 125 MCG Tablet PO (06:42)
[2024-06-13] MEDS: Gabapentin 300 MG Capsule PO ×2 (06:42→21:58)
[2024-06-13] MEDS: Budesonide Respules 0.5 MG/2 ML AMPUL.NEB. INHALATION (07:18)
--- NOTE | 2024-06-13 07:19 | PN.HOSP_ITS ---
Reason for Visit Reason for Visit: Diagnoses Unspecified atrial fibrillation (06/11/24) Pneumonia, unspecified organism (06/11/24) Cellulitis of left lower limb (06/11/24) Hypoxemia (06/11/24) Subjective Subjective Groggy during the day. Objective Data Objective Data Vital Signs: Vital Signs Temp Pulse Resp BP Pulse Ox O2 Del Method O2 Flow Rate 36.6 C 100 17 99/68 98 Nasal Cannula 2 06/13/24 02:00 06/13/24 03:00 06/13/24 02:00 06/13/24 02:00 06/13/24 02:00 06/13/24 02:00 06/13/24 02:00 Oxygen Flow Rate (L/min) 2 Oxygen Delivery Method Nasal Cannula Weight: 121.8 kg Body Mass Index (BMI) 44.6 Intake & Output: Intake and Output for Last 24 Hours 06/11/24 06/12/24 06/13/24 23:59 23:59 23:59 Intake Total 1297 / 1297 4120 / 4320 610 / 610 Output Total 501 / 501 0 / 0 Balance 1297 / 1297 3619 / 3819 610 / 610 Lab / Micro Data 06/13/24 04:24 06/13/24 04:24 Labs: Laboratory Results - last 24 hr 06/12/24 07:57: POC Glucose 87 06/12/24 09:24: Troponin I High Sens 43 06/12/24 12:19: POC Glucose 109 H 06/13/24 04:24: WBC 8.7, RBC 3.28 L, Hgb 10.4 L, Hct 31.6 L, MCV 96.3, MCH 31.7, MCHC 32.9, RDW Std Deviation 48.3 H, RDW Coeff of Radha 13.7, Plt Count 249, MPV 8.9, Immature Gran % (Auto) 0.500, Neut % (Auto) 73.6 H, Lymph % (Auto) 10.2 L, Ward % (Auto) 11.2 H, Eos % (Auto) 3.9, Baso % (Auto) 0.6, Absolute Neuts (auto) 6.4, Absolute Lymphs (auto) 0.88, Nucleated RBC % 0, Sodium 136, Potassium 3.6, Chloride 105, Carbon Dioxide 26.0, Anion Gap 5, BUN 11, Creatinine 0.56, Estim Creat Clear Calc 63.63, Est GFR (MDRD) Af Amer 133, Est GFR (MDRD) Non-Af 110, BUN/Creatinine Ratio 19.8, Glucose 92, Calcium 8.8 Micro: Microbiology 06/12/24 04:50 Wound - Leg, Left Gram Stain - Final 06/12/24 04:50 Wound - Leg, Left Skin and Soft Tissue MRSA/MSSA (PCR - Final 06/12/24 04:20 Urine, Clean Catch Streptococcus pneumoniae Antigen (M - Final 06/12/24 04:20 Urine, Clean Catch Legionella Antigen - Final 06/12/24 01:36 Nasal Secretion MRSA (PCR) - Final Meth. resistant Staph. aureus 06/12/24 01:02 Mucosa - Nose Respiratory Panel (PCR) - Final 06/11/24 17:42 Mucosa - Nose SARS-CoV-2, Influenza & RSV (PCR) - Final Physical Exam Const alert and no apparent distress Resp normal respiratory effort and no retractions Cardio regular rate, regular rhythm, S1 normal heart sound and S2 normal heart sound GI normal to inspection, nondistended, normoactive bowel sounds, soft to palpation, non-tender and non-distended Extremity General Extremity: edema bilateral lower extremity Assessment & Plan Assessment/Plan (1) Hypoxemia: (2) Atrial fibrillation with RVR: (3) Pneumonia: (4) Cellulitis of left leg: PLAN: Plan Suspected MRSA pneumonia * abx w pip/tazo and vanc * nasal swab + for MRSA, SCx pending, strep and legionella antigens pending * PEP LLE infected wound * CTA did not show any critical stenosis, but showed SQ edema along the medial portion of left thigh * wound culture * elevate LLE pAfib w RVR: * resolved. * did receive amiodarone * continue apixaban and metoprolol tartrate Dysphagia * Had MBSS 06/13: Mild-Mod oropharyngeal dysphagia Esophageal dysphagia * recommending puree textures and nectar thickened liquids. Chronic conditions: * HFpEF: compensated * hypothyroidism: levothyroxine * obesity class III: complicates care and recovery. VTE prophylaxis: not indicated as already on apixaban. Charges/Coding Visit Charges Inpatient E&M: 62879 Subs Hosp L2
[2024-06-13] MEDS: Menthol/Lanolin/Calamine/Znox 113 GM Tube 1 APPLIC TOPICAL ×3 (08:32→20:40)
[2024-06-13] MEDS: Nystatin Powder 15gm Bottle 1 APPLIC TOPICAL ×2 (08:32→20:38)
[2024-06-13] MEDS: Metoprolol Tartrate 25 MG Tablet 12.5 MG PO ×2 (08:33→21:58)
[2024-06-13] MEDS: APIXABAN 2.5 MG TABLET (WCH) PO ×2 (08:35→21:58)
[2024-06-13 08:55] LABS: Vancomycin, Trough Level 19.2 ug/mL (5.0-15.0)
--- NOTE | 2024-06-13 09:10 | PCM.RX.CS ---
Consult Antibiotic Management Pharmacy has been consulted to manage selected antibiotic: Vancomycin Type of Intervention Type of Consult: Follow-up Suspected Infection Suspected Infection: Skin/Soft tissue and Pneumonia Labs Labs: Sodium 136 mmol/L (136-145) 06/13/24 04:24 Potassium 3.6 mmol/L (3.5-5.1) 06/13/24 04:24 Chloride 105 mmol/L (98-107) 06/13/24 04:24 Carbon Dioxide 26.0 mmol/L (21.0-32.0) 06/13/24 04:24 Anion Gap 5 (5-15) 06/13/24 04:24 BUN 11 mg/dL (7-18) 06/13/24 04:24 Creatinine 0.56 mg/dL (0.55-1.02) 06/13/24 04:24 Est GFR (MDRD) Af Amer 133 mL/min (>60) 06/13/24 04:24 Est GFR (MDRD) Non-Af 110 mL/min (>60) 06/13/24 04:24 BUN/Creatinine Ratio 19.8 RATIO (10-20) 06/13/24 04:24 Glucose 92 mg/dL (74-106) 06/13/24 04:24 Vancomycin Trough 19.2 ug/mL (5.0-15.0) H 06/13/24 08:10 Microbiology Microbiology: Microbiology 06/12/24 04:50 Wound - Leg, Left Gram Stain - Final 06/12/24 04:50 Wound - Leg, Left Skin and Soft Tissue MRSA/MSSA (PCR - Final 06/12/24 04:20 Urine, Clean Catch Streptococcus pneumoniae Antigen (M - Final 06/12/24 04:20 Urine, Clean Catch Legionella Antigen - Final 06/12/24 01:36 Nasal Secretion MRSA (PCR) - Final Meth. resistant Staph. aureus 06/12/24 01:02 Mucosa - Nose Respiratory Panel (PCR) - Final 06/11/24 17:42 Mucosa - Nose SARS-CoV-2, Influenza & RSV (PCR) - Final Goal Trough Goal Trough: 15-20 mcg/mL Pharmacy Plan for Drug Dosing Pharmacy Plan for Drug Dosing: VANCOMYCIN LEVEL RECEIVED Current Vancomycin Dose: 1500mg Q12H Number of Doses Received: 1500mg x2, 1750mg x1 Vancomycin Level: 19.2 Hours Since Last Dose: 11.5 Renal Function: sCr 0.56 Renal Function Trend: stable Lab/Micro: MRSA pneumonia, pending Vancomycin Plan/Comments: Continue Vancomycin 1500mg Q12H Pending Level: Vancomycin trough @ 202906/14/24 Pharmacy Service will continue to monitor and adjust dosing as required. Follow-Up Labs Follow-Up Labs: Trough: Vancomycin (06/14/24 @ 2029)
--- NOTE | 2024-06-13 09:36 | CASEMGMT ---
Social Work Pt is admitted from [facility]. SENDY met with pt to confirm pt's desire to return. Pt is unable to states where she currently lives but is able to state that she cannot return home as no one is there to help her. SENDY placed call to pt dgt Minerva who confirms pt is a truck terminal manager resident at the [facility] and pt will return when medically ready. Plan: Return to [facility], when medically ready MAE Weber
[2024-06-13] MEDS: Vancomycin HCl 1,500 MG in 0.9% Normal Saline (500mL Bag) 500 ML 250 MG IV ×2 (09:43→20:37)
[2024-06-13] MEDS: Vancomycin Trough/Random Due 1 LAB MC (09:48)
--- NOTE | 2024-06-13 10:35 | WOUNDNOTE ---
Pt is currently off the unit.
--- NOTE | 2024-06-13 11:12 | ST.MBS ---
Modified Barium Swallow Patient Information Study Date: 06/13/24 Study Time: 10:30 Direct Billable Minutes: 104 Total Minutes procedure & reportin Diagnosis: PNA J18.9 Referring Physician: Kuldeep [facility] Reason for Referral: Objectively assess swallow function, assess risk for aspiration, and determine recommendations for least restrictive diet textures and compensatory strategies to improve safety of swallow. Medical History: The patient is an 89 y/o F w/ PMHx: PAF, COPD, Anxiety and Depression/Schizophrenia, GERD, EBONI noncompliant with BIPAP therapy, HFpEF, Pulmonary HTN, Hx VTE, Hx Thyroid CA s/p thyroidectomy, EBONI, Morbid obesity, BL LE chronic lymphedema with known LLE chronic wound x ~3 months recently completed abx therapy ~ 1 week prior with planned follow-up with per facility report possibly vascular surgery who presented to [facility] on 06/11/2024 with worsening dyspnea, fatigue, malaise with noted hypoxia. CXR suggestive of aspiration PNA. 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 Hx of esophageal dysphagia w/ most recent MBSS in November 2023. History of Zenker's diverticulum s/p repair (pt reports repair was greater than 3 years ago). MBSS 11/30/23 recommended ?Puree Textures and Thin Liquids; Recommend 4-5 smaller meals per day as opposed to 3 large meals. If sensation of reflux, retention, or regurgitation, STOP food/drink and resume at a later time; Compensatory Strategies: Small Bites, Small Sips, Slow Rate, Alternate bites/solids and sips/liquids and Sitting upright (Remain sitting upright minimum 60 minutes after PO intake).? BSE 06/12/24 recommended Puree / Thin w/ direct supervision, the above recommended aspiration and reflux aspiration precautions, and plan for MBSS today to re-assess swallow function and aspiration risk. Current Diet Ordered: Puree / Thin Respiratory Status: Oxygenating on Room Air Penetration-Aspiration Scale Penetration-Aspiration Scale: OBJECTIVE ASSESSMENT OF SWALLOW FUNCTION (QUANTITATIVE ? PER TRIAL): PENETRATION / ASPIRATION SCALE (PATTON): 1 = does not enter airway 2 = enters airway/above vocal folds/ejected 3 = enters airway/above vocal folds/not ejected 4 = enters airway/contacts vocal folds/ejected 5 = enters airway/contacts vocal folds/not ejected 6 = enters airway/below vocal folds/ejected 7 = enters airway/below vocal folds/not ejected despite effort 8 = enters airway/below vocal folds/no effort VIDEOFLOROSCOPIC SCALE SCORE (PATTON): Grade I = aspiration of material that has penetrated into the laryngeal vestibule, intact cough reflex Grade II = aspiration < 10 % of the bolus, intact cough reflex Grade III = aspiration of < 10 % of the bolus, reduced cough reflex or aspiration of > 10 % of the bolus, intact cough reflex Grade IV = aspiration of > 10 % of the bolus, reduced cough reflex Penetration-Aspiration Scale Score Thin Liquid via teaspoon: Result: 8= enters airway/below vocal folds/no effort Thin Liquid via teaspoon Trial 2: Result: 1= does not enter airway Thin Liquid via small single sip: cup: Result: 5= enters airways/contacts vocal folds/not ejected Francisco Thick Liquid via teaspoon: Result: 1= does not enter airway Francisco Thick Liquid via small single sip: cup: Result: 3= enters airways/above vocal folds/not ejected Pudding via teaspoon: Result: 1= does not enter airway Francisco Thick Liquid via small single sip: cup Trial 2: Result: 1= does not enter airway Thin Liquid via teaspoon Effortful swallow: Result: 1= does not enter airway Thin Liquid via small single sip: cup Effortful swallow: Result: 2= enter airway/above vocal folds/ejected Oral Phase Labial Seal: No Labial Escape Tongue Control During Bolus Hold: Posterior escape of greater than half of bolus Bolus Transport/Lingual Motion: Repetitive/disorganized tongue motion Oral Residue: Residue collection on oral structures Pharyngeal Phase Initiation of Pharyngeal Swallow: Bolus head in pyriforms Soft Palate Elevation: Trace column of contrast/air between soft palate and pharyngeal wall Laryngeal Elevation: Partial superior movement thyroid cart/partial apprx aryt-epig petiole Anterior Hyoid Excursion: Partial anterior movement Epiglottic Movement: Complete inversion Laryngeal Vestibule Closure at Height of Swallow: Incomplete; narrow column of air/contrast in laryngeal vestibule Pharyngeal Stripping Wave: Present - complete Pharyngoesophageal Segment Opening: Parital distension and partial duration; parital obstruction of flow Tongue Base Retraction: Narrow column of contrast between tongue base & post. pharyngeal wall Pharyngeal Residue: Trace residue within or on pharyngeal structures Esophageal Phase Esophageal Clearance: Esophageal retention w/ retrograde flow through pharyngoesophageal seg Treatment Strategies Effects of treatment strategies attemped:: Effortful swallow = effective. Diagnosis/Impression Diagnosis: Mild-Mod oropharyngeal dysphagia R13.12; Esophageal dysphagia R13.14 Impression: The oral phase is primarily marked by... -Slowed tongue motion and lingual pumping observed during A-P transport w/ pudding trial. -Did not trial cookie during this study as the patient had poor esophageal clearance w/ retrograde flow of the cookie through the UES during the November 2023 MBSS. -Decreased bolus control w/ posterior loss of >1/2 of thin liquids to the pyriforms prior to swallow onset. The pharyngeal phase is primarily marked by... -Delayed swallow onset. -Decreased airway closure due to decreased anterior hyoid excursion and decreased laryngeal elevation. -SILENT aspiration of thin liquids by tsp. Laryngeal penetration of thin by cup to the vocal folds w/o full ejection. Effortful swallow was effective in decreasing risk for aspiration. The esophageal phase is primarily marked by... -Large, pouch-like collection of barium in the upper esophagus, which HYDRAULIC TECHNICIAN reviewed w/ radiologist, Dr. Valerio, confirming continued presence of large Zenker's diverticulum. The diverticulum greatly obstructed esophageal clearance of barium trials; however, on final esophageal screen of the study some barium was seen clearing through the diverticulum and to the middle and lower esophagus. -Trace retrograde flow of thin and mildly thick liquids through the UES. Figure 1. Large, barium-filled Zenker's diverticulum. Recommendations Diet: Puree Textures and Francisco-thick Liquids Comment: If increased s/s of aspiration as meal progresses, will recommend stopping meal and resuming at a later time due to HIGH risk for reflux aspiration from Zenker's diverticulum. Compensatory Strategies: Small Bites, Small Sips, Slow Rate, Alternate bites/solids and sips/liquids and Sitting upright (Sitting upright AT LEAST 60 min after meals) Supervision: 1:1 Close Supervision Recommend Repeat Modified Barium Swallow: TBD Need for Skilled Speech Therapy Services: Yes Comment: -Train the patient in use of strategies to decrease pt's HIGH risk for aspiration and reflux aspiration. -Ongoing assessment of diet tolerance of recommended textures. -Trial thin liquids w/ HYDRAULIC TECHNICIAN w/ use of effortful swallows. Consider FFWP at next level of care if deemed clinically appropriate by treating HYDRAULIC TECHNICIAN. -Train the patient in oropharyngeal exercise program to improve bolus control, swallow onset, airway closure (lingual resistance, Tess, CTAR). Of note, the patient does NOT want referral to ENT for surgical intervention of Zenker's diverticulum at this time. Education Completed: 1. Described result of evaluation., 2. Pt understands evaluation & agrees with goals and treatment plan. and 7. Pt requires further education on strategies & risks. Status Active ST Patient: Active Contact Information [facility] Speech Therapy:: Nakia Haider M.A. CCC-HYDRAULIC TECHNICIAN? Speech-Language Pathologist?? [facility] [address] [place] [address]? [email or web address]?? [phone]
[2024-06-14] VITALS (9 sets, daily range): BP systolic 87–111; BP diastolic 54–76; PULSE 88–98; RESP 16–20; TEMP 36.7–37.1; O2SAT 91–97; BMI 45.7
[2024-06-14] MEDS: Piperacil/Tazobactam 3.375 GM in 0.9% Normal Saline (50mL MB+) 50 ML IV ×3 (06:28→21:54)
[2024-06-14] MEDS: Levothyroxine 125 MCG Tablet PO (06:28)
[2024-06-14] MEDS: Gabapentin 300 MG Capsule PO ×3 (06:28→21:54)
[2024-06-14 06:47] LABS: Absolute Lymphocyte Count 0.87 X10^3/uL (0.83-4.51); Absolute Neutrophil Count 4.3 X10^3/uL (2.0-7.7); Basophil# 0.05 X10^3/uL; Basophil% 0.8 % (0-1); Eosinophil# 0.37 X10^3/uL; Eosinophils% 5.8 % (0-5); Hematocrit 30.8 % (37-47); Hemoglobin 10.1 g/dL (12.0-15.0); Lymphocyte # 0.87 X10^3/ul (0.83-4.51); Lymphocyte % 13.5 % (19-41); Mean Corp Hgb Conc 32.8 g/dL (32-36); Mean Corpuscular Hgb 31.6 pg (27.0-32.0); Mean Corpuscular Volume 96.3 fL (81-99); Mean Platelet Vol. 8.8 fl (6.2-12.0); Monocyte% 12.4 % (0-10); NRBC Flagged by Analyzer 0 % (0-5); Neutrophil # 4.31 X10^3/uL (2.7-7.7); Platelet Count 257 K/mm3 (150-450); RBC Distribution Width CV 13.5 % (11.6-14.6); RBC Distribution Width SD 47.2 fl (35.1-43.9); White Blood Count 6.4 K/mm3 (4.4-11.0)
[2024-06-14] MEDS: Budesonide Respules 0.5 MG/2 ML AMPUL.NEB. INHALATION (07:10)
[2024-06-14 07:19] LABS: Anion Gap 5 (5-15); BUN 11 mg/dL (7-18); BUN/Creat Ratio 23.5 RATIO (10-20); Calcium,Total 8.9 mg/dL (8.5-10.1); Chloride 107 mmol/L (98-107); Creatinine, Serum 0.47 mg/dL (0.55-1.02); EST Glomerular Filtration Rate 134 mL/min (>60); Est Glom Filt Rate - Afr Amer 162 mL/min (>60); Estimated Creatinine Clearance 64.49 ml/min; Glucose 89 mg/dL (74-106); Potassium 3.5 mmol/L (3.5-5.1); Sodium Level 138 mmol/L (136-145)
--- NOTE | 2024-06-14 08:21 | PCM.PN.HOSP ---
Reason for Visit Reason for Visit: Diagnoses Unspecified atrial fibrillation (06/11/24) Pneumonia, unspecified organism (06/11/24) Cellulitis of left lower limb (06/11/24) Hypoxemia (06/11/24) Subjective Subjective Feeling well. No new complaints. Objective Data Objective Data Vital Signs: Vital Signs Temp Pulse Resp BP Pulse Ox O2 Del Method O2 Flow Rate 36.9 C 91 16 87/54 L 92 Room Air 2 06/14/24 08:08 06/14/24 08:08 06/14/24 08:08 06/14/24 08:08 06/14/24 08:08 06/14/24 08:15 06/14/24 04:46 Oxygen Flow Rate (L/min) 2 Oxygen Delivery Method Room Air Weight: 124.6 kg Body Mass Index (BMI) 45.7 Intake & Output: Intake and Output for Last 24 Hours 06/12/24 06/13/24 06/14/24 23:59 23:59 23:59 Intake Total 4120 / 4320 2250 / 2250 50 / 50 Output Total 501 / 501 0 / 0 400 / 400 Balance 3619 / 3819 2250 / 2250 -350 / -350 Lab / Micro Data 06/14/24 06:35 06/14/24 06:35 Labs: Laboratory Results - last 24 hr 06/13/24 08:10: Vancomycin Trough 19.2 H 06/14/24 06:35: WBC 6.4, RBC 3.20 L, Hgb 10.1 L, Hct 30.8 L, MCV 96.3, MCH 31.6, MCHC 32.8, RDW Std Deviation 47.2 H, RDW Coeff of Radha 13.5, Plt Count 257, MPV 8.8, Immature Gran % (Auto) 0.500, Neut % (Auto) 67.0, Lymph % (Auto) 13.5 L, [place] % (Auto) 12.4 H, Eos % (Auto) 5.8 H, Baso % (Auto) 0.8, Absolute Neuts (auto) 4.3, Absolute Lymphs (auto) 0.87, Nucleated RBC % 0, Sodium 138, Potassium 3.5, Chloride 107, Carbon Dioxide 26.0, Anion Gap 5, BUN 11, Creatinine 0.47 L, Estim Creat Clear Calc 64.49, Est GFR (MDRD) Af Amer 162, Est GFR (MDRD) Non-Af 134, BUN/Creatinine Ratio 23.5 H, Glucose 89, Calcium 8.9 Micro: Microbiology 06/11/24 17:15 Blood Culture (Wb) - Anticubital Right Blood Culture - Preliminary No growth in 48 hours. 06/12/24 04:50 Wound - Leg, Left Gram Stain - Final 06/12/24 04:50 Wound - Leg, Left Wound Culture - Preliminary GNR Poss Pseudomonas sp 06/12/24 04:50 Wound - Leg, Left Skin and Soft Tissue MRSA/MSSA (PCR - Final 06/12/24 04:20 Urine, Clean Catch Streptococcus pneumoniae Antigen (M - Final 06/12/24 04:20 Urine, Clean Catch Legionella Antigen - Final 06/12/24 01:36 Nasal Secretion MRSA (PCR) - Final Meth. resistant Staph. aureus 06/12/24 01:02 Mucosa - Nose Respiratory Panel (PCR) - Final 06/11/24 17:42 Mucosa - Nose SARS-CoV-2, Influenza & RSV (PCR) - Final Physical Exam Const alert and no apparent distress HEENT head/scalp atraumatic and moist oral mucous membranes Resp normal respiratory effort, no retractions, no use of accessory muscles and clear to auscultation bilaterally Cardio regular rate, regular rhythm, S1 normal heart sound and S2 normal heart sound GI normal to inspection, nondistended, normoactive bowel sounds, soft to palpation, non-tender and non-distended Extremity Extremity Narrative: legs wrapped--did not remove. Assessment & Plan Assessment/Plan (1) Hypoxemia: (2) Atrial fibrillation with RVR: (3) Pneumonia: (4) Cellulitis of left leg: PLAN: Plan MRSA pneumonia abx w pip/tazo and vanc nasal swab + for MRSA, SCx pending, strep and legionella antigens negative. PEP LLE infected wound CTA did not show any critical stenosis, but showed SQ edema along the medial portion of left thigh wound culture showing pansensitive Pseudomonas sp, GNR, Group B strep elevate LLE continue vanc and pip/tazo for now. pAfib w RVR: resolved. did receive amiodarone continue apixaban and metoprolol tartrate Dysphagia Had MBSS 06/13: Mild-Mod oropharyngeal dysphagia Esophageal dysphagia recommending puree textures and nectar thickened liquids. Chronic conditions: HFpEF: compensated hypothyroidism: levothyroxine obesity class III: complicates care and recovery. VTE prophylaxis: not indicated as already on apixaban. Disposition: back to the [facility] pending final culture results. Charges/Coding Visit Charges Inpatient E&M: 90322 Subs Hosp L2
[2024-06-14] MEDS: APIXABAN 2.5 MG TABLET (WCH) PO ×2 (10:33→21:54)
[2024-06-14] MEDS: Metoprolol Tartrate 25 MG Tablet 12.5 MG PO ×2 (10:33→21:54)
[2024-06-14] MEDS: Menthol/Lanolin/Calamine/Znox 113 GM Tube 1 APPLIC TOPICAL ×4 (10:34→21:59)
[2024-06-14] MEDS: Nystatin Powder 15gm Bottle 1 APPLIC TOPICAL ×2 (10:34→21:59)
[2024-06-14] MEDS: Vancomycin HCl 1,500 MG in 0.9% Normal Saline (500mL Bag) 500 ML 250 MG IV (11:25)
--- NOTE | 2024-06-14 16:44 | CASEMGMT ---
Patient can return to [facility] when medically ready. Nu Motley JUKEBOX CHECKER SAI
[2024-06-14 21:27] LABS: Vancomycin, Trough Level 25.4 ug/mL (5.0-15.0)
--- NOTE | 2024-06-14 22:34 | PHA.PHARE_ITS ---
Consult Antibiotic Management Pharmacy has been consulted to manage selected antibiotic: Vancomycin Type of Intervention Type of Consult: Follow-up Labs Labs: Sodium 138 mmol/L (136-145) 06/14/24 06:35 Potassium 3.5 mmol/L (3.5-5.1) 06/14/24 06:35 Chloride 107 mmol/L (98-107) 06/14/24 06:35 Carbon Dioxide 26.0 mmol/L (21.0-32.0) 06/14/24 06:35 Anion Gap 5 (5-15) 06/14/24 06:35 BUN 11 mg/dL (7-18) 06/14/24 06:35 Creatinine 0.47 mg/dL (0.55-1.02) L 06/14/24 06:35 Est GFR (MDRD) Af Amer 162 mL/min (>60) 06/14/24 06:35 Est GFR (MDRD) Non-Af 134 mL/min (>60) 06/14/24 06:35 BUN/Creatinine Ratio 23.5 RATIO (10-20) H 06/14/24 06:35 Glucose 89 mg/dL (74-106) 06/14/24 06:35 Vancomycin Trough 25.4 ug/mL (5.0-15.0) H 06/14/24 20:33 Microbiology Microbiology: Microbiology 06/12/24 04:50 Wound - Leg, Left Gram Stain - Final 06/12/24 04:50 Wound - Leg, Left Wound Culture - Preliminary Pseudomonas aeruginosa GNR lactose net sql developer Streptococcus agalactiae (B) 06/12/24 04:50 Wound - Leg, Left Skin and Soft Tissue MRSA/MSSA (PCR - Final 06/11/24 17:15 Blood Culture (Wb) - Anticubital Right Blood Culture - Preliminary No growth in 48 hours. 06/12/24 04:20 Urine, Clean Catch Streptococcus pneumoniae Antigen (M - Final 06/12/24 04:20 Urine, Clean Catch Legionella Antigen - Final 06/12/24 01:36 Nasal Secretion MRSA (PCR) - Final Meth. resistant Staph. aureus 06/12/24 01:02 Mucosa - Nose Respiratory Panel (PCR) - Final 06/11/24 17:42 Mucosa - Nose SARS-CoV-2, Influenza & RSV (PCR) - Final Pharmacy Plan for Drug Dosing Pharmacy Plan for Drug Dosing: Pharmacy Service will continue to monitor and adjust dosing as required. TROUGH 25.4 @ 9 HOURS. HOLD DOSE AND DRAW RANDOM LEVEL IN 8 HOURS Follow-Up Labs Follow-Up Labs: Trough: Vancomycin Date/Time Labs Ordered Labs to be done on [date and time ordered]: 06/15 @ 4765
[2024-06-15] VITALS (12 sets, daily range): BP systolic 98–127; BP diastolic 54–79; PULSE 80–100; RESP 18–20; TEMP 36.1–36.7; O2SAT 93–100; BMI 46.6
--- NOTE | 2024-06-15 03:10 | NURSING ---
This RN to take over care for the patient at this time.
[2024-06-15 04:45] LABS: Absolute Lymphocyte Count 0.88 X10^3/uL (0.83-4.51); Basophil# 0.06 X10^3/uL; Eosinophil# 0.31 X10^3/uL; Eosinophils% 5.1 % (0-5); Hematocrit 32.1 % (37-47); Hemoglobin 10.6 g/dL (12.0-15.0); Lymphocyte # 0.88 X10^3/ul (0.83-4.51); Lymphocyte % 14.4 % (19-41); Mean Corpuscular Hgb 31.5 pg (27.0-32.0); Mean Corpuscular Volume 95.5 fL (81-99); Mean Platelet Vol. 8.5 fl (6.2-12.0); Monocyte# 0.85 X10^3/uL; Monocyte% 13.9 % (0-10); NRBC Flagged by Analyzer 0 % (0-5); Neutrophil % 65.3 % (47-70); Platelet Count 276 K/mm3 (150-450); RBC Distribution Width CV 13.4 % (11.6-14.6); RBC Distribution Width SD 46.9 fl (35.1-43.9); Red Blood Count 3.36 M/mm3 (4.2-5.4); White Blood Count 6.1 K/mm3 (4.4-11.0)
[2024-06-15 05:34] LABS: Anion Gap 6 (5-15); BUN 6 mg/dL (7-18); BUN/Creat Ratio 13.9 RATIO (10-20); Calcium,Total 8.7 mg/dL (8.5-10.1); Chloride 107 mmol/L (98-107); Creatinine, Serum 0.43 mg/dL (0.55-1.02); EST Glomerular Filtration Rate 146 mL/min (>60); Est Glom Filt Rate - Afr Amer 177 mL/min (>60); Estimated Creatinine Clearance 65.26 ml/min; Glucose 88 mg/dL (74-106); Potassium 3.3 mmol/L (3.5-5.1); Sodium Level 140 mmol/L (136-145)
[2024-06-15 05:38] LABS: Vancomycin, Random Level 18.1 ug/mL (0.0-15.0)
[2024-06-15] MEDS: Piperacil/Tazobactam 3.375 GM in 0.9% Normal Saline (50mL MB+) 50 ML IV ×3 (05:53→22:15)
[2024-06-15] MEDS: Levothyroxine 125 MCG Tablet PO (05:54)
--- NOTE | 2024-06-15 06:02 | PHA.PHARE_ITS ---
Consult Antibiotic Management Pharmacy has been consulted to manage selected antibiotic: Vancomycin Type of Intervention Type of Consult: Follow-up Labs Labs: Sodium 140 mmol/L (136-145) 06/15/24 04:35 Potassium 3.3 mmol/L (3.5-5.1) L 06/15/24 04:35 Chloride 107 mmol/L (98-107) 06/15/24 04:35 Carbon Dioxide 26.0 mmol/L (21.0-32.0) 06/15/24 04:35 Anion Gap 6 (5-15) 06/15/24 04:35 BUN 6 mg/dL (7-18) L 06/15/24 04:35 Creatinine 0.43 mg/dL (0.55-1.02) L 06/15/24 04:35 Est GFR (MDRD) Af Amer 177 mL/min (>60) 06/15/24 04:35 Est GFR (MDRD) Non-Af 146 mL/min (>60) 06/15/24 04:35 BUN/Creatinine Ratio 13.9 RATIO (10-20) 06/15/24 04:35 Glucose 88 mg/dL (74-106) 06/15/24 04:35 Vancomycin Trough 25.4 ug/mL (5.0-15.0) H 06/14/24 20:33 Random Vancomycin 18.1 ug/mL (0.0-15.0) H 06/15/24 04:35 Microbiology Microbiology: Microbiology 06/12/24 04:50 Wound - Leg, Left Gram Stain - Final 06/12/24 04:50 Wound - Leg, Left Wound Culture - Preliminary Pseudomonas aeruginosa GNR lactose merchandising coordinator Streptococcus agalactiae (B) 06/12/24 04:50 Wound - Leg, Left Skin and Soft Tissue MRSA/MSSA (PCR - Final 06/11/24 17:15 Blood Culture (Wb) - Anticubital Right Blood Culture - Preliminary No growth in 48 hours. 06/12/24 04:20 Urine, Clean Catch Streptococcus pneumoniae Antigen (M - Final 06/12/24 04:20 Urine, Clean Catch Legionella Antigen - Final 06/12/24 01:36 Nasal Secretion MRSA (PCR) - Final Meth. resistant Staph. aureus 06/12/24 01:02 Mucosa - Nose Respiratory Panel (PCR) - Final 12/10/24 17:42 Mucosa - Nose SARS-CoV-2, Influenza & RSV (PCR) - Final Goal Trough Goal Trough: 15-20 mcg/mL Pharmacy Plan for Drug Dosing Pharmacy Plan for Drug Dosing: Pharmacy Service will continue to monitor and adjust dosing as required. RANDOM LEVEL 18.1 @ 17 HOURS. START 1250MG Q12H AND DRAW TROUGH PRIOR TO 4TH DOSE Follow-Up Labs Follow-Up Labs: Trough: Vancomycin Date/Time Labs Ordered Labs to be done on [date and time ordered]: 06/16 @ 2437
[2024-06-15] MEDS: Budesonide Respules 0.5 MG/2 ML AMPUL.NEB. INHALATION ×2 (06:51→19:15)
[2024-06-15] MEDS: Vancomycin HCl 1,250 MG in 0.9% Normal Saline (250mL Bag) 250 ML 167 MG IV ×2 (06:51→17:47)
[2024-06-15] MEDS: Gabapentin 300 MG Capsule PO ×3 (06:51→22:07)
[2024-06-15] MEDS: Metoprolol Tartrate 25 MG Tablet 12.5 MG PO ×2 (10:35→22:14)
[2024-06-15] MEDS: APIXABAN 2.5 MG TABLET (WCH) PO ×2 (10:35→22:07)
[2024-06-15] MEDS: Nystatin Powder 15gm Bottle 1 APPLIC TOPICAL ×2 (10:38→22:06)
[2024-06-15] MEDS: Menthol/Lanolin/Calamine/Znox 113 GM Tube 1 APPLIC TOPICAL ×3 (14:01→22:06)
--- NOTE | 2024-06-15 16:48 | PN.HOSP_ITS ---
Reason for Visit Reason for Visit: Diagnoses Unspecified atrial fibrillation (06/11/24) Pneumonia, unspecified organism (06/11/24) Cellulitis of left lower limb (06/11/24) Hypoxemia (06/11/24) Subjective Subjective Feeling well. Objective Data Objective Data Vital Signs: Vital Signs Temp Pulse Resp BP Pulse Ox O2 Del Method O2 Flow Rate 36.4 C L 94 20 H 111/68 99 Nasal Cannula 2 06/15/24 11:01 06/15/24 16:09 06/15/24 11:01 06/15/24 11:01 06/15/24 11:01 06/15/24 15:16 06/15/24 13:17 Oxygen Flow Rate (L/min) 2 Oxygen Delivery Method Nasal Cannula Weight: 127.1 kg Body Mass Index (BMI) 46.6 Intake & Output: Intake and Output for Last 24 Hours 06/13/24 06/14/24 06/15/24 23:59 23:59 23:59 Intake Total 2250 / 2250 805 / 805 375 / 375 Output Total 0 / 0 1200 / 1200 350 / 350 Balance 2250 / 2250 -395 / -395 Lab / Micro Data 06/15/24 04:35 06/15/24 04:35 Labs: Laboratory Results - last 24 hr 06/14/24 20:33: Vancomycin Trough 25.4 H 06/15/24 04:35: WBC 6.1, RBC 3.36 L, Hgb 10.6 L, Hct 32.1 L, MCV 95.5, MCH 31.5, MCHC 33.0, RDW Std Deviation 46.9 H, RDW Coeff of Radha 13.4, Plt Count 276, MPV 8.5, Immature Gran % (Auto) 0.300, Neut % (Auto) 65.3, Lymph % (Auto) 14.4 L, M hina % (Auto) 13.9 H, Eos % (Auto) 5.1 H, Baso % (Auto) 1.0, Absolute Neuts (auto) 4.0, Absolute Lymphs (auto) 0.88, Nucleated RBC % 0, Sodium 140, P otassium 3.3 L, Chloride 107, Carbon Dioxide 26.0, Anion Gap 6, BUN 6 L, C reatinine 0.43 L, Estim Creat Clear Calc 65.26, Est GFR (MDRD) Af Amer 177, Est GFR (MDRD) Non-Af 146, BUN/Creatinine Ratio 13.9, Glucose 88, Calcium 8.7, R andom Vancomycin 18.1 H Micro: Microbiology 06/12/24 04:50 Wound - Leg, Left Gram Stain - Final 06/12/24 04:50 Wound - Leg, Left Wound Culture - Preliminary Pseudomonas aeruginosa Klebsiella pneumoniae sp pneum Streptococcus agalactiae (B) GPC Poss Enterococcus sp 06/12/24 04:50 Wound - Leg, Left Skin and Soft Tissue MRSA/MSSA (PCR - Final 06/11/24 17:15 Blood Culture (Wb) - Anticubital Right Blood Culture - Preliminary No growth in 48 hours. 06/12/24 04:20 Urine, Clean Catch Streptococcus pneumoniae Antigen (M - Final 06/12/24 04:20 Urine, Clean Catch Legionella Antigen - Final 06/12/24 01:36 Nasal Secretion MRSA (PCR) - Final Meth. resistant Staph. aureus 06/12/24 01:02 Mucosa - Nose Respiratory Panel (PCR) - Final 06/11/24 17:42 Mucosa - Nose SARS-CoV-2, Influenza & RSV (PCR) - Final Physical Exam Const alert and no apparent distress Resp normal respiratory effort, no retractions, no use of accessory muscles and clear to auscultation bilaterally Cardio regular rate, regular rhythm, S1 normal heart sound and S2 normal heart sound Extremity General Extremity: edema bilateral lower extremity Details: moderate Assessment & Plan Assessment/Plan (1) Hypoxemia: (2) Atrial fibrillation with RVR: (3) Pneumonia: (4) Cellulitis of left leg: PLAN: Plan MRSA pneumonia * abx w pip/tazo and vanc * nasal swab + for MRSA, SCx pending, strep and legionella antigens negative. * PEP LLE infected wound * CTA did not show any critical stenosis, but showed SQ edema along the medial portion of left thigh * wound culture showing pansensitive Pseudomonas sp, GNR, Group B strep * elevate LLE * continue vanc and pip/tazo for now. pAfib w RVR: * resolved. * did receive amiodarone * continue apixaban and metoprolol tartrate Dysphagia * Had MBSS 06/13: Mild-Mod oropharyngeal dysphagia Esophageal dysphagia * recommending puree textures and nectar thickened liquids. Chronic conditions: * HFpEF: compensated * hypothyroidism: levothyroxine * obesity class III: complicates care and recovery. * Anasarca: add IV furosemide for now. Fluid restrict. VTE prophylaxis: not indicated as already on apixaban. Disposition: [facility] pending final culture results. Charges/Coding Visit Charges Inpatient E&M: 62911 Subs Hosp L2
[2024-06-15] MEDS: Furosemide 40 MG/4 ML Vial IV (17:32)
[2024-06-15] MEDS: 0.9% Saline Lock 10 ML Syringe IV (17:33)
[2024-06-16] VITALS (11 sets, daily range): BP systolic 103–112; BP diastolic 63–72; PULSE 81–109; RESP 18; TEMP 36.1–36.7; O2SAT 94–99
[2024-06-16] MEDS: Gabapentin 300 MG Capsule PO ×3 (05:25→22:02)
[2024-06-16] MEDS: Levothyroxine 125 MCG Tablet PO (05:25)
[2024-06-16] MEDS: Vancomycin HCl 1,250 MG in 0.9% Normal Saline (250mL Bag) 250 ML 167 MG IV (05:25)
[2024-06-16] MEDS: Piperacil/Tazobactam 3.375 GM in 0.9% Normal Saline (50mL MB+) 50 ML IV ×3 (05:25→22:04)
[2024-06-16 07:08] LABS: Anion Gap 5 (5-15); BUN 8 mg/dL (7-18); BUN/Creat Ratio 15.3 RATIO (10-20); Calcium,Total 8.9 mg/dL (8.5-10.1); Chloride 104 mmol/L (98-107); Creatinine, Serum 0.52 mg/dL (0.55-1.02); EST Glomerular Filtration Rate 118 mL/min (>60); Est Glom Filt Rate - Afr Amer 143 mL/min (>60); Estimated Creatinine Clearance 65.26 ml/min; Glucose 105 mg/dL (74-106); Potassium 3.1 mmol/L (3.5-5.1); Sodium Level 137 mmol/L (136-145)
[2024-06-16] MEDS: Budesonide Respules 0.5 MG/2 ML AMPUL.NEB. INHALATION ×2 (07:27→20:29)
--- NOTE | 2024-06-16 08:12 | PN.HOSP_ITS ---
Reason for Visit Reason for Visit: Diagnoses Unspecified atrial fibrillation (06/11/24) Pneumonia, unspecified organism (06/11/24) Cellulitis of left lower limb (06/11/24) Hypoxemia (06/11/24) Subjective Subjective Breathing well. Denies any new complaints Objective Data Objective Data Vital Signs: Vital Signs Temp Pulse Resp BP Pulse Ox O2 Del Method O2 Flow Rate 36.1 C L 84 18 109/70 95 Nasal Cannula 2 06/16/24 04:00 06/16/24 07:35 06/16/24 07:35 06/16/24 04:00 06/16/24 08:06 06/16/24 08:06 06/16/24 08:06 Oxygen Flow Rate (L/min) 2 Oxygen Delivery Method Nasal Cannula Weight: 127.1 kg Body Mass Index (BMI) 46.6 Intake & Output: Intake and Output for Last 24 Hours 06/14/24 06/15/24 06/16/24 23:59 23:59 23:59 Intake Total 805 / 805 900 / 1020 290 / 290 Output Total 1200 / 1200 525 / 2825 2800 / 2800 Balance -395 / -395 375 / -1805 -2510 / -2510 Lab / Micro Data 06/15/24 04:35 06/16/24 06:15 Labs: Laboratory Results - last 24 hr 06/16/24 06:15: Sodium 137, Potassium 3.1 L, Chloride 104, Carbon Dioxide 28.0, Anion Gap 5, BUN 8, Creatinine 0.52 L, Estim Creat Clear Calc 65.26, Est GFR (MDRD) Af Amer 143, Est GFR (MDRD) Non-Af 118, BUN/Creatinine Ratio 15.3, Glucose 105, Calcium 8.9 Micro: Microbiology 06/12/24 04:50 Wound - Leg, Left Gram Stain - Final 06/12/24 04:50 Wound - Leg, Left Wound Culture - Preliminary Pseudomonas aeruginosa Klebsiella pneumoniae sp pneum Streptococcus agalactiae (B) GPC Poss Enterococcus sp 06/12/24 04:50 Wound - Leg, Left Skin and Soft Tissue MRSA/MSSA (PCR - Final 06/11/24 17:15 Blood Culture (Wb) - Anticubital Right Blood Culture - Preliminary No growth in 48 hours. 06/12/24 04:20 Urine, Clean Catch Streptococcus pneumoniae Antigen (M - Final 06/12/24 04:20 Urine, Clean Catch Legionella Antigen - Final 06/12/24 01:36 Nasal Secretion MRSA (PCR) - Final Meth. resistant Staph. aureus 06/12/24 01:02 Mucosa - Nose Respiratory Panel (PCR) - Final 06/11/24 17:42 Mucosa - Nose SARS-CoV-2, Influenza & RSV (PCR) - Final Physical Exam Const alert and no apparent distress HEENT head/scalp atraumatic and moist oral mucous membranes Resp normal respiratory effort, no retractions, no use of accessory muscles and clear to auscultation bilaterally Cardio regular rate, regular rhythm, S1 normal heart sound and S2 normal heart sound GI normal to inspection, nondistended, normoactive bowel sounds, soft to palpation, non-tender and non-distended Extremity Extremity Narrative: Ongoing lower extremity edema bilateral lower extremities wrapped, did not remove. Assessment & Plan Assessment/Plan (1) Hypoxemia: (2) Atrial fibrillation with RVR: (3) Pneumonia: (4) Cellulitis of left leg: PLAN: Plan MRSA pneumonia * abx w pip/tazo and vanc * nasal swab + for MRSA, SCx pending, strep and legionella antigens negative. * PEP LLE infected wound * CTA did not show any critical stenosis, but showed SQ edema along the medial portion of left thigh * wound culture showing pansensitive Pseudomonas sp, GNR, Group B strep * elevate LLE * continue vanc and pip/tazo for now. pAfib w RVR: * resolved. * did receive amiodarone * continue apixaban and metoprolol tartrate Dysphagia * Had MBSS 06/13: Mild-Mod oropharyngeal dysphagia Esophageal dysphagia * recommending puree textures and nectar thickened liquids. Chronic conditions: * HFpEF: compensated * hypothyroidism: levothyroxine * obesity class III: complicates care and recovery. * Anasarca: add IV furosemide for now. Fluid restrict. VTE prophylaxis: not indicated as already on apixaban. Disposition: [facility] pending final culture results. Charges/Coding Visit Charges Inpatient E&M: 29642 Subs Hosp L2
[2024-06-16] MEDS: Metoprolol Tartrate 25 MG Tablet 12.5 MG PO ×2 (10:21→22:02)
[2024-06-16] MEDS: APIXABAN 2.5 MG TABLET (WCH) PO ×2 (10:22→22:02)
[2024-06-16] MEDS: Nystatin Powder 15gm Bottle 1 APPLIC TOPICAL ×2 (10:23→22:04)
[2024-06-16] MEDS: Menthol/Lanolin/Calamine/Znox 113 GM Tube 1 APPLIC TOPICAL ×4 (10:24→22:04)
[2024-06-16] MEDS: 0.9% Saline Lock 10 ML Syringe IV ×2 (10:27→18:17)
[2024-06-16] MEDS: Furosemide 40 MG/4 ML Vial IV ×2 (10:27→18:16)
[2024-06-16 18:55] LABS: Vancomycin, Trough Level 21.6 ug/mL (5.0-15.0)
--- NOTE | 2024-06-16 19:07 | PCM.RX.CS ---
Consult Antibiotic Management Pharmacy has been consulted to manage selected antibiotic: Vancomycin Type of Intervention Type of Consult: Follow-up Labs Labs: Sodium 137 mmol/L (136-145) 06/16/24 06:15 Potassium 3.1 mmol/L (3.5-5.1) L 06/16/24 06:15 Chloride 104 mmol/L (98-107) 06/16/24 06:15 Carbon Dioxide 28.0 mmol/L (21.0-32.0) 06/16/24 06:15 Anion Gap 5 (5-15) 06/16/24 06:15 BUN 8 mg/dL (7-18) 06/16/24 06:15 Creatinine 0.52 mg/dL (0.55-1.02) L 06/16/24 06:15 Est GFR (MDRD) Af Amer 143 mL/min (>60) 06/16/24 06:15 Est GFR (MDRD) Non-Af 118 mL/min (>60) 06/16/24 06:15 BUN/Creatinine Ratio 15.3 RATIO (10-20) 06/16/24 06:15 Glucose 105 mg/dL (74-106) 06/16/24 06:15 Vancomycin Trough 21.6 ug/mL (5.0-15.0) H 06/16/24 17:24 Random Vancomycin 18.1 ug/mL (0.0-15.0) H 06/15/24 04:35 Microbiology Microbiology: Microbiology 06/15/24 04:21 Sputum, Expectorated/Coughed Respiratory Culture - Preliminary Staphylococcus aureus Presumptive C albicans 06/12/24 04:50 Wound - Leg, Left Gram Stain - Final 06/12/24 04:50 Wound - Leg, Left Wound Culture - Preliminary Pseudomonas aeruginosa Klebsiella pneumoniae sp pneum Streptococcus agalactiae (B) GPC Poss Enterococcus sp 06/12/24 04:50 Wound - Leg, Left Skin and Soft Tissue MRSA/MSSA (PCR - Final 06/11/24 17:15 Blood Culture (Wb) - Anticubital Right Blood Culture - Preliminary No growth in 48 hours. 06/12/24 04:20 Urine, Clean Catch Streptococcus pneumoniae Antigen (M - Final 06/12/24 04:20 Urine, Clean Catch Legionella Antigen - Final 06/12/24 01:36 Nasal Secretion MRSA (PCR) - Final Meth. resistant Staph. aureus 06/12/24 01:02 Mucosa - Nose Respiratory Panel (PCR) - Final 06/11/24 17:42 Mucosa - Nose SARS-CoV-2, Influenza & RSV (PCR) - Final Goal Trough Goal Trough: 15-20 mcg/mL Pharmacy Plan for Drug Dosing Pharmacy Plan for Drug Dosing: Pharmacy Service will continue to monitor and adjust dosing as required. TROUGH 21.6 @ 11 HOURS. HOLD DOSE AND DRAW RANDOM LEVEL IN 8 HOURS Follow-Up Labs Follow-Up Labs: Trough: Vancomycin Date/Time Labs Ordered Labs to be done on [date and time ordered]: 06/17 @ 0300
[2024-06-16] MEDS: Acetaminophen 325 MG Tablet 650 MG PO (22:03)
[2024-06-17 03:31] LABS: Absolute Lymphocyte Count 1.17 X10^3/uL (0.83-4.51); Basophil# 0.06 X10^3/uL; Basophil% 0.9 % (0-1); Eosinophil# 0.39 X10^3/uL; Eosinophils% 5.7 % (0-5); Hematocrit 33.9 % (37-47); Hemoglobin 10.9 g/dL (12.0-15.0); Lymphocyte # 1.17 X10^3/ul (0.83-4.51); Lymphocyte % 17.2 % (19-41); Mean Corp Hgb Conc 32.2 g/dL (32-36); Mean Corpuscular Hgb 30.9 pg (27.0-32.0); Mean Platelet Vol. 8.4 fl (6.2-12.0); Monocyte# 1.14 X10^3/uL; Monocyte% 16.8 % (0-10); NRBC Flagged by Analyzer 0 % (0-5); Platelet Count 284 K/mm3 (150-450); RBC Distribution Width CV 13.3 % (11.6-14.6); RBC Distribution Width SD 46.9 fl (35.1-43.9); Red Blood Count 3.53 M/mm3 (4.2-5.4); White Blood Count 6.8 K/mm3 (4.4-11.0)
[2024-06-17 03:54] LABS: Anion Gap 5 (5-15); BUN 14 mg/dL (7-18); BUN/Creat Ratio 22.2 RATIO (10-20); Calcium,Total 8.7 mg/dL (8.5-10.1); Chloride 103 mmol/L (98-107); Creatinine, Serum 0.63 mg/dL (0.55-1.02); EST Glomerular Filtration Rate 94 mL/min (>60); Est Glom Filt Rate - Afr Amer 114 mL/min (>60); Estimated Creatinine Clearance 65.26 ml/min; Glucose 93 mg/dL (74-106); Potassium 2.9 mmol/L (3.5-5.1); Sodium Level 140 mmol/L (136-145)
[2024-06-17 04:26] LABS: Vancomycin, Random Level 18.1 ug/mL (0.0-15.0)
[2024-06-17] MEDS: Vancomycin IV 1,000 MG/200 ML BAG 200 MG IV ×2 (05:00→16:00)
[2024-06-17] MEDS: Vancomycin Trough/Random Due 1 LAB MC (05:01)
[2024-06-17 05:05] VITALS: BP 106/57; PULSE 84; RESP 20; TEMP 37.1; O2SAT 94
[2024-06-17] MEDS: 0.9% Saline Lock 10 ML Syringe IV (05:06)
--- NOTE | 2024-06-17 05:50 | PCM.RX.CS ---
Consult Antibiotic Management Pharmacy has been consulted to manage selected antibiotic: Vancomycin Type of Intervention Type of Consult: Follow-up Labs Labs: Sodium 140 mmol/L (136-145) 06/17/24 03:20 Potassium 2.9 mmol/L (3.5-5.1) L 06/17/24 03:20 Chloride 103 mmol/L (98-107) 06/17/24 03:20 Carbon Dioxide 32.0 mmol/L (21.0-32.0) 06/17/24 03:20 Anion Gap 5 (5-15) 06/17/24 03:20 BUN 14 mg/dL (7-18) 06/17/24 03:20 Creatinine 0.63 mg/dL (0.55-1.02) 06/17/24 03:20 Est GFR (MDRD) Af Amer 114 mL/min (>60) 06/17/24 03:20 Est GFR (MDRD) Non-Af 94 mL/min (>60) 06/17/24 03:20 BUN/Creatinine Ratio 22.2 RATIO (10-20) H 06/17/24 03:20 Glucose 93 mg/dL (74-106) 06/17/24 03:20 Vancomycin Trough 21.6 ug/mL (5.0-15.0) H 06/16/24 17:24 Random Vancomycin 18.1 ug/mL (0.0-15.0) H 06/17/24 03:20 Microbiology Microbiology: Microbiology 06/15/24 04:21 Sputum, Expectorated/Coughed Respiratory Culture - Preliminary Staphylococcus aureus Presumptive C albicans 06/12/24 04:50 Wound - Leg, Left Gram Stain - Final 06/12/24 04:50 Wound - Leg, Left Wound Culture - Preliminary Pseudomonas aeruginosa Klebsiella pneumoniae sp pneum Streptococcus agalactiae (B) GPC Poss Enterococcus sp 06/12/24 04:50 Wound - Leg, Left Skin and Soft Tissue MRSA/MSSA (PCR - Final 06/11/24 17:15 Blood Culture (Wb) - Anticubital Right Blood Culture - Preliminary No growth in 48 hours. 06/12/24 04:20 Urine, Clean Catch Streptococcus pneumoniae Antigen (M - Final 06/12/24 04:20 Urine, Clean Catch Legionella Antigen - Final 06/12/24 01:36 Nasal Secretion MRSA (PCR) - Final Meth. resistant Staph. aureus 06/12/24 01:02 Mucosa - Nose Respiratory Panel (PCR) - Final 06/11/24 17:42 Mucosa - Nose SARS-CoV-2, Influenza & RSV (PCR) - Final Goal Trough Goal Trough: 15-20 mcg/mL Pharmacy Plan for Drug Dosing Pharmacy Plan for Drug Dosing: Pharmacy Service will continue to monitor and adjust dosing as required. RANDOM LEVEL 18.1. START 1000MG Q12H AND FOLLOW UP TROUGH PRIOR TO 4TH DOSE Follow-Up Labs Follow-Up Labs: Trough: Vancomycin Date/Time Labs Ordered Labs to be done on [date and time ordered]: 06/18 @ 1600
[2024-06-17 05:55] VITALS: BMI 44.9
[2024-06-17] MEDS: Piperacil/Tazobactam 3.375 GM in 0.9% Normal Saline (50mL MB+) 50 ML IV (06:38)
[2024-06-17] MEDS: Levothyroxine 125 MCG Tablet PO (06:39)
[2024-06-17] MEDS: Gabapentin 300 MG Capsule PO ×2 (06:44→15:31)
[2024-06-17 07:15] VITALS: PULSE 94; RESP 16; O2SAT 93
[2024-06-17] MEDS: Budesonide Respules 0.5 MG/2 ML AMPUL.NEB. INHALATION (07:15)
--- NOTE | 2024-06-17 08:27 | PN.HOSP_ITS ---
Reason for Visit Reason for Visit: Diagnoses Unspecified atrial fibrillation (06/11/24) Pneumonia, unspecified organism (06/11/24) Cellulitis of left lower limb (06/11/24) Hypoxemia (06/11/24) Subjective Subjective Feels well. Objective Data Objective Data Vital Signs: Vital Signs Temp Pulse Resp BP Pulse Ox O2 Del Method O2 Flow Rate 37.1 C 94 16 106/57 L 93 Nasal Cannula 2 06/17/24 05:05 06/17/24 07:15 06/17/24 07:15 06/17/24 05:05 06/17/24 07:15 06/17/24 07:15 06/17/24 07:15 Oxygen Flow Rate (L/min) 2 Oxygen Delivery Method Nasal Cannula Weight: 122.3 kg Body Mass Index (BMI) 44.9 Intake & Output: Intake and Output for Last 24 Hours 06/15/24 06/16/24 06/17/24 23:59 23:59 23:59 Intake Total 900 / 1020 1025 / 1265 490 / 490 Output Total 525 / 2825 4650 / 6250 2300 / 2300 Balance 375 / -1805 -3625 / -4985 -1810 / -1810 Lab / Micro Data 06/17/24 03:20 06/17/24 03:20 Labs: Laboratory Results - last 24 hr 06/16/24 17:24: Vancomycin Trough 21.6 H 06/17/24 03:20: WBC 6.8, RBC 3.53 L, Hgb 10.9 L, Hct 33.9 L, MCV 96.0, MCH 30.9, MCHC 32.2, RDW Std Deviation 46.9 H, RDW Coeff of Radha 13.3, Plt Count 284, MPV 8.4, Immature Gran % (Auto) 0.400, Neut % (Auto) 59.0, Lymph % (Auto) 17.2 L, M hina % (Auto) 16.8 H, Eos % (Auto) 5.7 H, Baso % (Auto) 0.9, Absolute Neuts (auto) 4.0, Absolute Lymphs (auto) 1.17, Nucleated RBC % 0, Sodium 140, P otassium 2.9 L, Chloride 103, Carbon Dioxide 32.0, Anion Gap 5, BUN 14, Creatinine 0.63, Estim Creat Clear Calc 65.26, Est GFR (MDRD) Af Amer 114, Est GFR (MDRD) Non-Af 94, BUN/Creatinine Ratio 22.2 H, Glucose 93, Calcium 8.7, R andom Vancomycin 18.1 H Micro: Microbiology 06/11/24 17:15 Blood Culture (Wb) - Anticubital Right Blood Culture - Final No growth in 5 days. 06/12/24 04:50 Wound - Leg, Left Gram Stain - Final 06/12/24 04:50 Wound - Leg, Left Wound Culture - Final Pseudomonas aeruginosa Klebsiella pneumoniae sp pneum Streptococcus agalactiae (B) Enterococcus faecalis 06/12/24 04:50 Wound - Leg, Left Skin and Soft Tissue MRSA/MSSA (PCR - Final 06/15/24 04:21 Sputum, Expectorated/Coughed Respiratory Culture - Preliminary Staphylococcus aureus Presumptive C albicans 06/12/24 04:20 Urine, Clean Catch Streptococcus pneumoniae Antigen (M - Final 06/12/24 04:20 Urine, Clean Catch Legionella Antigen - Final 06/12/24 01:36 Nasal Secretion MRSA (PCR) - Final Meth. resistant Staph. aureus 06/12/24 01:02 Mucosa - Nose Respiratory Panel (PCR) - Final 06/11/24 17:42 Mucosa - Nose SARS-CoV-2, Influenza & RSV (PCR) - Final Physical Exam Const alert and no apparent distress HEENT head/scalp atraumatic and moist oral mucous membranes Resp normal respiratory effort, no retractions, no use of accessory muscles and clear to auscultation bilaterally Cardio regular rate, regular rhythm, S1 normal heart sound and S2 normal heart sound GI normal to inspection, nondistended, normoactive bowel sounds, soft to palpation, non-tender and non-distended Extremity Extremity Narrative: ongoing LE edema. Assessment & Plan Assessment/Plan (1) Hypoxemia: (2) Atrial fibrillation with RVR: (3) Pneumonia: (4) Cellulitis of left leg: PLAN: Plan MRSA pneumonia * abx w pip/tazo and vanc * nasal swab + for MRSA, SCx showing S. aureus. , strep and legionella antigens negative. * SCx showing MRSA sensitive to [place], Gent, Linezolid and vancomycin. * PEP LLE infected wound * CTA did not show any critical stenosis, but showed SQ edema along the medial portion of left thigh * wound culture showing pansensitive Pseudomonas sp, Klebsiella, Group B strep and E. faecalis * elevate LLE * continue vanc and change pip/tazo to amp/SB. pAfib w RVR: * resolved. * did receive amiodarone * continue apixaban and metoprolol tartrate Dysphagia * Had MBSS 06/13: Mild-Mod oropharyngeal dysphagia Esophageal dysphagia * recommending puree textures and nectar thickened liquids. Chronic conditions: * HFpEF: compensated * hypothyroidism: levothyroxine * obesity class III: complicates care and recovery. * Anasarca: add IV furosemide for now. Fluid restrict. VTE prophylaxis: not indicated as already on apixaban. Disposition: back [facility] pending final culture results. Charges/Coding Visit Charges Inpatient E&M: 96982 Subs Hosp L2
[2024-06-17 09:07] VITALS: PULSE 98
[2024-06-17] MEDS: Metoprolol Tartrate 25 MG Tablet 12.5 MG PO (09:07)
[2024-06-17] MEDS: Nystatin Powder 15gm Bottle 1 APPLIC TOPICAL (09:08)
[2024-06-17] MEDS: Furosemide 40 MG/4 ML Vial IV ×2 (09:08→17:03)
[2024-06-17] MEDS: Menthol/Lanolin/Calamine/Znox 113 GM Tube 1 APPLIC TOPICAL ×3 (09:08→15:31)
--- NOTE | 2024-06-17 09:16 | WOUNDNOTE ---
wound photo: left lower leg
[2024-06-17 11:00] VITALS: BP 113/71; PULSE 89; RESP 18; TEMP 36.7; O2SAT 94
[2024-06-17] MEDS: APIXABAN 2.5 MG TABLET (WCH) PO (12:04)
[2024-06-17] MEDS: Ampicillin/Sulbactam 3 GM in 0.9% Normal Saline (100mL MB+) 100 ML IV ×2 (12:13→17:04)
--- NOTE | 2024-06-17 14:32 | PCM.TXEXTCAR ---
Diet Diet Order/Speech Therapy: 06/12/24 14:53 Diet: Regular - General Food consistency:: Pureed Liquid Consistency:: [place]/Mildly Thick Type of Dietary Supplement:: Brijesh w/ Brkft and Dinner Diet Comments: Close Sup;alt bit/sip;upright 60min after PO. Ensure Com w/ B & L DC O2, CPAP, BIPAP needs Additional Home O2 Discharge instructions: No Wound(s) Left Lower Extremity: Wound Type: Stasis Ulcer Dressing Change: Adaptic Buttock: Wound Type: Skin Tear Therapies Weight Bearing: Full weight bearing Physical Therapy: Eval and Treat Occupational Therapy: Eval and Treat Problem/Diagnosis (1) Hypoxemia: Status: Acute Code(s): R09.02 - Hypoxemia (2) Atrial fibrillation with RVR: Status: Acute Code(s): I48.91 - Unspecified atrial fibrillation (3) Pneumonia: Status: Acute Code(s): J18.9 - Pneumonia, unspecified organism (4) Cellulitis of left leg: Status: Acute Code(s): L03.116 - Cellulitis of left lower limb Plan MRSA pneumonia abx w pip/tazo and vanc nasal swab + for MRSA, SCx showing S. aureus. , strep and legionella antigens negative. SCx showing MRSA sensitive to [place], Gent, Linezolid and vancomycin. PEP LLE infected wound CTA did not show any critical stenosis, but showed SQ edema along the medial portion of left thigh wound culture showing pansensitive Pseudomonas sp, Klebsiella, Group B strep and E. faecalis elevate LLE continue vanc and change pip/tazo to amp/SB. pAfib w RVR: resolved. did receive amiodarone continue apixaban and metoprolol tartrate Dysphagia Had MBSS 06/13: Mild-Mod oropharyngeal dysphagia Esophageal dysphagia recommending puree textures and nectar thickened liquids. Chronic conditions: HFpEF: compensated hypothyroidism: levothyroxine obesity class III: complicates care and recovery. Anasarca: add IV furosemide for now. Fluid restrict. VTE prophylaxis: not indicated as already on apixaban. Disposition: [facility] pending final culture results. Allergies/Procedures Done in Hospital Allergies codeine Adverse Reaction (Verified 06/11/24 16:41) I just didn't like how it made me feel Procedures: None Type of Care/Length of Stay Estimated LOS: Convalescent Care Less Than 30 days Type of Care Needed: Skilled Rehab Potential: Fair Prognosis: Fair Additional Orders/Day of Discharge Day of Discharge: 06/17/24 Dietary and Speech Recommendations Dietitian Recommendations/Changes: Continue regular diet per [employer] consistency/texture recommendations. Continue brijesh BID with breakfast and dinner to promote wound healing and ensure compact BID with breakfast and lunch. Will d/c 1500ml fluid restriction d/t poor PO intake. Will monitor weight, as available. Consider nutrition support if pt continues to have poor PO. Reviewed and approved by Xi Heard, RD, LD. Discharge Plan Admission Admit Date/Time: 06/11/24 21:14 Primary Reason for Your Visit: pneumonia and left leg cellulitis. Attending Provider: Kuldeep Jackson Primary Care Provider: Linus Sierra Consulting Providers: [place] Discharge Orders/Prescriptions Prescriptions: New amoxicillin-pot clavulanate 875-125 mg tablet 1 tab PO BID 2 Days Qty: 4 0RF linezolid 600 mg tablet 600 mg PO BID 2 Days Qty: 4 0RF Continued furosemide [Lasix] 40 mg tablet 40 mg PO BID albuterol sulfate 2.5 mg /3 mL (0.083 %) solution for nebulization 2.5 mg inhalation Q4H PRN (Reason: shortness of breath or wheezing) bisacodyl 10 mg suppository 10 mg [place] DAILY PRN (Reason: constipation) mineral oil Enema 118 ml [place] DAILY PRN (Reason: constipation) magnesium hydroxide [Milk of Magnesia] 400 mg/5 mL suspension 30 ml PO DAILY PRN (Reason: stomach upset) guaifenesin [Mucinex] 600 mg tablet extended release 12hr 600 mg PO Q12H PRN (Reason: congestion) dyclonine 2 mg lozenge 2 mg PO Q6H PRN (Reason: mouth pain) multivitamin Tablet 1 tab PO DAILY ondansetron HCl 4 mg tablet 4 mg PO Q8H apixaban 2.5 mg tablet 2.5 mg PO BID potassium chloride [Klor-Con 10] 10 mEq tablet extended release 10 meq PO QDAY metoprolol tartrate 25 MG tablet 12.5 mg PO BID acetaminophen 325 MG tablet 650 mg PO Q6H PRN PRN (Reason: Pain Score 1-10/Temp > 100.7 F) 0RF gabapentin 300 MG capsule 300 mg PO TID levothyroxine 125 MCG tablet 125 mcg PO DAILY@0600 menthol-zinc oxide [Calmoseptine] 0.44-20.6 % Ointment 1 applic topical 4X/DAY Qty: 0 0RF Protocol: *Topical Application Instructions APPLICATION INSTRUCTIONS: apply to affected region miconazole nitrate [Desenex] 2 % Powder 1 applic topical BID Qty: 0 0RF Protocol: *Topical Application Instructions APPLICATION INSTRUCTIONS: to affected regions spironolactone 25 mg tablet 12.5 mg PO DAILY Referrals / Follow Up: Linus Sierra MD [Primary Care Provider] - Within 2 Weeks Disposition Disposition (needs filled in before D/C Order can be placed): [facility]
--- NOTE | 2024-06-17 14:37 | DS.PCM_ITS ---
Providers Date of Admission: 06/11/24 Primary Care Physician: Dr. Linus Sierra MD Consultations 06/11/24 23:56 Consult: Onc/Wound/power generation technician Routine Comment: Reason for Consult:: LLE chronic wound Reason For Visit: HYPOXIA, PNA, LLE WOUND, PAF RVR Diagnosis Discharge Diagnosis (1) Hypoxemia: Status: Acute Code(s): R09.02 - Hypoxemia (2) Atrial fibrillation with RVR: Status: Acute Code(s): I48.91 - Unspecified atrial fibrillation (3) Pneumonia: Status: Acute Code(s): J18.9 - Pneumonia, unspecified organism (4) Cellulitis of left leg: Status: Acute Code(s): L03.116 - Cellulitis of left lower limb Plan MRSA pneumonia * abx w pip/tazo and vanc * nasal swab + for MRSA, SCx showing S. aureus. , strep and legionella antigens negative. * SCx showing MRSA sensitive to Clinca, Gent, Linezolid and vancomycin. * PEP * DC with linezolid to complete a 7-day course of abx. LLE infected wound * CTA did not show any critical stenosis, but showed SQ edema along the medial portion of left thigh * wound culture showing pansensitive Pseudomonas sp, Klebsiella, Group B strep and E. faecalis * elevate LLE * continue vanc and change pip/tazo to amp/SB. * DC with Augmentin to complete a 7-day course of abx. pAfib w RVR: * resolved. * did receive amiodarone * continue apixaban and metoprolol tartrate Dysphagia * Had MBSS 06/13: Mild-Mod oropharyngeal dysphagia Esophageal dysphagia * recommending puree textures and nectar thickened liquids. Chronic conditions: * HFpEF: compensated * hypothyroidism: levothyroxine * obesity class III: complicates care and recovery. * Anasarca: add IV furosemide for now. Fluid restrict. VTE prophylaxis: not indicated as already on apixaban. Disposition: back [facility] pending final culture results. Medications at Discharge Home Medications metoprolol tartrate 25 mg tablet 12.5 mg PO BID blood pressure 09/28/20 acetaminophen 325 mg tablet 650 mg (2 x 325 mg) PO Q6H PRN PRN Pain Score 1- 10/Temp > 100.7 F 09/30/20 gabapentin 300 mg capsule 300 mg PO TID postherpetic neuralgia 10/11/20 levothyroxine 125 mcg tablet 125 mcg PO DAILY@0600 hypothyroid 10/11/20 menthol 0.44 %-zinc oxide 20.6 % topical ointment (Calmoseptine) 1 applic topical 4X/DAY #0 grams 04/20/23 miconazole nitrate 2 % topical powder (Desenex) 1 applic topical BID #0 grams 04/20/23 albuterol sulfate 2.5 mg/3 mL (0.083 %) solution for nebulization 2.5 mg inhalation Q4H PRN shortness of breath or wheezing 08/01/23 bisacodyl 10 mg rectal suppository 10 mg NE DAILY PRN constipation 08/01/23 dyclonine 2 mg lozenges 2 mg PO Q6H PRN mouth pain 08/01/23 furosemide 40 mg tablet (Lasix) 40 mg PO BID 08/01/23 guaifenesin 600 mg tablet, extended release 12 hr (Mucinex) 600 mg PO Q12H PRN congestion 08/01/23 magnesium hydroxide 400 mg/5 mL oral suspension (Milk of Magnesia) 30 ml PO DAILY PRN stomach upset 08/01/23 mineral oil 118 ml NE DAILY PRN constipation 08/01/23 multivitamin 1 tab PO DAILY 08/01/23 ondansetron HCl 4 mg tablet 4 mg PO Q8H 08/17/23 apixaban 2.5 mg tablet 2.5 mg PO BID 03/06/24 potassium chloride 10 mEq tablet,extended release (Klor-Con) 10 meq PO QDAY 03/06/24 spironolactone 25 mg tablet 12.5 mg PO DAILY 06/11/24 amoxicillin 875 mg-potassium clavulanate 125 mg tablet 1 tab PO BID 2 days #4 tabs 06/17/24 linezolid 600 mg tablet 600 mg PO BID 2 days #4 tabs 06/17/24 Hospital Course Operations None Procedures None Summary of Care Provided Minutes Spent on Discharge: 32 Weight / BMI Weight Weight: 122.3 kg Body Mass Index (BMI) 44.9 ABG / Lab / Microbiology Data 06/17/24 03:20 06/17/24 03:20 Laboratory: Laboratory Results - last 24 hr 06/16/24 17:24: Vancomycin Trough 21.6 H 06/17/24 03:20: WBC 6.8, RBC 3.53 L, Hgb 10.9 L, Hct 33.9 L, MCV 96.0, MCH 30.9, MCHC 32.2, RDW Std Deviation 46.9 H, RDW Coeff of Radha 13.3, Plt Count 284, MPV 8.4, Immature Gran % (Auto) 0.400, Neut % (Auto) 59.0, Lymph % (Auto) 17.2 L, M hina % (Auto) 16.8 H, Eos % (Auto) 5.7 H, Baso % (Auto) 0.9, Absolute Neuts (auto) 4.0, Absolute Lymphs (auto) 1.17, Nucleated RBC % 0, Sodium 140, P otassium 2.9 L, Chloride 103, Carbon Dioxide 32.0, Anion Gap 5, BUN 14, Creatinine 0.63, Estim Creat Clear Calc 65.26, Est GFR (MDRD) Af Amer 114, Est GFR (MDRD) Non-Af 94, BUN/Creatinine Ratio 22.2 H, Glucose 93, Calcium 8.7, R andom Vancomycin 18.1 H Microbiology: Microbiology 06/15/24 04:21 Sputum, Expectorated/Coughed Gram Stain - Final 06/15/24 04:21 Sputum, Expectorated/Coughed Respiratory Culture - Final Meth. resistant Staph. aureus Presumptive C albicans 06/11/24 17:15 Blood Culture (Wb) - Anticubital Right Blood Culture - Final No growth in 5 days. 06/12/24 04:50 Wound - Leg, Left Gram Stain - Final 06/12/24 04:50 Wound - Leg, Left Wound Culture - Final Pseudomonas aeruginosa Klebsiella pneumoniae sp pneum Streptococcus agalactiae (B) Enterococcus faecalis 06/12/24 04:50 Wound - Leg, Left Skin and Soft Tissue MRSA/MSSA (PCR - Final 06/12/24 04:20 Urine, Clean Catch Streptococcus pneumoniae Antigen (M - Final 06/12/24 04:20 Urine, Clean Catch Legionella Antigen - Final 06/12/24 01:36 Nasal Secretion MRSA (PCR) - Final Meth. resistant Staph. aureus 06/12/24 01:02 Mucosa - Nose Respiratory Panel (PCR) - Final 06/11/24 17:42 Mucosa - Nose SARS-CoV-2, Influenza & RSV (PCR) - Final D/C Instructions DC O2, CPAP, BIPAP Needs Additional Home O2 Discharge instructions: No DC home with Oxygen: No Meaningful Use Info Meaningful Use Meaningful Use Diagnoses (Choose all that apply): None applicable Ischemic Stroke Statin Dosing Therapy Reference: STATIN DOSE THERAPY REFERENCE: * Patients > 75 years receive moderate or high dose statin therapy. * Patients 75 years or YOUNGER should receive HIGH intensity statin dose unless contraindicated. You will be required to document reason for non-treatment if statin daily dose does not meet guidelines. HIGH DOSE STATIN THERAPY DAILY Atorvastatin > than or = to 40 mg Rosuvastatin > than or = to 20 mg Amlodipine + Atorvastatin > than or = to 2.5/40 mg Ezetimibe + Simvastatin 10/80 mg Simvastatin 80mg Discharge Plan Admission Admit Date/Time: 06/11/24 21:14 Primary Reason for Your Visit: pneumonia and left leg cellulitis. Attending Provider: Kuldeep Jackson Primary Care Provider: Linus Sierra Consulting Providers: [place] Discharge Orders/Prescriptions Prescriptions: New amoxicillin-pot clavulanate 875-125 mg tablet 1 tab PO BID 2 Days Qty: 4 0RF linezolid 600 mg tablet 600 mg PO BID 2 Days Qty: 4 0RF Continued furosemide [Lasix] 40 mg tablet 40 mg PO BID albuterol sulfate 2.5 mg /3 mL (0.083 %) solution for nebulization 2.5 mg inhalation Q4H PRN (Reason: shortness of breath or wheezing) bisacodyl 10 mg suppository 10 mg NE DAILY PRN (Reason: constipation) mineral oil Enema 118 ml NE DAILY PRN (Reason: constipation) magnesium hydroxide [Milk of Magnesia] 400 mg/5 mL suspension 30 ml PO DAILY PRN (Reason: stomach upset) guaifenesin [Mucinex] 600 mg tablet extended release 12hr 600 mg PO Q12H PRN (Reason: congestion) dyclonine 2 mg lozenge 2 mg PO Q6H PRN (Reason: mouth pain) multivitamin Tablet 1 tab PO DAILY ondansetron HCl 4 mg tablet 4 mg PO Q8H apixaban 2.5 mg tablet 2.5 mg PO BID potassium chloride [Klor-Con 10] 10 mEq tablet extended release 10 meq PO QDAY metoprolol tartrate 25 MG tablet 12.5 mg PO BID acetaminophen 325 MG tablet 650 mg PO Q6H PRN PRN (Reason: Pain Score 1-10/Temp > 100.7 F) 0RF gabapentin 300 MG capsule 300 mg PO TID levothyroxine 125 MCG tablet 125 mcg PO DAILY@0600 menthol-zinc oxide [Calmoseptine] 0.44-20.6 % Ointment 1 applic topical 4X/DAY Qty: 0 0RF Protocol: *Topical Application Instructions APPLICATION INSTRUCTIONS: apply to affected region miconazole nitrate [Desenex] 2 % Powder 1 applic topical BID Qty: 0 0RF Protocol: *Topical Application Instructions APPLICATION INSTRUCTIONS: to affected regions spironolactone 25 mg tablet 12.5 mg PO DAILY Referrals / Follow Up: Linus Sierra MD [Primary Care Provider] - Within 2 Weeks Disposition Disposition (needs filled in before D/C Order can be placed): [facility] Charges/Coding Visit Charges Inpatient E&M: 11041 Disch Hosp >30min
--- NOTE | 2024-06-17 15:02 | PHA.DC_ITS ---
Pharmacy [facility] Reconciliation Pharmacy Service has performed discharge medication reconciliation for this patient. The patient's discharge medication list was reviewed for discrepancies and discrepancies were resolved. Medications at Discharge Home Medications metoprolol tartrate 25 mg tablet 12.5 mg PO BID blood pressure 09/28/20 acetaminophen 325 mg tablet 650 mg (2 x 325 mg) PO Q6H PRN PRN Pain Score 1- 10/Temp > 100.7 F 09/30/20 gabapentin 300 mg capsule 300 mg PO TID postherpetic neuralgia 10/11/20 levothyroxine 125 mcg tablet 125 mcg PO DAILY@0600 hypothyroid 10/11/20 menthol 0.44 %-zinc oxide 20.6 % topical ointment (Calmoseptine) 1 applic topical 4X/DAY #0 grams 04/20/23 miconazole nitrate 2 % topical powder (Desenex) 1 applic topical BID #0 grams 04/20/23 albuterol sulfate 2.5 mg/3 mL (0.083 %) solution for nebulization 2.5 mg inhalation Q4H PRN shortness of breath or wheezing 08/01/23 bisacodyl 10 mg rectal suppository 10 mg AL DAILY PRN constipation 08/01/23 dyclonine 2 mg lozenges 2 mg PO Q6H PRN mouth pain 08/01/23 furosemide 40 mg tablet (Lasix) 40 mg PO BID 08/01/23 guaifenesin 600 mg tablet, extended release 12 hr (Mucinex) 600 mg PO Q12H PRN congestion 08/01/23 magnesium hydroxide 400 mg/5 mL oral suspension (Milk of Magnesia) 30 ml PO DAILY PRN stomach upset 08/01/23 mineral oil 118 ml AL DAILY PRN constipation 08/01/23 multivitamin 1 tab PO DAILY 08/01/23 ondansetron HCl 4 mg tablet 4 mg PO Q8H 08/17/23 apixaban 2.5 mg tablet 2.5 mg PO BID 03/06/24 potassium chloride 10 mEq tablet,extended release (Klor-Con) 10 meq PO QDAY 03/06/24 spironolactone 25 mg tablet 12.5 mg PO DAILY 06/11/24 amoxicillin 875 mg-potassium clavulanate 125 mg tablet 1 tab PO BID 2 days #4 tabs 06/17/24 linezolid 600 mg tablet 600 mg PO BID 2 days #4 tabs 06/17/24
--- NOTE | 2024-06-17 15:15 | CASEMGMT ---
Discharge Planning Discharge orders, signed med list, and transport time sent to [facility] [place]. Physicians will transport patient by wheelchair at 6:30p. Nursing, SW, patient, and her granddaughter (Sarah) updated. Sarah will update other family members. Nazanin Chapman DC Planning Asst.
[2024-06-17] MEDS: Potassium Chloride Oral Tablet 20 MEQ 60 MEQ PO (15:31)
[2024-06-17 16:47] VITALS: BP 110/62; PULSE 96; RESP 18; TEMP 36.7; O2SAT 95
--- NOTE | 2024-06-17 17:44 | NURSING ---
This RN taking over care of patient.
== END 2024-06-17 19:11 | disposition skilled nursing facility (03) | DRG 178 ==
LOC: ED 20:42 → ICU 22:10 → PCU 06-13 17:09
PROVIDERS: Admitting Provider Family Medicine; Emergency Provider Emergency Medicine; PCP Family Medicine
DX: J15.212 Pneumonia due to Methicillin resistant Staphylococcus aureus (principal); I50.32 Chronic diastolic (congestive) heart failure; J44.0 Chronic obstructive pulmonary disease with (acute) lower respiratory infection; Z68.41 Body mass index [BMI] 40.0-44.9, adult; L03.116 Cellulitis of left lower limb; B96.1 Klebsiella pneumoniae [K. pneumoniae] as the cause of diseases classified elsewhere; I11.0 Hypertensive heart disease with heart failure; E03.9 Hypothyroidism, unspecified; I48.0 Paroxysmal atrial fibrillation; E66.01 Morbid (severe) obesity due to excess calories; E78.5 Hyperlipidemia, unspecified; S81.802D Unspecified open wound, left lower leg, subsequent encounter; B96.5 Pseudomonas (aeruginosa) (mallei) (pseudomallei) as the cause of diseases classified elsewhere; R09.02 Hypoxemia; Z79.01 Long term (current) use of anticoagulants; Z79.890 Hormone replacement therapy; E66.813 Obesity, class 3; R60.1 Generalized edema; R13.12 Dysphagia, oropharyngeal phase
CPT/HCPCS: 36415; 71045; 73706; 74230; 80048; 80053; 80202; 81001; 82962; 83605; 83735; 83880; 84443; 84484; 85025; 87040; 87070; 87077; 87149; 87184; 87186; 87205; 87449; 87631; 87633; 87640; 87641; 92526; 92610; 92611; 93005; 94640; 94668; 97116; 97162; 97166; 97530; 97535; 97803; 99285; J7030; J7040; J7050; Q9967; A4216; J0295; J1940